=== PATIENT | male | born 1965 | race Caucasian/White ===

== ENCOUNTER → 2016-07-21 | Outpatient (CLI) | payer OTHER, MEDICARE ==
[~2016-07-21] VITALS: Ht 170.2 cm; Wt 71.2 kg
[~2016-07-21] MED LIST: ALBU8.5H2 IH; AMLO10TA PO; Acetaminophen PO; Amlodipine Besylate PO; CALC667C10 PO; CATHETER FLUSH 10 ML SYR IV PRN; CLIN300C11 PO; CODE-54 PO; CPR500T PO; DOXA2TAB2 PO; DOXA4TAB2 PO; DXZS2T PO; HYDR-3729 PO; HYDR-3816 PO; IBUP200T48 PO; LORA-405 PO; METO-272 PO; METO50TA2 PO; Metoprolol Succinate PO; REGADENOSON 0.4 MG/5 ML SYR (LEXISCAN) IV ONE; TIOT18CA2 IH; ZOLP5TAB PO
[2016-07-21 08:57] VITALS: BP 178/98
--- NOTE | 2016-07-22 06:53 | STRESS TEST ---
DATE OF SERVICE: 07/21/2016 RESTING AND POST REGADENOSON TECHNETIUM 99M TETROFOSMIN SPECT CT IMAGING PRIMARY PHYSICIAN: Dr. Salgado. CLINICAL DIAGNOSIS: Chest discomfort, syncope, shortness of breath. Baseline images were carried out after injection of 10.62 mCi of technetium-99m tetrofosmin. This was followed by 0.4 mg regadenoson and 30.7 mCi of technetium-99m tetrofosmin for stress imaging. The electrocardiogram showed sinus rhythm at baseline and it did not change significantly with the regadenoson infusion. Review of images at rest and following stress does not indicate any significant perfusion defects consistent with significant myocardial ischemia or infarction. Gated images show normal global left ventricular systolic function with normal regional wall motion. Left ventricular ejection fraction is calculated to be 54%. Left ventricular end-diastolic volume is 119 mL. TID is absent (0.98). CONCLUSIONS: 1. No evidence of any significant myocardial ischemia or infarction on this study. 2. Normal regional wall motion. 3. Normal global left ventricular systolic function with a calculated ejection fraction of 54%. Job ID: [id number] DocumentID: [id number] Dictated Date: 07/21/2016 11:37:04 Recreational Vehicle Repairer Date: 07/21/2016 19:06:08 Dictated By: DONNA DOS SANTOS MD, MA, FACP, FACC,
== END ==
LOC: CARD 07-19 12:11
PROVIDERS: ATTEND Internal Medicine Cardiovascular Disease
DX: I10 Essential (primary) hypertension (principal); J43.8 Other emphysema; I73.9 Peripheral vascular disease, unspecified; R55 Syncope and collapse; R07.89 Other chest pain; R06.02 Shortness of breath; Z87.891 Personal history of nicotine dependence
CPT/HCPCS: 78452; 93017

== ENCOUNTER 2016-12-11 11:11 | Emergency (ER) | payer OTHER, MEDICARE ==
[~2016-12-11] VITALS: Ht 175.3 cm; Wt 63.5 kg
[~2016-12-11 11:11] MED LIST changes: -CATHETER FLUSH 10 ML SYR IV PRN; -REGADENOSON 0.4 MG/5 ML SYR (LEXISCAN) IV ONE
--- OUTSIDE RECORDS SUMMARY | 2016-12-11 11:17 | XMS REPORT ---
Author Author KARLA GUEVARA [facility] eClinicalWorks Address Unknown Phone Unavailable Care Team Providers Care Manager Pharmacy Name Role Phone KARLA GUEVARA CP Unavailable Allergies, Adverse Reactions, Alerts Substance Reaction Event Type N.K.D.A. Info Not Available Non Drug Allergy Problems Problem Type Condition Code Onset Dates Condition Status Assessment Lumbago with sciatica, unspecified side M54.40 Active Problem Other and unspecified alcohol dependence, unspecified drunkenness 303.90 Active Assessment Hypertension, benign I10 Active Assessment Anxiety disorder, unspecified F41.9 Active Assessment Other chronic pain G89.29 Active Problem Anxiety disorder, unspecified F41.9 Active Problem Chronic kidney disease N18.9 Active Problem Lumbago with sciatica, unspecified side M54.40 Active Problem Personal history of tobacco use, presenting hazards to health V15.82 Active Problem Anxiety state, unspecified 300.00 Active Problem Hypertension, benign I10 Active Problem Unspecified anemia 285.9 Active Medications Medication Code System Code Instructions Start Date End Date Status Dosage Hydrocodone-Acetaminophen [facility] [address]-02 5-325 MG Orally every 4 hrs 1 tablet as needed Spiriva HandiHaler [facility] [address]-00 18 MCG Inhalation Once a day August 25, [address] [facility] 0 50 MG Orally Once a day Apr 16, 2014 take 1 tablet (50 mg) by oral route once daily Lorazepam [facility] [address]-99 1 MG Orally, each fill must last 30 days 3 times a day, prn anxiety [address] [facility] [address]-47 90 mcg/actuation June 04, 2014 2 puffs by Inhalation route 4 times per day Procedures Procedure Coding System Code Date Office Visit, Est Pt., Level 3 CPT-4 78005 September 25, 2015 FORMERLY [facility], [facility] VISIT ESTABLISHED PATIENT CPT-4 G0467 September 25, 2015 Vital Signs Date/Time: September 25, 2015 Cardiac Monitoring Heart Rate 90 bpm Weight 164 lbs Height 69 in Blood Pressure Diastolic 80 mmHg Blood Pressure Systolic 130 mmHg Results No Known Results Summary Purpose eClinicalWorks Submission
--- OUTSIDE RECORDS SUMMARY | 2016-12-11 11:17 | XMS REPORT ---
Author Author KARLA GUEVARA [facility] eClinicalWorks Address Unknown Phone Unavailable Care Team Providers Care Baking Factory Worker Name Role Phone KARLA GUEVARA CP Unavailable Allergies No Known Allergies Problems Problem Type Condition Code Onset Dates Condition Status Assessment Hypertension, benign I10 Active Assessment Proteinuria R80.9 Active Problem Hypertension, benign I10 Active Problem Unspecified anemia 285.9 Active Problem Chronic kidney disease N18.9 Active Problem Other and unspecified alcohol dependence, unspecified drunkenness 303.90 Active Assessment Chronic kidney disease N18.9 Active Problem Personal history of tobacco use, presenting hazards to health V15.82 Active Problem Anxiety state, unspecified 300.00 Active Medications No Known Medications Procedures Procedure Coding System Code Date RENAL FUNCTION PANEL CPT-4 81743 Mar 06, 2015 URINALYSIS, AUTO W/SCOPE CPT-4 60854 Mar 06, 2015 COMPLETE CBC W/AUTO DIFF WBC CPT-4 95982 Mar 06, 2015 VENIPUNCT, ROUTINE* CPT-4 67194 Mar 06, 2015 Results No Known Results Summary Purpose eClinicalWorks Submission
--- OUTSIDE RECORDS SUMMARY | 2016-12-11 11:17 | XMS REPORT ---
Author Author KARLA GUEVARA [facility] eClinicalWorks Address Unknown Phone Unavailable Care Team Providers Care Comfort Station Attendant Name Role Phone KARLA GUEVARA CP Unavailable Allergies No Known Allergies Problems Problem Type Condition Code Onset Dates Condition Status Problem Hypertension, benign I10 Active Problem Unspecified anemia 285.9 Active Problem Chronic kidney disease N18.9 Active Problem Other and unspecified alcohol dependence, unspecified drunkenness 303.90 Active Problem Personal history of tobacco use, presenting hazards to health V15.82 Active Problem Anxiety state, unspecified 300.00 Active Medications No Known Medications Results No Known Results Summary Purpose eClinicalWorks Submission
--- OUTSIDE RECORDS SUMMARY | 2016-12-11 11:17 | XMS REPORT ---
Author LINH Livingston [facility] eClinicalWorks Address Unknown Phone Unavailable Care Team Providers Care Edger Automatic Name Role Phone LINH YORK CP Unavailable Allergies, Adverse Reactions, Alerts Substance Reaction Event Type N.K.D.A. Info Not Available Non Drug Allergy Problems Problem Type Condition Code Onset Dates Condition Status Problem Nausea with vomiting 787.01 Active Problem Hematuria, unspecified 599.70 Active Problem Personal history of tobacco use, presenting hazards to health V15.82 Active Problem Benign essential hypertension 401.1 Active Problem Unspecified disorder of kidney and ureter 593.9 Active Problem Hypertension, benign I10 Active Problem Loss of weight 783.21 Active Problem Unspecified anemia 285.9 Active Problem Other malaise and fatigue 780.79 Active Problem Shortness of breath 786.05 Active Problem Unspecified infective otitis externa 380.10 Active Problem Chest pain, unspecified 786.50 Active Problem Other and unspecified alcohol dependence, unspecified drunkenness 303.90 Active Assessment Hypertension, benign I10 Active Problem Anxiety state, unspecified 300.00 Active Medications Medication Code System Code Instructions Start Date End Date Status Dosage Viagra [facility] [address]-65 50 MG Orally Once a day August 25, 2014 Dec 23, 2014 1 tablet as needed Spiriva HandiHaler [facility] [address]-44 18 MCG Inhalation Once a day August 25, 2014 1 capsule Doxazosin Mesylate [facility] [address]-82 4 MG Orally 2 times a day Nov 07, 2014 1 tablet Amlodipine Besylate [facility] [address]-89 10 MG Orally Once a day 1 tablet Lorazepam [facility] [address]-66 1 MG 3 times a day 1 tablet ProAir HFA [facility] [address]-77 90 mcg/actuation June 04, 2014 2 puffs by Inhalation route 4 times per day Metoprolol Succinate [facility] 0 50 MG Orally Once a day Apr 16, 2014 take 1 tablet (50 mg) by oral route once daily Procedures Procedure Coding System Code Date Office Visit, Est Pt., Level 3 CPT-4 46895 Dec 19, 2014 Vital Signs Date/Time: Dec 19, 2014 Temperature 98.3 F Weight 153.8 lbs Height 69 in BMI 22.71 Index Blood Pressure Diastolic 92 mmHg Blood Pressure Systolic 154 mmHg Cardiac Monitoring Heart Rate 72 bpm Results No Known Results Summary Purpose eClinicalWorks Submission
--- OUTSIDE RECORDS SUMMARY | 2016-12-11 11:17 | XMS REPORT ---
Author Author KARLA GUEVARA [facility] eClinicalWorks Address Unknown Phone Unavailable Care Team Providers Care Patient Registration Specialist Name Role Phone KARLA GUEVARA CP Unavailable Allergies No Known Allergies Problems Problem Type Condition Code Onset Dates Condition Status Problem Chronic kidney disease N18.9 Active Problem Hypertension, benign I10 Active Problem Anxiety disorder, unspecified F41.9 Active Problem Anxiety state, unspecified 300.00 Active Problem Other and unspecified alcohol dependence, unspecified drunkenness 303.90 Active Problem Unspecified anemia 285.9 Active Problem Personal history of tobacco use, presenting hazards to health V15.82 Active Medications No Known Medications Results No Known Results Summary Purpose eClinicalWorks Submission
--- OUTSIDE RECORDS SUMMARY | 2016-12-11 11:17 | XMS REPORT ---
Author Author KARLA GUEVARA Organization eClinicalWorks Address Unknown Phone Unavailable Care Team Providers Care Coal Inspector Name Role Phone KARLA GUEVARA CP Unavailable Allergies No Known Allergies Problems Problem Type Condition Code Onset Dates Condition Status Problem Other and unspecified alcohol dependence, unspecified drunkenness 303.90 Active Problem Anxiety disorder, unspecified F41.9 Active Problem Chronic kidney disease N18.9 Active Problem Lumbago with sciatica, unspecified side M54.40 Active Problem Personal history of tobacco use, presenting hazards to health V15.82 Active Problem Anxiety state, unspecified 300.00 Active Problem Hypertension, benign I10 Active Problem Unspecified anemia 285.9 Active Medications No Known Medications Results No Known Results Summary Purpose eClinicalWorks Submission
--- OUTSIDE RECORDS SUMMARY | 2016-12-11 11:17 | XMS REPORT ---
Author Author LINH YORK Organization eClinicalWorks Address Unknown Phone Unavailable Care Team Providers Care Passenger Flagman Name Role Phone LINH YORK CP Unavailable Allergies No Known Allergies Problems [...] Medications Procedures Procedure Coding System Code Date LIPID PANEL CPT-4 90013 Dec 31, 2014 COMPREHEN METABOLIC PANEL CPT-4 41482 Dec 31, 2014 COMPLETE CBC W/AUTO DIFF WBC CPT-4 48129 Dec 31, 2014 VENIPUNCT, ROUTINE* CPT-4 37447 Dec 31, 2014 Results Name Result Date Reference Range Unit Abnormality Flag ROUTINE VENIPUNCTURE Summary Purpose eClinicalWorks Submission
--- OUTSIDE RECORDS SUMMARY | 2016-12-11 11:18 | XMS REPORT ---
Author Author KARLA GUEVARA [facility] eClinicalWorks Address Unknown Phone Unavailable Care Team Providers Care Intelligence Senior Sergeant Name Role Phone KARLA GUEVARA CP Unavailable Allergies No Known Allergies Problems Problem Type Condition Code Onset Dates Condition Status Assessment Proteinuria R80.9 Active Assessment Essential hypertension I10 Active Assessment Cellulitis of leg L03.119 Active Problem Hypertension, benign I10 Active Problem Unspecified anemia 285.9 Active Problem Chronic kidney disease N18.9 Active Problem Other and unspecified alcohol dependence, unspecified drunkenness 303.90 Active Assessment Chronic kidney disease, stage IV (severe) N18.4 Active Problem Personal history of tobacco use, presenting hazards to health V15.82 Active Problem Anxiety state, unspecified 300.00 Active Medications No Known Medications Procedures Procedure Coding System Code Date ASSAY OF PSA, TOTAL CPT-4 62226 Feb 04, 2015 ASSAY OF PARATHORMONE CPT-4 88141 Feb 04, 2015 ACUTE HEPATITIS PANEL CPT-4 30618 Feb 04, 2015 ASSAY OF VITAMIN D CPT-4 91977 Feb 04, 2015 IRON BINDING TEST CPT-4 76949 Feb 04, 2015 ASSAY OF BLOOD/URIC ACID CPT-4 82950 Feb 04, 2015 ASSAY OF CALCIUM CPT-4 90658 Feb 04, 2015 PROTHROMBIN TIME CPT-4 93532 Feb 04, 2015 THROMBOPLASTIN TIME, PARTIAL CPT-4 04282 Feb 04, 2015 FLUORESCENT ANTIBODY, TITER CPT-4 31114 Feb 04, 2015 COMPLETE CBC W/AUTO DIFF WBC CPT-4 95740 Feb 04, 2015 COMPLEMENT, ANTIGEN CPT-4 40196 Feb 04, 2015 ANTINUCLEAR ANTIBODIES CPT-4 14523 Feb 04, 2015 ASSAY OF FERRITIN CPT-4 51179 Feb 04, 2015 ASSAY OF URINE CREATININE CPT-4 39025 Feb 04, 2015 ASSAY, NEPHELOMETRY NOT SPEC CPT-4 61355 Feb 04, 2015 ASSAY OF PROTEIN CPT-4 04131 Feb 04, 2015 RENAL FUNCTION PANEL CPT-4 57014 Feb 04, 2015 ASSAY OF SERUM PROTEINS CPT-4 33357 Feb 04, 2015 VENIPUNCT, ROUTINE* CPT-4 36021 Feb 04, 2015 ASSAY OF PROTEIN, URINE CPT-4 00079 Feb 04, 2015 PROTEIN E-PHORESIS/URINE/CSF CPT-4 32194 Feb 04, 2015 Results No Known Results Summary Purpose eClinicalWorks Submission
--- OUTSIDE RECORDS SUMMARY | 2016-12-11 11:18 | XMS REPORT ---
Author Author KARLA GUEVARA [facility] Address [address] [place] [address] Care Team Providers Care Medical Administrator Name Role Phone KARLA GUEVARA Unavailable PROBLEMS Type Condition ICD9-CM Code DHM38-PC Code Onset Dates Condition Status SNOMED Code Problem Anxiety disorder, unspecified F41.9 Active 712941786 Problem Cigarette nicotine dependence without complication F17.210 Active 82107190 Problem Chronic kidney disease N18.9 Active 702263041 Problem Hypertension, benign I10 Active 90423026 Problem Insomnia, unspecified type G47.00 Active 763846769 Problem Lumbago with sciatica, unspecified side M54.40 Active 775087261 ALLERGIES Unknown Allergies SOCIAL HISTORY No smoking Hx information available PLAN OF CARE VITAL SIGNS MEDICATIONS Unknown Medications RESULTS No Results PROCEDURES No Known procedures IMMUNIZATIONS No Known Immunizations
--- OUTSIDE RECORDS SUMMARY | 2016-12-11 11:18 | XMS REPORT ---
Author Author KARLA GUEVARA [facility] eClinicalWorks Address Unknown Phone Unavailable Care Team Providers Care Sport Shoe Spike Assembler Name Role Phone KARLA GUEVARA CP Unavailable Allergies No Known Allergies Problems Problem Type Condition ICD-9 Code Onset Dates Condition Status Problem Anxiety state, unspecified 300.00 Active Problem Personal history of tobacco use, presenting hazards to health V15.82 Active Problem Nausea with vomiting 787.01 Active Problem Unspecified disorder of kidney and ureter 593.9 Active Problem Other malaise and fatigue 780.79 Active Problem Benign essential hypertension 401.1 Active Problem Unspecified anemia 285.9 Active Problem Hematuria, unspecified 599.70 Active Problem Shortness of breath 786.05 Active Problem Loss of weight 783.21 Active Problem Unspecified infective otitis externa 380.10 Active Problem Chest pain, unspecified 786.50 Active Problem Other and unspecified alcohol dependence, unspecified drunkenness 303.90 Active Medications Medication Code System Code Instructions Start Date End Date Status Dosage Doxazosin Mesylate [facility] [address]-51 4 MG Orally 2 times a day Nov 07, 2014 1 tablet Results No Known Results Summary Purpose eClinicalWorks Submission
--- OUTSIDE RECORDS SUMMARY | 2016-12-11 11:18 | XMS REPORT ---
Author Author KARLA GUEVARA [facility] eClinicalWorks Address Unknown Phone Unavailable Care Team Providers Care Wire Chief Name Role Phone KARLA GUEVARA CP Unavailable [...] Medications Procedures Procedure Coding System Code Date COMPLETE CBC W/AUTO DIFF WBC CPT-4 66371 Jan 29, 2015 URINALYSIS, AUTO W/SCOPE CPT-4 85957 Jan 29, 2015 RENAL FUNCTION PANEL CPT-4 82737 Jan 29, 2015 ASSAY OF URINE CREATININE CPT-4 67531 Jan 29, 2015 ASSAY OF PROTEIN, URINE CPT-4 96273 Jan 29, 2015 VENIPUNCT, ROUTINE* CPT-4 03235 Jan 29, 2015 Results Name Result Date Reference Range Unit Abnormality Flag ROUTINE VENIPUNCTURE Summary Purpose eClinicalWorks Submission
--- OUTSIDE RECORDS SUMMARY | 2016-12-11 11:18 | XMS REPORT ---
Author Author KARLA GUEVARA [facility] eClinicalWorks Address Unknown Phone Unavailable Care Team Providers Care Vp Celebrity Services Name Role Phone KARLA GUEVRAA CP Unavailable Allergies No Known Allergies Problems [...]
--- OUTSIDE RECORDS SUMMARY | 2016-12-11 11:18 | XMS REPORT ---
Author Author KARLA GUEVARA [facility] eClinicalWorks Address Unknown Phone Unavailable Care Team Providers Care Surveyor'S Assistant Name Role Phone KARLA GUEVARA CP Unavailable Allergies, Adverse Reactions, Alerts Substance Reaction Event Type N.K.D.A. Info Not Available Non Drug Allergy Problems Problem Type Condition Code Onset Dates Condition Status Problem Hypertension, benign I10 Active Problem Unspecified anemia 285.9 Active Problem Chronic kidney disease N18.9 Active Problem Other and unspecified alcohol dependence, unspecified drunkenness 303.90 Active Assessment Hypertension, benign I10 Active Problem Personal history of tobacco use, presenting hazards to health V15.82 Active Problem Anxiety state, unspecified 300.00 Active Medications Medication Code System Code Instructions Start Date End Date Status Dosage ProAir HFA [facility] [address]-78 90 mcg/actuation June 04, 2014 2 puffs by Inhalation route 4 times per day Lasix [facility] [address]-48 40 MG Orally Once a day Jan 09, 2015 1 tablet Lorazepam [facility] [address]-09 1 MG 3 times a day 1 tablet Doxazosin Mesylate [facility] [address]-90 4 MG Orally 2 times a day Nov 07, 2014 1 tablet Spiriva HandiHaler [facility] [address]-18 18 MCG Inhalation Once a day August 25, 2014 1 capsule Metoprolol Succinate [facility] 0 50 MG Orally Once a day Apr 16, 2014 take 1 tablet (50 mg) by oral route once daily Amlodipine Besylate [facility] [address]-92 10 MG Orally Once a day 1 tablet Procedures Procedure Coding System Code Date Office Visit, Est Pt., Level 2 CPT-4 16501 Feb 05, 2015 Vital Signs Date/Time: Feb 05, 2015 Temperature 98.0 F Weight 146 lbs Height 69 in BMI 21.56 Index Blood Pressure Diastolic 92 mmHg Blood Pressure Systolic 170 mmHg Cardiac Monitoring Heart Rate 78 bpm Results No Known Results Summary Purpose eClinicalWorks Submission
--- OUTSIDE RECORDS SUMMARY | 2016-12-11 11:18 | XMS REPORT ---
Author Author LINH YORK Organization eClinicalWorks Address Unknown Phone Unavailable Care Team Providers Care Mincemeat Maker Name Role Phone LINH YORK CP Unavailable [...] dependence, unspecified drunkenness 303.90 Active Problem Anxiety state, unspecified 300.00 Active Medications No Known Medications Results No Known Results Summary Purpose eClinicalWorks Submission
--- OUTSIDE RECORDS SUMMARY | 2016-12-11 11:18 | XMS REPORT ---
Author Author KARLA GUEVARA [facility] eClinicalWorks Address Unknown Phone Unavailable Care Team Providers Care Macerator Operator Name Role Phone KARLA GUEVARA CP Unavailable [...]
--- OUTSIDE RECORDS SUMMARY | 2016-12-11 11:18 | XMS REPORT ---
Author Author LINH YORK Organization eClinicalWorks Address Unknown Phone Unavailable Care Team Providers Care Inserting Machine Operator Name Role Phone LINH YORK CP Unavailable [...] Instructions Start Date End Date Status Dosage Metoprolol Succinate [facility] 0 50 MG Orally Once a day Apr 16, 2014 take 1 tablet (50 mg) by oral route once daily Doxazosin Mesylate [facility] [address]-87 4 MG Orally 2 times a day Nov 07, 2014 1 tablet Amlodipine Besylate [facility] [address]-47 10 MG Orally Once a day 1 tablet Results No Known Results Summary Purpose eClinicalWorks Submission
--- OUTSIDE RECORDS SUMMARY | 2016-12-11 11:18 | XMS REPORT ---
Author Author KARLA GUEVARA [facility] eClinicalWorks Address Unknown Phone Unavailable Care Team Providers Care Counter Tacker Name Role Phone KARLA GUEVARA CP Unavailable Allergies No Known Allergies Problems Problem Type Condition Code Onset Dates Condition Status Problem Anxiety disorder, unspecified F41.9 Active Problem Chronic kidney disease N18.9 Active Problem Lumbago with sciatica, unspecified side M54.40 Active Problem Hypertension, benign I10 Active Medications No Known Medications Results No Known Results Summary Purpose eClinicalWorks Submission
--- OUTSIDE RECORDS SUMMARY | 2016-12-11 11:18 | XMS REPORT ---
Author Author LINH YORK [facility] eClinicalWorks Address Unknown Phone Unavailable Care Team Providers Care Supervisor Scouring Pads Name Role Phone LINH YORK CP Unavailable [...] Medications Procedures Procedure Coding System Code Date COMPREHEN METABOLIC PANEL CPT-4 06659 Jan 23, 2015 VENIPUNCT, ROUTINE* CPT-4 08679 Jan 23, 2015 COMPLETE CBC W/AUTO DIFF WBC CPT-4 17553 Jan 23, 2015 Results Name Result Date Reference Range Unit Abnormality Flag ROUTINE VENIPUNCTURE Summary Purpose eClinicalWorks Submission
--- OUTSIDE RECORDS SUMMARY | 2016-12-11 11:19 | XMS REPORT ---
Author Author KARLA GUEVARA [facility] eClinicalWorks Address Unknown Phone Unavailable Care Team Providers Care Aircraft Instrument Tester Name Role Phone KARLA GUEVARA CP Unavailable [...]
--- OUTSIDE RECORDS SUMMARY | 2016-12-11 11:19 | XMS REPORT ---
Author Author KARLA GUEVARA [facility] eClinicalWorks Address Unknown Phone Unavailable Care Team Providers Care Board Certified Family Physician Name Role Phone KARLA GUEVARA CP Unavailable [...]
--- OUTSIDE RECORDS SUMMARY | 2016-12-11 11:19 | XMS REPORT ---
Author Author KARLA GUEVARA [facility] eClinicalWorks Address Unknown Phone Unavailable Care Team Providers Care Drop Wirer Name Role Phone KARLA GUEVARA CP Unavailable Allergies, Adverse Reactions, Alerts Substance Reaction Event Type N.K.D.A. Info Not Available Non Drug Allergy Problems Problem Type Condition Code Onset Dates Condition Status Problem Anxiety disorder, unspecified F41.9 Active Problem Chronic kidney disease N18.9 Active Problem Lumbago with sciatica, unspecified side M54.40 Active Assessment Anxiety disorder, unspecified F41.9 Active Problem Hypertension, benign I10 Active Assessment Lumbago with sciatica, unspecified side M54.40 Active Medications Medication Code System Code Instructions Start Date End Date Status Dosage Hydrocodone-Acetaminophen [facility] [address]-70 7.5-325 MG Orally hs Jan 08, 2016 1 tablet as needed Lorazepam [facility] [address]-87 1 MG Orally, each fill must last 30 days 3 times a day, prn anxiety 1 tablet Ambien [facility] [address]-55 5 mg Orally Once a day Jan 08, 2016 1 tablet at bedtime Procedures Procedure Coding System Code Date Office Visit, Est Pt., Level 2 CPT-4 08515 Jan 08, 2016 Vital Signs Date/Time: Jan 08, 2016 Cardiac Monitoring Heart Rate 92 bpm Weight 162.3 lbs Height 69 in BMI 23.96 Index Blood Pressure Diastolic 100 mmHg Blood Pressure Systolic 151 mmHg Results No Known Results Summary Purpose eClinicalWorks Submission
--- OUTSIDE RECORDS SUMMARY | 2016-12-11 11:19 | XMS REPORT ---
Author Author LINH YORK Organization eClinicalWorks Address Unknown Phone Unavailable Care Team Providers Care Finance Professor Name Role Phone LINH YORK CP Unavailable [...]
--- OUTSIDE RECORDS SUMMARY | 2016-12-11 11:19 | XMS REPORT ---
Author Author NAEL MAYORGA [facility] eClinicalWorks Address Unknown Phone Unavailable Care Team Providers Care Textbook Associate Name Role Phone NAEL MAYORGA CP Unavailable Allergies No Known Allergies Problems [...]
--- OUTSIDE RECORDS SUMMARY | 2016-12-11 11:19 | XMS REPORT ---
Author Author KARLA GUEVARA [facility] Address [address] [place] [address] Care Team Providers Care Chemical Tank Worker Name Role Phone KARLA GUEVARA Unavailable PROBLEMS Type Condition ICD9-CM Code [id number] Code Onset Dates Condition Status SNOMED Code Problem Lumbago with sciatica, unspecified side M54.40 Active 732621008 Problem Anxiety disorder, unspecified F41.9 Active 323264917 Assessment Second degree burn of back of hand, right, initial encounter T23.261A Nov, Active 88587038 Problem Chronic kidney disease N18.9 Active 855763935 Problem Hypertension, benign I10 Active 26496429 ALLERGIES Substance Reaction Event Type Date Status N.K.D.A. Unknown Non Drug Allergy Nov, Unknown SOCIAL HISTORY No smoking Hx information available PLAN OF CARE VITAL SIGNS Height 69 in 2015-11-26 Weight 163 lbs 2015-11-26 Heart Rate 88 bpm 2015-11-26 Respiratory Rate 16 2015-11-26 BMI 24.07 kg/m2 2015-11-26 Blood pressure systolic 110 mmHg 2015-11-26 Blood pressure diastolic 72 mmHg 2015-11-26 MEDICATIONS Medication Instructions Dosage Frequency Start Date End Date Duration Status ProAir HFA 90 mcg/actuation 2 puffs by Inhalation route 4 times per day May, Active Spiriva HandiHaler 18 MCG Inhalation Once a day 1 capsule 24h Aug, Active Silvadene 1 % Externally Once a day 1 application to affected area 24h Active Hydrocodone-Acetaminophen 5-325 MG Orally every 4 hrs 1 tablet as needed 4h Active Metoprolol Succinate 50 MG Orally Once a day take 1 tablet (50 mg) by oral route once daily 24h Mar, Active Lorazepam 1 MG Orally, each fill must last 30 days 3 times a day, prn anxiety 1 tablet Active Hydrocodone-Acetaminophen 7.5-325 MG Orally every 6 hrs 1 tablet as needed 6h Nov, Active RESULTS No Results PROCEDURES Procedure Date Ordered Related Diagnosis Body Site Office Visit, Est Pt., Level 3 Nov 26, 2015 IMMUNIZATIONS No Known Immunizations
--- OUTSIDE RECORDS SUMMARY | 2016-12-11 11:19 | XMS REPORT ---
Author Author KARLA GUEVARA [facility] eClinicalWorks Address Unknown Phone Unavailable Care Team Providers Care Diesel Dinkey Engineer Name Role Phone KARLA GUEVARA CP Unavailable [...] Medications Procedures Procedure Coding System Code Date VENIPUNCT, ROUTINE* CPT-4 39082 Mar 23, 2015 RENAL FUNCTION PANEL CPT-4 40731 Mar 23, 2015 Results No Known Results Summary Purpose eClinicalWorks Submission
--- OUTSIDE RECORDS SUMMARY | 2016-12-11 11:19 | XMS REPORT ---
Author Author KARLA GUEVARA [facility] Address [address] [place] [address] Care Team Providers Care Meat Stock Clerk Name Role Phone KARLA GUEVARA Unavailable PROBLEMS Type Condition ICD9-CM Code [id number] Code Onset Dates Condition Status SNOMED Code Problem Anxiety disorder, unspecified F41.9 Active 336794051 Problem Cigarette nicotine dependence without complication F17.210 Active 34767610 Problem Chronic kidney disease N18.9 Active 832577595 Problem Hypertension, benign I10 Active 48999893 Problem Insomnia, unspecified type G47.00 Active 107624492 Problem Lumbago with sciatica, unspecified side M54.40 Active 797611345 ALLERGIES Unknown Allergies SOCIAL HISTORY No smoking Hx information available PLAN OF CARE VITAL SIGNS MEDICATIONS Medication Instructions Dosage Frequency Start Date End Date Duration Status Lorazepam 1 MG Orally, each fill must last 30 days 3 times a day, prn anxiety 1 tablet Active RESULTS No Results PROCEDURES No Known procedures IMMUNIZATIONS No Known Immunizations
--- OUTSIDE RECORDS SUMMARY | 2016-12-11 11:19 | XMS REPORT ---
Author Author KARLA GUEVARA [facility] eClinicalWorks Address Unknown Phone Unavailable Care Team Providers Care Chip Bin Operator Name Role Phone KARLA GUEVARA CP [...] Active Problem Chest pain, unspecified 786.50 Active Assessment Edema R60.9 Active Problem Other and unspecified alcohol dependence, unspecified drunkenness 303.90 Active Assessment Chronic kidney disease N18.9 Active Problem Anxiety state, unspecified 300.00 Active Medications Medication Code System Code Instructions Start Date End Date Status Dosage Lorazepam [facility] [address]-61 1 MG 3 times a day 1 tablet Clindamycin HCl [facility] [address]-51 300 MG Orally every 8 hrs 1 capsule Spiriva HandiHaler [facility] [address]-40 18 MCG Inhalation Once a day August 25, 2014 1 capsule Doxazosin Mesylate [facility] [address]-72 4 MG Orally 2 times a day Nov 07, 2014 1 tablet Amlodipine Besylate [facility] [address]-86 10 MG Orally Once a day 1 tablet Hydrocodone-Acetaminophen [facility] [address]-49 5-325 MG Orally every 6 hrs 1 tablet as needed ProAir HFA [facility] [address]-06 90 mcg/actuation June 04, 2014 2 puffs by Inhalation route 4 times per day Lasix [facility] [address]-52 40 MG Orally Once a day Jan 09, 2015 1 tablet Metoprolol Succinate NDC 0 50 MG Orally Once a day Apr 16, 2014 take 1 tablet (50 mg) by oral route once daily Procedures Procedure Coding System Code Date Office Visit, Est Pt., Level 4 CPT-4 97297 Jan 09, 2015 Vital Signs Date/Time: Jan 09, 2015 Temperature 98.0 F Weight 151 lbs Height 69 in BMI 22.30 Index Blood Pressure Diastolic 78 mmHg Blood Pressure Systolic 132 mmHg Cardiac Monitoring Heart Rate 70 bpm Results No Known Results Summary Purpose eClinicalWorks Submission
--- OUTSIDE RECORDS SUMMARY | 2016-12-11 11:19 | XMS REPORT ---
Author Author KARLA GUEVARA [facility] eClinicalWorks Address Unknown Phone Unavailable Care Team Providers Care Stna Name Role Phone KARLA GUEVARA CP Unavailable Allergies, Adverse Reactions, Alerts Substance Reaction Event Type N.K.D.A. Info Not Available Non Drug Allergy Problems Problem Type Condition Code Onset Dates Condition Status Assessment Chronic kidney disease N18.9 Active Problem Hypertension, [...] Instructions Start Date End Date Status Dosage Lasix [facility] [address]-60 40 MG Orally Once a day Jan 09, 2015 1 tablet ProAir HFA [facility] [address]-32 90 mcg/actuation June 04, 2014 2 puffs by Inhalation route 4 times per day Doxazosin Mesylate [facility] [address]-18 4 MG Orally 2 times a day Nov 07, 2014 1 tablet Amlodipine Besylate [facility] [address]-73 10 MG Orally Once a day 1 tablet Lorazepam [facility] [address]-98 1 MG 3 times a day 1 tablet Hydrocodone-Acetaminophen [facility] [address]-33 5-325 MG Orally every 6 hrs 1 tablet as needed Spiriva HandiHaler [facility] [address]-78 18 MCG Inhalation Once a day August 25, 2014 1 capsule Metoprolol Succinate [facility] 0 50 MG Orally Once a day Apr 16, 2014 take 1 tablet (50 mg) by oral route once daily Procedures Procedure Coding System Code Date Office Visit, Est Pt., Level 2 CPT-4 77296 Jan 20, 2015 Vital Signs Date/Time: Jan 20, 2015 Temperature 98.0 F Weight 150 lbs Height 69 in BMI 22.15 Index Blood Pressure Diastolic 74 mmHg Blood Pressure Systolic 130 mmHg Cardiac Monitoring Heart Rate 76 bpm Results No Known Results Summary Purpose eClinicalWorks Submission
--- OUTSIDE RECORDS SUMMARY | 2016-12-11 11:19 | XMS REPORT ---
Author Author LINH YORK Organization eClinicalWorks Address Unknown Phone Unavailable Care Team Providers Care Biomedical Technician Name Role Phone LINH YORK CP Unavailable [...]
--- OUTSIDE RECORDS SUMMARY | 2016-12-11 11:19 | XMS REPORT ---
Author Author LINH YORK Organization eClinicalWorks Address Unknown Phone Unavailable Care Team Providers Care Circular Ripsaw Operator Name Role Phone LINH YORK CP [...] Start Date End Date Status Dosage Lorazepam [facility] [address]-05 1 MG 3 times a day 1 tablet Results No Known Results Summary Purpose eClinicalWorks Submission
--- OUTSIDE RECORDS SUMMARY | 2016-12-11 11:20 | XMS REPORT ---
Author Author KARLA GUEVARA [facility] eClinicalWorks Address Unknown Phone Unavailable Care Team Providers Care Brass Molder Helper Name Role Phone KARLA GUEVARA CP Unavailable [...] Medications Procedures Procedure Coding System Code Date IMMUNOFIXATION (21717 X 3) CPT-4 49009 Feb 17, 2015 ASSAY OF GAMMAGLOBULIN IGE CPT-4 76828 Feb 17, 2015 IMMUNOFIXATION PROCEDURE CPT-4 36620 Feb 17, 2015 VENIPUNCT, ROUTINE* CPT-4 58606 Feb 17, 2015 Results No Known Results Summary Purpose eClinicalWorks Submission
--- OUTSIDE RECORDS SUMMARY | 2016-12-11 11:20 | XMS REPORT ---
Author Author KARLA GUEVARA [facility] eClinicalWorks Address Unknown Phone Unavailable Care Team Providers Care Neuropathologist Name Role Phone KARLA GUEVARA CP Unavailable Allergies, Adverse Reactions, Alerts Substance Reaction Event Type N.K.D.A. Info Not Available Non Drug Allergy Problems Problem Type Condition Code Onset Dates Condition Status Assessment Hypertension, benign I10 Active Problem Chronic kidney disease N18.9 Active Problem Hypertension, benign I10 Active Problem Anxiety disorder, unspecified F41.9 Active Problem Anxiety state, unspecified 300.00 Active Problem Other and unspecified alcohol dependence, unspecified drunkenness 303.90 Active Problem Unspecified anemia 285.9 Active Problem Personal history of tobacco use, presenting hazards to health V15.82 Active Medications Medication Code System Code Instructions Start Date End Date Status Dosage Spiriva HandiHaler [facility] [address]-41 18 MCG Inhalation Once a day August 25, 2014 1 capsule Doxazosin Mesylate [facility] [address]-76 2 mg Orally 2 times a day Nov 07, 2014 1 tablet Amlodipine Besylate [facility] [address]-77 10 MG Orally Once a day 1 tablet Metoprolol Succinate [facility] 0 50 MG Orally Once a day Apr 16, 2014 take 1 tablet (50 mg) by oral route once daily Lorazepam [facility] [address]-64 1 MG Orally, each fill must last 30 days 3 times a day 1 tablet ProAir HFA [facility] [address]-50 90 mcg/actuation June 04, 2014 2 puffs by Inhalation route 4 times per day Procedures Procedure Coding System Code Date Office Visit, Est Pt., Level 3 CPT-4 98648 June 25, 2015 Vital Signs Date/Time: June 25, 2015 Temperature 97.2 F Weight 151 lbs Height 69 in BMI 22.30 Index Blood Pressure Diastolic 64 mmHg Blood Pressure Systolic 98 mmHg Cardiac Monitoring Heart Rate 68 bpm Results No Known Results Summary Purpose eClinicalWorks Submission
--- OUTSIDE RECORDS SUMMARY | 2016-12-11 11:20 | XMS REPORT ---
Author Author KARLA GUEVARA [facility] eClinicalWorks Address Unknown Phone Unavailable Care Team Providers Care Soaking Pit Operator Name Role Phone KARLA GUEVARA CP [...]
--- OUTSIDE RECORDS SUMMARY | 2016-12-11 11:20 | XMS REPORT ---
Author Author KARLA GUEVARA [facility] Address [address] [place] [address] Care Team Providers Care Cyber Software Engineer Name Role Phone KARLA GUEVARA Unavailable PROBLEMS Type Condition ICD9-CM Code [id number] Code Onset Dates Condition Status SNOMED Code Problem Anxiety disorder, unspecified F41.9 Active 350312947 Problem Cigarette nicotine dependence without complication F17.210 Active 87492403 Problem Chronic kidney disease N18.9 Active 083551598 Problem Hypertension, benign I10 Active 23966776 Problem Insomnia, unspecified type G47.00 Active 425420505 Problem Lumbago with sciatica, unspecified side M54.40 Active 606444255 ALLERGIES No Information SOCIAL HISTORY Never Assessed PLAN OF CARE VITAL SIGNS MEDICATIONS Medication Instructions Dosage Frequency Start Date End Date Duration Status Lorazepam 1 MG Orally, 3 times a day, prn anxiety 1 tablet Active Ambien 5 mg Orally Once a day 1 tablet at bedtime 24h Dec, Active RESULTS No Results PROCEDURES No Known procedures IMMUNIZATIONS No Known Immunizations MEDICAL (GENERAL) HISTORY Type Description Date Medical History hypertention Medical History kidney problems Medical History COPD Medical History recurrent boil to lt elbow Surgical History hernia repair Surgical History loop monitor 04/2014 Surgical History portacath placement Hospitalization History hernia repair Hospitalization History loop monitor 04/2014
--- OUTSIDE RECORDS SUMMARY | 2016-12-11 11:20 | XMS REPORT ---
Author Author KARLA GUEVARA [facility] Address [address] [place] [address] Care Team Providers Care Equipment Engineer Name Role Phone KARLA GUEVARA Unavailable PROBLEMS Type Condition ICD9-CM Code [id number] Code Onset Dates Condition Status SNOMED Code Problem Anxiety disorder, unspecified F41.9 Active 316026227 Problem Cigarette nicotine dependence without complication F17.210 Active 75923354 Problem Chronic kidney disease N18.9 Active 447617451 Problem Hypertension, benign I10 Active 23402922 Problem Insomnia, unspecified type G47.00 Active 186405248 Problem Lumbago with sciatica, unspecified side M54.40 Active 647112918 ALLERGIES No Known Allergies SOCIAL HISTORY Never Assessed PLAN OF CARE Activity Details Follow Up 3 Months Reason: VITAL SIGNS Height 69 in 2016-04-22 Weight 161.2 lbs 2016-04-22 Temperature 97.8 degrees Fahrenheit 2016-04-22 Heart Rate 70 bpm 2016-04-22 Respiratory Rate 20 2016-04-22 BMI 23.80 kg/m2 2016-04-22 Blood pressure systolic 166 mmHg 2016-04-22 Blood pressure diastolic 84 mmHg 2016-04-22 MEDICATIONS Medication Instructions Dosage Frequency Start Date End Date Duration Status Metoprolol Succinate 50 MG Orally Once a day take 1 tablet (50 mg) by oral route once daily 24h Mar, Active Ambien 5 mg Orally Once a day 1 tablet at bedtime 24h Dec, Active Lorazepam 1 MG Orally, each fill must last 30 days 3 times a day, prn anxiety 1 tablet Active Amlodipine Besylate 10 mg Orally Once a day 1 tablet 24h Active RESULTS No Results PROCEDURES No Known [...]
--- OUTSIDE RECORDS SUMMARY | 2016-12-11 11:20 | XMS REPORT ---
Author Author LINH YORK Organization eClinicalWorks Address Unknown Phone Unavailable Care Team Providers Care Senior Controls Analyst Name Role Phone LINH YORK CP Unavailable [...]
--- OUTSIDE RECORDS SUMMARY | 2016-12-11 11:20 | XMS REPORT ---
Author Author KARLA GUEVARA [facility] eClinicalWorks Address Unknown Phone Unavailable Care Team Providers Care Biomedical Technician Name Role Phone KARLA GUEVARA CP Unavailable [...]
--- OUTSIDE RECORDS SUMMARY | 2016-12-11 11:20 | XMS REPORT ---
Author Author KARLA GUEVARA [facility] eClinicalWorks Address Unknown Phone Unavailable Care Team Providers Care Domestic Travel Consultant Name Role Phone KARLA GUEVARA CP Unavailable [...]
--- OUTSIDE RECORDS SUMMARY | 2016-12-11 11:20 | XMS REPORT ---
Author Author KARLA GUEVARA [facility] Address [address] [place] [address] Care Team Providers Care Scheduling Administrator Name Role Phone KARLA GUEVARA Unavailable PROBLEMS Type Condition ICD9-CM Code [id number] Code Onset Dates Condition Status SNOMED Code Problem Anxiety disorder, unspecified F41.9 Active 728955041 Problem Cigarette nicotine dependence without complication F17.210 Active 26119715 Problem Chronic kidney disease N18.9 Active 287776039 Problem Hypertension, benign I10 Active 08930690 Problem Insomnia, unspecified type G47.00 Active 330345587 Problem Lumbago with sciatica, unspecified side M54.40 Active 661406783 ALLERGIES Unknown Allergies SOCIAL HISTORY No smoking Hx information available PLAN OF CARE VITAL SIGNS MEDICATIONS Medication Instructions Dosage Frequency Start Date End Date Duration Status Amlodipine Besylate 10 mg Orally Once a day 1 tablet 24h Active RESULTS No Results PROCEDURES No Known procedures IMMUNIZATIONS No Known Immunizations
--- OUTSIDE RECORDS SUMMARY | 2016-12-11 11:21 | XMS REPORT | Continuity of Care Document ---
Author Author [facility] Address Unknown Phone Unavailable Allergies Active Description Code Type Severity Reaction Onset Reported/Identified Relationship to Patient Clinical Status Yes No Known Drug Allergies [id number] Drug Allergy Unknown N/ A 09/30/2009 Medications Problems Date Dx Coded Attending Type Code Diagnosis Diagnosed By 09/01/2009 LINH YORK APRN 303.90 ALCOHOLISM UNSPECI 09/01/2009 LINH YORK APRN 305.1 TOBACCO ABUSE 09/01/2009 LINH YORK APRN 357.9 NEUROPATHY UNSP 09/01/2009 LINH YORK APRN 303.90 ALCOHOLISM UNSPECI 09/01/2009 LINH YORK APRN 305.1 TOBACCO ABUSE 09/01/2009 LINH YORK APRN 357.9 NEUROPATHY UNSP 09/01/2009 LINH YORK APRN 303.90 ALCOHOLISM UNSPECI 09/01/2009 LINH YORK APRN 305.1 TOBACCO ABUSE 09/01/2009 LINH YORK APRN 357.9 NEUROPATHY UNSP 09/01/2009 LINH YORK APRN 303.90 ALCOHOLISM UNSPECI 09/01/2009 LINH YORK APRN 305.1 TOBACCO ABUSE 09/01/2009 LINH YORK APRN 357.9 NEUROPATHY UNSP 09/01/2009 LINH YORK APRN 303.90 ALCOHOLISM UNSPECI 09/01/2009 LINH YORK APRN 305.1 TOBACCO ABUSE 09/01/2009 LINH YORK APRN 357.9 NEUROPATHY UNSP 09/01/2009 LINH YORK APRN 303.90 ALCOHOLISM UNSPECI 09/01/2009 LINH YORK APRN 305.1 TOBACCO ABUSE 09/01/2009 LINH YORK APRN 357.9 NEUROPATHY UNSP 09/01/2009 LINH YORK APRN 303.90 ALCOHOLISM UNSPECI 09/01/2009 LINH YORK APRN 305.1 TOBACCO ABUSE 09/01/2009 LINH YORK APRN 357.9 NEUROPATHY UNSP 09/01/2009 MAYORGA DO, NAEL K 303.90 ALCOHOLISM UNSPECI 09/01/2009 MAYORGA DO, NAEL K 305.1 TOBACCO ABUSE 09/01/2009 MAYORGA DO, NAEL K 357.9 NEUROPATHY UNSP 09/01/2009 LINH YORK APRN 303.90 ALCOHOLISM UNSPECI 09/01/2009 LINH YORK APRN T 305.1 TOBACCO ABUSE 09/01/2009 LINH YORK APRN T 357.9 NEUROPATHY UNSP 09/01/2009 LINH YORK APRN T 303.90 ALCOHOLISM UNSPECI 09/01/2009 LINH YORK APRN T 305.1 TOBACCO ABUSE 09/01/2009 LINH YORK APRN T 357.9 NEUROPATHY UNSP 09/11/2009 LINH YORK APRN T 458.0 ORTHOSTATIC HYPOTENSION 09/11/2009 LINH YORK APRN T 458.0 ORTHOSTATIC HYPOTENSION 09/11/2009 LINH YORK APRN T 458.0 ORTHOSTATIC HYPOTENSION 09/11/2009 LINH YORK APRN T 458.0 ORTHOSTATIC HYPOTENSION 09/11/2009 LINH YORK APRN T 458.0 ORTHOSTATIC HYPOTENSION 09/11/2009 LINH YORK APRN T 458.0 ORTHOSTATIC HYPOTENSION 09/11/2009 LINH YORK APRN T 458.0 ORTHOSTATIC HYPOTENSION 09/11/2009 TIERRA DO, NAEL K 458.0 ORTHOSTATIC HYPOTENSION 09/11/2009 LINH YORK APRN T 458.0 ORTHOSTATIC HYPOTENSION 09/11/2009 LINH YORK APRN T 458.0 ORTHOSTATIC HYPOTENSION 10/07/2009 LINH YORK APRN 780.52 INSOMNIA UNSPECIFIED 10/07/2009 LINH YORK APRN 780.52 INSOMNIA UNSPECIFIED 10/07/2009 LINH YORK APRN 780.52 INSOMNIA UNSPECIFIED 10/07/2009 LINH YORK APRN T 780.52 INSOMNIA UNSPECIFIED 10/07/2009 LINH YORK APRN 780.52 INSOMNIA UNSPECIFIED 10/07/2009 LINH YORK APRN 780.52 INSOMNIA UNSPECIFIED 10/07/2009 LINH YORK APRN 780.52 INSOMNIA UNSPECIFIED 10/07/2009 MAYORGA DO, NAEL K 780.52 INSOMNIA UNSPECIFIED 10/07/2009 LINH YORK APRN 780.52 INSOMNIA UNSPECIFIED 10/07/2009 LINH YORK APRN 780.52 INSOMNIA UNSPECIFIED 11/10/2009 LINH YORK APRN 296.90 MO MOOD DIS NOS 11/10/2009 LINH YORK APRN T 307.40 INSOMNIA 11/10/2009 JAYLEN SIMSN LINH T 296.90 MO MOOD DIS NOS 11/10/2009 LINH YORK APRN T 307.40 INSOMNIA 11/10/2009 JAYLEN SIMSNLINH T 296.90 MO MOOD DIS NOS 11/10/2009 LINH YORK APRN T 307.40 INSOMNIA 11/10/2009 LINH YORK APRN T 296.90 MO MOOD DIS NOS 11/10/2009 LINH YORK APRN T 307.40 INSOMNIA 11/10/2009 JAYLEN SIMSN LINH T 296.90 MO MOOD DIS NOS 11/10/2009 LINH YORK APRN T 307.40 INSOMNIA 11/10/2009 LINH YORK APRN T 296.90 MO MOOD DIS NOS 11/10/2009 LINH YORK APRN T 307.40 INSOMNIA 11/10/2009 JAYLEN KELLER LINH T 296.90 MO MOOD DIS NOS 11/10/2009 LINH YORK APRN T 307.40 INSOMNIA 11/10/2009 MAYORGA DO, NAEL K 296.90 MO MOOD DIS NOS 11/10/2009 MAYORGA DO, NAEL K 307.40 INSOMNIA 11/10/2009 LINH YORK APRN T 296.90 MO MOOD DIS NOS 11/10/2009 LINH YORK APRN T 307.40 INSOMNIA 11/10/2009 JAYLEN KELLER LINH T 296.90 MO MOOD DIS NOS 11/10/2009 LINH YORK APRN T 307.40 INSOMNIA 12/24/2012 DAVID DO, STEPHANE K Ot 599.72 12/24/2012 DAVID DO, STEPHANE K Ot 785.6 12/24/2012 DAVID DO, STEPHANE K Ot 789.04 12/24/2012 DAVID DO, STEPHANE K Ot 789.09 12/26/2012 LINH YORK APRN 599.70 HEMATURIA 12/26/2012 LINH YORK APRN T 599.70 HEMATURIA 12/26/2012 LINH YORK APRN T 599.70 HEMATURIA 12/26/2012 LINH YORK APRN T 599.70 HEMATURIA 12/26/2012 LINH YORK APRN 599.70 HEMATURIA 12/26/2012 LINH YORK APRN 599.70 HEMATURIA 12/26/2012 LINH YORK APRN T 599.70 HEMATURIA 12/26/2012 MAYORGA DO, NAEL K 599.70 HEMATURIA 12/26/2012 LINH YORK APRN T 599.70 HEMATURIA 12/26/2012 LINH YORK APRN T 599.70 HEMATURIA 04/12/2013 LINH YORK APRN T 300.00 ANXIETY UNSPEC 04/12/2013 JAYLEN KELLER, LINH T 300.00 ANXIETY UNSPEC 04/12/2013 JAYLEN KELLER, LINH T 300.00 ANXIETY UNSPEC 04/12/2013 JAYLEN KELLER, LINH T 300.00 ANXIETY UNSPEC 04/12/2013 NAEL MAYORGA DO K 300.00 ANXIETY UNSPEC 04/12/2013 JAYLEN KELLER, LINH T 300.00 ANXIETY UNSPEC 04/12/2013 LINH YORK APRN T 300.00 ANXIETY UNSPEC 04/09/2014 FARIDA CUTLER MD N Ot 276.1 04/09/2014 FARIDA CUTLER MD N Ot 303.01 04/09/2014 FARIDA CUTLER MD N Ot 305.1 04/09/2014 FARIDA CUTLER MD N Ot 397.0 04/09/2014 FARIDA CUTLER MD N Ot 401.9 04/09/2014 FARIDA CUTLER MD N Ot 424.1 04/09/2014 FARIDA CUTLER MD N Ot 496 04/09/2014 FARIDA CUTLER MD N Ot 584.9 04/09/2014 FARIDA CUTLER MD N Ot 784.0 04/09/2014 FARIDA CUTLER MD N Ot V15.81 04/09/2014 FARIDA CUTLER MD N Ot 276.1 04/09/2014 SHEEBA CUTLER MDY N Ot 303.01 04/09/2014 SHEEBA CUTLER MDY N Ot 305.01 04/09/2014 FARIDA CUTLER MD N Ot 305.1 04/09/2014 SHEEBA CUTLER MDY N Ot 397.0 04/09/2014 FARIDA CUTLER MD N Ot 401.9 04/09/2014 FARIDA CUTLER MD N Ot 424.1 04/09/2014 SHEEBA CUTLER MDY N Ot 496 04/09/2014 HE SWEENEY FARIDA N Ot 584.9 04/09/2014 HE SWEENEY FARIDA N Ot 784.0 04/09/2014 FARIDA CUTLER MD N Ot V15.81 04/16/2014 LINH YORK APRN 303.90 ALCOHOLISM 04/16/2014 LINH YORK APRN 303.90 ALCOHOLISM 05/15/2014 Ot 285.9 05/15/2014 Ot 305.1 05/15/2014 Ot 404.90 05/15/2014 Ot 496 05/15/2014 Ot 585.9 05/15/2014 Ot 593.9 05/15/2014 Ot 285.9 05/15/2014 Ot 305.1 05/15/2014 Ot 404.90 05/15/2014 Ot 496 05/15/2014 Ot 585.9 05/15/2014 Ot 593.9 05/15/2014 Ot 285.9 05/15/2014 Ot 305.1 05/15/2014 Ot 404.90 05/15/2014 Ot 496 05/15/2014 Ot 585.9 05/15/2014 Ot 593.9 05/23/2014 LINH YORK APRN 285.9 ANEMIA 05/23/2014 LINH YORK APRN 593.9 RENAL INSUFFICIENCY 05/23/2014 LINH YORK APRN 780.79 FATIGUE 05/23/2014 LINH YORK APRN 783.21 WEIGHT LOSS 05/23/2014 LINH YORK APRN 786.05 SHORTNESS OF BREATH 05/23/2014 LINH YORK APRN 285.9 ANEMIA 05/23/2014 LINH YORK APRN 593.9 RENAL INSUFFICIENCY 05/23/2014 LINH YORK APRN 780.79 FATIGUE 05/23/2014 LINH YORK APRN 783.21 WEIGHT LOSS 05/23/2014 LINH YORK APRN 786.05 SHORTNESS OF BREATH 05/30/2014 LINH YORK APRN V15.82 NICOTINE ABUSE 05/30/2014 LINH YORK APRN V15.82 NICOTINE ABUSE 06/02/2014 LINH YORK APRN 787.01 NAUSEA WITH VOMITING 06/02/2014 LINH YORK APRN 787.01 NAUSEA WITH VOMITING 06/16/2014 LINH YORK APRN 380.10 OTITIS EXTERNA BOTH 06/16/2014 LINH YORK APRN 786.50 CHEST PAIN 06/16/2014 LINH YORK APRN 380.10 OTITIS EXTERNA BOTH 06/16/2014 LINH YORK APRN 786.50 CHEST PAIN 06/27/2014 LEVON SWEENEY FACC, ALI FACP CCDS Ot 305.01 06/27/2014 LEVON SWEENEY FACC, ALI FACP CCDS Ot 305.1 06/27/2014 LEVON SWEENEY FACC, ALI FACP CCDS Ot 397.0 06/27/2014 LEVON SWEENEY FACC, ALI FACP CCDS Ot 401.9 06/27/2014 LEVON SWEENEY FACC, ALI FACP CCDS Ot 424.0 06/27/2014 LEVON SWEENEY FACC, ALI FACP CCDS Ot 496 06/27/2014 LEVON SWEENEY FACC, ALI FACP CCDS Ot 780.2 06/27/2014 LEVON SWEENEY FAC, ALI FACP CCDS Ot 785.1 06/27/[address] [facility], ALI FACP CCDS Ot 786.59 06/30/2014 LINH YORK APRN T 578.1 HEMATOCHEZIA 06/30/2014 LINH YORK APRN T 792.1 BLOOD IN STOOL OCCULT 07/04/2014 TJ MCDUFFIE TIRE INSTALLER Ot 305.00 07/04/2014 TJ MCDUFFIE L TIRE INSTALLER Ot 305.1 07/04/2014 FROY TJ L TIRE INSTALLER Ot 403.90 07/04/2014 FROY TJ L TIRE INSTALLER Ot 585.9 07/04/2014 FROY TJ L TIRE INSTALLER Ot 780.2 07/04/2014 FROY TJ L TIRE INSTALLER Ot 786.50 07/18/2014 PAOLA SWEENEY, KARLA F Ot 305.1 07/18/2014 PAOLA SWEENEY, KARLA F Ot 403.90 07/18/2014 PAOLA SWEENEY, KARLA F Ot 433.10 07/18/2014 PAOLA SWEENEY, KARLA F Ot 433.30 07/18/2014 PAOLA SWEENEY, KARLA F Ot 496 07/18/2014 PAOLA SWEENEY, KARLA F Ot 585.3 07/18/2014 PAOLA SWEENEY, KARLA F Ot 794.09 07/18/2014 PAOLA SWEENEY, KARLA F Ot V11.3 07/18/2014 PAOLA SWEENEY, KARLA F Ot V15.81 08/08/[address] [facility], ALI FACP CCDS Ot 305.1 08/08/2014 LEVON SWEENEY FACC, ALI FACP CCDS Ot 780.2 08/08/2014 LEVON SWEENEY FACC, ALI FACP CCDS Ot 785.6 08/08/2014 LEVON SWEENEY FACC, ALI FACP CCDS Ot 786.09 09/01/2014 BAIMA, TJ L TIRE INSTALLER Ot 305.00 09/01/2014 BAIMA, TJ L TIRE INSTALLER Ot 305.1 09/01/2014 BAIMA, TJ L TIRE INSTALLER Ot 403.90 09/01/2014 BAIMA, TJ L TIRE INSTALLER Ot 585.9 09/01/2014 BAIMA, TJ L TIRE INSTALLER Ot 780.2 09/01/2014 BAIMA, TJ L TIRE INSTALLER Ot 786.50 09/05/2014 LEVON SWEENEY FACC, ALI FACP CCDS Ot 305.01 09/05/2014 LEVON SWEENEY FACC, ALI FACP CCDS Ot 305.1 09/05/2014 LEVON SWEENEY FACC, ALI FACP CCDS Ot 397.0 09/05/2014 LEVON SWEENEY FACC, ALI FACP CCDS Ot 401.9 09/05/2014 LEVON SWEENEY FACC, ALI FACP CCDS Ot 424.0 09/05/2014 LEVON SWEENEY FACC, ALI FACP CCDS Ot 496 09/05/2014 LEVON SWEENEY FACC, ALI FACP CCDS Ot 780.2 09/05/2014 LEVON SWEENEY FACC, ALI FACP CCDS Ot 785.1 09/05/2014 LEVON SWEENEY FACC, ALI FACP CCDS Ot 786.59 01/05/2015 Ot 285.9 01/05/2015 LEVON SWEENEY FACC, ALI FACP CCDS Ot 305.01 01/05/2015 LEVON SWEENEY FACC, ALI FACP CCDS Ot 305.1 01/05/2015 LEVON SWEENEY FACC, ALI FACP CCDS Ot 397.0 01/05/2015 LEVON SWEENEY FACC, ALI FACP CCDS Ot 401.9 01/05/2015 LEVON SWEENEY FACC, ALI FACP CCDS Ot 424.0 01/05/2015 LEVON SWEENEY FACC, ALI FACP CCDS Ot 496 01/05/2015 LEVON SWEENEY FACC, ALI FACP CCDS Ot 780.2 01/05/2015 LEVON MD FACC, ALI FACP CCDS Ot 785.1 01/05/2015 LEVON SWEENEY FACC, ALI FACP CCDS Ot 786.59 01/05/2015 LEVON SWEENEY FACC, ALI FACP CCDS Ot 305.1 01/05/2015 LEVON SWEENEY FACC, ALI FACP CCDS Ot 780.2 01/05/2015 LEVON SWEENEY FACC, ALI FACP CCDS Ot 785.6 01/05/2015 LEVON SWEENEY FACC, ALI FACP CCDS Ot 786.09 01/05/2015 BAIMA, TJ L TIRE INSTALLER Ot 305.00 01/05/2015 BAIMA, TJ L TIRE INSTALLER Ot 305.1 01/05/2015 BAIMA, TJ L TIRE INSTALLER Ot 403.90 01/05/2015 BAIMA, TJ L TIRE INSTALLER Ot 585.9 01/05/2015 BAIMA, TJ L TIRE INSTALLER Ot 780.2 01/05/2015 BAIMA, TJ L TIRE INSTALLER Ot 786.50 01/05/2015 Ot 285.9 01/05/2015 LEVON SWEENEY FACC, ALI FACP CCDS Ot 305.01 01/05/2015 LEVON SWEENEY FACC, ALI FACP CCDS Ot 305.1 01/05/2015 LEVON SWEENEY FACC, ALI FACP CCDS Ot 397.0 01/05/2015 LEVON SWEENEY FACC, ALI FACP CCDS Ot 401.9 01/05/2015 LEVON SWEENEY FACC, ALI FACP CCDS Ot 424.0 01/05/2015 LEVON SWEENEY FACC, ALI FACP CCDS Ot 496 01/05/2015 LEVON SWEENEY FACC, ALI FACP CCDS Ot 780.2 01/05/2015 LEVON SWEENEY FACC, ALI FACP CCDS Ot 785.1 01/05/2015 LEVON SWEENEY FACC, ALI FACP CCDS Ot 786.59 01/05/2015 LEVON SWEENEY FACC, ALI FACP CCDS Ot 305.1 01/05/2015 LEVON SWEENEY FACC, ALI FACP CCDS Ot 780.2 01/05/2015 LEVON SWEENEY FACC, ALI FACP CCDS Ot 785.6 01/05/2015 LEVON SWEENEY FACC, ALI FACP CCDS Ot 786.09 01/05/2015 CHELSIEMA, TJ L TIRE INSTALLER Ot 305.00 01/05/2015 TJ MCDUFFIE TIRE INSTALLER Ot 305.1 01/05/2015 TJ MCDUFFIE TIRE INSTALLER Ot 403.90 01/05/2015 TJ MCDUFFIE TIRE INSTALLER Ot 585.9 01/05/2015 TJ MCDUFFIE TIRE INSTALLER Ot 780.2 01/05/2015 TJ MCDUFFIE TIRE INSTALLER Ot 786.50 01/06/2015 NAEL MAYORGA DO Ot F10.99 ALCOHOL USE, UNSP WITH UNSPECIFIED ALCOH 01/06/2015 NAEL MAYORGA DO Ot F17.210 NICOTINE DEPENDENCE, CIGARETTES, UNCOMPL 01/06/2015 NAEL MAYORGA DO Ot 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, W S 01/06/2015 NAEL MAYORGA DO Ot L03.116 CELLULITIS OF LEFT LOWER LIMB 01/06/2015 NAEL MAYORGA DO Ot N18.4 CHRONIC KIDNEY DISEASE, STAGE 4 (SEVERE) 01/06/2015 NAEL MAYOGRA DO Ot Y90.9 PRESENCE OF ALCOHOL IN BLOOD, LEVEL NOT 04/28/2015 Ot F17.210 NICOTINE DEPENDENCE, CIGARETTES, UNCOMPL 04/28/2015 Ot G89.18 OTHER ACUTE POSTPROCEDURAL PAIN 04/28/2015 Ot R06.00 DYSPNEA, UNSPECIFIED 04/28/2015 Ot R60.0 LOCALIZED EDEMA 04/29/2015 SHEEBA SWEENEY, AGUS Ot D63.1 04/29/2015 SHEEBA SWEENEY, AGUS Ot N18.4 06/07/2015 SHEEBA SWEENEY, AGUS Ot D63.1 ANEMIA IN CHRONIC KIDNEY DISEASE 06/07/2015 SHEEBA SWEENEY, AGUS Ot N18.4 CHRONIC KIDNEY DISEASE, STAGE 4 (SEVERE ) 11/23/2015 SPENCER SHEEHAN MD Ot F17.210 NICOTINE DEPENDENCE, CIGARETTES, UNCOMPL 11/23/2015 SPENCER SHEEHAN MD Ot I12.0 HYP CHR KIDNEY DISEASE W STAGE 5 CHR KID 11/23/2015 SPENCER SHEEHAN MD Ot N18.6 END STAGE RENAL DISEASE 11/23/2015 SPENCER SHEEHAN MD Ot T22.111A BURN OF FIRST DEGREE OF RIGHT FOREARM, I 11/23/2015 SPENCER SHEEHAN MD Ot T23.091A BURN OF UNSP DEG MULT SITES OF RIGHT WRI 11/23/2015 SPENCER SHEEHAN MD Ot T23.291A BURN OF 2ND DEG MUL SITES OF RIGHT WRIST 11/23/2015 SPENCER SHEEHAN MD Ot X04.XXXA EXPOSURE TO IGNITION OF HIGHLY FLAMMABLE 11/23/2015 SPENCER SHEEHAN MD Ot Y93.H9 ACTVTY,OTH W EXTER PROPERTY LAND MAINT 11/23/2015 SPENCER SHEEHAN MD Ot Y99.8 OTHER EXTERNAL CAUSE STATUS 11/23/2015 SPENCER SHEEHAN MD Ot Z79.899 OTHER JAIL (CURRENT) DRUG THERAPY 11/23/2015 SPENCER SHEEHAN MD Ot Z99.2 DEPENDENCE ON RENAL DIALYSIS 11/26/2015 SPENCER SHEEHAN MD Ot F17.210 NICOTINE DEPENDENCE, CIGARETTES, UNCOMPL 11/26/2015 SPENCER SHEEHAN MD Ot I12.0 HYP CHR KIDNEY DISEASE W STAGE 5 CHR KID 11/26/2015 SPENCER SHEEHAN MD Ot N18.6 END STAGE RENAL DISEASE 11/26/2015 SPENCER SHEEHAN MD Ot T22.111A BURN OF FIRST DEGREE OF RIGHT FOREARM, I 11/26/2015 SPENCER SHEEHAN MD Ot T23.091A BURN OF UNSP DEG MULT SITES OF RIGHT WRI 11/26/2015 SPENCER SHEEHAN MD Ot T23.291A BURN OF 2ND DEG MUL SITES OF RIGHT WRIST 11/26/2015 SPENCER SHEEHAN MD Ot X04.XXXA EXPOSURE TO IGNITION OF HIGHLY FLAMMABLE 11/26/2015 SPENCER SHEEHAN MD Ot Y93.H9 ACTVTY,OTH W EXTER PROPERTY LAND MAINT 11/26/2015 SPENCER SHEEHAN MD Ot Y99.8 OTHER EXTERNAL CAUSE STATUS 11/26/2015 SPENCER SHEEHAN MD Ot Z79.899 OTHER JAIL (CURRENT) DRUG THERAPY 11/26/2015 SPENCER SHEEHAN MD Ot Z99.2 DEPENDENCE ON RENAL DIALYSIS 07/14/2016 AGUS ALY MD Ot I12.9 HYPERTENSIVE CHRONIC KIDNEY DISEASE W ST 07/14/2016 AGUS ALY MD Ot L03.119 CELLULITIS OF UNSPECIFIED PART OF LIMB 07/14/2016 AGUS ALY MD Ot N18.4 CHRONIC KIDNEY DISEASE, STAGE 4 (SEVERE ) 07/14/2016 SHEEBA SWEENEY AGUS Ot R60.0 LOCALIZED EDEMA 07/14/2016 NEMO ALY MDINE Ot R80.9 PROTEINURIA, UNSPECIFIED 07/14/2016 SHEEBA SWEENEY AGUS Ot D63.1 ANEMIA IN CHRONIC KIDNEY DISEASE 07/14/2016 AGUS ALY MD Ot N18.4 CHRONIC KIDNEY DISEASE, STAGE 4 (SEVERE ) 07/21/2016 NEMO ALY MDINE Ot I12.9 HYPERTENSIVE CHRONIC KIDNEY DISEASE W ST 07/21/2016 SHEEBA SWEENEY AGUS Ot L03.119 CELLULITIS OF UNSPECIFIED PART OF LIMB 07/21/2016 AGUS ALY MD Ot N18.4 CHRONIC KIDNEY DISEASE, STAGE 4 (SEVERE ) 07/21/2016 AGUS ALY MD Ot R60.0 LOCALIZED EDEMA 07/21/2016 AGUS ALY MD Ot R80.9 PROTEINURIA, UNSPECIFIED 07/21/2016 NEMO ALY MDINE Ot D63.1 ANEMIA IN CHRONIC KIDNEY DISEASE 07/21/2016 NEMO ALY MDINE Ot N18.4 CHRONIC KIDNEY DISEASE, STAGE 4 (SEVERE ) 07/22/2016 LEVON SWEENEY FACC, DONNA FACP CCDS Ot I10 ESSENTIAL (PRIMARY) HYPERTENSION 07/22/2016 LEVON SWEENEY FACC, ALI FACP CCDS Ot I73.9 PERIPHERAL VASCULAR DISEASE, UNSPECIFIED 07/22/2016 LEVON SWEENEY FACC, DONNA FACP CCDS Ot J43.8 OTHER EMPHYSEMA 07/22/2016 LEVON SWEENEY FACC, ALI FACP CCDS Ot R06.02 SHORTNESS OF BREATH 07/22/2016 LEVON SWEENEY FACC, DONNA FACP CCDS Ot R07.89 OTHER CHEST PAIN 07/22/2016 LEVON SWEENEY FACC, ALI FACP CCDS Ot R55 SYNCOPE AND COLLAPSE 07/22/2016 LEVON SWEENEY FACC, DONNA FACP CCDS Ot Z87.891 PERSONAL HISTORY OF NICOTINE DEPENDENCE 08/18/2016 LEVON SWEENEY FACC, DONNA FACP CCDS Ot I10 ESSENTIAL (PRIMARY) HYPERTENSION 08/18/2016 LEVON SWEENEY FACC, ALI FACP CCDS Ot I73.9 PERIPHERAL VASCULAR DISEASE, UNSPECIFIED 08/18/2016 LEVON SWEENEY FACC, ALI FACP CCDS Ot J43.8 OTHER EMPHYSEMA 08/18/2016 LEVON SWEENEY FACC, ALI FACP CCDS Ot R06.02 SHORTNESS OF BREATH 08/18/2016 LEVON SWEENEY FACC, ALI FACP CCDS Ot R07.89 OTHER CHEST PAIN 08/18/2016 LEVON SWEENEY FACC, ALI FACP CCDS Ot R55 SYNCOPE AND COLLAPSE 08/18/2016 LEVON SWEENEY FACC, ALI FACP CCDS Ot Z87.891 PERSONAL HISTORY OF NICOTINE DEPENDENCE Procedures Code [place] [address] UA LONG DIP 12/26 29401 UA LONG DIP 01/11 45027 UA LONG DIP 01/25 18260 UA LONG DIP 04/12 51218 TSH 04/19/2013 73275 ROUTINE VENIPUNCTURE 04/19/2013 61515 LIPID PANEL 04/19 64595 CBC 04/19/2013 4352019 GFR CALC (RESULT ONLY) 04/19/2013 92843 CMP 04/19/2013 2000F BLOOD PRESSURE CHECK 02/05/2014 55745 ROUTINE VENIPUNCTURE 06/30/2014 16659 H PYLORI (IN-HOUSE) 06/30/2014 GENERAL S DOE BLAIR 06/30/2014 19186 CMP 06/30/2014 [id number] GFR CALC (RESULT ONLY) 06/30/2014 21766 CBC 06/30/2014 Results Encounters ACCT No. Visit Date/Time Discharge Status Pt. Type Provider Facility Loc./Unit Complaint [id number] 06/30/2014 09:33:00 06/30/2014 23: 59:59 CLS Outpatient LINH YORK APRN [id number] 06/16/2014 10:27:00 06/16/2014 23: 59:59 CLS Outpatient LINH YORK APRN [id number] 02/05/2014 08:54:00 02/05/2014 23: 59:59 CLS Outpatient NAEL MAYORGA DO [id number] 10/09/2013 17:41:00 10/09/2013 23: 59:59 CLS Outpatient LINH YORK APRN [id number] 05/17/2013 10:56:00 05/17/2013 23: 59:59 CLS Outpatient LINH YORK APRN [id number] 04/19/2013 09:58:00 04/19/2013 23: 59:59 CLS Outpatient LINH YORK APRN [id number] 04/12/2013 14:26:00 04/12/2013 23: 59:59 CLS Outpatient LINH YORK APRN [id number] 01/25/2013 15:53:00 01/25/2013 23: 59:59 CLS Outpatient LINH YORK APRN [id number] 01/11/2013 15:53:00 01/11/2013 23: 59:59 CLS Outpatient LINH YORK APRN [id number] 12/26/2012 14:56:00 12/26/2012 23: 59:59 CLS Outpatient LINH YORK APRN [id number] 07/28/2016 13:00:00 2016 23:59:59 CLS Preadmit LEVON SWEENEY FACC, ALI FACP CCDS [facility] CARD R55,R06.02 [id number] 07/21/2016 07:31:00 2016 23:59:59 CLS Outpatient LEVON SWEENEY FACRj, ALI FACP CCDS [facility] CARD R55,R07.89,R06.02 [id number] 07/19/2016 13:00:00 2016 23:59:59 CLS Preadmit LEVON SWEENEY FACRj, ALI FACP CCDS [facility] RAD I73.9 [id number] 11/23/2015 19:13:00 2015 20:54:00 DIS Emergency SPENCER SHEEHAN MD [facility] ER R ARM BURN [id number] 06/08/2015 00:07:00 2015 23:59:59 CLS Preadmit AGUS ALY MD [facility] CKD,ANEMIA [id number] 03/09/2015 08:45:00 2015 00:01:00 DIS Outpatient AGUS ALY MD [facility] CKD,ANEMIA [id number] 02/17/2015 06:45:00 2014 23:59:59 CLS Outpatient SHEEBA SWEENEY, AGUS [facility] RAD CHRONIC KIDNEY DISEASE STAGE 3,HTN,PROTEINURIA [id number] 01/05/2015 21:11:00 2014 13:32:00 DIS Inpatient NAEL MAYORAG DO [address] ACUTE ON CHRONIC KIDNEY DISEASE, CELLULITIS [id number] 09/02/2014 08:15:00 2014 23:59:59 CLS Preadmit TJ MCDUFFIE TIRE INSTALLER [facility] CARD [id number] 06/03/2014 08:03:00 2014 00:01:00 DIS Outpatient TJ MCDUFFIE [facility] CARD [id number] 07/17/2014 05:42:00 2014 13:00:00 DIS Inpatient KARLA GUEVARA MD [facility] ICU [id number] 07/01/2014 11:14:00 2014 23:59:59 CLS Outpatient LEVON SWEENEY FACC, ALI FACP CCDS [facility] CARD [id number] 06/17/2014 11:52:00 2014 23:59:59 CLS Outpatient LEVON SWEENEY FACC, ALI FACP CCDS [facility] [id number] 04/07/2014 11:33:00 2014 11:56:00 DIS Inpatient FARIDA CUTLER MD [facility] 4TH [id number] 12/24/2012 19:15:00 2012 23:24:00 DIS Emergency DAVID STEPHANE PANCHAL [facility] ER [id number] 04/28/2015 15:23:00 Document Registration [id number] 05/19/2014 08:24:00 Document Registration [id number] 05/14/2014 14:01:00 Document Registration
[2016-12-11] MEDS ORDERED: RT-ALBUTEROL/IPRATROPIUM 3 ML (DUONEB) VIAL INH ONE ×3 (11:30→12:15)
[2016-12-11] MEDS ORDERED: ASPIRIN 81 MG CHEW (CHILDREN'S ASA) PO ONE (11:30)
[2016-12-11] MEDS: RX-NITROGLYCERIN 0.4 MG TAB BTL 25'S SL PRN ×2 (11:38→11:46)
[2016-12-11 11:43] LABS: BASOPHILS % (AUTO) 1 % (0-10); EOSINOPHILS # (AUTO) 0.1 10^3/uL (0.0-0.3); EOSINOPHILS % (AUTO) 2 % (0-10); LYMPHOCYTES # (AUTO) 2.4 X 10^3 (1.0-4.0); LYMPHOCYTES % (AUTO) 33 % (12-44); MEAN CORPUSCULAR HEMOGLOBIN 33 PG (25-34); MEAN CORPUSCULAR HGB CONC 36 G/DL (32-36); MEAN CORPUSCULAR VOLUME 93 FL (80-99); MEAN PLATELET VOLUME 9.8 FL (7.4-10.4); MONOCYTES # (AUTO) 0.5 X 10^3 (0.0-1.0); MONOCYTES % (AUTO) 7 % (0-12); NEUTROPHILS # (AUTO) 4.2 X 10^3 (1.8-7.8); NEUTROPHILS % (AUTO) 58 % (42-75); PLATELET COUNT 160 10^3/uL (130-400); RED CELL DISTRIBUTION WIDTH 13.7 % (10.0-14.5); WHITE BLOOD COUNT 7.3 10^3/uL (4.3-11.0)
[2016-12-11 12:01] LABS: INR 0.9 (0.8-1.4); PROTHROMBIN TIME PATIENT 12.7 SEC (12.2-14.7)
--- NOTE | 2016-12-11 12:03 | Diagnostic Imaging Report ---
INDICATION: Chest pain starting last night. Shortness of breath. Hypertension. TECHNIQUE: Single view chest 11:39 AM. CORRELATION STUDY: 04/28/2015 FINDINGS: The previously noted right IJ catheter has been removed. Heart size and vasculature have increased compatible with fluid overload or failure. Interstitial edema is also noted with Shaunna B lines. No focal infiltrate. Electronic device over the left brock remains in place. IMPRESSION: 1. Development of pulmonary vascular congestion and/or fluid overload along with interstitial edema. Dictated by: Dictated on workstation # [id number]
[2016-12-11 12:05] LABS: ALANINE AMINOTRANSFERASE 11 U/L (0-55); ALBUMIN 3.8 GM/DL (3.2-4.5); ANION GAP 16 MMOL/L (5-14); ASPARTATE AMINO TRANSFERASE 13 U/L (5-34); BILIRUBIN,TOTAL 1.4 MG/DL (0.1-1.0); BLOOD UREA NITROGEN 35 MG/DL (7-18); BUN/CREATININE RATIO 5; CARBON DIOXIDE 25 MMOL/L (21-32); CHLORIDE 91 MMOL/L (98-107); CREATINE KINASE 52 U/L (30-200); GFR ESTIMATED 9; GLUCOSE 85 MG/DL (70-105); LIPASE 29 U/L (8-78); MAGNESIUM 2.3 MG/DL (1.8-2.4); POTASSIUM 4.4 MMOL/L (3.6-5.0); SODIUM 132 MMOL/L (135-145); TOTAL PROTEIN 7.7 GM/DL (6.4-8.2)
--- NOTE | 2016-12-11 12:05 | ED Chest Pain ---
General Chief Complaint: Chest Pain Stated Complaint: SOB, CP, HIGH BP Nursing Triage Note: patient reports SOA starting last night with chest pain, patient reports his legs are more swollen than normal. patient states he gets dialysis on / and has not missed any appointments Nursing Sepsis Screen: No Definite Risk Source: patient, spouse Exam Limitations: no limitations History of Present Illness Time seen by provider: 11:18 Initial Comments 51-year-old male patient presents to the emergency department complains of shortness of air beginning last night with central chest pressure. Patient also complains of his legs being more swollen than usual. Patient takes dialysis on Monday/Monday/Monday and denies missing any appointments. Also states he's been taking his blood pressure medication as prescribed. Denies missing any medication doses. Patient does have a history of COPD and continues to smoke 1 pack per day. States he is supposed to be using an albuterol inhaler, but states he has been out of this for "a really long time." Patient sees Dr. Newell. Cardiac stress test done on 07/21/[address] Newell with an ejection fraction of 54 percent and no evidence of significant myocardial ischemia or infarction. Cardiac tilt test performed on 06/21/14 which was negative. On 05/14/[address] Newell showed no evidence of significant coronary artery disease. Timing/Duration: getting worse, other (onset last night) Severity/Quality: pressure Location: central Radiation: no radiation Activities at Onset: none Prior CP/Workup: cardiac cath (05/14/14), stress test (07/21/16) Allergies and Home Medications Allergies Coded Allergies: No Known Drug Allergies (Unverified , 09/30/09) Home Medications Amlodipine Besylate 10 Mg Tablet, 10 MG PO HS, (Reported) LAST FILLED #30 15 Hydrocodone/Acetaminophen 1 Each Tablet, 1 EACH PO Q6H, #14 Prescribed by: SPENCER SHEEHAN on 11/23/152038 Lorazepam 1 Mg Tablet, 1 MG PO TID PRN for ANXIETY, (Reported) LAST FILLED 08-22-14 #90 Metoprolol Tartrate 50 Mg Tablet, 50 MG PO BID, #60 Ref 4 This medication should be taken twice daily.It only lasts 12 hours. Prescribed by: SUSY FLEMING on 01/06/15 1200 Zolpidem Tartrate 5 Mg Tablet, 1 TAB PO HS, #30 (Reported) Review of Systems Constitutional: No chills, No diaphoresis, No fever, No malaise EENTM: No Symptoms Reported Respiratory: See HPI, Cough, Denies Orthopnea, Shortness of Air, SOA With Exertion, SOA at Rest, Wheezing Cardiovascular: See HPI, Chest Pain, Edema, Denies Irregular Heart Rate, Denies Palpitations, Denies Syncope Gastrointestinal: Denies Abdomen Distended, Denies Abdominal Pain, Denies Blood Streaked Stools, Denies Constipated, Denies Diarrhea, Nausea (occasional nausea), Denies Rectal Bleeding, Denies Vomiting Genitourinary: No Symptoms Reported Musculoskeletal: no symptoms reported Skin: no symptoms reported Psychiatric/Neurological: No Symptoms Reported All Other Systems Reviewed Negative Unless Noted: Yes (Negative excepted noted.) Past Tlvsyrr-Xpqorn-Qxxctn Hx Patient Social History Alcohol Use: Occasionally Uses Alcohol Beverage of Choice: Beer Recreational Drug Use: No Smoking Status: Current Everyday Smoker Type Used: Cigarettes Recent Foreign Travel: No Contact w/Someone Who Travel: No Recent Infectious Disease Expo: No Recent Hopitalizations: No Immunizations Up To Date Tetanus Booster (TDap): Less than 5yrs PED Vaccines UTD: No Date of Influenza Vaccine: Dec 29, 2014 Seasonal Allergies Seasonal Allergies: No Surgeries History of Surgeries: Yes (hernia repair, L ARM FISTULA) Respiratory History of Respiratory Disorde: Yes (COPD) Respiratory Disorders: COPD, Emphysema Currently Using CPAP: No Currently Using BIPAP: No Cardiovascular History of Cardiac Disorders: No Cardiac Disorders: Hypertension Neurological History of Neurological Disord: No Reproductive System Hx Reproductive Disorders: No Genitourinary Genitourinary Disorders: Kidney Stones, Renal Failure Gastrointestinal History of Gastrointestinal Di: No Musculoskeletal History of Musculoskeletal Dis: No Endocrine History of Endocrine Disorders: No HEENT Hearing Impairment: Hard of Hearing Cancer History of Cancer: No Psychosocial History of Psychiatric Problem: No Integumentary History of Skin or Integumenta: No Blood Transfusions History of Blood Disorders: No Adverse Reaction to a Blood Tr: No Reviewed Nursing Assessment Reviewed/Agree w Nursing PMH: Yes Family Medical History Significant Family History: No Pertinent Family Hx Family Medial History: FH: COPD (chronic obstructive pulmonary disease) 19 FATHER FH: emphysema 19 FATHER FH: heart attack 19 FATHER FH: scoliosis G8 BROTHER, FH: stroke G8 SISTER FHx: heart disease G8 SISTER Thyroid disease 19 MOTHER Physical Exam Vital Signs Vital Sign - Last 12Hours 12/11/16 11:16 Temp 96.7 Pulse 61 Resp 20 B/P (MAP) 209/122 Pulse Ox 97 O2 Delivery Room Air Capillary Refill : Less Than 3 Seconds General Appearance: WD/WN, Mild Distress HEENT: PERRL/EOMI, Pharynx Normal Neck: Normal Inspection, Supple Respiratory: Decreased Breath Sounds, Respiratory Distress (mild respiratory distress with intercostal retractions noted. ), Rhonci, Wheezing Cardiovascular: Regular Rate, Rhythm, No Murmur, Normal Peripheral Pulses Gastrointestinal: Normal Bowel Sounds, Non Tender, Soft, No Distended, Other ( abdominal breathing noted) Extremity: Normal Capillary Refill, No Calf Tenderness, Pedal Edema (1+ pedal edema bilaterally), Other (large fistual noted in the left upper arm without bleeding or swelling noted. ) Neurologic/Psychiatric: Alert, Oriented x3, Normal Mood/Affect Skin: Normal Color, Warm/Dry Progress/Results/Core Measures Results/Orders Lab Results Laboratory Tests Test 12/11/16 11:20 Range/Units White Blood Count 7.3 4.3-11.0 10^3/uL Red Blood Count 3.40 L 4.35-5.85 10^6/uL Hemoglobin 11.3 L 13.3-17.7 G/DL Hematocrit 32 L 40-54 % Mean Corpuscular Volume 93 80-99 FL Mean Corpuscular Hemoglobin 33 25-34 PG Mean Corpuscular Hemoglobin Concent 36 32-36 G/DL Red Cell Distribution Width 13.7 10.0-14.5 % Platelet Count 160 130-400 10^3/uL Mean Platelet Volume 9.8 7.4-10.4 FL Neutrophils (%) (Auto) 58 42-75 % Lymphocytes (%) (Auto) 33 12-44 % Monocytes (%) (Auto) 7 0-12 % Eosinophils (%) (Auto) 2 0-10 % Basophils (%) (Auto) 1 0-10 % Neutrophils # (Auto) 4.2 1.8-7.8 X 10^3 Lymphocytes # (Auto) 2.4 1.0-4.0 X 10^3 Monocytes # (Auto) 0.5 0.0-1.0 X 10^3 Eosinophils # (Auto) 0.1 0.0-0.3 10^3/uL Basophils # (Auto) 0.0 0.0-0.1 10^3/uL Prothrombin Time 12.7 12.2-14.7 SEC INR Comment 0.9 0.8-1.4 Activated Partial Thromboplast Time 22 L 24-35 SEC D-Dimer 1.03 H 0.00-0.49 UG/ML Sodium Level 132 L 135-145 MMOL/L Potassium Level 4.4 3.6-5.0 MMOL/L Chloride Level 91 L 98-107 MMOL/L Carbon Dioxide Level 25 21-32 MMOL/L Anion Gap 16 H 5-14 MMOL/L Blood Urea Nitrogen 35 H 7-18 MG/DL Creatinine 6.43 H 0.60-1.30 MG/DL Estimat Glomerular Filtration Rate 9 BUN/Creatinine Ratio 5 Glucose Level 85 70-105 MG/DL Calcium Level 9.0 8.5-10.1 MG/DL Magnesium Level 2.3 1.8-2.4 MG/DL Total Bilirubin 1.4 H 0.1-1.0 MG/DL Aspartate Amino Transf (AST/SGOT) 13 5-34 U/L Alanine Aminotransferase (ALT/SGPT) 11 0-55 U/L Alkaline Phosphatase 86 40-136 U/L Total Creatine Kinase 52 30-200 U/L Creatine Kinase MB 0.8 <6.6 NG/ML Myoglobin 245.6 H 10.0-92.0 NG/ML Troponin I < 0.30 <0.30 NG/ML B-Type Natriuretic Peptide 7680.4 H <100.0 PG/ML Total Protein 7.7 6.4-8.2 GM/DL Albumin 3.8 3.2-4.5 GM/DL Lipase 29 8-78 U/L My Orders Orders - DON GERARDO PA Albuterol/Ipra Inhalation Soln (Duoneb I (12/11/16 11:30) Cbc With Automated Diff (12/11/16 11:27) Magnesium (12/11/16 11:27) Chest 1 View, Ap/Pa Only (12/11/16 11:27) Ekg Tracing (12/11/16 11:27) Cardiac Profile 1 (12/11/16 11:27) Comprehensive Metabolic Panel (12/11/16 11:27) Myoglobin Serum (12/11/16 11:27) Protime With Inr (12/11/16 11:27) Partial Thromboplastin Time (12/11/16 11:27) O2 (12/11/16 11:27) Monitor-Rhythm Ecg Trace Only (12/11/16 11:27) Aspirin Chewable Tablet (Baby Aspirin Ch (12/11/16 11:30) Rx-Nitroglycerin Sl Tabs (Rx-Nitrostat S (12/11/16 11:30) Saline Lock/Iv-Start (12/11/16 11:27) Creatine Kinase (12/11/16 11:27) Creatine Kinase Mb (12/11/16 11:27) Lipase (12/11/16 11:27) BNP (12/11/16 11:27) Fibrin Degradation Products (12/11/16 11:27) Svn Sm Volume Nebulizer Rt-Rfs (12/11/16 11:27) Albuterol/Ipra Inhalation Soln (Duoneb I (12/11/16 12:00) Svn Sm Volume Nebulizer Rt-Rfs (12/11/16 11:53) Albuterol/Ipra Inhalation Soln (Duoneb I (12/11/16 12:15) Svn Sm Volume Nebulizer Rt-Rfs (12/11/16 12:05) Acetaminophen Tablet (Tylenol Tablet) (12/11/16 12:11) Morphine Injection (Morphine Injection (12/11/16 12:11) Furosemide Injection (Lasix Injection) (12/11/16 12:15) Hydralazine Injection (Apresoline Inject (12/11/16 13:45) Morphine Injection (Morphine Injection (12/11/16 13:41) Nicotine Patch (Nicoderm Patch) (12/11/16 14:00) Medications Given in ED Vital Signs/I&O Vital Sign - Last 12Hours 12/11/16 12/11/16 12/11/16 12/11/16 11:16 11:16 11:47 11:55 Temp 96.7 Pulse 61 Resp 20 B/P (MAP) 209/122 Pulse Ox 97 94 96 O2 Delivery Room Air Room Air Room Air 12/11/16 12/11/16 12:10 15:37 Pulse 64 Resp 18 Pulse Ox 96 97 O2 Delivery Room Air Blood Pressure Mean: 151 ECG Initial ECG Impression Date: Dec 11, 2016 Initial ECG Impression Time: 11:16 Initial ECG Rate: 61 Initial ECG Rhythm: Normal Sinus Initial ECG Comparisson: Unchanged Comment SR with LVH. No STEMI or arrhythmia noted. ECG reviewed and discussed with Dr. Burr. Diagnostic Imaging Diagonstic Imaging: Xray Plain Films/CT/US/NM/MRI: chest Comments FINDINGS: The previously noted right IJ catheter has been removed. Heart size and vasculature have increased compatible with fluid overload or failure. Interstitial edema is also noted with Shaunna B lines. No focal infiltrate. Electronic device over the left brock remains in place. IMPRESSION: 1. Development of pulmonary vascular congestion and/or fluid overload along with interstitial edema. Dictated on workstation # [id number] Reviewed: Reviewed by Me (radiology report reviewed by me) Departure Communication (Admissions) Progress Notes 1316 Patient case discussed with Dr. Chavira with recommendations for transfer to [facility] for emergent dialysis and further management. All laboratory findings and diagnostic study findings discussed with the patient. Have discussed recommendations by Dr. Tessie Chavira with the patient and family. All voiced understanding and wish to proceed with transfer. Patient case and plan for transfer discussed with Dr. Burr, he agrees with the plan of care. Impression Impression: Primary Impression: Acute on chronic kidney failure Qualified Codes: N17.9 - Acute kidney failure, unspecified; N18.9 - Chronic kidney disease, unspecified; Z99.2 - Dependence on renal dialysis Additional Impressions: Congestive heart failure (CHF) Qualified Codes: I50.9 - Heart failure, unspecified COPD with exacerbation Hypertension Qualified Codes: I10 - Essential (primary) hypertension Disposition: 02 XFER SHT-TRM HOSP Condition: Stable Transfer Time Spoke to Accepting Phy: 13:35 Transfer Progress Notes Susy Fleming APRN accepts patient to her medical service for dialysis and further management. Transfer Time: 14:20 Transfer Facility: [facility] Method of Transfer: EMS Departure-Patient Inst. Referrals: KARLA GUEVARA MD (PCP/Family) Primary Care Physician DON GERARDO Dec 11, 2016 12:05
[2016-12-11 12:09] LABS: CREATININE SERUM 6.43 MG/DL (0.60-1.30)
[2016-12-11] MEDS ORDERED: morphine INJ 10 MG/ML 1ML (SYR OR VIAL) IVP STA ×2 (12:11→13:41)
[2016-12-11] MEDS ORDERED: ACETAMINOPHEN 500 MG TAB (TYLENOL) PO STA (12:11)
[2016-12-11 12:14] LABS: MYOGLOBIN SERUM 245.6 NG/ML (10.0-92.0)
[2016-12-11] MEDS ORDERED: FUROSEMIDE 40 MG/4 ML INJ (LASIX) IVP ONE (12:15)
[2016-12-11] MEDS ORDERED: hydrALAZINE (APESOLINE) 20 MG/ML VIAL IV ONE (13:45)
[2016-12-11] MEDS ORDERED: NICOTINE 21 MG (NICODERM) PATCH TD ONE (14:00)
[2016-12-11 15:37] VITALS: BP 195/106
== END 2016-12-11 15:37 | disposition short-term general hospital (02) ==
LOC: EDUNIT# 11:11 → ER 11:13
DX: N17.9 Acute kidney failure, unspecified (principal); I13.2 Hypertensive heart and chronic kidney disease with heart failure and with stage 5 chronic kidney disease, or end stage renal disease; N18.6 End stage renal disease; I50.9 Heart failure, unspecified; J44.1 Chronic obstructive pulmonary disease with (acute) exacerbation; F17.210 Nicotine dependence, cigarettes, uncomplicated; Z91.14 Patient's other noncompliance with medication regimen; Z87.442 Personal history of urinary calculi; Z82.49 Family history of ischemic heart disease and other diseases of the circulatory system
CPT/HCPCS: 36415; 71010; 80053; 82550; 82553; 83690; 83735; 83874; 83880; 84484; 85025; 85379; 85610; 85730; 93005; 93041; 94640; 96374; 96375; 96376

== ENCOUNTER 2017-02-12 21:06 | Emergency (ER) | payer OTHER, MEDICARE ==
[~2017-02-12] VITALS: Ht 175.3 cm; Wt 63.5 kg
[2017-02-12] MEDS ORDERED: GABA-488 (21:11)
--- OUTSIDE RECORDS SUMMARY | 2017-02-12 21:15 | XMS REPORT ---
Author Author KARLA GUEVARA [facility] Address [address] [place] [address] Care Team Providers Care Conservation Engineer Name Role Phone KARLA GUEVARA Unavailable PROBLEMS Type Condition ICD9-CM Code [id number] Code Onset Dates Condition Status SNOMED Code Problem Hypertension, benign I10 Active 40993766 Problem Neuropathy G62.9 Active 914426643 Problem Anxiety disorder, unspecified F41.9 Active 594118437 Problem Lumbago with sciatica, unspecified side M54.40 Active 670352377 Problem Chronic kidney disease N18.9 Active 434152458 Problem Cigarette nicotine dependence without complication F17.210 Active 45162120 Problem Insomnia, unspecified type G47.00 Active 312053319 ALLERGIES No Information SOCIAL HISTORY Never Assessed PLAN OF CARE VITAL SIGNS MEDICATIONS Medication Instructions Dosage Frequency Start Date End Date Duration Status Lorazepam 1 MG Orally 3 times a day 1 tablet 8h 30 days Active RESULTS No Results PROCEDURES No Known [...]
--- OUTSIDE RECORDS SUMMARY | 2017-02-12 21:15 | XMS REPORT ---
Author Author KARLA GUEVARA [facility] Address [address] [place] [address] Care Team Providers Care Utilities And Maintenance Supervisor Name Role Phone KARLA GUEVARA Unavailable PROBLEMS Type Condition ICD9-CM Code [id number] Code Onset Dates Condition Status SNOMED Code Problem Anxiety disorder, unspecified F41.9 Active 074027388 Problem Cigarette nicotine dependence without complication F17.210 Active 82827509 Problem Chronic kidney disease N18.9 Active 619182677 Problem Hypertension, benign I10 Active 74802882 Problem Insomnia, unspecified type G47.00 Active 795955533 Problem Lumbago with sciatica, unspecified side M54.40 Active 133195423 ALLERGIES No Information SOCIAL HISTORY Never Assessed [...]
[2017-02-12 21:23] LABS: BASOPHILS % (AUTO) 0 % (0-10); EOSINOPHILS # (AUTO) 0.2 10^3/uL (0.0-0.3); EOSINOPHILS % (AUTO) 2 % (0-10); LYMPHOCYTES # (AUTO) 2.7 X 10^3 (1.0-4.0); LYMPHOCYTES % (AUTO) 26 % (12-44); MEAN CORPUSCULAR HEMOGLOBIN 34 PG (25-34); MEAN CORPUSCULAR HGB CONC 36 G/DL (32-36); MEAN CORPUSCULAR VOLUME 94 FL (80-99); MEAN PLATELET VOLUME 9.4 FL (7.4-10.4); MONOCYTES # (AUTO) 1.1 X 10^3 (0.0-1.0); MONOCYTES % (AUTO) 11 % (0-12); NEUTROPHILS # (AUTO) 6.2 X 10^3 (1.8-7.8); NEUTROPHILS % (AUTO) 61 % (42-75); PLATELET COUNT 160 10^3/uL (130-400); RED BLOOD COUNT 3.34 10^6/uL (4.35-5.85); RED CELL DISTRIBUTION WIDTH 13.9 % (10.0-14.5); WHITE BLOOD COUNT 10.2 10^3/uL (4.3-11.0)
--- NOTE | 2017-02-12 21:24 | ED Respiratory ---
General Chief Complaint: Respiratory Problems Stated Complaint: WEAKNESS SOA Nursing Triage Note: soa, weakness, fall Source: patient, EMS Exam Limitations: no limitations History of Present Illness Time seen by provider: 21:07 Initial Comments Here with increasing shortness of breath over the last 2 days. Has had weakness in 2 or 3 falls in the last 2 days. Denies hitting his head on any of these events but did hit his right rib cage at least once on the washer. The other fall he became weak and fell forward and caught himself with his arms. Denies other injuries from the nose. Patient is on dialysis and receives dialysis on Monday, Monday and Monday. Has not missed. Denies nausea or vomiting but does report fever without chills. States he's been somewhat constipated recently. reports that he's been confused since Monday after dialysis and this is persisted until now. This is worsened today. Timing/Duration: getting worse, other Severity: moderate Prior Episodes/Possible Cause: occasional episodes Modifying Factors: Improves With Albuterol Nebulizer Associated Symptoms: chest pain/soreness, No cough, fever/chills, muscle aches , No nasal congestion, No nasal drainage, shortness of breath, wheezing Allergies and Home Medications Allergies Coded Allergies: No Known Drug Allergies (Unverified , 09/30/09) Home Medications Amlodipine Besylate 10 Mg Tablet, 10 MG PO HS, (Reported) LAST FILLED #30 12-01-14 Gabapentin 300 Mg Capsule, (Reported) Lorazepam 1 Mg Tablet, 1 MG PO TID PRN for ANXIETY, (Reported) LAST FILLED 08-22-14 #90 Metoprolol Tartrate 50 Mg Tablet, 50 MG PO BID, #60 Ref 4 This medication should be taken twice daily.It only lasts 12 hours. Prescribed by: SUSY FLEMING on 01/06/15 1200 Zolpidem Tartrate 5 Mg Tablet, 1 TAB PO HS, #30 (Reported) Constitutional: see HPI, No chills, fever, malaise, weakness EENTM: no symptoms reported Respiratory: see HPI, dyspnea on exertion, short of breath, wheezing Cardiovascular: chest pain, No edema, No palpitations Gastrointestinal: abdominal pain, constipation, No diarrhea, No nausea, No vomiting Genitourinary: no symptoms reported Musculoskeletal: see HPI, joint pain, muscle pain Skin: see HPI, change in color (bruising to the right ribs laterally) Psychiatric/Neurological: No Symptoms Reported Hematologic/Lymphatic: No Symptoms Reported All Other Systems Reviewed Negative Unless Noted: Yes Past Hybleuf-Opxazl-Gaqiml Hx Patient Social History Alcohol Use: Occasionally Uses Number of Drinks Today: AA Alcohol Beverage of Choice: Beer Recreational Drug Use: No Smoking Status: Current Everyday Smoker Type Used: Cigarettes 2nd Hand Smoke Exposure: Yes Recent Foreign Travel: No Contact w/Someone Who Travel: No Recent Infectious Disease Expo: No Recent Hopitalizations: No Immunizations Up To Date Tetanus Booster (TDap): Less than 5yrs PED Vaccines UTD: No Date of Influenza Vaccine: Dec 29, 2014 Seasonal Allergies Seasonal Allergies: No Surgeries History of Surgeries: Yes (hernia repair, L ARM FISTULA) Respiratory History of Respiratory Disorde: Yes (COPD) Respiratory Disorders: COPD, Emphysema Currently Using CPAP: No Currently Using BIPAP: No Cardiovascular History of Cardiac Disorders: No Cardiac Disorders: Hypertension Neurological History of Neurological Disord: No Reproductive System Hx Reproductive Disorders: No Genitourinary History of Genitourinary Disor: Yes (hd mwf) Genitourinary Disorders: Kidney Stones, Renal Failure Gastrointestinal History of Gastrointestinal Di: No Musculoskeletal History of Musculoskeletal Dis: No Endocrine History of Endocrine Disorders: No HEENT History of HEENT Disorders: No Hearing Impairment: Hard of Hearing Cancer History of Cancer: No Psychosocial History of Psychiatric Problem: Yes Behavioral Health Disorders: Anxiety Integumentary History of Skin or Integumenta: No Blood Transfusions History of Blood Disorders: No Adverse Reaction to a Blood Tr: No Reviewed Nursing Assessment Reviewed/Agree w Nursing PMH: Yes Family Medical History Significant Family History: No Pertinent Family Hx Family Medial History: FH: COPD (chronic obstructive pulmonary disease) 19 FATHER FH: emphysema 19 FATHER FH: heart attack 19 FATHER FH: scoliosis G8 BROTHER, FH: stroke G8 SISTER FHx: heart disease G8 SISTER Thyroid disease 19 MOTHER Physical Exam Vital Signs Vital Sign - Last 12Hours 02/12/17 02/12/17 21:06 21:11 Temp 97.7 Pulse 93 Resp 22 B/P (MAP) 183/108 Pulse Ox 100 O2 Delivery OxyMask O2 Flow Rate 6.00 Capillary Refill : Less Than 3 Seconds General Appearance: WD/WN, no apparent distress HEENT: PERRL/EOMI, pharynx normal Neck: full range of motion, supple Respiratory: no accessory muscle use, decreased breath sounds, crackles, expiration, inspiration Cardiovascular: regular rate, rhythm, no murmur Gastrointestinal: non tender, soft Extremities: non-tender, normal inspection, no pedal edema Neurologic/Psychiatric: alert, oriented x 3 Skin: warm/dry, ecchymosis (right ribs laterally small amount of ecchymosis.), other (redness noted along the lateral aspect of the middle right chest near bruising of the right ribs) Focused Exam Evaluation Lactate Level Laboratory Tests 02/12/17 21:40: Lactic Acid Level 1.71 Lactic Acid Level Laboratory Tests Test 02/12/17 21:40 Lactic Acid Level 1.71 MMOL/L (0.50-2.00) Progress/Results/Core Measures Suspected Sepsis Recent Fever Within 48 Hours: No Infection Criteria Present: None New/Unexplained Altered Menta: No Sepsis Screen: No Definite Risk Sepsis Diagnosis: SIRS Temperature:97.7 Pulse: 93 Respiratory Rate: 22 Laboratory Tests 02/12/17 21:08: White Blood Count 10.2 Blood Pressure 183 /108 Mean: 133 Laboratory Tests 02/12/17 21:40: Lactic Acid Level 1.71 Laboratory Tests 02/12/17 21:08: Creatinine 10.05H, Platelet Count 160, Total Bilirubin 0.5 Results/Orders Lab Results Laboratory Tests Test 02/12/17 21:08 02/12/17 21:40 02/12/17 22:15 Range/Units White Blood Count 10.2 4.3-11.0 10^3/uL Red Blood Count 3.34 L 4.35-5.85 10^6/uL Hemoglobin 11.3 L 13.3-17.7 G/DL Hematocrit 31 L 40-54 % Mean Corpuscular Volume 94 80-99 FL Mean Corpuscular Hemoglobin 34 25-34 PG Mean Corpuscular Hemoglobin Concent 36 32-36 G/DL Red Cell Distribution Width 13.9 10.0-14.5 % Platelet Count 160 130-400 10^3/uL Mean Platelet Volume 9.4 7.4-10.4 FL Neutrophils (%) (Auto) 61 42-75 % Lymphocytes (%) (Auto) 26 12-44 % Monocytes (%) (Auto) 11 0-12 % Eosinophils (%) (Auto) 2 0-10 % Basophils (%) (Auto) 0 0-10 % Neutrophils # (Auto) 6.2 1.8-7.8 X 10^3 Lymphocytes # (Auto) 2.7 1.0-4.0 X 10^3 Monocytes # (Auto) 1.1 H 0.0-1.0 X 10^3 Eosinophils # (Auto) 0.2 0.0-0.3 10^3/uL Basophils # (Auto) 0.0 0.0-0.1 10^3/uL Sodium Level 133 L 135-145 MMOL/L Potassium Level 5.2 H 3.6-5.0 MMOL/L Chloride Level 89 L 98-107 MMOL/L Carbon Dioxide Level 28 21-32 MMOL/L Anion Gap 16 H 5-14 MMOL/L Blood Urea Nitrogen 36 H 7-18 MG/DL Creatinine 10.05 H 0.60-1.30 MG/DL Estimat Glomerular Filtration Rate 6 BUN/Creatinine Ratio 4 Glucose Level 107 H 70-105 MG/DL Calcium Level 8.7 8.5-10.1 MG/DL Total Bilirubin 0.5 0.1-1.0 MG/DL Aspartate Amino Transf (AST/SGOT) 9 5-34 U/L Alanine Aminotransferase (ALT/SGPT) 6 0-55 U/L Alkaline Phosphatase 70 40-136 U/L Troponin I < 0.30 <0.30 NG/ML B-Type Natriuretic Peptide 1865.1 H <100.0 PG/ML Total Protein 7.7 6.4-8.2 GM/DL Albumin 3.8 3.2-4.5 GM/DL Lactic Acid Level 1.71 0.50-2.00 MMOL/L Urine Color YELLOW Urine Clarity CLEAR Urine pH 8 5-9 Urine Specific [place] 1.010 L 1.016-1.022 Urine Protein 3+ H NEGATIVE Urine Glucose (UA) 1+ H NEGATIVE Urine Ketones NEGATIVE NEGATIVE Urine Nitrite NEGATIVE NEGATIVE Urine Bilirubin NEGATIVE NEGATIVE Urine Urobilinogen NORMAL NORMAL MG/DL Urine Leukocyte Esterase NEGATIVE NEGATIVE Urine RBC (Auto) 2+ H NEGATIVE Urine RBC 2-5 H /HPF Urine WBC NONE /HPF Urine Squamous Epithelial Cells RARE /HPF Urine Crystals NONE /LPF Urine Bacteria NONE /HPF Urine Casts NONE /LPF Urine Mucus NEGATIVE /LPF Urine Culture Indicated NO My Orders Orders - SPENCER SHEEHAN MD BNP (02/12/17 21:14) Cbc With Automated Diff (02/12/17 21:14) Comprehensive Metabolic Panel (02/12/17 21:14) Troponin I (02/12/17 21:14) Chest 1 View, Ap/Pa Only (02/12/17 21:14) Ct Chest/Abdomen/Pelvis Wo (02/12/17 21:14) Ekg Tracing (02/12/17 21:15) O2 (02/12/17 21:15) Monitor-Rhythm Ecg Trace Only (02/12/17 21:15) Ct Head Wo (02/12/17 21:24) Lactic Acid Analyzer (02/12/17 21:29) Blood Culture (02/12/17 21:29) Ua Culture If Indicated (02/12/17 21:30) Albuterol Pre-Mix Nebs (Rt) (Proventil (02/12/17 22:22) Svn Sm Volume Nebulizer Rt-Rfs (02/12/17 22:22) Piperacillin Sodium/Tazobactam (Zosyn Vi (02/12/17 22:45) Vital Signs/I&O Vital Sign - Last 12Hours 02/12/17 02/12/17 02/12/17 02/12/17 21:06 21:11 21:19 22:31 Temp 97.7 Pulse 93 Resp 22 B/P (MAP) 183/108 Pulse Ox 100 100 100 1 O2 Delivery OxyMask OxyMask Nasal Cannula Nasal Cannula O2 Flow Rate 6.00 6.00 2.00 2.00 Capillary Refill : Less Than 3 Seconds Blood Pressure Mean: 133 Progress Note : Progress Note Seen and evaluated. IV established by EMS. Labs, chest x-ray and EKG ordered. Patient has tenderness along the chest and abdomen. He has had falls. He is on dialysis contrast is not appropriate. We will get noncontrast CT scan of the chest, abdomen and pelvis. Due to confusion and falls we will also get CT of his head. Patient is much better after breathing treatment given by EMS. He is requesting oxygen which was given for shortness of air although O2 saturations 100 percent. Temperature noted to be 99.6. Blood cultures and lactic acid ordered as well as UA. 2230: Albuterol neb ordered. Patient states he is feeling better actually. Still has some confusion though. 2240: CT of the chest shows bibasilar pneumonia. Due to his need for dialysis and the complications of end-stage renal disease, patient will require admission. I did discuss the case with the ER doctor at [facility] in [place], [place] , Dr. Gaffney. She accepts patient for transfer ER to ER due to history of recent fall. Zosyn 2.25 g IV initiated for pneumonia hemodialysis dosing. All of this is discussed with patient and family who agree with plan. Patient will go by EMS due to oxygen requirement and IV antibiotics initiated. ECG Initial ECG Impression Date: Feb 12, 2017 Initial ECG Impression Time: 21:21 Initial ECG Rate: 85 Initial ECG Rhythm: Normal Sinus Comment Sinus rhythm with left ventricular hypertrophy and normal axis. No evidence of ST elevation AL. Similar to previous of 12/11/16. Interpreted by me. Diagnostic Imaging Diagonstic Imaging: Xray Plain Films/CT/US/NM/MRI: chest Comments [facility] [place], [place] NAME: ANGELINAFANY BAUNAT REC#: [id number] PT STATUS: REG ER : 1965 PHYSICIAN: SPENCER SHEEHAN MD ADMIT DATE: 02/12/17/ER Draft Date of Exam:02/12/17 CHEST 1 VIEW, AP/PA ONLY INDICATION: Weakness. Shortness of air. Recent falls. COMPARISON: 12/11/2016 FINDINGS: Single frontal view of the chest demonstrates normal heart size and pulmonary vascularity. The lungs are well aerated and clear. No large pleural effusion or pneumothorax is seen. The visualized osseous structures show no acute abnormalities. IMPRESSION: 1. No acute cardiopulmonary process. Dictated on workstation # [id number] Dict: 02/12/172154 Trans: 02/12/172155 [id number] Interpreted by: MOON ART MD Electronically signed by: Reviewed: Reviewed by Me Diagonstic Imaging: CT Plain Films/CT/US/NM/MRI: head Comments [facility]. [place] [place] NAME: ANGELINAFANY R MED REC#: [id number] PT STATUS: REG ER : 1965 PHYSICIAN: SPENCER SHEEHAN MD ADMIT DATE: 02/12/17/ER Draft Date of Exam:02/12/17 CT HEAD WO INDICATION: Weakness. Shortness of air. Recent falls. TECHNIQUE: Routine non contrast-enhanced axial images were obtained from the skull base to the vertex. COMPARISON: 07/17/2014 FINDINGS: The ventricles and cortical sulci are age-appropriate. There are confluent areas of abnormal, low attenuation in the periventricular white matter. This is consistent with chronic small vessel ischemic changes. There is no midline shift or mass-effect. No acute intra-axial hemorrhage is seen. There are no abnormal areas of increased or decreased density to suggest acute hemorrhage or edema. No extra-axial masses or collections are present. The bony calvarium is intact. The visualized paranasal sinuses are unremarkable. The mastoid air cells are opacified bilaterally, right greater than left. IMPRESSION: 1. No acute intracranial abnormality. No CT evidence of mass, acute infarct or intracranial hemorrhage. 2. Chronic small vessel ischemic changes in deep white matter. 3. Opacification of bilateral mastoid air cells. In the correct clinical setting, this can be seen as a sequela of mastoiditis. Clinical correlation recommended. Dictated on workstation # [id number] Dict: 02/12/172156 Trans: 02/12/172202 [id number] Interpreted by: MOON ART MD Electronically signed by: Reviewed: Reviewed by Me Diagonstic Imaging: CT Plain Films/CT/US/NM/MRI: chest, abdomen, pelvis Comments NAME: [facility]NEY[facility]aushik Neumann [facility] REC#: [id number] PT STATUS: REG ER : 1965 PHYSICIAN: SPENCER SHEEHAN MD ADMIT DATE: 02/12/17/ER Draft Date of Exam:02/12/17 CT CHEST/ABDOMEN/PELVIS WO PROCEDURE: CT chest, abdomen and pelvis without contrast. TECHNIQUE: Multiple contiguous axial images were obtained through the chest, abdomen, and pelvis without the use of intravenous contrast. INDICATION: Weakness. Shortness of air. Recent falls. COMPARISON: 06/03/2014 and 12/24/2012. FINDINGS: CT CHEST: Cardiomediastinal structures show normal heart size. There is no large pericardial effusion. There is a single prominent mediastinal lymph node along the left lateral margins of the trachea that measures 1.2 x 2.5 cm just superior to the haley (image 28, series 2). Previously, this measured approximately 1.1 x 2.1 cm on exam dated 06/03/2014. No other significant abnormal mediastinal, hilar or axillary adenopathy is seen on this noncontrast exam. There is mild calcified coronary atherosclerosis. Main pulmonary arterial trunk is prominent, measuring 3.5 cm in diameter. Evaluation with lung windows demonstrates minimal ill-defined nodular and groundglass densities within the bilateral lower lobes. These are new compared to prior exam. There is no large effusion or pneumothorax. Reference area on the right measures approximately 9 mm in diameter (image 37, series 2). Bony structures show no acute abnormalities. No lytic or blastic bony lesions are seen. CT ABDOMEN: Small bowel loops are nondistended. There is moderate air and stool scattered throughout the colon. Normal appendix is identified. The kidneys, spleen, liver, adrenal glands and pancreas have an unremarkable noncontrast CT appearance. There is no loculated fluid collection, free fluid or free air within the abdomen. No abnormal mesenteric or retroperitoneal adenopathy is seen. Bony structures show no acute abnormality. There is mild to moderate calcified aortic arterial atherosclerosis. CT PELVIS: Metallic densities are noted within the region of the right inguinal canal consistent with probable previous surgery. Urinary bladder is unopacified. No calculi are seen within the urinary bladder. There is no loculated fluid collection, free fluid or free air within the pelvis. No abnormal lymph nodes are seen. Bony structures show no acute abnormality. IMPRESSION: 1. Scattered nodular and groundglass densities predominantly within the bilateral lower lobes. Findings are nonspecific, but are suspicious for infiltrate. Followup CT chest after appropriate course of antibiotic therapy is recommended to ensure appropriate interval resolution. 2. Single prominent mediastinal lymph node, as described above. Clinical significance is indeterminate based on this exam, but stability could be assessed with followup for previously described pulmonary densities. 3. Prominent main pulmonary arterial trunk. This can be seen with underlying pulmonary arterial hypertension. 4. Calcified aortic, arterial and coronary atherosclerosis. Correlation for risk factors is recommended. 5. Moderate colonic air and stool. Please correlate for underlying constipation. Dictated on workstation # [id number] Dict: 02/12/172207 Trans: 02/12/174 [facility] [id number] Interpreted by: MOON ART MD Electronically signed by: Reviewed: Reviewed by Me Departure Impression Impression: Primary Impression: Pneumonia of both lower lobes Qualified Codes: J18.9 - Pneumonia, unspecified organism Additional Impressions: End stage renal disease on dialysis Confusion Disposition: 02 XFER SHT-TRM HOSP Condition: Stable Transfer Time Spoke to Accepting Phy: 22:40 Transfer Time: 22:40 Transfer Facility: [place], [place], Dr. Gaffney accepting Method of Transfer: EMS Departure-Patient Inst. Referrals: KARLA GUEVARA MD (PCP/Family) Primary Care Physician SPENCER SHEEHAN MD Feb 12, 2017 21:24
[2017-02-12 21:37] LABS: ALANINE AMINOTRANSFERASE 6 U/L (0-55); ALBUMIN 3.8 GM/DL (3.2-4.5); ANION GAP 16 MMOL/L (5-14); ASPARTATE AMINO TRANSFERASE 9 U/L (5-34); BILIRUBIN,TOTAL 0.5 MG/DL (0.1-1.0); BLOOD UREA NITROGEN 36 MG/DL (7-18); BUN/CREATININE RATIO 4; CALCIUM 8.7 MG/DL (8.5-10.1); CARBON DIOXIDE 28 MMOL/L (21-32); CHLORIDE 89 MMOL/L (98-107); CREATININE SERUM 10.05 MG/DL (0.60-1.30); GFR ESTIMATED 6; GLUCOSE 107 MG/DL (70-105); POTASSIUM 5.2 MMOL/L (3.6-5.0); SODIUM 133 MMOL/L (135-145); TOTAL PROTEIN 7.7 GM/DL (6.4-8.2)
[2017-02-12 21:43] LABS: TROPONIN I < 0.30 NG/ML (<0.30)
--- NOTE | 2017-02-12 21:56 | Diagnostic Imaging Report ---
INDICATION: Weakness. Shortness of air. Recent falls. COMPARISON: 12/11/2016 FINDINGS: Single frontal view of the chest demonstrates normal heart size and pulmonary vascularity. The lungs are well aerated and clear. No large pleural effusion or pneumothorax is seen. The visualized osseous structures show no acute abnormalities. IMPRESSION: 1. No acute cardiopulmonary process. Dictated by: Dictated on workstation # [id number]
--- NOTE | 2017-02-12 22:04 | Diagnostic Imaging Report ---
INDICATION: Weakness. Shortness of air. Recent falls. TECHNIQUE: Routine non contrast-enhanced axial images were obtained from the skull base to the vertex. COMPARISON: 07/17/2014 FINDINGS: The ventricles and cortical sulci are age-appropriate. There are confluent areas of abnormal, low attenuation in the periventricular white matter. This is consistent with chronic small vessel ischemic changes. There is no midline shift or mass-effect. No acute intra-axial hemorrhage is seen. There are no abnormal areas of increased or decreased density to suggest acute hemorrhage or edema. No extra-axial masses or collections are present. The bony calvarium is intact. The visualized paranasal sinuses are unremarkable. The mastoid air cells are opacified bilaterally, right greater than left. IMPRESSION: 1. No acute intracranial abnormality. No CT evidence of mass, acute infarct or intracranial hemorrhage. 2. Chronic small vessel ischemic changes in deep white matter. 3. Opacification of bilateral mastoid air cells. In the correct clinical setting, this can be seen as a sequela of mastoiditis. Clinical correlation recommended. Dictated by: Dictated on workstation # [id number]
[2017-02-12] MEDS ORDERED: RT-ALBUTEROL SULF 2.5 MG/3 ML PRE-MIX VIAL INH STA (22:22)
[2017-02-12 22:23] LABS: BILIRUBIN,URINE NEGATIVE (NEGATIVE); KETONES,URINE NEGATIVE (NEGATIVE); LEUKOCYTE ESTERASE ,URINE NEGATIVE (NEGATIVE); NITRITE,URINE NEGATIVE (NEGATIVE); PH,URINE 8 (5-9); PROTEIN,URINE 3+ (NEGATIVE); UROBILINOGEN,URINE NORMAL (NORMAL)
--- NOTE | 2017-02-12 22:25 | Diagnostic Imaging Report ---
PROCEDURE: CT chest, abdomen and pelvis without contrast. TECHNIQUE: Multiple contiguous axial images were obtained through the chest, abdomen, and pelvis without the use of intravenous contrast. INDICATION: Weakness. Shortness of air. Recent falls. COMPARISON: 06/03/2014 and 12/24/2012. FINDINGS: CT CHEST: Cardiomediastinal structures show normal heart size. There is no large pericardial effusion. There is a single prominent mediastinal lymph node along the left lateral margins of the trachea that measures 1.2 x 2.5 cm just superior to the haley (image 28, series 2). Previously, this measured approximately 1.1 x 2.1 cm on exam dated 06/03/2014. No other significant abnormal mediastinal, hilar or axillary adenopathy is seen on this noncontrast exam. There is mild calcified coronary atherosclerosis. Main pulmonary arterial trunk is prominent, measuring 3.5 cm in diameter. Evaluation with lung windows demonstrates minimal ill-defined nodular and groundglass densities within the bilateral lower lobes. These are new compared to prior exam. There is no large effusion or pneumothorax. Reference area on the right measures approximately 9 mm in diameter (image 37, series 2). Bony structures show no acute abnormalities. No lytic or blastic bony lesions are seen. CT ABDOMEN: Small bowel loops are nondistended. There is moderate air and stool scattered throughout the colon. Normal appendix is identified. The kidneys, spleen, liver, adrenal glands and pancreas have an unremarkable noncontrast CT appearance. There is no loculated fluid collection, free fluid or free air within the abdomen. No abnormal mesenteric or retroperitoneal adenopathy is seen. Bony structures show no acute abnormality. There is mild to moderate calcified aortic arterial atherosclerosis. CT PELVIS: Metallic densities are noted within the region of the right inguinal canal consistent with probable previous surgery. Urinary bladder is unopacified. No calculi are seen within the urinary bladder. There is no loculated fluid collection, free fluid or free air within the pelvis. No abnormal lymph nodes are seen. Bony structures show no acute abnormality. IMPRESSION: 1. Scattered nodular and groundglass densities predominantly within the bilateral lower lobes. Findings are nonspecific, but are suspicious for infiltrate. Followup CT chest after appropriate course of antibiotic therapy is recommended to ensure appropriate interval resolution. 2. Single prominent mediastinal lymph node, as described above. Clinical significance is indeterminate based on this exam, but stability could be assessed with followup for previously described pulmonary densities. 3. Prominent main pulmonary arterial trunk. This can be seen with underlying pulmonary arterial hypertension. 4. Calcified aortic, arterial and coronary atherosclerosis. Correlation for risk factors is recommended. 5. Moderate colonic air and stool. Please correlate for underlying constipation. Dictated by: Dictated on workstation # [id number]
[2017-02-12 22:28] LABS: SQUAMOUS EPITHELIAL CELL,UR RARE /HPF
[2017-02-12] MEDS ORDERED: PIPERACILLIN SODIUM/TAZOBACTAM 2.25 GM in NS (IVPB) 100 ML IV ONE (22:45)
[2017-02-12 23:03] VITALS: BP 175/96
== END 2017-02-12 23:05 | disposition short-term general hospital (02) ==
LOC: EDUNIT# 21:06 → ER 21:08
DX: J18.1 Lobar pneumonia, unspecified organism (principal); J43.9 Emphysema, unspecified; I12.0 Hypertensive chronic kidney disease with stage 5 chronic kidney disease or end stage renal disease; N18.6 End stage renal disease; R41.0 Disorientation, unspecified; F41.9 Anxiety disorder, unspecified; F17.210 Nicotine dependence, cigarettes, uncomplicated; Z87.442 Personal history of urinary calculi; Z99.2 Dependence on renal dialysis
CPT/HCPCS: 36415; 70450; 71010; 71250; 74176; 80053; 81000; 83605; 83880; 84484; 85025; 87040; 93005; 93041; 94640

== ENCOUNTER 2018-01-08 18:38 | Emergency (ER) | payer OTHER, MEDICARE ==
[~2018-01-08] VITALS: Ht 175.3 cm; Wt 68.0 kg
[~2018-01-08 18:38] MED LIST changes: +GABA-488; +HYDR-34 PO; -HYDR-3816 PO; +METO50TA15 PO; -METO50TA2 PO
[2018-01-08] MEDS ORDERED: HYDR-3816 (18:55)
[2018-01-08 19:13] LABS: BASOPHILS % (AUTO) 1 % (0-10); EOSINOPHILS # (AUTO) 0.2 10^3/uL (0.0-0.3); EOSINOPHILS % (AUTO) 4 % (0-10); HEMATOCRIT 31 % (40-54); LYMPHOCYTES # (AUTO) 1.9 X 10^3 (1.0-4.0); LYMPHOCYTES % (AUTO) 31 % (12-44); MEAN CORPUSCULAR HEMOGLOBIN 34 PG (25-34); MEAN CORPUSCULAR HGB CONC 36 G/DL (32-36); MEAN CORPUSCULAR VOLUME 96 FL (80-99); MEAN PLATELET VOLUME 9.2 FL (7.4-10.4); MONOCYTES # (AUTO) 0.7 X 10^3 (0.0-1.0); MONOCYTES % (AUTO) 12 % (0-12); NEUTROPHILS # (AUTO) 3.3 X 10^3 (1.8-7.8); NEUTROPHILS % (AUTO) 53 % (42-75); PLATELET COUNT 178 10^3/uL (130-400); RED CELL DISTRIBUTION WIDTH 13.6 % (10.0-14.5); WHITE BLOOD COUNT 6.3 10^3/uL (4.3-11.0)
--- NOTE | 2018-01-08 19:19 | Diagnostic Imaging Report ---
INDICATION: Hypertension. EXAMINATION: Portable chest at 7:11 p.m. FINDINGS: There is a loop recorder projecting over the left chest. Heart size and pulmonary vascularity are normal. Lungs are clear. There are no effusions or pneumothoraces. IMPRESSION: No acute abnormalities in the chest. Dictated by: Dictated on workstation # [id number]
[2018-01-08 19:23] LABS: PROTHROMBIN TIME PATIENT 13.6 SEC (12.2-14.7)
--- NOTE | 2018-01-08 19:23 | ED Chest Pain ---
General Chief Complaint: Cardiac/General Problems Stated Complaint: ELEV BP 220/98,VOMITING Nursing Triage Note: high blood pressure, right flank pain vomitting after meals. Nursing Sepsis Screen: No Definite Risk Source: patient Exam Limitations: no limitations History of Present Illness Date Seen by Provider: Jan 08, 2018 Time Seen by Provider: 18:58 Initial Comments This 52-year-old gentleman presents to the emergency room with complaints of headache, nausea and vomiting for about 3 days. He is also had pain across his lower back. He also notes significant hypertension at home. His blood pressure reportedly was 217/98. He has not been able to keep his medications down which may have impacted his blood pressure. He is a dialysis patient was dialyzed Monday, Monday and Monday. He was dialyzed this morning. He denies any constipation or diarrhea. He complains of slight chest tightness 2 days which she rates as 4/10. He reports no history of cardiac disease. Review of his chart notes a negative coronary angiography in April 2014 and a negative stress test in July 2016. Patient does have a loop recorder implanted and he sees Dr. Newell. Allergies and Home Medications Allergies Coded Allergies: No Known Drug Allergies (Unverified , 09/30/09) Home Medications Amlodipine Besylate 10 Mg Tablet, 10 MG PO HS, (Reported) LAST FILLED #30 12-01-15 Lorazepam 1 Mg Tablet, 1 MG PO TID PRN for ANXIETY, (Reported) LAST FILLED 6-15 #90 Metoprolol Tartrate 50 Mg Tablet, 50 MG PO BID This medication should be taken twice daily.It only lasts 12 hours. Prescribed by: SUSY FLEMING on 01/06/15 1200 Zolpidem Tartrate 5 Mg Tablet, 1 TAB PO HS, (Reported) Patient Home Medication List Home Medication List Reviewed: Yes Review of Systems Review of Systems Constitutional: no symptoms reported EENTM: No Symptoms Reported Respiratory: No Symptoms Reported Cardiovascular: See HPI Gastrointestinal: See HPI Genitourinary: See HPI Musculoskeletal: no symptoms reported Skin: no symptoms reported Psychiatric/Neurological: No Symptoms Reported Endocrine: No Symptoms Reported Hematologic/Lymphatic: No Symptoms Reported Past Gelvluy-Urirce-Bblelr Hx Past Med/Social Hx: Reviewed and Corrections made Patient Social History Alcohol Use: Denies Use Number of Drinks Today: AA Alcohol Beverage of Choice: Beer Recreational Drug Use: No Smoking Status: Current Everyday Smoker Type Used: Cigarettes 2nd Hand Smoke Exposure: Yes Recent Foreign Travel: No Contact w/Someone Who Travel: No Recent Infectious Disease Expo: No Recent Hopitalizations: No Immunizations Up To Date Tetanus Booster (TDap): Less than 5yrs PED Vaccines UTD: No Date of Influenza Vaccine: Dec 29, 2014 Seasonal Allergies Seasonal Allergies: No Past Medical History Surgeries: Yes (hernia repair, L ARM FISTULA) Cardiac (cardiac angiography 2014 with no significant coronary artery disease) Respiratory: Yes (COPD) COPD, Emphysema Currently Using CPAP: No Currently Using BIPAP: No Cardiac: Yes Hypertension Neurological: No Reproductive Disorders: No Genitourinary: Yes (hd mwf) Kidney Stones, Renal Failure, Dialysis Gastrointestinal: No Musculoskeletal: No Endocrine: No HEENT: No Hearing Impairment: Hard of Hearing Cancer: No Psychosocial: Yes Anxiety Integumentary: No Blood Disorders: No Adverse Reaction/Blood Tranf: No Family Medical History Reviewed Nursing Family Hx FH: COPD (chronic obstructive pulmonary disease) 19 FATHER FH: emphysema 19 FATHER FH: heart attack 19 FATHER FH: scoliosis G8 BROTHER, FH: stroke G8 SISTER FHx: heart disease G8 SISTER Thyroid disease 19 MOTHER No Pertinent Family Hx Physical Exam Vital Signs Vital Signs - First Documented 01/08/18 18:45 Temp 97.8 Pulse 66 Resp 18 B/P (MAP) 170/95 (120) Pulse Ox 99 O2 Delivery Room Air Capillary Refill : Less Than 3 Seconds Height, Weight, BMI Height: 5'9.00" Weight: 150lbs. 0oz. 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 Norm as Tested Skin: Normal Color, Warm/Dry Progress/Results/Core Measures Results/Orders Lab Results Laboratory Tests Test 01/08/18 19:00 10/22/18 19:55 Range/Units White Blood Count 6.3 4.3-11.0 10^3/uL Red Blood Count 3.20 L 4.35-5.85 10^6/uL Hemoglobin 11.0 L 13.3-17.7 G/DL Hematocrit 31 L 40-54 % Mean Corpuscular Volume 96 80-99 FL Mean Corpuscular Hemoglobin 34 25-34 PG Mean Corpuscular Hemoglobin Concent 36 32-36 G/DL Red Cell Distribution Width 13.6 10.0-14.5 % Platelet Count 178 130-400 10^3/uL Mean Platelet Volume 9.2 7.4-10.4 FL Neutrophils (%) (Auto) 53 42-75 % Lymphocytes (%) (Auto) 31 12-44 % Monocytes (%) (Auto) 12 0-12 % Eosinophils (%) (Auto) 4 0-10 % Basophils (%) (Auto) 1 0-10 % Neutrophils # (Auto) 3.3 1.8-7.8 X 10^3 Lymphocytes # (Auto) 1.9 1.0-4.0 X 10^3 Monocytes # (Auto) 0.7 0.0-1.0 X 10^3 Eosinophils # (Auto) 0.2 0.0-0.3 10^3/uL Basophils # (Auto) 0.0 0.0-0.1 10^3/uL Prothrombin Time 13.6 12.2-14.7 SEC INR Comment 1.0 0.8-1.4 Activated Partial Thromboplast Time 34 24-35 SEC Sodium Level 137 135-145 MMOL/L Potassium Level 4.0 3.6-5.0 MMOL/L Chloride Level 87 L 98-107 MMOL/L Carbon Dioxide Level 34 H 21-32 MMOL/L Anion Gap 16 H 5-14 MMOL/L Blood Urea Nitrogen 17 7-18 MG/DL Creatinine 5.30 H 0.60-1.30 MG/DL Estimat Glomerular Filtration Rate 11 BUN/Creatinine Ratio 3 Glucose Level 91 70-105 MG/DL Calcium Level 9.9 8.5-10.1 MG/DL Corrected Calcium 9.8 8.5-10.1 MG/DL Magnesium Level 2.3 1.8-2.4 MG/DL Total Bilirubin 0.5 0.1-1.0 MG/DL Aspartate Amino Transf (AST/SGOT) 10 5-34 U/L Alanine Aminotransferase (ALT/SGPT) 7 0-55 U/L Alkaline Phosphatase 57 40-136 U/L Myoglobin 525.0 H 10.0-92.0 NG/ML Troponin I < 0.30 <0.30 NG/ML Total Protein 7.7 6.4-8.2 GM/DL Albumin 4.1 3.2-4.5 GM/DL Urine Color YELLOW Urine Clarity CLEAR Urine pH 9 5-9 Urine Specific [place] 1.015 L 1.016-1.022 Urine Protein 3+ H NEGATIVE Urine Glucose (UA) 1+ H NEGATIVE Urine Ketones NEGATIVE NEGATIVE Urine Nitrite NEGATIVE NEGATIVE Urine Bilirubin NEGATIVE NEGATIVE Urine Urobilinogen NORMAL NORMAL MG/DL Urine Leukocyte Esterase 1+ H NEGATIVE Urine RBC (Auto) 2+ H NEGATIVE Urine RBC 5-10 H /HPF Urine WBC 2-5 /HPF Urine Squamous Epithelial Cells 2-5 /HPF Urine Crystals NONE /LPF Urine Bacteria FEW H /HPF Urine Casts NONE /LPF Urine Mucus NEGATIVE /LPF Urine Culture Indicated YES My Orders Orders - MATHEW HASKINS MD Cbc With Automated Diff (01/08/18 18:58) Magnesium (01/08/18 18:58) Chest 1 View, Ap/Pa Only (01/08/18 18:58) Ekg Tracing (01/08/18 18:58) Cardiac Profile 1 (01/08/18 18:58) Comprehensive Metabolic Panel (01/08/18 18:58) Myoglobin Serum (01/08/18 18:58) Protime With Inr (01/08/18 18:58) Partial Thromboplastin Time (01/08/18 18:58) O2 (01/08/18 18:58) Monitor-Rhythm Ecg Trace Only (01/08/18 18:58) Lipid Panel (01/09/18 06:00) Saline Lock/Iv-Start (01/08/18 18:58) Aspirin Chewable Tablet (Baby Aspirin Ch (01/08/18 19:30) Nitroglycerin 0.4 Mg Btl 25's (Nitrostat (01/08/18 19:30) Ua Culture If Indicated (01/08/18 19:37) Ekg Tracing (01/08/18 19:48) Ekg Tracing (01/08/18 19:48) Ondansetron Injection (Zofran Injectio (01/08/18 20:00) Urine Culture (01/08/18 19:55) Metoprolol Tartrate Injection (Lopressor (01/08/18 20:15) Heparin Drip 88143 Unit/500ml (Heparin (01/08/18 20:08) Heparin (Bolus Per Protocol) (Heparin (B (01/08/18 20:15) Fentanyl Injection (Sublimaze Injection (01/08/18 20:15) Fentanyl Injection (Sublimaze Injection (01/08/18 21:30) Medications Given in ED Current Medications Medications Dose Ordered Sig/Tj Route Start Time Stop Time Status Last Admin Dose Admin Aspirin 324 mg ONCE ONCE PO 01/08/18 19:30 01/08/18 19:31 DC 01/08/18 19:24 324 MG Fentanyl Citrate 50 mcg ONCE ONCE IVP 01/08/18 20:15 01/08/18 20:16 DC 01/08/18 20:21 50 MCG Fentanyl Citrate 75 mcg ONCE ONCE IVP 01/08/18 21:30 01/08/18 21:31 DC 01/08/18 21:23 75 MCG Heparin Sodium (Porcine) HEPARIN FULL PROTOC... ONCE ONCE IV 01/08/18 20:15 01/08/18 20:16 DC 01/08/18 20:22 5,000 UNIT Heparin Sodium/ Dextrose 500 ml @ 0 mls/hr Q0M ONCE IV 01/08/18 20:08 01/08/18 20:10 DC 01/08/18 20:23 24.5 MLS/HR Metoprolol Tartrate 5 mg ONCE ONCE IV 01/08/18 20:15 01/08/18 20:16 DC 01/08/18 20:22 5 MG Nitroglycerin 0.4 mg UD PRN SL 01/08/18 19:30 01/08/18 19:24 0.4 MG Ondansetron HCl 4 mg ONCE ONCE IVP 01/08/18 20:00 01/08/18 20:01 DC 01/08/18 20:00 4 MG Vital Signs/I&O 01/08/18 01/08/18 01/08/18 01/08/18 18:45 19:05 20:00 21:25 Temp 97.8 98.8 Pulse 66 58 59 Resp 18 12 12 B/P (MAP) 170/95 (120) 192/94 (126) 178/86 (116) Pulse Ox 99 100 100 97 O2 Delivery Room Air Room Air Room Air Room Air Blood Pressure Mean: 120 Progress Progress Note #1: Time: 20:15 Progress Note Patient initially did not divulge that he has been having chest pressure when he was triaged by nursing staff. However, on my assessment he did admit to having some chest pressure. He is significantly hypertensive and has not been able to keep his blood pressure medications down over the past couple of days. Chest pain orders are being executed and labs are pending. EKG demonstrated some ST changes that are new from his prior EKG about one year ago. There are ST changes in leads V3 through V5. The have a morphology of repolarization, and this is felt more likely than true ischemia. Patient was given aspirin 325 mg to chew. Patient was given nitroglycerin which completely alleviated his 4/ 10 chest tightness. However, it worsened his headache and he still has lower back pain. Patient is receiving Zofran for nausea and fentanyl for his remaining pain. Case was reviewed with Dr. Melvin who also reviewed the EKGs. He is concerned that this patient is possibly having unstable angina. He recommends starting heparin and transferring the patient to [facility] where he can receive both dialysis and further cardiac evaluation. He recommended Lopressor 5 mg IV for further management of his blood pressure since the nitroglycerin severely exacerbated his headache. Troponin is negative, but myoglobin is elevated. I have contacted the [facility] transfer center who is paging the hospitalist. I did update the patient who is agreeable for transfer and remains chest pain-free at this time. Progress Note #2: Time: 20:39 Progress Note Case was reviewed with Dr. Gabriel, hospitalist at [facility]. He consulted and Dr. Haro who joined the conversation. Dr. Haro is agreeable to transfer. He will review EKG while they are finding a room for the patient. Progress Note #3: Time: 21:23 Progress Note Patient's blood pressure has been escalating again. He still complains of significant headache and some lower back pain. An additional fentanyl 75 g is being given by IV route. EMS is here to transfer the patient. If blood pressure remains significantly elevated even after treatment with fentanyl, EMS may administer an additional dose of Lopressor 5 mg and an addition dose of Fentanyl 50 mcg. Patient states he gets headaches when his blood pressure is elevated. He stated his blood headache did improve some after he received the first dose of Lopressor. Progress Note #4: Time: 21:37 Progress Note Patient has departed [address] in route to [facility]. Dr. Haro was contacted with an update. I additionally informed him of the persistent headache and suggested perhaps a scan of the head would be appropriate if headache persists after arrival. EKG #1: EKG Time: 18:50 Rate: 62 Rhythm: Normal Sinus Intervals: Normal Comment Normal sinus rhythm. Probable LVH. No ST elevation noted in V3 through V5 with a repolarization pattern. EKG #2: EKG Time: 18:58 Rate: 62 Rhythm: Normal Sinus Intervals: Normal Comment Normal sinus rhythm. Probable LVH. No ST elevation noted in V3 through V5 with a repolarization pattern. EKG #3: EKG Time: 19:58 Rate: 58 Rhythm: Normal Sinus Intervals: Normal Comment This EKG was performed after resolution of chest pain after administration of nitroglycerin times one. Normal sinus rhythm. Probable LVH. No ST elevation noted in V3 through V5 with a repolarization pattern. Diagnostic Imaging Diagonstic Imaging: Xray Plain Films/CT/US/NM/MRI: chest Comments Chest x-ray viewed by me and report reviewed. See report below: NAME: FANY ALFARO [facility] REC#: [id number] PT STATUS: REG ER : 1965 PHYSICIAN: MATHEW HASKINS MD ADMIT DATE: 01/08/18/ER Draft Date of Exam:01/08/18 CHEST 1 VIEW, AP/PA ONLY INDICATION: Hypertension. EXAMINATION: Portable chest at 7:11 p.m. FINDINGS: There is a loop recorder projecting over the left chest. Heart size and pulmonary vascularity are normal. Lungs are clear. There are no effusions or pneumothoraces. IMPRESSION: No acute abnormalities in the chest. Dictated on workstation # [id number] Dict: 01/08/181914 Trans: 01/08/181918 [id number] Interpreted by: SPENCER MA MD Departure Impression Primary Impression: Chest pain Qualified Codes: R07.9 - Chest pain, unspecified Additional Impressions: ST segment changes on electrocardiogram Nausea and vomiting Qualified Codes: R11.2 - Nausea with vomiting, unspecified Acute headache Qualified Codes: R51 - Headache End stage renal failure on dialysis Disposition: 02 XFER SHT-TRM HOSP Condition: Improved Transfer Time Spoke to Accepting Phy: 20:[address] Haro (restorative aide) accepting. Transfer Time: 21:32 Transfer Facility: [facility] Method of Transfer: EMS Departure-Patient Inst. Referrals: KARLA GUEVARA MD (PCP/Family) Primary Care Physician Copy Copies To 1: DONNA NEWELL MD FACP [facility] MATHEW HASKINS MD Jan 08, 2018 19:23
[2018-01-08] MEDS ORDERED: ASPIRIN 81 MG CHEW (CHILDREN'S ASA) PO ONE (19:30)
[2018-01-08] MEDS ORDERED: NITROGLYCERIN 0.4 MG SL TABS BTL 25'S SL PRN (19:30)
[2018-01-08 19:43] LABS: ALANINE AMINOTRANSFERASE 7 U/L (0-55); ALBUMIN 4.1 GM/DL (3.2-4.5); ALKALINE PHOSPHATASE 57 U/L (40-136); BILIRUBIN,TOTAL 0.5 MG/DL (0.1-1.0); BUN/CREATININE RATIO 3; CALCIUM 9.9 MG/DL (8.5-10.1); CARBON DIOXIDE 34 MMOL/L (21-32); CHLORIDE 87 MMOL/L (98-107); GFR ESTIMATED 11; GLUCOSE 91 MG/DL (70-105); MAGNESIUM 2.3 MG/DL (1.8-2.4); SODIUM 137 MMOL/L (135-145); TOTAL PROTEIN 7.7 GM/DL (6.4-8.2)
[2018-01-08 20:00] VITALS: BP 192/94
[2018-01-08 20:00] LABS: BILIRUBIN,URINE NEGATIVE (NEGATIVE); CLARITY,URINE CLEAR; COLOR,URINE YELLOW; GLUCOSE, URINE (UA) 1+ (NEGATIVE); KETONES,URINE NEGATIVE (NEGATIVE); LEUKOCYTE ESTERASE ,URINE 1+ (NEGATIVE); NITRITE,URINE NEGATIVE (NEGATIVE); PH,URINE 9 (5-9); PROTEIN,URINE 3+ (NEGATIVE); UROBILINOGEN,URINE NORMAL (NORMAL)
[2018-01-08] MEDS ORDERED: ONDANSETRON 4 MG/2 ML (SDV) Z0FRAN IVP ONE (20:00)
[2018-01-08 20:06] LABS: BACTERIA,URINE FEW /HPF
[2018-01-08] MEDS ORDERED: HEParin DRIP 25000 UNIT/500ML 500 ML IV ONE (20:08)
[2018-01-08] MEDS ORDERED: meTOprolol 5 MG/5 ML (LOPRESSOR) VIAL IV ONE (20:15)
[2018-01-08] MEDS ORDERED: HEParin 1000 UNIT/ML (10ML VIAL) FOR BOLUS IV ONE (20:15)
[2018-01-08] MEDS ORDERED: fentaNYL INJECTION 100 MCG/2 ML AMP IVP ONE ×2 (20:15→21:30)
[2018-01-08 21:25] VITALS: BP 178/86
== END 2018-01-08 21:25 | disposition short-term general hospital (02) ==
LOC: EDUNIT# 18:38 → ER 18:39
DX: R07.9 Chest pain, unspecified (principal); R11.2 Nausea with vomiting, unspecified; R51 Headache; I12.0 Hypertensive chronic kidney disease with stage 5 chronic kidney disease or end stage renal disease; N18.6 End stage renal disease; R94.31 Abnormal electrocardiogram [ECG] [EKG]; J43.9 Emphysema, unspecified; F41.9 Anxiety disorder, unspecified; F17.210 Nicotine dependence, cigarettes, uncomplicated; Z99.2 Dependence on renal dialysis; Z82.49 Family history of ischemic heart disease and other diseases of the circulatory system
CPT/HCPCS: 36415; 71045; 80053; 81000; 83735; 83874; 84484; 85025; 85610; 85730; 87088; 93005; 93041

== ENCOUNTER 2018-06-03 17:08 | Emergency (ER) | payer MEDICARE, OTHER ==
[~2018-06-03] VITALS: Ht 170.2 cm; Wt 68.0 kg
[~2018-06-03 17:08] MED LIST changes: +HYDR-3816
--- NOTE | 2018-06-03 17:20 | NUR ---
PT NOW VERBALIZING THAT HE WANTS HIS SISTER. PT ALSO STATING THAT HE IS GOING TO . PT TALKED TO SISTER ON PHONE. TOLD HER HE WANTS HER TO COME. PT IS CONTINUING TO VERBALIZE HE WANTS HIS SISTER.
[2018-06-03 17:40] LABS: BASOPHILS % (AUTO) 0 % (0-10); EOSINOPHILS # (AUTO) 0.4 10^3/uL (0.0-0.3); EOSINOPHILS % (AUTO) 4 % (0-10); HEMATOCRIT 38 % (40-54); HEMOGLOBIN 13.8 G/DL (13.3-17.7); LYMPHOCYTES # (AUTO) 3.3 X 10^3 (1.0-4.0); LYMPHOCYTES % (AUTO) 32 % (12-44); MEAN CORPUSCULAR HEMOGLOBIN 33 PG (25-34); MEAN CORPUSCULAR HGB CONC 37 G/DL (32-36); MEAN CORPUSCULAR VOLUME 89 FL (80-99); MEAN PLATELET VOLUME 10.2 FL (7.4-10.4); MONOCYTES % (AUTO) 10 % (0-12); NEUTROPHILS # (AUTO) 5.7 X 10^3 (1.8-7.8); NEUTROPHILS % (AUTO) 55 % (42-75); PLATELET COUNT 227 10^3/uL (130-400); RED CELL DISTRIBUTION WIDTH 15.1 % (10.0-14.5); WHITE BLOOD COUNT 10.4 10^3/uL (4.3-11.0)
[2018-06-03 17:48] LABS: FIBRIN DEGRADATION PRODUCTS 0.71 UG/ML (0.00-0.49); PROTHROMBIN TIME PATIENT 13.2 SEC (12.2-14.7)
[2018-06-03 17:51] LABS: ALANINE AMINOTRANSFERASE 11 U/L (0-55); ALBUMIN 4.3 GM/DL (3.2-4.5); ALKALINE PHOSPHATASE 70 U/L (40-136); AMMONIA 22 UMOL/L (11-32); BILIRUBIN,TOTAL 0.4 MG/DL (0.1-1.0); BUN/CREATININE RATIO 3; CALCIUM 9.6 MG/DL (8.5-10.1); CARBON DIOXIDE 25 MMOL/L (21-32); CHLORIDE 92 MMOL/L (98-107); CREATININE SERUM 9.02 MG/DL (0.60-1.30); GFR ESTIMATED 6; GLUCOSE 91 MG/DL (70-105); POTASSIUM 3.4 MMOL/L (3.6-5.0); SODIUM 137 MMOL/L (135-145); TOTAL PROTEIN 7.7 GM/DL (6.4-8.2)
--- NOTE | 2018-06-03 17:54 | Diagnostic Imaging Report ---
INDICATION: Confusion and somnolence. COMPARISON: Comparison made with prior examination from 01/08/2018. FINDINGS: There is cardiomegaly. Mediastinum is unremarkable. Lungs are clear. There is no pleural effusion, pneumothorax, or pneumonia. IMPRESSION: 1. No acute cardiopulmonary abnormality. 2. Cardiomegaly. Dictated by: Dictated on workstation # [id number]
--- NOTE | 2018-06-03 17:57 | Diagnostic Imaging Report ---
PROCEDURE: CT head wo, r/o stroke. TECHNIQUE: Multiple contiguous axial images were obtained through the brain without the use of intravenous contrast. INDICATION: Confusion and hypersomnolence. COMPARISON: Comparison made with prior examination from 02/12/2017. FINDINGS: The ventricles and sulci are within normal limits. There is no hydrocephalus. There is no midline shift. There is no intracranial mass, hemorrhage, or extra-axial fluid collection. The calvarium is intact. Sinuses and mastoid air cells are clear. There is some sclerosis of the mastoid air cells. IMPRESSION: 1. No acute intracranial abnormality. 2. Sclerosis of the mastoid air cells bilaterally. Dictated by: Dictated on workstation # [id number]
--- NOTE | 2018-06-03 19:13 | ED Neurological Problem ---
General Chief Complaint: Altered Mental Status Stated Complaint: [facility] Nursing Triage Note: PT BROUGHT IN BY EMS WITH COMPLAINT OF ALTERED MENTAL STATUS. PTS CALLED EMS BECAUSE SHE WAS UNABLE TO WAKE HIM UP AT HOME. STATES PT WAS ASLEEP WHEN SHE WENT TO WORK, STATES AT 3PM PT WAS STILL SLEEPING. STATES GOT HIM TO GO TO BED. WAS UNABLE TO WAKE PT UP AT 1630. CALLED EMS. PT WOULD NOT WAKE UP FOR EMS UNTIL HE WAS MOVED TO CART. PT IS ALERT AND LOOKING AROUND ON ARRIVAL TO HOSPITAL. PT IS ASKING "WHERE IS MY ". PT WILL RESPOND TO NAME, BUT IS UNABLE TO REPEAT HIS NAME, WHERE HE IS, OR THE DAY. PT DENIES PAIN. PT IS VERBALIZING THAT "HE WANTS HIS SISTER". Nursing Sepsis Screen: No Definite Risk Source: patient Exam Limitations: no limitations History of Present Illness Date Seen by Provider: Jun 03, 2018 Time Seen by Provider: 17:25 Initial Comments 52-year-old male who was brought into the emergency room by [facility] for altered mental status. His is present on arrival to the emergency room and she reports that she called EMS because she was unable to wake the patient up at home. She reports that he often sleeps on the couch and was asleep on the couch when she went to work this morning at 6:30 and when she got off work at 1500 he was still asleep on the couch. She did wake him up and he ambulated to the bedroom and went to bed but when she checked on him at 1630 he was difficult to arouse and this is when she called EMS. EMS reports that he was awake but disoriented in route to the hospital. On arrival he was just asking for his and sister. He is alert to person. states that he has pain medicines at home that he takes but has not taken any to her knowledge. He moves all extremities on arrival to the emergency room, his speech is clear. Associated Symptoms: confusion, sleepy Allergies and Home Medications Allergies Coded Allergies: No Known Drug Allergies (Unverified , 09/30/09) Home Medications Amlodipine Besylate 10 Mg Tablet, 10 MG PO HS, (Reported) LAST FILLED #30 12-01-14 Lorazepam 1 Mg Tablet, 1 MG PO TID PRN for ANXIETY, (Reported) LAST FILLED 08-22-14 #90 Metoprolol Tartrate 50 Mg Tablet, 50 MG PO BID This medication should be taken twice daily.It only lasts 12 hours. Prescribed by: SUSY FLEMING on 01/06/15 1200 Zolpidem Tartrate 5 Mg Tablet, 1 TAB PO HS, (Reported) Patient Home Medication List Home Medication List Reviewed: Yes Review of Systems Review of Systems Constitutional: see HPI; No chills, No fever Psychiatric/Neurological: See HPI, Other (sleepy, difficult to arouse, confusion) All Other Systems Reviewed Negative Unless Noted: Yes Past Qwzwkpt-Samndy-Sgxqrq Hx Past Med/Social Hx: Reviewed Nursing Past Med/Soc Hx Patient Social History Alcohol Use: Past History Number of Drinks Today: AA Alcohol Beverage of Choice: Beer Recreational Drug Use: Yes (ALCOHOL) Smoking Status: Current Everyday Smoker Type Used: Cigarettes 2nd Hand Smoke Exposure: Yes Recent Foreign Travel: No Contact w/Someone Who Travel: No Recent Infectious Disease Expo: No Recent Hopitalizations: No Immunizations Up To Date Tetanus Booster (TDap): Less than 5yrs PED Vaccines UTD: No Date of Influenza Vaccine: Dec 29, 2014 Seasonal Allergies Seasonal Allergies: No Past Medical History Surgeries: Yes (hernia repair, L ARM FISTULA) Cardiac Respiratory: Yes (COPD) COPD, Emphysema Currently Using CPAP: No Currently Using BIPAP: No Cardiac: Yes Hypertension Neurological: No Reproductive Disorders: No Genitourinary: Yes (hd mwf) Kidney Stones, Renal Failure, Dialysis Gastrointestinal: No Musculoskeletal: No Endocrine: No HEENT: No Hearing Impairment: Hard of Hearing Cancer: No Psychosocial: Yes Anxiety Integumentary: No Blood Disorders: No Adverse Reaction/Blood Tranf: No Family Medical History Reviewed Nursing Family Hx FH: COPD (chronic obstructive pulmonary disease) 19 FATHER FH: emphysema 19 FATHER FH: heart attack 19 FATHER FH: scoliosis G8 BROTHER, FH: stroke G8 SISTER FHx: heart disease G8 SISTER Thyroid disease 19 MOTHER No Pertinent Family Hx Physical Exam Vital Signs Vital Signs - First Documented 06/03/18 17:11 Temp 97.1 Pulse 78 Resp 20 B/P (MAP) 124/97 (106) Pulse Ox 94 O2 Delivery Room Air Capillary Refill : Less Than 3 Seconds Height, Weight, BMI Height: 5'7.00" Weight: 150lbs. 0oz. 68.934186yn; 24.6 BMI Method:Stated General Appearance: WD/WN, no apparent distress HEENT: PERRL/EOMI, normal ENT inspection, TMs normal, pharynx normal, other ( dry mucous membranes) Respiratory: chest non-tender, lungs clear, normal breath sounds, no respiratory distress, no accessory muscle use, respiratory distress Gastrointestinal: normal bowel sounds, non tender, soft, no organomegaly, no pulsatile mass Extremities: normal range of motion, normal capillary refill, pedal edema ( mild edema to the lower extremities bilaterally.) Neurologic/Psychiatric: other (alert to person, very somnolent, arouses to painful stimuli. ) Crainal Nerves: normal hearing, normal speech, PERRL Skin: normal color, warm/dry Focused Exam Lactate Level 06/03/18 17:13: Lactic Acid Level 1.48 Lactic Acid Level Laboratory Tests Test 06/03/18 17:13 Lactic Acid Level 1.48 MMOL/L (0.50-2.00) Progress/Results/Core Measures Results/Orders Lab Results Laboratory Tests Test 06/03/18 17:13 06/03/18 17:15 06/03/18 19:10 Range/Units White Blood Count 10.4 4.3-11.0 10^3/uL Red Blood Count 4.23 L 4.35-5.85 10^6/uL Hemoglobin 13.8 13.3-17.7 G/DL Hematocrit 38 L 40-54 % Mean Corpuscular Volume 89 80-99 FL Mean Corpuscular Hemoglobin 33 25-34 PG Mean Corpuscular Hemoglobin Concent 37 H 32-36 G/DL Red Cell Distribution Width 15.1 H 10.0-14.5 % Platelet Count 227 130-400 10^3/uL Mean Platelet Volume 10.2 7.4-10.4 FL Neutrophils (%) (Auto) 55 42-75 % Lymphocytes (%) (Auto) 32 12-44 % Monocytes (%) (Auto) 10 0-12 % Eosinophils (%) (Auto) 4 0-10 % Basophils (%) (Auto) 0 0-10 % Neutrophils # (Auto) 5.7 1.8-7.8 X 10^3 Lymphocytes # (Auto) 3.3 1.0-4.0 X 10^3 Monocytes # (Auto) 1.0 0.0-1.0 X 10^3 Eosinophils # (Auto) 0.4 H 0.0-0.3 10^3/uL Basophils # (Auto) 0.0 0.0-0.1 10^3/uL Prothrombin Time 13.2 12.2-14.7 SEC INR Comment 1.0 0.8-1.4 Activated Partial Thromboplast Time 31 24-35 SEC D-Dimer 0.71 H 0.00-0.49 UG/ML Sodium Level 137 135-145 MMOL/L Potassium Level 3.4 L 3.6-5.0 MMOL/L Chloride Level 92 L 98-107 MMOL/L Carbon Dioxide Level 25 21-32 MMOL/L Anion Gap 20 H 5-14 MMOL/L Blood Urea Nitrogen 26 H 7-18 MG/DL Creatinine 9.02 H 0.60-1.30 MG/DL Estimat Glomerular Filtration Rate 6 BUN/Creatinine Ratio 3 Glucose Level 91 70-105 MG/DL Lactic Acid Level 1.48 0.50-2.00 MMOL/L Calcium Level 9.6 8.5-10.1 MG/DL Corrected Calcium 9.4 8.5-10.1 MG/DL Total Bilirubin 0.4 0.1-1.0 MG/DL Aspartate Amino Transf (AST/SGOT) 12 5-34 U/L Alanine Aminotransferase (ALT/SGPT) 11 0-55 U/L Alkaline Phosphatase 70 40-136 U/L Ammonia 22 11-32 UMOL/L Troponin I < 0.028 <0.028 NG/ML B-Type Natriuretic Peptide 282.8 H <100.0 PG/ML Total Protein 7.7 6.4-8.2 GM/DL Albumin 4.3 3.2-4.5 GM/DL Serum Alcohol < 10 <10 MG/DL Glucometer 90 70-110 MG/DL Blood Gas Puncture Site RIGHT RADIAL Blood Gas Patient Temperature 97.1 Arterial Blood pH 7.47 H 7.37-7.43 Arterial Blood Partial Pressure CO2 39 35-45 MMHG Arterial Blood Partial Pressure O2 63 L 79-93 MMHG Arterial Blood HCO3 29 H 23-27 MMOL/L Arterial Blood Total CO2 29.9 21.0-31.0 MMOL/L Arterial Blood Oxygen Saturation 95 94-100 % Arterial Blood Base Excess 4.9 H -2.5-2.5 MMOL/L Davon Test POSITIVE Blood Gas Ventilator Setting NO Blood Gas Inspired Oxygen NO Micro Results Microbiology 3/17/19 Influenza Types A,B Antigen (MADELIN) - Final, Complete My Orders Orders - CARINA CRUZ Cbc With Automated Diff (06/03/18:) Protime With Inr (06/03/18:) Partial Thromboplastin Time (06/03/18:19) Comprehensive Metabolic Panel (06/03/18:) Fibrin Degradation Products (06/03/18:) Troponin I (06/03/18:) Chest 1 View, Ap/Pa Only (06/03/18:) Ekg Tracing (06/03/18:) Accucheck Stat ONCE (06/03/18:) Saline Lock/Iv-Start (06/03/18:) Saline Lock/Iv-Start (06/03/18:) Vital Signs Stroke Patient Q15M (06/03/18:) Ct Head Wo-R/O Stroke (06/03/18:) O2 (06/03/18:) Intake & Output 06,14,22 (06/03/18:) Monitor-Rhythm Ecg Trace Only (06/03/18:19) Dysphagia Screening Tool (06/03/18:) Post Thrombolytic Adminstratio (06/03/18:) Ammonia (06/03/18:) Influenza A And B Antigens (06/03/18:19) Blood Culture (06/03/18:19) Lactic Acid Analyzer (06/03/18:) Alcohol (06/03/18 17:35) BNP (06/03/18 18:56) Ns Iv 1000 Ml (Sodium Chloride 0.9%) (06/03/18 19:30) Arterial Blood Gas (06/03/18 19:35) Arterial Blood Draw (06/03/18 19:30) Vital Signs/I&O 06/03/18 06/03/18 17:11 20:55 Temp 97.1 Pulse 78 86 Resp 20 14 B/P (MAP) 124/97 (106) 176/109 (131) Pulse Ox 94 98 O2 Delivery Room Air Room Air Blood Pressure Mean: 106 FSBG Bedside Testing Finger Stick Blood Glucose: 90 Progress Progress Note : Time: 19:00 Progress Note I have seen and evaluated the patient. On arrival to the emergency room the nurses did attempt to obtain a urine sample with an in and out catheter and were unable to obtain urine. His reports that she is unsure that he has voided for the last 2 days. Given his history of dialysis and history of confusion when in the need of dialysis I have contacted [facility] at this time. I have discussed the case with Dr. Nery Chavez hospitalist. He requested ABGs and accept the patient to a telemetry floor.1946: I have called and discussed the ABG results with the transfer nurse and she provided me with a room number and report number. The patient will be transferred by [facility] to [facility]. I have informed the patient's of plan of care and she is in agreement. Initial ECG Impression Date: Jun 03, 2018 Initial ECG Impression Time: 18:36 Initial ECG Rate: 64 Initial ECG Rhythm: Normal Sinus Initial ECG Intervals: Normal Initial ECG Impression: Normal Initial ECG Comparisson: Unchanged Diagnostic Imaging Diagonstic Imaging: Xray, CT Plain Films/CT/US/NM/MRI: chest, head Comments NAME: FANY ALFARO [facility] REC#: [id number] PHYSICIAN: CARINA CRUZ CC: ILDEFONSO CRUZ LARRY C MD Page 1 of 1 RADIOLOGY REPORT [facility]. [place], [place] CC: ILDEFONSO CRUZ LARRY C MD Page 1 of 1 RADIOLOGY REPORT NAME: FANY ALFARO [facility] REC#: [id number] PT STATUS: REG ER : 1965 PHYSICIAN: CARINA CRUZ ADMIT DATE: 06/03/18/ER Signed Date of Exam: 06/03/18 CHEST 1 VIEW, AP/PA ONLY INDICATION: Confusion and somnolence. COMPARISON: Comparison made with prior examination from 01/08/2018. FINDINGS: There is cardiomegaly. Mediastinum is unremarkable. Lungs are clear. There is no pleural effusion, pneumothorax, or pneumonia. IMPRESSION: 1. No acute cardiopulmonary abnormality. 2. Cardiomegaly. Dictated by: Dictated on workstation # [id number] Dict: 06/03/18 174 Trans: 06/03/181841 Interpreted by: SELENA NEWMAN MD Electronically signed by: SELENA NEWMAN MD 06/03/181841 NAME: FANY ALFARO [facility] REC#: [id number] PHYSICIAN: CARINA CRUZ CC: CARINA CRUZ; SELENA NEWMAN MD Page 1 of 1 RADIOLOGY REPORT [facility] [place] CC: CARINA CRUZ; SELENA NEWMAN MD Page 1 of 1 RADIOLOGY REPORT NAME: FANY ALFARO [facility] REC#: [id number] PT STATUS: REG ER : 1965 PHYSICIAN: CARINA CRUZ ADMIT DATE: 06/03/18/ER Signed Date of Exam: 06/03/18 CT HEAD WO-R/O STROKE PROCEDURE: CT head wo, r/o stroke. TECHNIQUE: Multiple contiguous axial images were obtained through the brain without the use of intravenous contrast. INDICATION: Confusion and hypersomnolence. COMPARISON: Comparison made with prior examination from 02/12/2017. FINDINGS: The ventricles and sulci are within normal limits. There is no hydrocephalus. There is no midline shift. There is no intracranial mass, hemorrhage, or extra-axial fluid collection. The calvarium is intact. Sinuses and mastoid air cells are clear. There is some sclerosis of the mastoid air cells. IMPRESSION: 1. No acute intracranial abnormality. 2. Sclerosis of the mastoid air cells bilaterally. Dictated by: Dictated on workstation # [id number] Dict: 06/03/181750 Trans: 06/03/181841 Interpreted by: SELENA NEWMAN MD Electronically signed by: SELENA NEWMAN MD 06/03/181841 Reviewed: Reviewed by Me Departure Impression Primary Impression: Acute on chronic renal insufficiency Additional Impressions: Altered mental status End stage renal failure on dialysis Disposition: 01 HOME, SELF-CARE Condition: Stable/Unchanged Transfer Time Spoke to Accepting Phy: 19:[address] Penix has agreed to accept the patient at this time. Transfer Time: 20:00 Transfer Facility: [facility] Method of Transfer: EMS ([place]) Departure-Patient Inst. Referrals: KARLA GUEVARA MD (PCP/Family) Primary Care Physician CARINA CRUZ Jun 03, 2018 19:13
[2018-06-03] MEDS ORDERED: NS IV 1000 ML 1,000 ML IV SCH (19:30)
[2018-06-03 19:38] LABS: ABG BASE EXCESS 4.9 MMOL/L (-2.5-2.5); ABG OXYGEN SATURATION 95 % (94-100); ABG PCO2 39 MMHG (35-45); ABG PH 7.47 (7.37-7.43); ABG PO2 63 MMHG (79-93); ABG TCO2 29.9 MMOL/L (21.0-31.0); ALLENS TEST POSITIVE; INSPIRED O2 NO; PATIENT TEMP 97.1; VENTILATOR NO
--- NOTE | 2018-06-03 20:50 | NUR ---
report given to [facility] for patient transport.
[2018-06-03 20:55] VITALS: BP 176/109
--- NOTE | 2018-06-03 21:03 | NUR ---
Attempt to call report to [facility]
== END 2018-06-03 21:04 | disposition short-term general hospital (02) ==
LOC: EDUNIT# 17:08 → ER 17:09
DX: R41.82 Altered mental status, unspecified (principal); N28.9 Disorder of kidney and ureter, unspecified; I12.0 Hypertensive chronic kidney disease with stage 5 chronic kidney disease or end stage renal disease; N18.6 End stage renal disease; J43.9 Emphysema, unspecified; F41.9 Anxiety disorder, unspecified; F17.210 Nicotine dependence, cigarettes, uncomplicated; Z99.2 Dependence on renal dialysis; Z87.442 Personal history of urinary calculi
CPT/HCPCS: 36415; 36600; 70450; 71045; 80053; 80320; 82140; 82805; 82962; 83605; 83880; 84484; 85025; 85379; 85610; 85730; 87040; 87804; 93005; 93041

== ENCOUNTER 2018-10-01 09:52 | Emergency (ER) | payer MEDICARE ==
[~2018-10-01] VITALS: Ht 175.3 cm; Wt 68.0 kg
--- NOTE | 2018-10-01 10:31 | ED General ---
General Chief Complaint: General Problems/Pain Stated Complaint: CONFUSION;LEG PAIN Nursing Triage Note: Pt ambulates to Rm 5 with present who expresses concerns about his mental state with epsiodes of hallucinations. Pt's states that he has been confused the past couple of days and has been worse this morning. Nursing Sepsis Screen: No Definite Risk Source of Information: Patient, Family History of Present Illness Date Seen by Provider: Oct 01, 2018 Time Seen by Provider: 10:27 Initial Comments This 52-year-old male presents with his with a history of hallucinations for 3 days. There has been no history of fever, chill, headache, photophobia, stiff neck, or lateralizing or localizing neurologic complaints. Patient had dialysis this morning and his post dialysis laboratory evaluation was essentially unremarkable. Patient has noted some shortness of breath. Allergies and Home Medications Allergies Coded Allergies: No Known Drug Allergies (Unverified , 09/30/09) Home Medications Amlodipine Besylate 10 Mg Tablet, 10 MG PO HS, (Reported) LAST FILLED #30 15 Lorazepam 1 Mg Tablet, 1 MG PO TID PRN for ANXIETY, (Reported) LAST FILLED 08-22-14 #90 Metoprolol Tartrate 50 Mg Tablet, 50 MG PO BID This medication should be taken twice daily.It only lasts 12 hours. Prescribed by: SUSY FLEMING on 01/06/15 1200 Zolpidem Tartrate 5 Mg Tablet, 1 TAB PO HS, (Reported) Patient Home Medication List Home Medication List Reviewed: Yes Review of Systems Review of Systems Constitutional: No chills, No fever EENTM: No hearing loss, No blurred vision Respiratory: No cough; short of breath Cardiovascular: No chest pain, No palpitations Gastrointestinal: No abdominal pain, No diarrhea, No nausea, No vomiting Genitourinary: No dysuria, No frequency Musculoskeletal: No back pain Skin: No change in color, No rash Psychiatric/Neurological: No Symptoms Reported Hematologic/Lymphatic: No Symptoms Reported Immunological/Allergic: no symptoms reported Past Zrunbmn-Vpeohm-Encfpk Hx Past Med/Social Hx: Reviewed Nursing Past Med/Soc Hx Patient Social History Alcohol Use: Denies Use Alcohol Beverage of Choice: Beer Recreational Drug Use: No Smoking Status: Current Everyday Smoker Type Used: Cigarettes 2nd Hand Smoke Exposure: No Recent Foreign Travel: No Contact w/Someone Who Travel: No Recent Infectious Disease Expo: No Recent Hopitalizations: No Immunizations Up To Date Tetanus Booster (TDap): Less than 5yrs PED Vaccines UTD: No Date of Influenza Vaccine: Dec 29, 2014 Seasonal Allergies Seasonal Allergies: No Past Medical History Surgeries: Yes (hernia repair, L ARM FISTULA) Cardiac Respiratory: Yes (COPD) COPD, Emphysema Currently Using CPAP: No Currently Using BIPAP: No Cardiac: Yes Hypertension Neurological: No Reproductive Disorders: No Genitourinary: Yes (hd mwf) Kidney Stones, Renal Failure, Dialysis Gastrointestinal: No Musculoskeletal: No Endocrine: No HEENT: No Hearing Impairment: Hard of Hearing Cancer: No Psychosocial: Yes Anxiety Integumentary: No Blood Disorders: No Adverse Reaction/Blood Tranf: No Family Medical History FH: COPD (chronic obstructive pulmonary disease) 19 FATHER FH: emphysema 19 FATHER FH: heart attack 19 FATHER FH: scoliosis G8 BROTHER, FH: stroke G8 SISTER FHx: heart disease G8 SISTER Thyroid disease 19 MOTHER No Pertinent Family Hx Physical Exam Vital Signs Vital Signs - First Documented 10/01/18 10:00 Temp 96.9 Pulse 74 Resp 18 B/P (MAP) 160/88 (112) Pulse Ox 93 O2 Delivery Room Air Capillary Refill : Less Than 3 Seconds Height, Weight, BMI Height: 5'9.00" Weight: 150lbs. 0oz. 68.249526lf; 24.6 BMI Method:Stated General Appearance: No Apparent Distress, Cachetic Eyes: Bilateral Eye Normal Inspection HEENT: Normal ENT Inspection Neck: Full Range of Motion, Normal Inspection, Non Tender, Supple Respiratory: Chest Non Tender, Lungs Clear, Normal Breath Sounds Cardiovascular: Regular Rate, Rhythm, No Murmur Gastrointestinal: Normal Bowel Sounds, Non Tender, Soft Back: Normal Inspection Extremity: Normal Capillary Refill, Normal Inspection, Normal Range of Motion Neurologic/Psychiatric: Alert, No Motor/Sensory Deficits Skin: Normal Color, Warm/Dry Focused Exam Lactate Level 10/01/18 10:00: Lactic Acid Level 0.97 Lactic Acid Level Laboratory Tests Test 10/01/18 10:00 Lactic Acid Level 0.97 MMOL/L (0.50-2.00) Progress/Results/Core Measures Suspected Sepsis Recent Fever Within 48 Hours: No Infection Criteria Present: None New/Unexplained Altered Menta: No Sepsis Screen: No Definite Risk SIRS Temperature:96.9 Pulse: 74 Respiratory Rate: 18 Laboratory Tests 10/01/18 10:06: White Blood Count 6.2 Blood Pressure 160 /88 Mean: 112 10/01/18 10:00: Lactic Acid Level 0.97 Laboratory Tests 10/01/18 10:06: Creatinine 3.51H, Platelet Count 173, Total Bilirubin 0.8 Results/Orders Lab Results Laboratory Tests Test 10/01/18 10:00 10/01/18 10:06 10/01/18 10:08 10/01/18 11:45 Range/Units Lactic Acid Level 0.97 0.50-2.00 MMOL/L White Blood Count 6.2 4.3-11.0 10^3/uL Red Blood Count 3.11 L 4.35-5.85 10^6/uL Hemoglobin 9.7 L 13.3-17.7 G/DL Hematocrit 28 L 40-54 % Mean Corpuscular Volume 88 80-99 FL Mean Corpuscular Hemoglobin 31 25-34 PG Mean Corpuscular Hemoglobin Concent 35 32-36 G/DL Red Cell Distribution Width 15.5 H 10.0-14.5 % Platelet Count 173 130-400 10^3/uL Mean Platelet Volume 10.0 7.4-10.4 FL Neutrophils (%) (Auto) 54 42-75 % Lymphocytes (%) (Auto) 31 12-44 % Monocytes (%) (Auto) 9 0-12 % Eosinophils (%) (Auto) 5 0-10 % Basophils (%) (Auto) 1 0-10 % Neutrophils # (Auto) 3.4 1.8-7.8 X 10^3 Lymphocytes # (Auto) 1.9 1.0-4.0 X 10^3 Monocytes # (Auto) 0.6 0.0-1.0 X 10^3 Eosinophils # (Auto) 0.3 0.0-0.3 10^3/uL Basophils # (Auto) 0.0 0.0-0.1 10^3/uL Sodium Level 140 135-145 MMOL/L Potassium Level 3.1 L 3.6-5.0 MMOL/L Chloride Level 89 L 98-107 MMOL/L Carbon Dioxide Level 34 H 21-32 MMOL/L Anion Gap 17 H 5-14 MMOL/L Blood Urea Nitrogen 11 7-18 MG/DL Creatinine 3.51 H 0.60-1.30 MG/DL Estimat Glomerular Filtration Rate 18 BUN/Creatinine Ratio 3 Glucose Level 77 70-105 MG/DL Calcium Level 9.5 8.5-10.1 MG/DL Corrected Calcium 9.2 8.5-10.1 MG/DL Total Bilirubin 0.8 0.1-1.0 MG/DL Aspartate Amino Transf (AST/SGOT) 11 5-34 U/L Alanine Aminotransferase (ALT/SGPT) 6 0-55 U/L Alkaline Phosphatase 78 40-136 U/L Total Protein 7.9 6.4-8.2 GM/DL Albumin 4.4 3.2-4.5 GM/DL Glucometer 81 70-110 MG/DL Urine Color YELLOW Urine Clarity CLEAR Urine pH 8 5-9 Urine Specific [place] 1.010 L 1.016-1.022 Urine Protein 3+ H NEGATIVE Urine Glucose (UA) 1+ H NEGATIVE Urine Ketones NEGATIVE NEGATIVE Urine Nitrite NEGATIVE NEGATIVE Urine Bilirubin NEGATIVE NEGATIVE Urine Urobilinogen NORMAL NORMAL MG/DL Urine Leukocyte Esterase NEGATIVE NEGATIVE Urine RBC (Auto) NEGATIVE NEGATIVE Urine RBC NONE /HPF Urine WBC NONE /HPF Urine Squamous Epithelial Cells NONE /HPF Urine Crystals NONE /LPF Urine Bacteria NEGATIVE /HPF Urine Casts NONE /LPF Urine Mucus NEGATIVE /LPF Urine Culture Indicated NO Urine Opiates Screen POSITIVE H NEGATIVE Urine Oxycodone Screen NEGATIVE NEGATIVE Urine Methadone Screen NEGATIVE NEGATIVE Urine Propoxyphene Screen NEGATIVE NEGATIVE Urine Barbiturates Screen NEGATIVE NEGATIVE Ur Tricyclic Antidepressants Screen NEGATIVE NEGATIVE Urine Phencyclidine Screen NEGATIVE NEGATIVE Urine Amphetamines Screen NEGATIVE NEGATIVE Urine Methamphetamines Screen NEGATIVE NEGATIVE Urine Benzodiazepines Screen POSITIVE H NEGATIVE Urine Cocaine Screen NEGATIVE NEGATIVE Urine Cannabinoids Screen NEGATIVE NEGATIVE My Orders Orders - HAYLIE ALVAREZ MD Cbc With Automated Diff (10/01/18 10:22) Comprehensive Metabolic Panel (10/01/18 10:22) Ua Culture If Indicated (10/01/18 10:22) Blood Culture (10/01/18 10:22) Ct Head Wo (10/01/18 10:22) Lactic Acid Analyzer (10/01/18 10:22) Drug Screen Stat (Urine) (10/01/18 10:35) Ed Iv/Invasive Line Start (10/01/18 10:47) Vital Signs/I&O 10/01/18 10/01/18 10:00 10:39 Temp 96.9 96.9 Pulse 74 74 Resp 18 18 B/P (MAP) 160/88 (112) 160/88 Pulse Ox 93 93 O2 Delivery Room Air Room Air Capillary Refill : Less Than 3 Seconds Blood Pressure Mean: 112 Progress Note : Time: 11:32 Progress Note The patient's CT of the head and laboratory evaluation was essentially unremarkable. We had called the dialysis center and confirm the patient's hallucinations. There are no beds available in [place]. is requesting [facility]. After consultation with Dr. Grzegorz Weston was kind enough to accept the patient in transfer. Departure Impression Primary Impression: Hallucinations Disposition: 02 XFER SHT-TRM HOSP Condition: Unchanged Transfer Time Spoke to Accepting Phy: 13:53 Transfer Progress Notes Patient was transferred to to Dr. Grzegorz Weston. Transfer Time: 13:53 Transfer Facility: Method of Transfer: EMS Departure-Patient Inst. Referrals: KARLA GUEVARA MD (PCP/Family) Primary Care Physician HAYLIE ALVAREZ MD Oct 01, 2018 10:31
[2018-10-01 10:33] LABS: BASOPHILS % (AUTO) 1 % (0-10); EOSINOPHILS # (AUTO) 0.3 10^3/uL (0.0-0.3); EOSINOPHILS % (AUTO) 5 % (0-10); HEMATOCRIT 28 % (40-54); HEMOGLOBIN 9.7 G/DL (13.3-17.7); LYMPHOCYTES # (AUTO) 1.9 X 10^3 (1.0-4.0); LYMPHOCYTES % (AUTO) 31 % (12-44); MEAN CORPUSCULAR HEMOGLOBIN 31 PG (25-34); MEAN CORPUSCULAR HGB CONC 35 G/DL (32-36); MEAN CORPUSCULAR VOLUME 88 FL (80-99); MONOCYTES # (AUTO) 0.6 X 10^3 (0.0-1.0); MONOCYTES % (AUTO) 9 % (0-12); NEUTROPHILS # (AUTO) 3.4 X 10^3 (1.8-7.8); NEUTROPHILS % (AUTO) 54 % (42-75); PLATELET COUNT 173 10^3/uL (130-400); RED CELL DISTRIBUTION WIDTH 15.5 % (10.0-14.5); WHITE BLOOD COUNT 6.2 10^3/uL (4.3-11.0)
[2018-10-01 10:51] LABS: ALBUMIN 4.4 GM/DL (3.2-4.5); BILIRUBIN,TOTAL 0.8 MG/DL (0.1-1.0); CALCIUM 9.5 MG/DL (8.5-10.1); CREATININE SERUM 3.51 MG/DL (0.60-1.30); POTASSIUM 3.1 MMOL/L (3.6-5.0); TOTAL PROTEIN 7.9 GM/DL (6.4-8.2)
--- NOTE | 2018-10-01 11:27 | Diagnostic Imaging Report ---
PROCEDURE: CT head without contrast. TECHNIQUE: Multiple contiguous axial images were obtained through the brain without the use of intravenous contrast. Auto Exposure Controls were utilized during the CT exam to meet ALARA standards for radiation dose reduction. INDICATION: Confusion. Comparison is made with prior head CT from 06/03/2018. FINDINGS: Ventricles and sulci are within normal limits. No sulcal effacement is seen. There is no midline shift. No acute intra-axial or extra-axial hemorrhage is seen. Cisterns are patent. Visualized paranasal sinuses are clear. IMPRESSION: No acute intracranial process is detected. Dictated by: Dictated on workstation # [id number]
--- NOTE | 2018-10-01 11:50 | NUR ---
Called [facility] [place] at this time relating to pt presentation and symtoms while recieving dialysis on 09/30/18. Staff reports that pt was making non sensable statements and having hallucinations.
[2018-10-01 11:55] LABS: BILIRUBIN,URINE NEGATIVE (NEGATIVE); CLARITY,URINE CLEAR; COLOR,URINE YELLOW; GLUCOSE, URINE (UA) 1+ (NEGATIVE); KETONES,URINE NEGATIVE (NEGATIVE); LEUKOCYTE ESTERASE ,URINE NEGATIVE (NEGATIVE); NITRITE,URINE NEGATIVE (NEGATIVE); PH,URINE 8 (5-9); PROTEIN,URINE 3+ (NEGATIVE); UROBILINOGEN,URINE NORMAL (NORMAL)
[2018-10-01 12:04] LABS: BACTERIA,URINE NEGATIVE /HPF
[2018-10-01 12:10] LABS: AMPHETAMINE SCREEN, URINE NEGATIVE (NEGATIVE); BARBITURATE SCREEN URINE NEGATIVE (NEGATIVE); BENZODIAZEPINES SCREEN URINE POSITIVE (NEGATIVE); CANNABINOID SCREEN, URINE NEGATIVE (NEGATIVE); COCAINE SCREEN URINE NEGATIVE (NEGATIVE); METHADONE STAT NEGATIVE (NEGATIVE); METHAMPHETAMINE SCREEN URINE S NEGATIVE (NEGATIVE); OPIATE SCREEN URINE POSITIVE (NEGATIVE); OXYCODONE STAT NEGATIVE (NEGATIVE); PROPOXYPHENE STAT NEGATIVE (NEGATIVE); TRICYCLIC ANTIDEPRESSANTS SCRE NEGATIVE (NEGATIVE)
--- NOTE | 2018-10-01 14:50 | NUR ---
[facility] incident response engineer number contacted at this time regarding bed assignment. reports no bed placement yet and will call when they have one.
--- NOTE | 2018-10-01 15:00 | NUR ---
[facility] contacted at this time regarding bed status, possible transfer. reports they do not have any beds at this time, but may be able to do an ER to ER transfer. Dr. Burr informed.
--- NOTE | 2018-10-01 16:10 | NUR ---
Bed number recieved from at this time.
[2018-10-01 17:14] VITALS: BP 160/88
== END 2018-10-01 17:14 | disposition short-term general hospital (02) ==
LOC: EDUNIT# 09:52 → ER 09:53
DX: R44.3 Hallucinations, unspecified (principal); J43.9 Emphysema, unspecified; I10 Essential (primary) hypertension; F41.9 Anxiety disorder, unspecified; F17.210 Nicotine dependence, cigarettes, uncomplicated; Z87.442 Personal history of urinary calculi; Z99.2 Dependence on renal dialysis; Z98.890 Other specified postprocedural states; Z82.49 Family history of ischemic heart disease and other diseases of the circulatory system
CPT/HCPCS: 36415; 70450; 80053; 80306; 81000; 82962; 83605; 85025; 87040

== ENCOUNTER 2019-01-07 12:02 | Emergency (ER) | payer MEDICARE ==
[~2019-01-07] VITALS: Ht 175 cm; Wt 66.0 kg
--- NOTE | 2019-01-07 12:29 | ED Cardiac General ---
History of Present Illness General Chief Complaint: Chest Pain Stated Complaint: BLOOD PRESSURE ISSUES;CHEST PAIN Source: patient, family Exam Limitations: no limitations History of Present Illness Date Seen by Provider: Jan 07, 2019 Time Seen by Provider: 12:26 Initial Comments This 51-year-old white male presents with a complaint of chest pain has been present for 2 days. Patient states that the chest pain as pressure type in nature and over the anterior chest. The patient denies similar episode in past. The patient has taken no medication for the chest pain this point. Significant past medical history includes dialysis on Monday and Monday. The patient receive dialysis this morning and that was their feeling in dialysis that the patient should be evaluated in the emergency Department first chest pain. The patient is a smoker. He denies significant alcohol or recreational drugs. Allergies and Home Medications Allergies Coded Allergies: No Known Drug Allergies (Unverified , 09/30/09) Home Medications Amlodipine Besylate 10 Mg Tablet, 10 MG PO HS, (Reported) LAST FILLED #30 12-01-15 Lorazepam 1 Mg Tablet, 1 MG PO TID PRN for ANXIETY, (Reported) LAST FILLED 08-22-15 #90 Metoprolol Tartrate 50 Mg Tablet, 50 MG PO BID This medication should be taken twice daily.It only lasts 12 hours. Prescribed by: SUSY FLEMING on 01/06/15 1200 Zolpidem Tartrate 5 Mg Tablet, 1 TAB PO HS, (Reported) Patient Home Medication List Home Medication List Reviewed: Yes Review of Systems Review of Systems Constitutional: No chills, No fever; malaise Respiratory: Denies Cough, Denies Shortness of Air Cardiovascular: See HPI, Chest Pain; Denies Palpitations Gastrointestinal: Denies Abdominal Pain, Denies Nausea, Denies Vomiting Genitourinary: Denies Burning, Denies Frequency Musculoskeletal: no symptoms reported Skin: no symptoms reported Psychiatric/Neurological: No Symptoms Reported Endocrine: No Symptoms Reported Hematologic/Lymphatic: No Symptoms Reported Past Ezwvuat-Zifozb-Eeelou Hx Past Med/Social Hx: Reviewed Nursing Past Med/Soc Hx Patient Social History Alcohol Beverage of Choice: Beer Type Used: Cigarettes 2nd Hand Smoke Exposure: No Recent Hopitalizations: No Immunizations Up To Date Tetanus Booster (TDap): Less than 5yrs PED Vaccines UTD: No Date of Influenza Vaccine: Dec 29, 2014 Seasonal Allergies Seasonal Allergies: No Past Medical History Surgeries: Yes (hernia repair, L ARM FISTULA) Cardiac Respiratory: Yes (COPD) COPD, Emphysema Currently Using CPAP: No Currently Using BIPAP: No Cardiac: Yes Hypertension Neurological: No Reproductive Disorders: No Genitourinary: Yes (hd mwf) Kidney Stones, Renal Failure, Dialysis Gastrointestinal: No Musculoskeletal: No Endocrine: No HEENT: No Hearing Impairment: Hard of Hearing Cancer: No Psychosocial: Yes Anxiety Integumentary: No Blood Disorders: No Adverse Reaction/Blood Tranf: No Family Medical History FH: COPD (chronic obstructive pulmonary disease) 19 FATHER FH: emphysema 19 FATHER FH: heart attack 19 FATHER FH: scoliosis G8 BROTHER, FH: stroke G8 SISTER FHx: heart disease G8 SISTER Thyroid disease 19 MOTHER No Pertinent Family Hx Physical Exam Vital Signs Vital Signs - First Documented 01/07/19 12:04 Temp 37.1 Pulse 64 Resp 20 B/P (MAP) 179/96 (123) Pulse Ox 94 O2 Delivery Room Air Capillary Refill : Height, Weight, BMI Height: 5'9.00" Weight: 150lbs. 0oz. 68.695431mv; 24.6 BMI Method:Stated General Appearance: No Apparent Distress, WD/WN HEENT: Normal ENT Inspection Neck: Normal Inspection Respiratory: Decreased Breath Sounds, Wheezing Cardiovascular: Regular Rate, Rhythm, No Murmur Gastrointestinal: Normal Bowel Sounds, Non Tender Extremity: Normal Inspection Neurologic/Psychiatric: Alert, Oriented x3, No Motor/Sensory Deficits, Normal Mood/Affect Skin: Normal Color, Warm/Dry Progress/Results/Core Measures Results/Orders Lab Results Laboratory Tests Test 01/07/19 12:13 Range/Units White Blood Count 9.0 4.3-11.0 10^3/uL Red Blood Count 3.59 L 4.35-5.85 10^6/uL Hemoglobin 11.1 L 13.3-17.7 G/DL Hematocrit 32 L 40-54 % Mean Corpuscular Volume 88 80-99 FL Mean Corpuscular Hemoglobin 31 25-34 PG Mean Corpuscular Hemoglobin Concent 35 32-36 G/DL Red Cell Distribution Width 17.1 H 10.0-14.5 % Platelet Count 166 130-400 10^3/uL Mean Platelet Volume 9.5 7.4-10.4 FL Neutrophils (%) (Auto) 62 42-75 % Lymphocytes (%) (Auto) 26 12-44 % Monocytes (%) (Auto) 11 0-12 % Eosinophils (%) (Auto) 1 0-10 % Basophils (%) (Auto) 0 0-10 % Neutrophils # (Auto) 5.6 1.8-7.8 X 10^3 Lymphocytes # (Auto) 2.4 1.0-4.0 X 10^3 Monocytes # (Auto) 1.0 0.0-1.0 X 10^3 Eosinophils # (Auto) 0.1 0.0-0.3 10^3/uL Basophils # (Auto) 0.0 0.0-0.1 10^3/uL Prothrombin Time 14.2 12.2-14.7 SEC INR Comment 1.1 0.8-1.4 Activated Partial Thromboplast Time 33 24-35 SEC Sodium Level 138 135-145 MMOL/L Potassium Level 3.6 3.6-5.0 MMOL/L Chloride Level 91 L 98-107 MMOL/L Carbon Dioxide Level 36 H 21-32 MMOL/L Anion Gap 11 5-14 MMOL/L Blood Urea Nitrogen 15 7-18 MG/DL Creatinine 4.68 H 0.60-1.30 MG/DL Estimat Glomerular Filtration Rate 13 BUN/Creatinine Ratio 3 Glucose Level 101 70-105 MG/DL Calcium Level 8.4 L 8.5-10.1 MG/DL Corrected Calcium 8.3 L 8.5-10.1 MG/DL Magnesium Level 1.9 1.6-2.4 MG/DL Total Bilirubin 0.5 0.1-1.0 MG/DL Aspartate Amino Transf (AST/SGOT) 10 5-34 U/L Alanine Aminotransferase (ALT/SGPT) 8 0-55 U/L Alkaline Phosphatase 98 40-136 U/L Myoglobin 654.9 H 10.0-92.0 NG/ML Troponin I < 0.028 <0.028 NG/ML Total Protein 7.0 6.4-8.2 GM/DL Albumin 4.1 3.2-4.5 GM/DL My Orders Orders - HAYLIE ALVAREZ MD Cbc With Automated Diff (01/07/19 12:24) Magnesium (01/07/19 12:24) Chest 1 View, Ap/Pa Only (01/07/19 12:24) Ekg Tracing (01/07/19 12:24) Cardiac Profile 1 (01/07/19 12:24) Comprehensive Metabolic Panel (01/07/19 12:24) Myoglobin Serum (01/07/19 12:24) Protime With Inr (01/07/19 12:24) Partial Thromboplastin Time (01/07/19 12:24) O2 (01/07/19 12:24) Monitor-Rhythm Ecg Trace Only (01/07/19 12:24) Lipid Panel (01/08/19 06:00) Ed Iv/Invasive Line Start (01/07/19 12:24) Nitroglycerin 0.4 Mg Btl 25's (Nitrostat (01/07/19 12:30) Aspirin Chewable Tablet (Baby Aspirin Ch (01/07/19 12:30) Fentanyl Injection (Sublimaze Injection (01/07/19 13:30) Heparin Injection (Heparin Injection) (01/07/19 14:45) Heparin Drip 52600 Unit/500ml (Heparin (01/07/19 14:31) Hydromorphone Injection (Dilaudid Inject (01/07/19 14:45) Medications Given in ED Current Medications Medications Dose Ordered Sig/Tj Route Start Time Stop Time Status Last Admin Dose Admin Aspirin 324 mg ONCE ONCE PO 01/07/19 12:30 01/07/19 12:31 DC 01/07/19 12:42 324 MG Fentanyl Citrate 50 mcg ONCE ONCE IVP 01/07/19 13:30 01/07/19 13:31 DC 01/07/19 13:47 50 MCG Nitroglycerin 0.4 mg UD PRN SL 01/07/19 12:30 01/07/19 12:50 0.4 MG Vital Signs/I&O 01/07/19 01/07/19 12:04 12:04 Temp 37.1 Pulse 64 Resp 20 B/P (MAP) 179/96 (123) Pulse Ox 94 O2 Delivery Room Air Progress Progress Note : Time: 14:53 Progress Note Patient's workup and evaluation the emergency department demonstrated a sinus rhythm on the patient's EKG. Patient's first troponin was normal. The patient's chest x-ray however was consistent with an acute congestive heart failure. Patient was given aspirin. He received nitroglycerin without improvement in his chest pain. Patient was given 50 g of fentanyl without improvement in his chest pain. Patient received final IV narcotic treatment with Dilaudid 0.5 mg IV. The patient's has chest pain that is difficult to explain. Given his severe renal failure is not possible to look for a PE at this point. After discussion with the patient's family as well as cardiology here at [facility] was felt patient would be best treated at [facility] where he has been for. Dr. Cordero accepted in transfer. Departure Impression Primary Impression: Chest pain Qualified Codes: R07.9 - Chest pain, unspecified Additional Impression: Renal insufficiency Disposition: XFER SHT-TRM HOSP Condition: Improved Transfer Transfer Reason: Exceeds level of care Time Spoke to Accepting Phy: 14:58 Transfer Progress Notes at [facility] accepted the patient in transfer. Transfer Time: 15:00 Transfer Facility: [facility] Method of Transfer: EMS Departure-Patient Inst. Referrals: KARLA GUEVARA MD (PCP/Family) Primary Care Physician HAYLIE ALVAREZ MD Jan 07, 2019 12:29
[2019-01-07 12:30] LABS: BASOPHILS % (AUTO) 0 % (0-10); EOSINOPHILS # (AUTO) 0.1 10^3/uL (0.0-0.3); EOSINOPHILS % (AUTO) 1 % (0-10); HEMATOCRIT 32 % (40-54); HEMOGLOBIN 11.1 G/DL (13.3-17.7); LYMPHOCYTES # (AUTO) 2.4 X 10^3 (1.0-4.0); LYMPHOCYTES % (AUTO) 26 % (12-44); MEAN CORPUSCULAR HEMOGLOBIN 31 PG (25-34); MEAN CORPUSCULAR HGB CONC 35 G/DL (32-36); MEAN CORPUSCULAR VOLUME 88 FL (80-99); MEAN PLATELET VOLUME 9.5 FL (7.4-10.4); MONOCYTES % (AUTO) 11 % (0-12); NEUTROPHILS # (AUTO) 5.6 X 10^3 (1.8-7.8); NEUTROPHILS % (AUTO) 62 % (42-75); PLATELET COUNT 166 10^3/uL (130-400); RED CELL DISTRIBUTION WIDTH 17.1 % (10.0-14.5)
[2019-01-07] MEDS ORDERED: ASPIRIN 81 MG CHEW (CHILDREN'S ASA) PO ONE (12:30)
[2019-01-07 12:38] LABS: INR 1.1 (0.8-1.4); PROTHROMBIN TIME PATIENT 14.2 SEC (12.2-14.7)
[2019-01-07 12:42] LABS: ALANINE AMINOTRANSFERASE 8 U/L (0-55); ALBUMIN 4.1 GM/DL (3.2-4.5); ALKALINE PHOSPHATASE 98 U/L (40-136); BILIRUBIN,TOTAL 0.5 MG/DL (0.1-1.0); BUN/CREATININE RATIO 3; CALCIUM 8.4 MG/DL (8.5-10.1); CARBON DIOXIDE 36 MMOL/L (21-32); CHLORIDE 91 MMOL/L (98-107); CREATININE SERUM 4.68 MG/DL (0.60-1.30); GFR ESTIMATED 13; GLUCOSE 101 MG/DL (70-105); MAGNESIUM 1.9 MG/DL (1.6-2.4); POTASSIUM 3.6 MMOL/L (3.6-5.0); SODIUM 138 MMOL/L (135-145)
[2019-01-07] MEDS: NITROGLYCERIN 0.4 MG SL TABS BTL 25'S SL PRN ×2 (12:42→12:50)
--- NOTE | 2019-01-07 13:23 | Diagnostic Imaging Report ---
INDICATION: Chest pain. COMPARISON: Comparison is made to study of 06/03/2018. FINDINGS: There is mild cardiomegaly. There has been development of pulmonary venous congestion and central pulmonary edema. No pneumothorax identified. There is no significant pleural fluid. IMPRESSION: Developing pulmonary venous congestion and central pulmonary edema compatible with congestive heart failure or acute cardiac decompensation. Dictated by: Dictated on workstation # [id number]
[2019-01-07] MEDS ORDERED: fentaNYL INJECTION 100 MCG/2 ML AMP IVP ONE (13:30)
[2019-01-07] MEDS ORDERED: HEParin DRIP 25000 UNIT/500ML 500 ML IV ONE (14:31)
[2019-01-07] MEDS ORDERED: HYDROmorphone 2 MG/ML VIAL (DILAUDID) IV ONE (14:45)
[2019-01-07] MEDS ORDERED: HEParin 1000 UNIT/ML (10ML VIAL) FOR BOLUS ONE (15:08)
[2019-01-07 15:43] VITALS: BP 122/95
== END 2019-01-07 15:43 | disposition short-term general hospital (02) ==
LOC: EDUNIT# 12:02 → ER 12:03
DX: R07.9 Chest pain, unspecified (principal); N28.9 Disorder of kidney and ureter, unspecified; I10 Essential (primary) hypertension; J43.9 Emphysema, unspecified; F41.9 Anxiety disorder, unspecified; Z99.2 Dependence on renal dialysis; Z87.442 Personal history of urinary calculi; Z82.49 Family history of ischemic heart disease and other diseases of the circulatory system
CPT/HCPCS: 36415; 71045; 80053; 83735; 83874; 84484; 85025; 85610; 85730; 93005; 93041

== ENCOUNTER 2019-02-20 17:03 | Emergency (ER) | payer MEDICARE ==
[~2019-02-20] VITALS: Ht 175.2 cm; Wt 68.0 kg
[2019-02-20 17:23] LABS: BASOPHILS % (AUTO) 0 % (0-10); EOSINOPHILS # (AUTO) 0.2 10^3/uL (0.0-0.3); EOSINOPHILS % (AUTO) 5 % (0-10); HEMATOCRIT 36 % (40-54); HEMOGLOBIN 12.8 G/DL (13.3-17.7); LYMPHOCYTES # (AUTO) 1.4 X 10^3 (1.0-4.0); LYMPHOCYTES % (AUTO) 29 % (12-44); MEAN CORPUSCULAR HEMOGLOBIN 32 PG (25-34); MEAN CORPUSCULAR HGB CONC 35 G/DL (32-36); MEAN CORPUSCULAR VOLUME 90 FL (80-99); MEAN PLATELET VOLUME 9.4 FL (7.4-10.4); MONOCYTES # (AUTO) 0.4 X 10^3 (0.0-1.0); MONOCYTES % (AUTO) 9 % (0-12); NEUTROPHILS # (AUTO) 2.7 X 10^3 (1.8-7.8); NEUTROPHILS % (AUTO) 57 % (42-75); PLATELET COUNT 161 10^3/uL (130-400); RED CELL DISTRIBUTION WIDTH 16.8 % (10.0-14.5); WHITE BLOOD COUNT 4.7 10^3/uL (4.3-11.0)
[2019-02-20] MEDS ORDERED: hydrALAZINE (APESOLINE) 20 MG/ML VIAL IV ONE (17:30)
[2019-02-20 17:39] LABS: ALBUMIN 4.2 GM/DL (3.2-4.5); BILIRUBIN,TOTAL 0.9 MG/DL (0.1-1.0); CALCIUM 8.1 MG/DL (8.5-10.1); CREATININE SERUM 5.01 MG/DL (0.60-1.30); POTASSIUM 3.8 MMOL/L (3.6-5.0); TOTAL PROTEIN 7.4 GM/DL (6.4-8.2)
[2019-02-20] MEDS ORDERED: HYDROcodone/APAP 10 MG/325 MG (LORTAB) TAB PO ONE (17:45)
--- NOTE | 2019-02-20 17:59 | Diagnostic Imaging Report ---
INDICATION: Hypertension. EXAMINATION: PA and lateral chest. FINDINGS: There is a loop recorder projected over the left side of the chest. Heart size and pulmonary vascularity are normal. Lungs are clear. There are no effusions or pneumothoraces. IMPRESSION: No acute abnormality in the chest. Dictated by: Dictated on workstation # [id number]
[2019-02-20 18:04] VITALS: BP 154/82
[2019-02-20] MEDS ORDERED: RT-ALBUINH IH (18:08)
[2019-02-20] MEDS ORDERED: PRD20T PO ×2 (18:08→18:37)
[2019-02-20] MEDS ORDERED: CEFU250T80 PO ×2 (18:08→18:37)
--- NOTE | 2019-02-20 18:08 | ED General ---
General Chief Complaint: General Problems/Pain Stated Complaint: SOA,HIGH BP Nursing Triage Note: AMB TO ROOM REPORTS THAT FOR LAST 3 DAYS HIS SYSTOLIC B/P HAS BEEN IN THE 190 DOES TAKE B/P MEDS. HAS BEEN FEELING SOA IS A DIALYSIS PATIENT DID TAKE DIALYSIS TODAY. Nursing Sepsis Screen: No Definite Risk Source of Information: Patient Exam Limitations: No Limitations History of Present Illness Date Seen by Provider: Feb 20, 2019 Time Seen by Provider: 18:03 Initial Comments To ER with reports of shortness of breath and high blood pressure. High blood pressure is been an issue for several months, he is on 3 antihypertensives. He is also a end-stage renal disease on hemodialysis patient, he has not missed any hemodialysis treatments, a full course for him as 2 hours and 45 minutes and he received that just today. His cough is unchanged in nature chronically slightly productive no fever no chills. Timing/Duration: 1-2 Days Severity: Moderate Associated Systoms: Cough Allergies and Home Medications Allergies Coded Allergies: No Known Drug Allergies (Unverified , 09/30/09) Home Medications Albuterol Sulfate 1 Puff Puff, 2 PUFF IH Q4H PRN for SHORTNESS OF BREATH 1 PUFF = 90 MCG Prescribed by: FRANCIS MURRAY on 02/20/191807 Amlodipine Besylate 10 Mg Tablet, 10 MG PO HS, (Reported) LAST FILLED #30 12-01-14 Cefuroxime Axetil 250 Mg Tablet, 250 MG PO DAILY Prescribed by: FRANCIS MURRAY on 02/20/191807 Lorazepam 1 Mg Tablet, 1 MG PO TID PRN for ANXIETY, (Reported) LAST FILLED 08-22-14 #90 Metoprolol Tartrate 50 Mg Tablet, 50 MG PO BID This medication should be taken twice daily.It only lasts 12 hours. Prescribed by: SUSY FLEMING on 01/06/15 1200 Prednisone 20 Mg Tab, 40 MG PO DAILY Prescribed by: FRANCIS MURRAY on 02/20/191807 Zolpidem Tartrate 5 Mg Tablet, 1 TAB PO HS, (Reported) Patient Home Medication List Home Medication List Reviewed: Yes Review of Systems Review of Systems Constitutional: see HPI EENTM: see HPI Respiratory: see HPI, cough, dyspnea on exertion Cardiovascular: no symptoms reported Genitourinary: no symptoms reported Musculoskeletal: no symptoms reported Skin: no symptoms reported Psychiatric/Neurological: No Symptoms Reported Hematologic/Lymphatic: No Symptoms Reported Immunological/Allergic: no symptoms reported Past Fesddal-Lumwtx-Qwjzkg Hx Patient Social History Alcohol Use: Denies Use Number of Drinks Today: AA Alcohol Beverage of Choice: Beer Recreational Drug Use: Yes (ALCOHOL) Smoking Status: Current Everyday Smoker Type Used: Cigarettes 2nd Hand Smoke Exposure: No Recent Foreign Travel: No Contact w/Someone Who Travel: No Recent Infectious Disease Expo: No Recent Hopitalizations: No Immunizations Up To Date Tetanus Booster (TDap): Less than 5yrs PED Vaccines UTD: No Date of Influenza Vaccine: Dec 29, 2014 Seasonal Allergies Seasonal Allergies: No Past Medical History Surgeries: Yes (hernia repair, L ARM FISTULA) Cardiac Respiratory: Yes (COPD) COPD, Emphysema Currently Using CPAP: No Currently Using BIPAP: No Cardiac: Yes Hypertension Neurological: No Reproductive Disorders: No Genitourinary: Yes (hd mwf) Kidney Stones, Renal Failure, Dialysis Gastrointestinal: No Musculoskeletal: No Endocrine: No HEENT: No Hearing Impairment: Hard of Hearing Cancer: No Psychosocial: Yes Anxiety Integumentary: No Blood Disorders: No Adverse Reaction/Blood Tranf: No Family Medical History FH: COPD (chronic obstructive pulmonary disease) 19 FATHER FH: emphysema 19 FATHER FH: heart attack 19 FATHER FH: scoliosis G8 BROTHER, FH: stroke G8 SISTER FHx: heart disease G8 SISTER Thyroid disease 19 MOTHER No Pertinent Family Hx Physical Exam Vital Signs Vital Signs - First Documented 02/20/19 17:07 Temp 36.5 Pulse 54 B/P (MAP) 194/94 (127) Pulse Ox 99 O2 Delivery Room Air Capillary Refill : Less Than 3 Seconds Height, Weight, BMI Height: 5'9.00" Weight: 150lbs. 0oz. 68.524290uq; 22.00 BMI Method:Stated General Appearance: No Apparent Distress, WD/WN Eyes: Bilateral Eye Normal Inspection, Bilateral Eye PERRL, Bilateral Eye EOMI HEENT: PERRL/EOMI, TMs Normal Neck: Full Range of Motion, Normal Inspection Respiratory: No Accessory Muscle Use, No Respiratory Distress Cardiovascular: Regular Rate, Rhythm, Normal Peripheral Pulses Gastrointestinal: Normal Bowel Sounds, Non Tender, Soft Extremity: Normal Capillary Refill, Normal Inspection Neurologic/Psychiatric: Alert, Oriented x3 Skin: Normal Color, Warm/Dry Progress/Results/Core Measures Suspected Sepsis Recent Fever Within 48 Hours: No Infection Criteria Present: None New/Unexplained Altered Menta: No Sepsis Screen: No Definite Risk SIRS Temperature: Pulse: 54 Respiratory Rate: Laboratory Tests 02/20/19 17:12: White Blood Count 4.7 Blood Pressure 194 /94 Mean: 127 Laboratory Tests 02/20/19 17:12: Creatinine 5.01H, Platelet Count 161, Total Bilirubin 0.9 Results/Orders Lab Results Laboratory Tests Test 02/20/19 17:12 Range/Units White Blood Count 4.7 4.3-11.0 10^3/uL Red Blood Count 4.04 L 4.35-5.85 10^6/uL Hemoglobin 12.8 L 13.3-17.7 G/DL Hematocrit 36 L 40-54 % Mean Corpuscular Volume 90 80-99 FL Mean Corpuscular Hemoglobin 32 25-34 PG Mean Corpuscular Hemoglobin Concent 35 32-36 G/DL Red Cell Distribution Width 16.8 H 10.0-14.5 % Platelet Count 161 130-400 10^3/uL Mean Platelet Volume 9.4 7.4-10.4 FL Neutrophils (%) (Auto) 57 42-75 % Lymphocytes (%) (Auto) 29 12-44 % Monocytes (%) (Auto) 9 0-12 % Eosinophils (%) (Auto) 5 0-10 % Basophils (%) (Auto) 0 0-10 % Neutrophils # (Auto) 2.7 1.8-7.8 X 10^3 Lymphocytes # (Auto) 1.4 1.0-4.0 X 10^3 Monocytes # (Auto) 0.4 0.0-1.0 X 10^3 Eosinophils # (Auto) 0.2 0.0-0.3 10^3/uL Basophils # (Auto) 0.0 0.0-0.1 10^3/uL Sodium Level 139 135-145 MMOL/L Potassium Level 3.8 3.6-5.0 MMOL/L Chloride Level 92 L 98-107 MMOL/L Carbon Dioxide Level 34 H 21-32 MMOL/L Anion Gap 13 5-14 MMOL/L Blood Urea Nitrogen 11 7-18 MG/DL Creatinine 5.01 H 0.60-1.30 MG/DL Estimat Glomerular Filtration Rate 12 BUN/Creatinine Ratio 2 Glucose Level 103 70-105 MG/DL Calcium Level 8.1 L 8.5-10.1 MG/DL Corrected Calcium 7.9 L 8.5-10.1 MG/DL Total Bilirubin 0.9 0.1-1.0 MG/DL Aspartate Amino Transf (AST/SGOT) 16 5-34 U/L Alanine Aminotransferase (ALT/SGPT) 7 0-55 U/L Alkaline Phosphatase 124 40-136 U/L Total Protein 7.4 6.4-8.2 GM/DL Albumin 4.2 3.2-4.5 GM/DL My Orders Orders - FRANCIS MURRAY RESIDENTIAL TECH Cbc With Automated Diff (02/20/19 17:16) Comprehensive Metabolic Panel (02/20/19 17:16) Chest Pa/Lat (2 View) (02/20/19 17:16) Ed Iv/Invasive Line Start (02/20/19 17:16) Ekg Tracing (02/20/19 17:16) Hydralazine Injection (Apresoline Inject (02/20/19 17:30) Hydrocodone/Apap 10/325 Tablet (Lortab 1 (02/20/19 17:45) Albuterol/Ipra Inhalation Soln (Duoneb I (02/20/19 18:15) Prednisone Tablet (Deltasone Tablet) (02/20/19 18:15) Svn Small Volume Nebulizer (02/20/19 18:09) Hydralazine Tablet (Apresoline Tablet) (02/20/19 18:45) Medications Given in ED Current Medications Medications Dose Ordered Sig/Tj Route Start Time Stop Time Status Last Admin Dose Admin Acetaminophen/ Hydrocodone Bitart 1 ea ONCE ONCE PO 02/20/19 17:45 02/20/19 17:46 DC 02/20/19 18:00 1 EA Hydralazine HCl 10 mg ONCE ONCE IV 02/20/19 17:30 02/20/19 17:31 DC 02/20/19 17:28 10 MG Vital Signs/I&O 02/20/19 02/20/19 17:07 18:04 Temp 36.5 Pulse 54 B/P (MAP) 194/94 (127) 154/82 (106) Pulse Ox 99 O2 Delivery Room Air Capillary Refill : Less Than 3 Seconds Blood Pressure Mean: 127 POS Departure Impression Primary Impression: COPD with exacerbation Additional Impression: Hypertension Qualified Codes: I10 - Essential (primary) hypertension Disposition: HOME, SELF-CARE Condition: Stable Departure-Patient Inst. Decision time for Depature: 18:05 Referrals: KARLA GUEVARA MD (PCP/Family) Primary Care Physician Patient Instructions: Exacerbation of COPD (DC) Add. Discharge Instructions: 1. Steroids and antibiotics as directed 2. Inhaler as needed 3. Follow-up with your doctor next week. Return to ER for any worsening. And/or family. Voiced understanding. Scripts Cefuroxime Axetil (Cefuroxime) 250 Mg Tablet 250 MG PO DAILY, #10 TAB . Prov: FRANCIS MURRAY APRN 02/20/19 Prednisone (Prednisone) 20 Mg Tab 40 MG PO DAILY, #6 TAB 0 Refills . Prov: FRANCIS MURRAY APRN 02/20/19 Hydralazine HCl (Hydralazine HCl) 10 Mg Tablet 10 MG PO Q6H, #10 TAB Prov: FRANCIS MURRAY APRN 02/20/19 Albuterol Sulfate (PROAIR HFA) 1 Puff Puff 2 PUFF IH Q4H PRN for SHORTNESS OF BREATH, #1 PUFF 1 PUFF = 90 MCG Prov: FRANCIS MURRAY APRN 02/20/19 FRANCIS MURRAY APRN Feb 20, 2019 18:08 POS
[2019-02-20] MEDS ORDERED: predniSONE 20 MG TAB PO ONE (18:15)
[2019-02-20] MEDS ORDERED: RT-ALBUTEROL/IPRATROPIUM 3 ML (DUONEB) VIAL INH ONE (18:15)
[2019-02-20] MEDS ORDERED: HYDR-3922 PO (18:36)
[2019-02-20 18:59] VITALS: BP 143/89
== END 2019-02-20 18:59 | disposition home or self-care (01) ==
LOC: EDUNIT# 17:03 → ER 17:04
DX: J44.1 Chronic obstructive pulmonary disease with (acute) exacerbation (principal); I10 Essential (primary) hypertension; J43.9 Emphysema, unspecified; F41.9 Anxiety disorder, unspecified; F17.210 Nicotine dependence, cigarettes, uncomplicated; Z87.442 Personal history of urinary calculi; Z99.2 Dependence on renal dialysis
CPT/HCPCS: 36415; 71046; 80053; 85025; 93005; 94640; 96374

== ENCOUNTER 2019-03-14 14:32 | Emergency (ER) | payer MEDICARE ==
[~2019-03-14] VITALS: Ht 175.3 cm; Wt 70.0 kg
[~2019-03-14 14:32] MED LIST changes: +CEFU250T80 PO; +HYDR-3922 PO; +PRD20T PO; +RT-ALBUINH IH
[2019-03-14] MEDS ORDERED: ASPIRIN 81 MG CHEW (CHILDREN'S ASA) PO ONE (14:45)
--- NOTE | 2019-03-14 14:56 | ED Chest Pain ---
General Stated Complaint: CHEST PAIN Source: patient Exam Limitations: no limitations (RACHEL MARIN,MED STUDENT) History of Present Illness Date Seen by Provider: Mar 14, 2019 Time Seen by Provider: 14:44 Initial Comments Pt presents to ED via EMS with CC of chest pain. Describes pain as 8/10 pressure, central and substernal, right above xiphoid. States he has never had this pain before and denies any history of interventions. EMS provided 4L O2, 325mg of aspirin and nitroglycerin with mild reduction in pain. Endorses history of high blood pressure and past medical history is notable for chronic kidney disease managed by dialysis. Also complains of LLQ abdominal pain he describes as crampy and associates it with two weeks of diarrhea, which is ongoing. 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 Prescribed by: FRANCIS MURRAY on 02/20/19 183 Hydralazine HCl 10 Mg Tablet, 10 MG PO Q6H Prescribed by: FRANCIS MURRAY on 02/20/19 183 Lorazepam 1 Mg Tablet, 1 MG PO TID PRN for ANXIETY, (Reported) LAST FILLED 08-22-14 #90 Metoprolol Tartrate 50 Mg Tablet, 50 MG PO BID This medication should be taken twice daily.It only lasts 12 hours. Prescribed by: SUSY FLEMING on 01/06/15 1200 Prednisone 20 Mg Tab, 40 MG PO DAILY . Prescribed by: FRANCIS MURRAY on 02/20/191836 Zolpidem Tartrate 5 Mg Tablet, 1 TAB PO HS, (Reported) Patient Home Medication List Home Medication List Reviewed: Yes (RACHEL MARIN MED STUDENT) Home Medication List Reviewed: Yes (SPENCER SHEEHAN MD) Review of Systems Review of Systems Constitutional: No chills, No fever, No malaise; weakness EENTM: No Eye Pain, No Ear Pain, No Mouth Pain, No Nose Pain, No Throat Pain Respiratory: Cough, Shortness of Air Cardiovascular: See HPI, Chest Pain, Lightheadedness, Palpitations Gastrointestinal: Abdominal Pain (LLQ ); Denies Blood Streaked Stools; Diarrhea (2 weeks ); Denies Nausea; Poor Appetite; Denies Vomiting Genitourinary: Denies Incontinence, Denies Pain Musculoskeletal: No back pain, No joint pain Skin: No lesions, No lumps, No rash Psychiatric/Neurological: Denies Anxiety, Denies Depressed (RACHEL MARIN MED STUDENT) All Other Systems Reviewed Negative Unless Noted: Yes (SPENCER SHEEHAN MD) Past Zxhfkba-Klndvk-Rcsfwd Hx Past Med/Social Hx: Reviewed Nursing Past Med/Soc Hx (SPENCER SHEEHAN MD) Patient Social History Alcohol Beverage of Choice: Beer Type Used: Cigarettes 2nd Hand Smoke Exposure: No Recent Hopitalizations: No (RACHEL MARIN MED STUDENT) Immunizations Up To Date Tetanus Booster (TDap): Less than 5yrs PED Vaccines UTD: No Date of Influenza Vaccine: Dec 29, 2014 (RACHEL MARIN MED STUDENT) Seasonal Allergies Seasonal Allergies: No (RACHEL MARIN MED STUDENT) Past Medical History Surgeries: Yes (hernia repair, L ARM FISTULA) Cardiac Respiratory: Yes (COPD) COPD, Emphysema Currently Using CPAP: No Currently Using BIPAP: No Cardiac: Yes Hypertension Neurological: No Reproductive Disorders: No Genitourinary: Yes (hd mwf) Kidney Stones, Renal Failure, Dialysis Gastrointestinal: No Musculoskeletal: No Endocrine: No HEENT: No Hearing Impairment: Hard of Hearing Cancer: No Psychosocial: Yes Anxiety Integumentary: No Blood Disorders: No Adverse Reaction/Blood Tranf: No (RACHEL MARIN MED STUDENT) Family Medical History Reviewed Nursing Family Hx (SPENCER SHEEHAN MD) FH: COPD (chronic obstructive pulmonary disease) 19 FATHER FH: emphysema 19 FATHER FH: heart attack 19 FATHER FH: scoliosis G8 BROTHER, FH: stroke G8 SISTER FHx: heart disease G8 SISTER Thyroid disease 19 MOTHER No Pertinent Family Hx (RACHEL MARIN,MED STUDENT) Physical Exam Vital Signs Vital Signs - First Documented 03/14/19 14:32 Temp 36.4 Pulse 56 Resp 18 B/P (MAP) 165/93 (117) Pulse Ox 97 O2 Delivery Room Air (SPENCER SHEEHAN MD) Vital Signs Capillary Refill : (RACHEL MARIN,MED STUDENT) Height, Weight, BMI Height: 5'9.00" Weight: 150lbs. 0oz. 68.711060rs; 22.00 BMI Method:Stated General Appearance: WD/WN, Mild Distress, Thin HEENT: PERRL/EOMI, TMs Normal, Normal ENT Inspection, Pharynx Normal Neck: Non Tender, Supple Respiratory: Chest Non Tender, Normal Breath Sounds, No Accessory Muscle Use, No Respiratory Distress, Crackles Cardiovascular: No Gallop, No Murmur, Normal Peripheral Pulses, Bradycardia (56) Gastrointestinal: Soft; No Distended; Guarding (voluntary); No Mass, No Rebound; Tenderness (LLQ) Extremity: No Calf Tenderness, No Pedal Edema Neurologic/Psychiatric: Alert, Oriented x3 Skin: Normal Color, Warm/Dry Lymphatic: No Adenopathy (anterior/posterior cervical, supra/infraclavicular) (RACHEL MARIN,MED STUDENT) General Appearance: WD/WN, Mild Distress Respiratory: No Accessory Muscle Use, No Respiratory Distress, Crackles (few bibasilar crackles) Cardiovascular: No Murmur, Bradycardia (56) Gastrointestinal: Soft; No Guarding; Tenderness (mild left lower quadrant tenderness and mild epigastric tenderness) Neurologic/Psychiatric: Alert, Oriented x3 (SPENCER SHEEHAN MD) Progress/Results/Core Measures Results/Orders Lab Results Laboratory Tests Test 03/14/19 14:47 Range/Units White Blood Count 5.0 4.3-11.0 10^3/uL Red Blood Count 3.05 L 4.35-5.85 10^6/uL Hemoglobin 9.7 L 13.3-17.7 G/DL Hematocrit 28 L 40-54 % Mean Corpuscular Volume 91 80-99 FL Mean Corpuscular Hemoglobin 32 25-34 PG Mean Corpuscular Hemoglobin Concent 35 32-36 G/DL Red Cell Distribution Width 15.4 H 10.0-14.5 % Platelet Count 154 130-400 10^3/uL Mean Platelet Volume 8.7 7.4-10.4 FL Neutrophils (%) (Auto) 48 42-75 % Lymphocytes (%) (Auto) 34 12-44 % Monocytes (%) (Auto) 9 0-12 % Eosinophils (%) (Auto) 9 0-10 % Basophils (%) (Auto) 1 0-10 % Neutrophils # (Auto) 2.4 1.8-7.8 X 10^3 Lymphocytes # (Auto) 1.7 1.0-4.0 X 10^3 Monocytes # (Auto) 0.4 0.0-1.0 X 10^3 Eosinophils # (Auto) 0.4 H 0.0-0.3 10^3/uL Basophils # (Auto) 0.0 0.0-0.1 10^3/uL Prothrombin Time 14.6 12.2-14.7 SEC INR Comment 1.1 0.8-1.4 Activated Partial Thromboplast Time 32 24-35 SEC Sodium Level 131 L 135-145 MMOL/L Potassium Level 5.0 3.6-5.0 MMOL/L Chloride Level 90 L 98-107 MMOL/L Carbon Dioxide Level 29 21-32 MMOL/L Anion Gap 12 5-14 MMOL/L Blood Urea Nitrogen 24 H 7-18 MG/DL Creatinine 6.83 H 0.60-1.30 MG/DL Estimat Glomerular Filtration Rate 9 BUN/Creatinine Ratio 4 Glucose Level 95 70-105 MG/DL Calcium Level 8.7 8.5-10.1 MG/DL Corrected Calcium 8.9 8.5-10.1 MG/DL Magnesium Level 1.9 1.6-2.4 MG/DL Total Bilirubin 0.6 0.1-1.0 MG/DL Aspartate Amino Transf (AST/SGOT) 10 5-34 U/L Alanine Aminotransferase (ALT/SGPT) 7 0-55 U/L Alkaline Phosphatase 99 40-136 U/L Myoglobin 338.8 H 10.0-92.0 NG/ML Troponin I < 0.028 <0.028 NG/ML B-Type Natriuretic Peptide 2800.8 H <100.0 PG/ML Total Protein 6.5 6.4-8.2 GM/DL Albumin 3.7 3.2-4.5 GM/DL Lipase 14 8-78 U/L (SPENCER SHEEHAN MD) My Orders Orders - SPENCER SHEEHAN MD Fentanyl Injection (Sublimaze Injection (03/14/19 15:15) Ct Abdomen/Pelvis Wo (03/14/19 15:23) Hydromorphone Injection (Dilaudid Inject (03/14/19 17:30) Hyoscyamine Sl Tablet (Levsin Sl Tablet) (03/14/19 17:45) (SPENCER SHEEHAN MD) Medications Given in ED Current Medications Medications Dose Ordered Sig/Tj Route Start Time Stop Time Status Last Admin Dose Admin Hydromorphone HCl 0.5 mg ONCE ONCE IV 03/14/19 17:30 03/14/19 17:31 DC 03/14/19 17:34 0.5 MG Hyoscyamine Sulfate 0.125 mg ONCE ONCE SL 03/14/19 17:45 03/14/19 17:46 DC 03/14/19 17:52 0.125 MG (SPENCER SHEEHAN MD) Vital Signs/I&O 03/14/19 03/14/19 14:32 14:32 Temp 36.4 Pulse 56 Resp 18 B/P (MAP) 165/93 (117) Pulse Ox 97 O2 Delivery Room Air Room Air (SPENCER SHEEHAN MD) Progress Progress Note : Time: 14:58 Progress Note Seen and evaluated. Ordered EKG, CXR CBC, CMP, troponin, BNP, lipase, Mg, PT/INR and myoglobin. Will continue to monitor. (RACHEL MARIN,MED STUDENT) Progress Note : Progress Note I have seen and evaluated the patient and agree with above except as indicated. I have directed the plan of care. Patient is here with epigastric pain and left lower quadrant abdominal pain. Does have history of end-stage renal disease and is on dialysis. He is off schedule due to the holiday and is due to get dialysis tomorrow. Reports that he's had some nausea as well as a few episodes of diarrhea today. Nonbloody stool. Physical exam as above. Plan as above. Monitor patient. CT abdomen pelvis ordered for the left lower quadrant abdominal pain. 1814: Patient did receive Dilaudid 0.5 mg IV after fentanyl 50 g IV earlier. Blood cells and 0.125 mg by mouth given. Overall is feeling much better and feels like he can go home. He promises to do dialysis as scheduled time at 6 AM in the morning. Discharged home with return precautions. Patient verbalize understanding instructions and agreement with plan. (SPENCER SHEEHAN MD) Diagnostic Imaging Diagonstic Imaging: CT Plain Films/CT/US/NM/MRI: abdomen, pelvis Comments [facility] [place], [place] NAME: FANY ALFARO [facility] REC#: [id number] PT STATUS: REG ER : 1965 PHYSICIAN: SPENCER SHEEHAN MD ADMIT DATE: 03/14/19/ER Draft Date of Exam:03/14/19 CT ABDOMEN/PELVIS WO EXAMINATION: CT Abdomen Pelvis without contrast. TECHNIQUE: Multiple contiguous axial images were obtained through the abdomen and pelvis without the use of intravenous contrast. All CT scans use one or more of the following dose optimizing techniques: automated exposure control, MA and/or KvP adjustment based on a patient size and exam type, or iterative reconstruction. HISTORY: Abdominal pain. COMPARISON: 02/12/2017. FINDINGS: Limited views of the lower thorax show differential attenuation of the myocardium and blood pool suggestive of anemia. Liver is normal. No focal liver lesions are seen. Gallbladder is normal. No biliary ductal dilation. Pancreas, spleen and adrenal glands are normal. Kidney is atrophic. No hydronephrosis or suspicious renal lesions are seen. Urinary bladder is normal. There is liquid stool throughout the colon suggestive of a diarrheal illness. No dilated loops of bowel are seen. No bowel wall thickening. Some mildly enlarged retroperitoneal lymph nodes may be reactive. Abdominal aorta is normal in caliber. Surgical clips are seen in the region of the right inguinal canal suggestive of prior hernia repair. There are no suspicious osseous lesions. IMPRESSION: 1. Colon contains liquid stool suggestive of a diarrheal illness. No bowel wall thickening, free fluid or air is seen. Dictated on workstation # [id number] Dict: 03/14/19 1654 Trans: 03/14/19 1658 [facility] [id number] Interpreted by: SPIKE SERRANO MD Electronically signed by: Harjit Imaging: Xray Plain Films/CT/US/NM/MRI: chest Comments [facility] [place] [place] NAME: FANY ALFARO [facility] REC#: [id number] PT STATUS: REG ER : 1965 PHYSICIAN: FRANCIS MURRAY SUPERVISOR [employer] ADMIT DATE: 03/14/19/ER Signed Date of Exam:03/14/19 CHEST 1 VIEW, AP/PA ONLY EXAMINATION: Chest 1 view HISTORY: Chest pain. COMPARISON: Chest radiograph on 02/20/2019. CT chest on 02/12/2017. FINDINGS: Interval increase in interstitial and alveolar opacities in the bilateral perihilar regions. No large pleural effusion or pneumothorax. Stable small nodular opacity in the right lung base. The cardiac silhouette is prominent. No acute osseous abnormalities. IMPRESSION: 1. Cardiomegaly with interval increase in central pulmonary vascular congestion and interstitial edema. A component of infection may also be present. 2. Stable nodular focus in the right lung base representing known granuloma. Dictated by: Dictated on workstation # [id number] Dict: 03/14/19 1512 Trans: 03/14/19 1527 [facility] [id number] Interpreted by: JESSICA SCHUMACHER DO Electronically signed by: JESSICA SCHUMACHER DO 03/14/19 1527 (SPENCER SHEEHAN MD) Departure Impression Primary Impression: Abdominal pain, left lower quadrant Additional Impressions: End stage renal disease on dialysis Volume overload Qualified Codes: E87.70 - Fluid overload, unspecified Disposition: 01 HOME, SELF-CARE Condition: Stable Departure-Patient Inst. Decision time for Depature: 18:38 (SPENCER SHEEHAN MD) Referrals: KARLA GUEVARA MD (PCP/Family) Primary Care Physician Patient Instructions: Acute Abdomen (Belly Pain), Adult (DC), Chest Pain (DC), End Stage Kidney Disease (DC) Add. Discharge Instructions: Continue home medications as previously prescribed. Follow-up with dialysis in the morning as scheduled. Keep appointments with your doctor. Return for worse pain, fever, vomiting, weakness, breathing problems or other concerns as needed. RACHEL MARIN,MED STUDENT Mar 14, 2019 14:56 SPENCER SHEEHAN MD Mar 14, 2019 17:35
[2019-03-14 15:01] LABS: BASOPHILS % (AUTO) 1 % (0-10); EOSINOPHILS # (AUTO) 0.4 10^3/uL (0.0-0.3); EOSINOPHILS % (AUTO) 9 % (0-10); HEMATOCRIT 28 % (40-54); HEMOGLOBIN 9.7 G/DL (13.3-17.7); LYMPHOCYTES # (AUTO) 1.7 X 10^3 (1.0-4.0); LYMPHOCYTES % (AUTO) 34 % (12-44); MEAN CORPUSCULAR HEMOGLOBIN 32 PG (25-34); MEAN CORPUSCULAR HGB CONC 35 G/DL (32-36); MEAN CORPUSCULAR VOLUME 91 FL (80-99); MEAN PLATELET VOLUME 8.7 FL (7.4-10.4); MONOCYTES # (AUTO) 0.4 X 10^3 (0.0-1.0); MONOCYTES % (AUTO) 9 % (0-12); NEUTROPHILS # (AUTO) 2.4 X 10^3 (1.8-7.8); NEUTROPHILS % (AUTO) 48 % (42-75); PLATELET COUNT 154 10^3/uL (130-400); RED CELL DISTRIBUTION WIDTH 15.4 % (10.0-14.5)
[2019-03-14 15:09] LABS: INR 1.1 (0.8-1.4); PROTHROMBIN TIME PATIENT 14.6 SEC (12.2-14.7)
[2019-03-14] MEDS ORDERED: fentaNYL INJECTION 100 MCG/2 ML AMP IVP STA (15:15)
[2019-03-14 15:17] LABS: ALBUMIN 3.7 GM/DL (3.2-4.5); BILIRUBIN,TOTAL 0.6 MG/DL (0.1-1.0); CALCIUM 8.7 MG/DL (8.5-10.1); CREATININE SERUM 6.83 MG/DL (0.60-1.30); MAGNESIUM 1.9 MG/DL (1.6-2.4); TOTAL PROTEIN 6.5 GM/DL (6.4-8.2)
--- NOTE | 2019-03-14 15:17 | Diagnostic Imaging Report ---
EXAMINATION: Chest 1 view HISTORY: Chest pain. COMPARISON: Chest radiograph on 02/20/2019. CT chest on 02/12/2017. FINDINGS: Interval increase in interstitial and alveolar opacities in the bilateral perihilar regions. No large pleural effusion or pneumothorax. Stable small nodular opacity in the right lung base. The cardiac silhouette is prominent. No acute osseous abnormalities. IMPRESSION: 1. Cardiomegaly with interval increase in central pulmonary vascular congestion and interstitial edema. A component of infection may also be present. 2. Stable nodular focus in the right lung base representing known granuloma. Dictated by: Dictated on workstation # [id number]
--- NOTE | 2019-03-14 16:59 | Diagnostic Imaging Report ---
EXAMINATION: CT Abdomen Pelvis without contrast. TECHNIQUE: Multiple contiguous axial images were obtained through the abdomen and pelvis without the use of intravenous contrast. All CT scans use one or more of the following dose optimizing techniques: automated exposure control, MA and/or KvP adjustment based on a patient size and exam type, or iterative reconstruction. HISTORY: Abdominal pain. COMPARISON: 02/12/2017. FINDINGS: Limited views of the lower thorax show differential attenuation of the myocardium and blood pool suggestive of anemia. Liver is normal. No focal liver lesions are seen. Gallbladder is normal. No biliary ductal dilation. Pancreas, spleen and adrenal glands are normal. Kidney is atrophic. No hydronephrosis or suspicious renal lesions are seen. Urinary bladder is normal. There is liquid stool throughout the colon suggestive of a diarrheal illness. No dilated loops of bowel are seen. No bowel wall thickening. Some mildly enlarged retroperitoneal lymph nodes may be reactive. Abdominal aorta is normal in caliber. Surgical clips are seen in the region of the right inguinal canal suggestive of prior hernia repair. There are no suspicious osseous lesions. IMPRESSION: 1. Colon contains liquid stool suggestive of a diarrheal illness. No bowel wall thickening, free fluid or air is seen. Dictated by: Dictated on workstation # [id number]
[2019-03-14] MEDS ORDERED: HYDROmorphone 2 MG/ML VIAL (DILAUDID) IV ONE (17:30)
[2019-03-14] MEDS ORDERED: HYOSCYAMINE 0.125 MG (LEVSIN) TAB SL ONE (17:45)
[2019-03-14 18:48] VITALS: BP 161/92
== END 2019-03-14 18:48 | disposition home or self-care (01) ==
LOC: EDUNIT# 14:32 → ER 14:33
DX: I12.0 Hypertensive chronic kidney disease with stage 5 chronic kidney disease or end stage renal disease (principal); N18.6 End stage renal disease; R10.32 Left lower quadrant pain; J43.9 Emphysema, unspecified; F41.9 Anxiety disorder, unspecified; Z87.442 Personal history of urinary calculi; Z99.2 Dependence on renal dialysis; Z79.52 Long term (current) use of systemic steroids; Z82.49 Family history of ischemic heart disease and other diseases of the circulatory system
CPT/HCPCS: 36415; 71045; 74176; 80053; 83690; 83735; 83874; 83880; 84484; 85025; 85610; 85730; 93005; 93041; 96374; 96375

== ENCOUNTER 2019-04-05 09:54 | Emergency (ER) | payer MEDICARE ==
[~2019-04-05] VITALS: Ht 175.2 cm; Wt 72.7 kg
--- NOTE | 2019-04-05 10:00 | ED Cough/URI ---
General Stated Complaint: HIGH BP,FEVER Source: patient, EMS History of Present Illness Date Seen by Provider: Apr 05, 2019 Time Seen by Provider: 10:00 Initial Comments 53-year-old male brought in by EMS. Patient was at dialysis when he developed shortness of breath. Patient was discharged from [facility] 8 days ago due to bilateral pneumonia. He was discharged home on Levaquin and on home oxygen. At dialysis he was found to have a fever of 103, dialysis is also concerned because his blood pressure was high with a systolic in the 180s. Patient has some generalized malaise, cough. Patient was mildly hypoxic when EMS arrived and was given breathing treatment. Upon arrival to the ER patient is 94% on room air. Allergies and Home Medications Allergies Coded Allergies: No Known Drug Allergies (Unverified , 09/30/09) Home Medications Albuterol Sulfate 1 Puff Puff, 2 PUFF IH Q4H PRN for SHORTNESS OF BREATH 1 PUFF = 90 MCG Prescribed by: FRANCIS MURRAY on 02/20/191807 Amlodipine Besylate 10 Mg Tablet, 10 MG PO HS, (Reported) LAST FILLED #30 12-01-14 Cefuroxime Axetil 250 Mg Tablet, 250 MG PO DAILY . Prescribed by: FRANCIS MURRAY on 02/20/191836 Hydralazine HCl 10 Mg Tablet, 10 MG PO Q6H Prescribed by: FRANCIS MURRAY on 02/20/191835 Lorazepam 1 Mg Tablet, 1 MG PO TID PRN for ANXIETY, (Reported) LAST FILLED 08-22-14 #90 Metoprolol Tartrate 50 Mg Tablet, 50 MG PO BID This medication should be taken twice daily.It only lasts 12 hours. Prescribed by: SUSY FLEMING on 01/06/15 1200 Prednisone 20 Mg Tab, 40 MG PO DAILY . Prescribed by: FRANCIS MURRAY on 02/20/191836 Zolpidem Tartrate 5 Mg Tablet, 1 TAB PO HS, (Reported) Patient Home Medication List Home Medication List Reviewed: Yes Review of Systems Review of Systems Constitutional: chills, fever EENTM: no symptoms reported Respiratory: cough, short of breath, wheezing Cardiovascular: No chest pain Gastrointestinal: No diarrhea, No nausea, No vomiting Musculoskeletal: no symptoms reported Skin: no symptoms reported Psychiatric/Neurological: No Symptoms Reported Past Mhucysi-Lzbhhk-Mabqzt Hx Past Med/Social Hx: Reviewed Nursing Past Med/Soc Hx Patient Social History Alcohol Beverage of Choice: Beer Type Used: Cigarettes Former Smoker, Quit: Mar 11, 2019 2nd Hand Smoke Exposure: No Recent Foreign Travel: No Contact w/Someone Who Travel: No Recent Hopitalizations: No Immunizations Up To Date Tetanus Booster (TDap): Less than 5yrs PED Vaccines UTD: No Date of Influenza Vaccine: Dec 29, 2014 Seasonal Allergies Seasonal Allergies: No Past Medical History Surgeries: Yes (hernia repair, L ARM FISTULA) Cardiac Respiratory: Yes (COPD) COPD, Emphysema Currently Using CPAP: No Currently Using BIPAP: No Cardiac: Yes Hypertension Neurological: No Reproductive Disorders: No Genitourinary: Yes (hd mwf) Kidney Stones, Renal Failure, Dialysis Gastrointestinal: No Musculoskeletal: No Endocrine: No HEENT: No Hearing Impairment: Hard of Hearing Cancer: No Psychosocial: Yes Anxiety Integumentary: No Blood Disorders: No Adverse Reaction/Blood Tranf: No Family Medical History FH: COPD (chronic obstructive pulmonary disease) 19 FATHER FH: emphysema 19 FATHER FH: heart attack 19 FATHER FH: scoliosis G8 BROTHER, FH: stroke G8 SISTER FHx: heart disease G8 SISTER Thyroid disease 19 MOTHER No Pertinent Family Hx Physical Exam Vital Signs - First Documented 04/05/19 09:57 Temp 39.9 B/P (MAP) 141/79 (99) Pulse Ox 98 O2 Delivery Nasal Cannula O2 Flow Rate 4.00 Capillary Refill : Height: 5'9.00" Weight: 150lbs. 0oz. 68.206606od; 22.00 BMI Method:Stated General Appearance: no apparent distress, other (febrile) HEENT: PERRL/EOMI Respiratory: decreased breath sounds (mild bibasilar) Cardiovascular: normal peripheral pulses, regular rate, rhythm Gastrointestinal: non tender, soft Neurologic/Psychiatric: no motor/sensory deficits, alert, oriented x 3 Skin: normal color, warm/dry Focused Exam Lactate Level 04/05/19 10:04: Lactic Acid Level 1.96 Lactic Acid Level Laboratory Tests Test 04/05/19 10:04 Lactic Acid Level 1.96 MMOL/L (0.50-2.00) Progress/Results/Core Measures Suspected Sepsis SIRS Temperature: Pulse: Respiratory Rate: Laboratory Tests 04/05/19 10:04: White Blood Count 11.7H Blood Pressure / Mean: 04/05/19 10:04: Lactic Acid Level 1.96 Laboratory Tests 04/05/19 10:04: Creatinine 2.68H, Platelet Count 289, Total Bilirubin 0.5 Results/Orders Lab Results Laboratory Tests Test 04/05/19 10:04 Range/Units White Blood Count 11.7 H 4.3-11.0 10^3/uL Red Blood Count 3.10 L 4.35-5.85 10^6/uL Hemoglobin 9.7 L 13.3-17.7 G/DL Hematocrit 28 L 40-54 % Mean Corpuscular Volume 90 80-99 FL Mean Corpuscular Hemoglobin 31 25-34 PG Mean Corpuscular Hemoglobin Concent 35 32-36 G/DL Red Cell Distribution Width 14.5 10.0-14.5 % Platelet Count 289 130-400 10^3/uL Mean Platelet Volume 8.7 7.4-10.4 FL Neutrophils (%) (Auto) 79 H 42-75 % Lymphocytes (%) (Auto) 13 12-44 % Monocytes (%) (Auto) 6 0-12 % Eosinophils (%) (Auto) 1 0-10 % Basophils (%) (Auto) 0 0-10 % Neutrophils # (Auto) 9.2 H 1.8-7.8 X 10^3 Lymphocytes # (Auto) 1.5 1.0-4.0 X 10^3 Monocytes # (Auto) 0.8 0.0-1.0 X 10^3 Eosinophils # (Auto) 0.2 0.0-0.3 10^3/uL Basophils # (Auto) 0.0 0.0-0.1 10^3/uL Sodium Level 137 135-145 MMOL/L Potassium Level 3.7 3.6-5.0 MMOL/L Chloride Level 88 L 98-107 MMOL/L Carbon Dioxide Level 34 H 21-32 MMOL/L Anion Gap 15 H 5-14 MMOL/L Blood Urea Nitrogen 8 7-18 MG/DL Creatinine 2.68 H 0.60-1.30 MG/DL Estimat Glomerular Filtration Rate 25 BUN/Creatinine Ratio 3 Glucose Level 95 70-105 MG/DL Lactic Acid Level 1.96 0.50-2.00 MMOL/L Calcium Level 8.6 8.5-10.1 MG/DL Corrected Calcium 8.4 L 8.5-10.1 MG/DL Magnesium Level 1.7 1.6-2.4 MG/DL Total Bilirubin 0.5 0.1-1.0 MG/DL Aspartate Amino Transf (AST/SGOT) 11 5-34 U/L Alanine Aminotransferase (ALT/SGPT) 6 0-55 U/L Alkaline Phosphatase 123 40-136 U/L B-Type Natriuretic Peptide 1910.7 H <100.0 PG/ML Total Protein 8.1 6.4-8.2 GM/DL Albumin 4.2 3.2-4.5 GM/DL Micro Results Microbiology 04/05/19 Influenza Types A,B Antigen (MADELIN) - Final, Complete My Orders Orders - DENNEYDELFINAR L DO BNP (04/05/19 10:04) Cbc With Automated Diff (04/05/19 10:04) Comprehensive Metabolic Panel (04/05/19 10:04) Lactic Acid Analyzer (04/05/19 10:04) Magnesium (04/05/19 10:04) Influenza A And B Antigens (04/05/19 10:04) Chest Pa/Lat (2 View) (04/05/19 10:04) Acetaminophen Tablet (Tylenol Tablet) (04/05/19 10:07) Cefepime Injection (Maxipime Injection) (04/05/19 11:00) Medications Given in ED Current Medications Medications Dose Ordered Sig/Tj Route Start Time Stop Time Status Last Admin Dose Admin Cefepime HCl 2000 mg/Sterile Water 20 ml @ 240 mls/hr ONCE ONCE IV 04/05/19 11:00 04/05/19 11:04 DC 04/05/19 11:19 240 MLS/HR Vital Signs/I&O 04/05/19 04/05/19 09:57 10:41 Temp 39.9 39.4 B/P (MAP) 141/79 (99) Pulse Ox 98 O2 Delivery Nasal Cannula O2 Flow Rate 4.00 Capillary Refill : Departure Impression Primary Impression: Pneumonia Qualified Codes: J18.9 - Pneumonia, unspecified organism Additional Impressions: Confusion Dependence on renal dialysis Disposition: 02 XFER SHT-TRM HOSP Condition: Stable Transfer Transfer Reason: Exceeds level of care Time Spoke to Accepting Phy: 11:15 Transfer Progress Notes Patient dialysis dependent with hypoxic knee, confusion and fever. Patient was given cefepime empirically and will be transferred to [facility] by EMS. Discussed case with who accepted patient Transfer Facility: [facility] [place] Method of Transfer: EMS Departure-Patient Inst. Referrals: KARLA GUEVARA MD (PCP/Family) Primary Care Physician EVARISTO DENNEY DO Apr 05, 2019 10:00
[2019-04-05] MEDS ORDERED: ACETAMINOPHEN 500 MG TAB (TYLENOL) PO STA (10:07)
[2019-04-05 10:16] LABS: BASOPHILS % (AUTO) 0 % (0-10); EOSINOPHILS # (AUTO) 0.2 10^3/uL (0.0-0.3); EOSINOPHILS % (AUTO) 1 % (0-10); HEMATOCRIT 28 % (40-54); HEMOGLOBIN 9.7 G/DL (13.3-17.7); LYMPHOCYTES # (AUTO) 1.5 X 10^3 (1.0-4.0); LYMPHOCYTES % (AUTO) 13 % (12-44); MEAN CORPUSCULAR HEMOGLOBIN 31 PG (25-34); MEAN CORPUSCULAR HGB CONC 35 G/DL (32-36); MEAN CORPUSCULAR VOLUME 90 FL (80-99); MEAN PLATELET VOLUME 8.7 FL (7.4-10.4); MONOCYTES # (AUTO) 0.8 X 10^3 (0.0-1.0); MONOCYTES % (AUTO) 6 % (0-12); NEUTROPHILS # (AUTO) 9.2 X 10^3 (1.8-7.8); NEUTROPHILS % (AUTO) 79 % (42-75); PLATELET COUNT 289 10^3/uL (130-400); RED CELL DISTRIBUTION WIDTH 14.5 % (10.0-14.5); WHITE BLOOD COUNT 11.7 10^3/uL (4.3-11.0)
--- NOTE | 2019-04-05 10:39 | Diagnostic Imaging Report ---
INDICATION: Hypertension PA and lateral chest There is a loop recorder projecting over the left lower chest. There is minimal infiltrate in the medial lung bases bilaterally. There are no effusions or pneumothoraces. IMPRESSION: Minimal bilateral medial basilar infiltrate. Dictated by: Dictated on workstation # [id number]
[2019-04-05 10:40] LABS: ALBUMIN 4.2 GM/DL (3.2-4.5); BILIRUBIN,TOTAL 0.5 MG/DL (0.1-1.0); CALCIUM 8.6 MG/DL (8.5-10.1); CREATININE SERUM 2.68 MG/DL (0.60-1.30); MAGNESIUM 1.7 MG/DL (1.6-2.4); POTASSIUM 3.7 MMOL/L (3.6-5.0); TOTAL PROTEIN 8.1 GM/DL (6.4-8.2)
[2019-04-05] MEDS ORDERED: CEFEPIME INJECTION 2,000 MG in WATER (STERILE) FOR INJECTION 20 ML IV ONE (11:00)
[2019-04-05 12:30] VITALS: BP 146/86
== END 2019-04-05 12:30 | disposition short-term general hospital (02) ==
LOC: EDUNIT# 09:54 → ER 09:55
DX: J18.9 Pneumonia, unspecified organism (principal); R41.0 Disorientation, unspecified; J43.9 Emphysema, unspecified; I10 Essential (primary) hypertension; F41.9 Anxiety disorder, unspecified; Z87.442 Personal history of urinary calculi; Z99.2 Dependence on renal dialysis; Z79.52 Long term (current) use of systemic steroids; Z87.891 Personal history of nicotine dependence; Z82.49 Family history of ischemic heart disease and other diseases of the circulatory system
CPT/HCPCS: 36415; 71046; 80053; 83605; 83735; 83880; 85025; 87804; 96374

== ENCOUNTER 2019-05-12 21:27 | Emergency (ER) | payer MEDICARE ==
[~2019-05-12] VITALS: Ht 175 cm; Wt 72.7 kg
[2019-05-12] MEDS ORDERED: RT-ALBUTEROL/IPRATROPIUM 3 ML (DUONEB) VIAL INH ONE (22:15)
--- NOTE | 2019-05-12 22:20 | ED General ---
General Stated Complaint: SOB,CANT STAY AWAKE Source of Information: Patient Exam Limitations: No Limitations (SPNECER SHEEHAN MD) History of Present Illness Date Seen by Provider: May 12, 2019 Time Seen by Provider: 22:04 Initial Comments Here with report of altered mental status by the family. They reported that he was short of breath but actually they are stating that he is incredibly drowsy. He does take both pain medicines and benzodiazepines but he has just restarted his benzodiazepines yesterday and he was sick for 3 days prior to that. They state that he gets sleepy to the point that he is not arousable. Patient denies complaints. He admits to dialysis. Family states that he appears short of breath or having breathing problems occasionally. He does smoke. Last dialysis was on Monday. Timing/Duration: 4-5 Days, Getting Worse Severity: Moderate, Severe Associated Systoms: No Chest Pain; Cough; No Fever/Chills, No Nausea/Vomiting; Shortness of Air, Weakness (SPENCER SHEEHAN MD) Allergies and Home Medications Allergies Coded Allergies: No Known Drug Allergies (Unverified , 09/30/09) Home Medications Albuterol Sulfate 1 Puff Puff, 2 PUFF IH Q4H PRN for SHORTNESS OF BREATH 1 PUFF = 90 MCG Prescribed by: FRANCIS MURRAY on 02/20/191807 Amlodipine Besylate 10 Mg Tablet, 10 MG PO HS, (Reported) LAST FILLED #30 12-01-14 Cefuroxime Axetil 250 Mg Tablet, 250 MG PO DAILY . Prescribed by: FRANCIS MURRAY on 02/20/191836 Hydralazine HCl 10 Mg Tablet, 10 MG PO Q6H Prescribed by: FRANCIS MURRAY on 02/20/191835 Lorazepam 1 Mg Tablet, 1 MG PO TID PRN for ANXIETY, (Reported) LAST FILLED 08-22-14 #90 Metoprolol Tartrate 50 Mg Tablet, 50 MG PO BID This medication should be taken twice daily.It only lasts 12 hours. Prescribed by: SUSY FLEMING on 01/06/15 1200 Prednisone 20 Mg Tab, 40 MG PO DAILY . Prescribed by: FRANCIS MURRAY on 02/20/191836 Zolpidem Tartrate 5 Mg Tablet, 1 TAB PO HS, (Reported) Patient Home Medication List Home Medication List Reviewed: Yes (SPENCER SHEEHAN MD) Review of Systems Review of Systems Constitutional: see HPI; No fever; malaise, weakness EENTM: no symptoms reported Respiratory: cough, short of breath Cardiovascular: no symptoms reported Gastrointestinal: no symptoms reported Genitourinary: no symptoms reported Musculoskeletal: no symptoms reported Psychiatric/Neurological: Denies Headache; Weakness Patient essentially denies all complaints but he is quite drowsy and does appear to be somewhat confused. (SPENCER SHEEHAN MD) All Other Systems Reviewed Negative Unless Noted: Yes (SPENCER SHEEHAN MD) Past Nwrxzkd-Yahpnb-Ucrtht Hx Past Med/Social Hx: Reviewed Nursing Past Med/Soc Hx (SPENCER SHEEHAN MD) Patient Social History Alcohol Use: Occasionally Uses Alcohol Beverage of Choice: Beer Recreational Drug Use: No Smoking Status: Current Everyday Smoker Type Used: Cigarettes Former Smoker, Quit: Mar 11, 2019 2nd Hand Smoke Exposure: No Recent Foreign Travel: No Contact w/Someone Who Travel: No Recent Hopitalizations: No (SPENCER SHEEHAN MD) Immunizations Up To Date Tetanus Booster (TDap): Less than 5yrs PED Vaccines UTD: No Date of Influenza Vaccine: Dec 29, 2014 (SPENCER SHEEHAN MD) Seasonal Allergies Seasonal Allergies: No (SPENCER SHEEHAN MD) Past Medical History Surgeries: Yes (hernia repair, L ARM FISTULA) Cardiac Respiratory: Yes (COPD) COPD, Emphysema Currently Using CPAP: No Currently Using BIPAP: No Cardiac: Yes Hypertension Neurological: No Reproductive Disorders: No Genitourinary: Yes (hd mwf) Kidney Stones, Renal Failure, Dialysis Gastrointestinal: No Musculoskeletal: No Endocrine: No HEENT: No Hearing Impairment: Hard of Hearing Cancer: No Psychosocial: Yes Anxiety Integumentary: No Blood Disorders: No Adverse Reaction/Blood Tranf: No (SPENCER SHEEHAN MD) Family Medical History Reviewed Nursing Family Hx (SPENCER SHEEHAN MD) FH: COPD (chronic obstructive pulmonary disease) 19 FATHER FH: emphysema 19 FATHER FH: heart attack 19 FATHER FH: scoliosis G8 BROTHER, FH: stroke G8 SISTER FHx: heart disease G8 SISTER Thyroid disease 19 MOTHER Physical Exam Vital Signs Vital Signs - First Documented 05/12/19 22:31 Pulse Ox 96 O2 Delivery Nasal Cannula O2 Flow Rate 2.00 (XAVI BUSBY) Vital Signs Capillary Refill : (SPENCER SHEEHAN MD) Height, Weight, BMI Height: 5'9.00" Weight: 150lbs. 0oz. [id number]; 22.00 BMI Method:Stated General Appearance: No Apparent Distress, WD/WN HEENT: PERRL/EOMI, Pharynx Normal Neck: Non Tender, Supple Respiratory: Crackles (bilateral bases right greater than left), Decreased Breath Sounds Cardiovascular: Regular Rate, Rhythm, No Murmur Gastrointestinal: Non Tender, Soft Back: Normal Inspection, No CVA Tenderness, No Vertebral Tenderness Extremity: Normal Inspection, Normal Range of Motion, Non Tender, Other (shunt to left arm) Neurologic/Psychiatric: Alert, Oriented x3 Skin: Normal Color, Warm/Dry (SPENCER SHEEHAN MD) Focused Exam Lactate Level 05/12/19 22:19: Lactic Acid Level 0.97 (XAVI BUSBY) Lactic Acid Level Laboratory Tests Test 05/12/19 22:19 Lactic Acid Level 0.97 MMOL/L (0.50-2.00) (XAVI BUSBY) Progress/Results/Core Measures Suspected Sepsis SIRS Temperature: Pulse: Respiratory Rate: Blood Pressure / Mean: (SPENCER SHEEHAN MD) Results/Orders Lab Results Laboratory Tests Test 05/12/19 22:00 05/12/19 22:19 05/12/19 22:21 05/12/19 23:33 Range/Units White Blood Count 7.6 4.3-11.0 10^3/uL Red Blood Count 3.14 L 4.35-5.85 10^6/uL Hemoglobin 9.8 L 13.3-17.7 G/DL Hematocrit 29 L 40-54 % Mean Corpuscular Volume 91 80-99 FL Mean Corpuscular Hemoglobin 31 25-34 PG Mean Corpuscular Hemoglobin Concent 34 32-36 G/DL Red Cell Distribution Width 14.7 H 10.0-14.5 % Platelet Count 178 130-400 10^3/uL Mean Platelet Volume 9.0 7.4-10.4 FL Neutrophils (%) (Auto) 55 42-75 % Lymphocytes (%) (Auto) 29 12-44 % Monocytes (%) (Auto) 13 H 0-12 % Eosinophils (%) (Auto) 3 0-10 % Basophils (%) (Auto) 0 0-10 % Neutrophils # (Auto) 4.2 1.8-7.8 X 10^3 Lymphocytes # (Auto) 2.2 1.0-4.0 X 10^3 Monocytes # (Auto) 1.0 0.0-1.0 X 10^3 Eosinophils # (Auto) 0.3 0.0-0.3 10^3/uL Basophils # (Auto) 0.0 0.0-0.1 10^3/uL Prothrombin Time 14.4 12.2-14.7 SEC INR Comment 1.1 0.8-1.4 Activated Partial Thromboplast Time 37 H 24-35 SEC B-Type Natriuretic Peptide 2033.4 H <100.0 PG/ML Sodium Level 132 L 135-145 MMOL/L Potassium Level 6.0 H 3.6-5.0 MMOL/L Chloride Level 91 L 98-107 MMOL/L Carbon Dioxide Level 25 21-32 MMOL/L Anion Gap 16 H 5-14 MMOL/L Blood Urea Nitrogen 29 H 7-18 MG/DL Creatinine 8.03 H 0.60-1.30 MG/DL Estimat Glomerular Filtration Rate 7 BUN/Creatinine Ratio 4 Glucose Level 104 70-105 MG/DL Lactic Acid Level 0.97 0.50-2.00 MMOL/L Calcium Level 8.9 8.5-10.1 MG/DL Corrected Calcium 9.1 8.5-10.1 MG/DL Magnesium Level 2.1 1.6-2.4 MG/DL Total Bilirubin 0.4 0.1-1.0 MG/DL Aspartate Amino Transf (AST/SGOT) 10 5-34 U/L Alanine Aminotransferase (ALT/SGPT) < 6 0-55 U/L Alkaline Phosphatase 119 40-136 U/L Ammonia 31 11-32 UMOL/L Total Protein 6.9 6.4-8.2 GM/DL Albumin 3.8 3.2-4.5 GM/DL Salicylates Level < 5.0 L 5.0-20.0 MG/DL Acetaminophen Level < 10 L 10-30 UG/ML Serum Alcohol < 10 <10 MG/DL Blood Gas Puncture Site RIGHT RADIAL Blood Gas Patient Temperature 36.6 Arterial Blood pH 7.48 H 7.37-7.43 Arterial Blood Partial Pressure CO2 39 35-45 MMHG Arterial Blood Partial Pressure O2 70 L 79-93 MMHG Arterial Blood HCO3 28 H 23-27 MMOL/L Arterial Blood Total CO2 29.6 21.0-31.0 MMOL/L Arterial Blood Oxygen Saturation 97 94-100 % Arterial Blood Base Excess 4.7 H -2.5-2.5 MMOL/L Davon Test YES-POS Blood Gas Ventilator Setting NO Blood Gas Inspired Oxygen 2L Urine Color YELLOW Urine Clarity CLEAR Urine pH 8.5 5-9 Urine Specific [place] 1.010 L 1.016-1.022 Urine Protein 1+ H NEGATIVE Urine Glucose (UA) NEGATIVE NEGATIVE Urine Ketones NEGATIVE NEGATIVE Urine Nitrite NEGATIVE NEGATIVE Urine Bilirubin NEGATIVE NEGATIVE Urine Urobilinogen 0.2 < = 1.0 MG/DL Urine Leukocyte Esterase NEGATIVE NEGATIVE Urine RBC (Auto) NEGATIVE NEGATIVE Urine RBC NONE /HPF Urine WBC NONE /HPF Urine Squamous Epithelial Cells 2-5 /HPF Urine Crystals NONE /LPF Urine Bacteria NEGATIVE /HPF Urine Casts NONE /LPF Urine Mucus SMALL H /LPF Urine Culture Indicated CULTURE PENDING Urine Opiates Screen POSITIVE H NEGATIVE Urine Oxycodone Screen NEGATIVE NEGATIVE Urine Methadone Screen NEGATIVE NEGATIVE Urine Propoxyphene Screen NEGATIVE NEGATIVE Urine Barbiturates Screen NEGATIVE NEGATIVE Ur Tricyclic Antidepressants Screen NEGATIVE NEGATIVE Urine Phencyclidine Screen NEGATIVE NEGATIVE Urine Amphetamines Screen NEGATIVE NEGATIVE Urine Methamphetamines Screen NEGATIVE NEGATIVE Urine Benzodiazepines Screen POSITIVE H NEGATIVE Urine Cocaine Screen NEGATIVE NEGATIVE Urine Cannabinoids Screen NEGATIVE NEGATIVE (XAVI BUSBY) Micro Results Microbiology 05/12/19 Influenza Types A,B Antigen (MADELIN) - Final, Complete (XAVI BUSBY) My Orders Orders - XAVI BUSBY Calcium Gluconate 10% Inj (Calcium Glu (05/13/19 00:00) Albuterol Pre-Mix Nebs (Rt) (Proventil (05/12/19 23:58) Albuterol/Ipra Inhalation Soln (Duoneb I (05/13/19 00:00) Svn Small Volume Nebulizer (05/12/19 23:58) (XAVI BUSBY) Medications Given in ED Current Medications Medications Dose Ordered Sig/Tj Route Start Time Stop Time Status Last Admin Dose Admin Albuterol/ Ipratropium 3 ml ONCE ONCE INH 05/12/19 22:15 05/12/19 22:16 DC 05/12/19 22:31 3 ML Calcium Gluconate 4.65 meq/Sodium Chloride 60 ml @ 120 mls/hr ONCE ONCE IV 05/13/19 00:00 05/13/19 00:29 05/13/19 00:06 120 MLS/HR (XAVI BUSBY) Vital Signs/I&O 05/12/19 22:31 Pulse Ox 96 O2 Delivery Nasal Cannula O2 Flow Rate 2.00 (AXVI BUSBY) Vital Signs/I&O Capillary Refill : (SPENCER SHEEHAN MD) Progress Note : Progress Note Seen and evaluated. IV, labs, UA, chest x-ray, blood cultures, lactic acid, ammo tarik level and drug screens ordered. Patient is quite drowsy so we will check ABG for hypercarbia. Patient is a dialysis patient and we will hold fluids right now as his blood pressure is okay so was not overload at this point but consider if needed in the future. Monitor patient. (SPENCER SHEEHAN MD) Progress Note : Time: 00:03 Progress Note Discussed the case with patient and family and he does not have nebulized albuterol, oxygen at home. We also explained to him the benefit of having telemetry and try to control his hyperkalemia tonight. He is agreed to transport to [facility] for dialysis in the morning. He is oxygen-dependent 3 L to stay around 96-98%. He has a history of COPD. We'll give him an hour-long breathing treatment helped with his COPD as well as help push his potassium. 1 g of IV calcium gluconate. Mildly tented T waves on the EKG. (XAVI BUSBY) ECG Initial ECG Impression Date: May 12, 2019 Initial ECG Impression Time: 22:29 Initial ECG Rate: 56 Initial ECG Rhythm: Normal Sinus Initial ECG Intervals: Normal Initial ECG Impression: Normal, Nonspecific Changes Initial ECG Comparisson: No Previous ECG Available (XAVI BUSBY) Diagnostic Imaging Diagonstic Imaging: Xray Plain Films/CT/US/NM/MRI: chest Comments Question right basal or pneumonia. Reviewed: Reviewed by Me (SPENCER SHEEHAN MD) Departure Impression Primary Impression: Hyperkalemia Additional Impressions: Fluid overload Qualified Codes: E87.70 - Fluid overload, unspecified Hypoxia Disposition: SHT-TRM HOSP Condition: Stable Transfer Transfer Reason: Exceeds level of care (HD) Time Spoke to Accepting Phy: 12:15 Transfer Progress Notes 0005: Danna Clemente, IM: Agrees to take patient but wants Nephrology to weigh in whether HD is needed tonight and to send to TCU. Dr Chaudhari, Nephrology: Send to step down. Transfer Facility: [facility] [place] Method of Transfer: EMS (XAVI BUSBY) Departure-Patient Inst. Referrals: KARLA GUEVARA MD (PCP/Family) Primary Care Physician SPENCER SHEEHAN MD May 12, 2019 22:20 XAVI BUSBY May 13, 2019 00:10
[2019-05-12 22:27] LABS: BASOPHILS % (AUTO) 0 % (0-10); EOSINOPHILS # (AUTO) 0.3 10^3/uL (0.0-0.3); EOSINOPHILS % (AUTO) 3 % (0-10); HEMATOCRIT 29 % (40-54); HEMOGLOBIN 9.8 G/DL (13.3-17.7); LYMPHOCYTES # (AUTO) 2.2 X 10^3 (1.0-4.0); LYMPHOCYTES % (AUTO) 29 % (12-44); MEAN CORPUSCULAR HEMOGLOBIN 31 PG (25-34); MEAN CORPUSCULAR HGB CONC 34 G/DL (32-36); MEAN CORPUSCULAR VOLUME 91 FL (80-99); MONOCYTES % (AUTO) 13 % (0-12); NEUTROPHILS # (AUTO) 4.2 X 10^3 (1.8-7.8); NEUTROPHILS % (AUTO) 55 % (42-75); PLATELET COUNT 178 10^3/uL (130-400); RED CELL DISTRIBUTION WIDTH 14.7 % (10.0-14.5); WHITE BLOOD COUNT 7.6 10^3/uL (4.3-11.0)
[2019-05-12 22:32] LABS: INR 1.1 (0.8-1.4); PROTHROMBIN TIME PATIENT 14.4 SEC (12.2-14.7)
[2019-05-12 22:32] LABS: ABG BASE EXCESS 4.7 MMOL/L (-2.5-2.5); ABG OXYGEN SATURATION 97 % (94-100); ABG PCO2 39 MMHG (35-45); ABG PH 7.48 (7.37-7.43); ABG PO2 70 MMHG (79-93); ABG TCO2 29.6 MMOL/L (21.0-31.0)
[2019-05-12 22:33] LABS: ALLENS TEST YES-POS; INSPIRED O2 2L; PATIENT TEMP 36.6; VENTILATOR NO
[2019-05-12 22:50] LABS: ALANINE AMINOTRANSFERASE < 6 U/L (0-55); ALBUMIN 3.8 GM/DL (3.2-4.5); ALKALINE PHOSPHATASE 119 U/L (40-136); AMMONIA 31 UMOL/L (11-32); BILIRUBIN,TOTAL 0.4 MG/DL (0.1-1.0); BUN/CREATININE RATIO 4; CALCIUM 8.9 MG/DL (8.5-10.1); CARBON DIOXIDE 25 MMOL/L (21-32); CHLORIDE 91 MMOL/L (98-107); CREATININE SERUM 8.03 MG/DL (0.60-1.30); GFR ESTIMATED 7; GLUCOSE 104 MG/DL (70-105); MAGNESIUM 2.1 MG/DL (1.6-2.4); SALICYLATE < 5.0 MG/DL (5.0-20.0); SODIUM 132 MMOL/L (135-145); TOTAL PROTEIN 6.9 GM/DL (6.4-8.2)
[2019-05-12 22:52] LABS: ACETAMINOPHEN < 10 UG/ML (10-30)
[2019-05-12] MEDS ORDERED: RT-ALBUTEROL SULF 2.5 MG/3 ML PRE-MIX VIAL ONE (23:11)
[2019-05-12 23:40] LABS: BILIRUBIN,URINE NEGATIVE (NEGATIVE); CLARITY,URINE CLEAR; COLOR,URINE YELLOW; GLUCOSE, URINE (UA) NEGATIVE (NEGATIVE); KETONES,URINE NEGATIVE (NEGATIVE); LEUKOCYTE ESTERASE ,URINE NEGATIVE (NEGATIVE); NITRITE,URINE NEGATIVE (NEGATIVE); PH,URINE 8.5 (5-9); PROTEIN,URINE 1+ (NEGATIVE)
[2019-05-12 23:47] LABS: BACTERIA,URINE NEGATIVE /HPF
[2019-05-12 23:52] LABS: AMPHETAMINE SCREEN, URINE NEGATIVE (NEGATIVE); BARBITURATE SCREEN URINE NEGATIVE (NEGATIVE); BENZODIAZEPINES SCREEN URINE POSITIVE (NEGATIVE); CANNABINOID SCREEN, URINE NEGATIVE (NEGATIVE); COCAINE SCREEN URINE NEGATIVE (NEGATIVE); METHADONE STAT NEGATIVE (NEGATIVE); METHAMPHETAMINE SCREEN URINE S NEGATIVE (NEGATIVE); OPIATE SCREEN URINE POSITIVE (NEGATIVE); OXYCODONE STAT NEGATIVE (NEGATIVE); PROPOXYPHENE STAT NEGATIVE (NEGATIVE); TRICYCLIC ANTIDEPRESSANTS SCRE NEGATIVE (NEGATIVE)
[2019-05-12] MEDS ORDERED: RT-ALBUTEROL SULF 2.5 MG/3 ML PRE-MIX VIAL INH STA (23:58)
[2019-05-13] MEDS ORDERED: CALCIUM GLUCONATE 10% INJ 4.65 MEQ in NS (IVPB) 50 ML IV ONE ×2
[2019-05-13] MEDS ORDERED: RT-ALBUTEROL/IPRATROPIUM 3 ML (DUONEB) VIAL INH ONE
[2019-05-13] MEDS ORDERED: NICOTINE 21 MG (NICODERM) PATCH TD ONE (00:45)
[2019-05-13 01:43] VITALS: BP 134/72
--- NOTE | 2019-05-13 05:33 | Diagnostic Imaging Report ---
INDICATION: Shortness of air COMPARISON: 04/05/2019 FINDINGS: Single frontal view of the chest demonstrates mild cardiomegaly and mild pulmonary vascular congestion. The lungs are well aerated and clear. No large pleural effusion or pneumothorax is seen. The visualized osseous structures show no acute abnormalities. IMPRESSION: 1. Mild cardiomegaly and mild pulmonary vascular congestion. Dictated by: Dictated on workstation # [id number]
== END 2019-05-13 01:43 | disposition short-term general hospital (02) ==
LOC: EDUNIT# 21:27 → ER 21:29
DX: E87.5 Hyperkalemia (principal); E87.70 Fluid overload, unspecified; R09.02 Hypoxemia; J43.9 Emphysema, unspecified; I10 Essential (primary) hypertension; F41.9 Anxiety disorder, unspecified; F17.210 Nicotine dependence, cigarettes, uncomplicated; Z99.2 Dependence on renal dialysis; Z82.49 Family history of ischemic heart disease and other diseases of the circulatory system
CPT/HCPCS: 36415; 71045; 80053; 80306; 80320; 80329; 81000; 82140; 82805; 83605; 83735; 83880; 85025; 85610; 85730; 87040; 87088; 87804; 93005; 94640; 96365

== ENCOUNTER 2020-05-15 21:42 | Emergency (ER) | payer MEDICARE ==
[~2020-05-15 21:42] MED LIST changes: -CLIN300C11 PO; +CLIN300C12 PO; +HYDR-34; -HYDR-3816
[2020-05-15] MEDS ORDERED: NITROGLYCERIN 2% OINT 1 GM UNIT DOSE PACKET TOP STA (21:47)
[2020-05-15 21:58] LABS: BASOPHILS # (AUTO) 0.1 10^3/uL (0.0-0.1); BASOPHILS % (AUTO) 1 % (0-10); EOSINOPHILS # (AUTO) 0.2 10^3/uL (0.0-0.3); EOSINOPHILS % (AUTO) 3 % (0-10); HEMATOCRIT 29 % (40-54); HEMOGLOBIN 10.1 g/dL (13.3-17.7); LYMPHOCYTES # (AUTO) 1.7 10^3/uL (1.0-4.0); LYMPHOCYTES % (AUTO) 31 % (12-44); MEAN CORPUSCULAR HEMOGLOBIN 32 pg (25-34); MEAN CORPUSCULAR HGB CONC 35 g/dL (32-36); MEAN CORPUSCULAR VOLUME 89 fL (80-99); MEAN PLATELET VOLUME 9.5 fL (9.0-12.2); MONOCYTES # (AUTO) 0.6 10^3/uL (0.0-1.0); MONOCYTES % (AUTO) 12 % (0-12); NEUTROPHILS # (AUTO) 2.9 10^3/uL (1.8-7.8); NEUTROPHILS % (AUTO) 53 % (42-75); PLATELET COUNT 131 10^3/uL (130-400); WHITE BLOOD COUNT 5.5 10^3/uL (4.3-11.0)
[2020-05-15 22:13] LABS: ALBUMIN 3.2 GM/DL (3.2-4.5); CHLORIDE 89 MMOL/L (98-107); SODIUM 134 MMOL/L (135-145)
[2020-05-15 22:14] LABS: INR 1.2 (0.8-1.4); PROTHROMBIN TIME PATIENT 15.3 SEC (12.2-14.7)
[2020-05-15 22:16] LABS: GLUCOSE 100 MG/DL (70-105); TOTAL PROTEIN 6.7 GM/DL (6.4-8.2)
[2020-05-15 22:17] LABS: CARBON DIOXIDE 34 MMOL/L (21-32)
[2020-05-15 22:18] LABS: BILIRUBIN,TOTAL 0.6 MG/DL (0.1-1.0)
[2020-05-15 22:19] LABS: ALKALINE PHOSPHATASE 67 U/L (40-136)
[2020-05-15 22:20] LABS: CREATININE SERUM 3.29 MG/DL (0.60-1.30); GFR ESTIMATED 20
[2020-05-15 22:21] LABS: BUN/CREATININE RATIO 3
[2020-05-15 22:23] LABS: ALANINE AMINOTRANSFERASE 7 U/L (0-55); MAGNESIUM 1.7 MG/DL (1.6-2.4)
[2020-05-15] MEDS ORDERED: hydrALAZINE (APESOLINE) 20 MG/ML VIAL IV ONE (22:45)
[2020-05-15] MEDS ORDERED: NITROGLYCERIN 2% OINT 1 GM UNIT DOSE PACKET TOP ONE (23:30)
[2020-05-15] MEDS ORDERED: NS (IVPB) 250 ML ONE (23:44)
[2020-05-15] MEDS ORDERED: niCARdipine IV FOR DRIP 50 MG KIT ONE (23:45)
[2020-05-15] MEDS ORDERED: niCARdipine IV 50 MG in NS (IVPB) 230 ML IV SCH (23:45)
[2020-05-16 01:29] VITALS: BP 150/87
--- NOTE | 2020-05-16 01:29 | ED Cardiac General ---
History of Present Illness General Chief Complaint: Chest Pain Stated Complaint: CP Nursing Triage Note: TO ED [facility]IA [facility] FROM HOME WITH C/O HIGH BP, CP. Source: patient History of Present Illness Date Seen by Provider: May 15, 2020 Time Seen by Provider: 21:42 Initial Comments PT ARRIVES VIA EMS FROM HOME C/O CHEST PAIN ALL DAY FOR THE LAST FEW DAYS. RATES PAIN 10 C/O ELEVATED BLOOD PRESSURE--250 SYSTOLIC ALL DAY TODAY EMS GAVE ASPIRIN 324 MG PRIOR TO ARRIVAL PT IS DIALYSIS PATIENT AND HAS DIALYSIS [id number]. 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 DOS SANTOS Allergies and Home Medications Allergies Coded Allergies: No Known Drug Allergies (Unverified , 09/30/09) Home Medications Albuterol Sulfate 1 Puff Puff, 2 PUFF IH Q4H PRN for SHORTNESS OF BREATH 1 PUFF = 90 MCG Prescribed by: FRANCIS MURRAY on 02/20/191807 Amlodipine Besylate 10 Mg Tablet, 10 MG PO HS, (Reported) LAST FILLED #30 15 Cefuroxime Axetil 250 Mg Tablet, 250 MG PO DAILY . Prescribed by: FRANCIS MURRAY on 02/20/191836 Hydralazine HCl 10 Mg Tablet, 10 MG PO Q6H Prescribed by: FRANCIS MURRAY on 02/20/191835 Lorazepam 1 Mg Tablet, 1 MG PO TID PRN for ANXIETY, (Reported) LAST FILLED 08-22- #90 Metoprolol Tartrate 50 Mg Tablet, 50 MG PO BID This medication should be taken twice daily.It only lasts 12 hours. Prescribed by: SUSY FLEMING on 01/06/15 1200 Prednisone 20 Mg Tab, 40 MG PO DAILY . Prescribed by: FRANCIS MURRAY on 02/20/191836 Zolpidem Tartrate 5 Mg Tablet, 1 TAB PO HS, (Reported) Patient Home Medication List Home Medication List Reviewed: Yes Review of Systems Review of Systems Constitutional: no symptoms reported; No dizziness, No fever Respiratory: No Symptoms Reported; Denies Shortness of Air Cardiovascular: See HPI, Chest Pain, Edema; Denies Lightheadedness Gastrointestinal: No Symptoms Reported; Denies Abdominal Pain, Denies Nausea, Denies Vomiting Musculoskeletal: see HPI Psychiatric/Neurological: No Symptoms Reported Past Jkagzrm-Rhacbp-Ztxilu Hx Past Med/Social Hx: Reviewed and Corrections made Patient Social History Alcohol Use: Past History Number of Drinks Today: AA Alcohol Beverage of Choice: Beer Smoking Status: Current Everyday Smoker Type Used: Cigarettes Former Smoker, Quit: Mar 11, 2019 2nd Hand Smoke Exposure: No Recent Infectious Disease Expo: No Recent Hopitalizations: No Immunizations Up To Date Tetanus Booster (TDap): Less than 5yrs PED Vaccines UTD: No Date of Influenza Vaccine: Dec 29, 2014 Seasonal Allergies Seasonal Allergies: No Past Medical History Surgeries: Yes (UMBILICAL HERNIA REPAIR 1994; L ARM FISTULA;LOOP RECORDER) Abdominal, Arteriovenous Shunt, Cardiac, Dialysis, Vascular Surgery Respiratory: Yes (CHRONIC O2 AT 3L-CONTINUES TO SMOKE 3 PPD) COPD, Emphysema Currently Using CPAP: No Currently Using BIPAP: No Cardiac: Yes Hypertension Neurological: No Reproductive Disorders: No Genitourinary: Yes (DIALYSIS --) Kidney Stones, Renal Failure, Dialysis Gastrointestinal: Yes (UMBILICAL HERNIA REPAIR 1994) Abdominal Hernia Musculoskeletal: No Endocrine: No HEENT: No Hearing Impairment: Hard of Hearing Cancer: No Psychosocial: Yes Anxiety Integumentary: No Blood Disorders: No Adverse Reaction/Blood Tranf: No Family Medical History FH: COPD (chronic obstructive pulmonary disease) 19 FATHER FH: emphysema 19 FATHER FH: heart attack 19 FATHER FH: scoliosis G8 BROTHER, FH: stroke G8 SISTER FHx: heart disease G8 SISTER Thyroid disease 19 MOTHER SOCIAL HISTORY: -ETOH--HX OF ABUSE-19 BEERS / DAY -DRUGS--DENIES USE -SMOKES 3 PPD Physical Exam Vital Signs Vital Signs - First Documented Capillary Refill : Less Than 3 Seconds Height, Weight, BMI Height: 5'9.00" Weight: 150lbs. 0oz. 68.604951xv; 23.00 BMI Method:Stated General Appearance: No Apparent Distress, WD/WN, Other (UNKEMPT, REEKS OF CIGARETTES DESPITE MY WEARING N95 MASK + SURGICAL MASK. DOES NOT APPEAR TO BE IN ANY DISCOMFORT OR DISTRESS) HEENT: Other (POOR DENTITION) Respiratory: Normal Breath Sounds, Decreased Breath Sounds (IN BASES) Cardiovascular: Regular Rate, Rhythm Gastrointestinal: Non Tender, Soft Extremity: Pedal Edema (TRACE TO 1+ EDEMA ) Neurologic/Psychiatric: Alert, Oriented x3 Skin: Normal Color, Warm/Dry Progress/Results/Core Measures Results/Orders Lab Results Laboratory Tests Test 05/15/20 21:47 Range/Units White Blood Count 5.5 4.3-11.0 10^3/uL Red Blood Count 3.21 L 4.30-5.52 10^6/uL Hemoglobin 10.1 L 13.3-17.7 g/dL Hematocrit 29 L 40-54 % Mean Corpuscular Volume 89 80-99 fL Mean Corpuscular Hemoglobin 32 25-34 pg Mean Corpuscular Hemoglobin Concent 35 32-36 g/dL Red Cell Distribution Width 18.0 H 10.0-14.5 % Platelet Count 131 130-400 10^3/uL Mean Platelet Volume 9.5 9.0-12.2 fL Immature Granulocyte % (Auto) 0 % Neutrophils (%) (Auto) 53 42-75 % Lymphocytes (%) (Auto) 31 12-44 % Monocytes (%) (Auto) 12 0-12 % Eosinophils (%) (Auto) 3 0-10 % Basophils (%) (Auto) 1 0-10 % Neutrophils # (Auto) 2.9 1.8-7.8 10^3/uL Lymphocytes # (Auto) 1.7 1.0-4.0 10^3/uL Monocytes # (Auto) 0.6 0.0-1.0 10^3/uL Eosinophils # (Auto) 0.2 0.0-0.3 10^3/uL Basophils # (Auto) 0.1 0.0-0.1 10^3/uL Immature Granulocyte # (Auto) 0.0 0.0-0.1 10^3/uL Prothrombin Time 15.3 H 12.2-14.7 SEC INR Comment 1.2 0.8-1.4 Activated Partial Thromboplast Time 31 24-35 SEC Sodium Level 134 L 135-145 MMOL/L Potassium Level 3.0 L 3.6-5.0 MMOL/L Chloride Level 89 L 98-107 MMOL/L Carbon Dioxide Level 34 H 21-32 MMOL/L Anion Gap 11 5-14 MMOL/L Blood Urea Nitrogen 11 7-18 MG/DL Creatinine 3.29 H 0.60-1.30 MG/DL Estimat Glomerular Filtration Rate 20 BUN/Creatinine Ratio 3 Glucose Level 100 70-105 MG/DL Calcium Level 8.0 L 8.5-10.1 MG/DL Corrected Calcium 8.6 8.5-10.1 MG/DL Magnesium Level 1.7 1.6-2.4 MG/DL Total Bilirubin 0.6 0.1-1.0 MG/DL Aspartate Amino Transf (AST/SGOT) 13 5-34 U/L Alanine Aminotransferase (ALT/SGPT) 7 0-55 U/L Alkaline Phosphatase 67 40-136 U/L Troponin I < 0.028 <0.028 NG/ML Total Protein 6.7 6.4-8.2 GM/DL Albumin 3.2 3.2-4.5 GM/DL Serum Alcohol < 10 <10 MG/DL My Orders Orders - STEPHANE HERNANDEZ DO Ed Iv/Invasive Line Start (05/15/20 21:47) Ekg Tracing (05/15/20 21:47) O2 (05/15/20 21:47) Monitor-Rhythm Ecg Trace Only (05/15/20 21:47) Cbc With Automated Diff (05/15/20 21:47) Comprehensive Metabolic Panel (05/15/20 21:47) Magnesium (05/15/20 21:47) Protime With Inr (05/15/20 21:47) Partial Thromboplastin Time (05/15/20 21:47) Troponin I (05/15/20 21:47) Chest 1 View, Ap/Pa Only (05/15/20 21:47) Nitroglycerin Ointment (Nitrobid Ointme (05/15/20 21:47) Alcohol (05/15/20 21:53) Hydralazine Injection (Apresoline Inject (05/15/20 22:45) Nitroglycerin Ointment (Nitrobid Ointme (05/15/20 23:30) Ns (Ivpb) (Sodium C... W/Nicardipine Iv (05/15/20 23:45) Ns (Ivpb) (Sodium Chloride 0.9%) (05/15/20 23:44) Nicardipine Iv For Drip (Cardene I.V. (O (05/15/20 23:45) Medications Given in ED Vital Signs/I&O 05/15/20 05/15/20 05/15/20 05/16/20 21:42 21:42 21:42 01:29 Temp 36.7 36.7 Pulse 59 58 Resp 20 20 B/P (MAP) 217/103 (141) 150/87 (141) Pulse Ox 100 98 O2 Delivery Nasal Cannula Nasal Cannula Nasal Cannula Nasal Cannula O2 Flow Rate 2.00 2.00 2.0 2.00 Blood Pressure Mean: 141 Progress Progress Note : Progress Note GIVEN NITROPASTE 2", HYDRALAZINE 20 MG --WITHOUT IMPROVEMENT IN BLOOD PRESSURE STARTED ON CARDENE DRIP--BLOOD PRESSURE DOWN TO 155/86, HR 59 AT TIME OF TRANSFER PT HAD NO COMPLAINTS OF CHEST PAIN FOR ENTIRE ER STAY. SLEPT FOR REMAINDER OF ER STAY Initial ECG Impression Date: May 15, 2020 Initial ECG Impression Time: 21:47 Initial ECG Rate: 59 Initial ECG Rhythm: Normal Sinus Diagnostic Imaging Comments CXR--CARDIOMEGALY, CHF--PENDING RADIOLOGIST REVIEW Reviewed: Reviewed by Mi Departure Communication (Admissions) [id number]--CALLED [facility], PT PREFERENCE [phone]--SPOKE WITH DR. TROTTER, ACCEPTS PT FOR ADMIT/TRANSFER Impression Primary Impression: Hypertensive emergency Additional Impressions: Chest pain ESRD (end stage renal disease) on dialysis Disposition: XF SHT-TRM HOSP Condition: Stable (ERASED) Transfer Transfer Reason: Exceeds level of care Transfer Facility: [facility] Method of Transfer: EMS Departure-Patient Inst. Referrals: LINH YORK (PCP/Family) Primary Care Physician STEPHANE HERNANDEZ DO May 16, 2020 01:29
--- NOTE | 2020-05-16 08:03 | Diagnostic Imaging Report ---
Indication: Chest pain. Comparison: 05/12/2019. Discussion: Single portable upright view of the chest was obtained. Small right pleural effusion is new. Mild cardiomegaly is stable. Worsening infiltrates, edema versus pneumonia. Viral pneumonia is not excluded. No pneumothorax or osseous abnormality. Impression: 1. Cardiomegaly with worsening pulmonary infiltrates and new small right pleural effusion. Dictated by: Dictated on workstation # [id number]
== END 2020-05-16 01:30 | disposition short-term general hospital (02) ==
LOC: EDUNIT# 21:45 → ER 21:47
DX: I12.0 Hypertensive chronic kidney disease with stage 5 chronic kidney disease or end stage renal disease (principal); N18.6 End stage renal disease; R07.9 Chest pain, unspecified; J44.9 Chronic obstructive pulmonary disease, unspecified; F41.9 Anxiety disorder, unspecified; F17.210 Nicotine dependence, cigarettes, uncomplicated; Z82.49 Family history of ischemic heart disease and other diseases of the circulatory system; Z79.52 Long term (current) use of systemic steroids
CPT/HCPCS: 71045; 80053; 83735; 84484; 85025; 85610; 85730; 93005; 93041; 99285; G0480; 36415; 80320

== ENCOUNTER 2020-05-25 21:17 | Emergency (ER) | payer MEDICARE ==
[~2020-05-25] VITALS: Ht 175.2 cm; Wt 65.3 kg
[2020-05-25 21:57] LABS: BASOPHILS % (AUTO) 1 % (0-10); EOSINOPHILS # (AUTO) 0.2 10^3/uL (0.0-0.3); EOSINOPHILS % (AUTO) 3 % (0-10); HEMATOCRIT 27 % (40-54); HEMOGLOBIN 9.2 g/dL (13.3-17.7); LYMPHOCYTES # (AUTO) 1.5 10^3/uL (1.0-4.0); LYMPHOCYTES % (AUTO) 34 % (12-44); MEAN CORPUSCULAR HEMOGLOBIN 31 pg (25-34); MEAN CORPUSCULAR HGB CONC 35 g/dL (32-36); MEAN CORPUSCULAR VOLUME 90 fL (80-99); MEAN PLATELET VOLUME 9.3 fL (9.0-12.2); MONOCYTES # (AUTO) 0.5 10^3/uL (0.0-1.0); MONOCYTES % (AUTO) 12 % (0-12); NEUTROPHILS # (AUTO) 2.2 10^3/uL (1.8-7.8); NEUTROPHILS % (AUTO) 49 % (42-75); PLATELET COUNT 139 10^3/uL (130-400); WHITE BLOOD COUNT 4.4 10^3/uL (4.3-11.0)
[2020-05-25] MEDS ORDERED: NITROGLYCERIN 2% OINT 1 GM UNIT DOSE PACKET TOP ONE (22:00)
[2020-05-25] MEDS ORDERED: cloNIDine 0.2 MG (CATAPRES) TAB PO ONE (22:00)
[2020-05-25 22:01] LABS: POTASSIUM 3.4 MMOL/L (3.6-5.0)
[2020-05-25 22:02] LABS: CALCIUM 7.9 MG/DL (8.5-10.1)
[2020-05-25 22:04] LABS: INR 1.2 (0.8-1.4); PROTHROMBIN TIME PATIENT 15.4 SEC (12.2-14.7)
[2020-05-25 22:06] LABS: CREATININE SERUM 4.19 MG/DL (0.60-1.30)
[2020-05-25 22:08] LABS: MAGNESIUM 1.9 MG/DL (1.6-2.4)
[2020-05-25] MEDS ORDERED: hydrALAZINE (APESOLINE) 20 MG/ML VIAL IV ONE ×2 (22:45→23:00)
[2020-05-25] MEDS ORDERED: HYDROcodone/APAP 5 MG/325 MG (LORTAB) TAB PO ONE (23:00)
[2020-05-25] MEDS ORDERED: niCARdipine IV 50 MG in NS (IVPB) 230 ML IV SCH (23:00)
[2020-05-25] MEDS ORDERED: NS (IVPB) 250 ML ONE (23:29)
[2020-05-25] MEDS ORDERED: niCARdipine IV FOR DRIP 50 MG KIT ONE (23:30)
[2020-05-26 02:15] VITALS: BP 116/65
--- NOTE | 2020-05-26 09:48 | ED General ---
General Chief Complaint: Cardiac/General Problems Stated Complaint: HIGH BP Nursing Triage Note: Pt to ED via EMS for high blood pressure and severe chronic leg and foot pain. Pt reports having dialysis today. Pt reports blood pressure was too high to read on home machine. EMS reports blood pressure of 218/96. Pt has fistula in L upper arm. Nursing Sepsis Screen: No Definite Risk Source of Information: Patient History of Present Illness Date Seen by Provider: May 25, 2020 Time Seen by Provider: 21:20 Initial Comments PT ARRIVES VIA EMS FROM HOME PT CALLED EMS BECAUSE OF ELEVATED BLOOD PRESSURE THIS IS A CHRONIC PROBLEM. STATSE BP HAS BEEN "TOO HIGH TO READ" ON HIS BLOOD PRESSURE MONITOR AT HOME, MULTIPLE TIMES. STATES IT DID READ 253 SYSTOLIC ONE TIME, OTHERWISE WAS TOO HIGH TO READ. PT HAS ESRD ON DIALYSIS. HAD DIALYSIS TODAY. STATES BP WAS 230 SYSTOLIC THERE, AND WAS GIVEN CLONIDINE DURING DIALYSIS. PT HAS BEEN GETTING AT LEAST ONE ADDITIONAL DIALYSIS SESSION A WEEK FOR THE LAST COUPLE OF WEEKS DUE TO ELEVATED BLOOD PRESSURE NORMALLY GETS DIALYSIS [id number], BUT HAS BEEN ADDITIONAL SESSIONS ON MONDAY. PT WAS SEEN HERE 05/15/20 FOR SAME, AND WAS TRANSFERRED TO [facility] DUE TO PERSISTENTLY ELEVATED BLOOD PRESSURE. NO MEDICATION CHANGES, PER PT PT DENIES ANY MISSED DOSES OF MEDICATIONS. STATES HE TOOK HIS "SUPPER" MEDICATIONS, BUT NOT HIS BED TIME MEDICATIONS. PT HAS BEEN PRESCRIBED: (THIS DIFFERS FROM HIS RECENT LIST ON 05/15/20) PT DOES NOT KNOW HIS MEDICATIONS/DOSES AND DOES NOT BRING A LIST WITH HIM. -LISINOPRIL 20 MG 1 TABLET DAILY -METOPROLOL 100 MG 1 TABLET BID -DOXAZOSIN 4 MG 1 AT BEDTIME -HYDRALAZINE 100 MG 2 TABLETS TID. -CLONIDINE 0.2 MG 1 TABLET TID -DILTIAZEM 120 MG 2 TABLETS BID NO CHEST PAIN NO SHORTNESS OF BREATH NO FEVER/SWEATS/CHILLS NO PALPATIONS NO SIGNIFICANT INCREASE IN SWELLING. PT COMPLETED FIXATED ON HIS CHRONIC FOOT AND LEG PAIN AND WANTING PAIN MEDICATION FOR THIS LITERALLY SOON HE ARRIVES, WHILE STILL ON EMS CART. STATES HE LAST TOOK HYDROCODONE AT [facility] TODAY. IS PRESCRIBED EVERY 4 HOURS. PT DOES NOT GIVE ANY EXPLANATION TO WHY HE HAS NOT TAKEN ANY OTHER DOSES TODAY. PT CONTINUES TO SMOKE 3 PPD PCP: [facility]: DR. DOS SANTOS Allergies and Home Medications Allergies Coded Allergies: No Known Drug Allergies (Unverified , 09/30/09) Home Medications Albuterol Sulfate 1 Puff Puff, 2 PUFF IH Q4H PRN for SHORTNESS OF BREATH 1 PUFF = 90 MCG Prescribed by: FRANCIS MURRAY on 02/20/191807 Amlodipine Besylate 10 Mg Tablet, 10 MG PO HS, (Reported) LAST FILLED #30 15 Cefuroxime Axetil 250 Mg Tablet, 250 MG PO DAILY . Prescribed by: FRANCIS MURRAY on 02/20/191836 Hydralazine HCl 10 Mg Tablet, 10 MG PO Q6H Prescribed by: FRANCIS MURRAY on 02/20/19 183 Lorazepam 1 Mg Tablet, 1 MG PO TID PRN for ANXIETY, (Reported) LAST FILLED 08-22-14 #90 Metoprolol Tartrate 50 Mg Tablet, 50 MG PO BID This medication should be taken twice daily.It only lasts 12 hours. Prescribed by: SUSY FLEMING on 01/06/15 1200 Prednisone 20 Mg Tab, 40 MG PO DAILY . Prescribed by: FRANCIS MURRAY on 02/20/191836 Zolpidem Tartrate 5 Mg Tablet, 1 TAB PO HS, (Reported) Patient Home Medication List Home Medication List Reviewed: Yes Review of Systems Review of Systems Constitutional: no symptoms reported; No chills, No diaphoresis, No dizziness, No fever Respiratory: no symptoms reported; No short of breath Cardiovascular: see HPI; No chest pain Gastrointestinal: no symptoms reported; No nausea, No vomiting Musculoskeletal: see HPI Skin: no symptoms reported Hematologic/Lymphatic: Anemia Past Sxcsjso-Wtljip-Fbwpmz Hx Past Med/Social Hx: Reviewed and Corrections made Patient Social History Alcohol Use: Denies Use Number of Drinks Today: AA Alcohol Beverage of Choice: Beer Smoking Status: Current Everyday Smoker Type Used: Cigarettes 2nd Hand Smoke Exposure: No Recent Infectious Disease Expo: No Recent Hopitalizations: No Immunizations Up To Date Tetanus Booster (TDap): Less than 5yrs PED Vaccines UTD: No Date of Influenza Vaccine: Dec 29, 2014 Seasonal Allergies Seasonal Allergies: No Past Medical History Surgeries: Yes (UMBILICAL HERNIA REPAIR 1994; L ARM FISTULA;LOOP RECORDER) Abdominal, Arteriovenous Shunt, Cardiac, Dialysis, Vascular Surgery Respiratory: Yes (CHRONIC O2 AT 3L-CONTINUES TO SMOKE 3 PPD) COPD, Emphysema Currently Using CPAP: No Currently Using BIPAP: No Cardiac: Yes Hypertension Neurological: No Reproductive Disorders: No Genitourinary: Yes (DIALYSIS --) Kidney Stones, Renal Failure, Dialysis Gastrointestinal: Yes (UMBILICAL HERNIA REPAIR 1994) Abdominal Hernia Musculoskeletal: No Endocrine: No HEENT: No Hearing Impairment: Hard of Hearing Cancer: No Psychosocial: Yes Anxiety Integumentary: No Blood Disorders: No Adverse Reaction/Blood Tranf: No Family Medical History FH: COPD (chronic obstructive pulmonary disease) 19 FATHER FH: emphysema 19 FATHER FH: heart attack 19 FATHER FH: scoliosis G8 BROTHER, FH: stroke G8 SISTER FHx: heart disease G8 SISTER Thyroid disease 19 MOTHER SOCIAL HISTORY: -ETOH--HX OF ABUSE-18 BEERS / DAY -DRUGS--DENIES USE -SMOKES 3 PPD Physical Exam Vital Signs Vital Signs - First Documented 05/25/20 21:20 Temp 36.1 Pulse 56 Resp 15 B/P (MAP) 218/102 (140) Pulse Ox 96 O2 Delivery Nasal Cannula O2 Flow Rate 2.00 Capillary Refill : Less Than 3 Seconds Height, Weight, BMI Height: 5'9.00" Weight: 150lbs. 0oz. [id number]; 21.00 BMI Method:Stated General Appearance: No Apparent Distress, WD/WN, Other (UNKEMPT, REEKS OF CIGARETTES, FINGERS HEAVILY TOBACCO STAINED. DOES NOT APPEAR TO BE IN ANY DISCOMFORT OR DISTRESS. ) Respiratory: Normal Breath Sounds, No Accessory Muscle Use, No Respiratory Distress Cardiovascular: Regular Rate, Rhythm, No JVD, No Murmur Gastrointestinal: Non Tender, Soft Extremity: Pedal Edema (TRACE TO 1+ BILATERALLY) Neurologic/Psychiatric: Alert, Oriented x3 Progress/Results/Core Measures Suspected Sepsis Recent Fever Within 48 Hours: No Infection Criteria Present: None New/Unexplained Altered Menta: No Sepsis Screen: No Definite Risk SIRS Temperature: Pulse: 53 Respiratory Rate: 16 Laboratory Tests 05/25/20 21:26: White Blood Count 4.4 Blood Pressure 116 /65 Mean: 140 Laboratory Tests 05/25/20 21:26: Creatinine 4.19H, INR Comment 1.2, Platelet Count 139 Results/Orders Lab Results Laboratory Tests Test 05/25/20 21:26 Range/Units White Blood Count 4.4 4.3-11.0 10^3/uL Red Blood Count 2.93 L 4.30-5.52 10^6/uL Hemoglobin 9.2 L 13.3-17.7 g/dL Hematocrit 27 L 40-54 % Mean Corpuscular Volume 90 80-99 fL Mean Corpuscular Hemoglobin 31 25-34 pg Mean Corpuscular Hemoglobin Concent 35 32-36 g/dL Red Cell Distribution Width 16.9 H 10.0-14.5 % Platelet Count 139 130-400 10^3/uL Mean Platelet Volume 9.3 9.0-12.2 fL Immature Granulocyte % (Auto) 0 % Neutrophils (%) (Auto) 49 42-75 % Lymphocytes (%) (Auto) 34 12-44 % Monocytes (%) (Auto) 12 0-12 % Eosinophils (%) (Auto) 3 0-10 % Basophils (%) (Auto) 1 0-10 % Neutrophils # (Auto) 2.2 1.8-7.8 10^3/uL Lymphocytes # (Auto) 1.5 1.0-4.0 10^3/uL Monocytes # (Auto) 0.5 0.0-1.0 10^3/uL Eosinophils # (Auto) 0.2 0.0-0.3 10^3/uL Basophils # (Auto) 0.0 0.0-0.1 10^3/uL Immature Granulocyte # (Auto) 0.0 0.0-0.1 10^3/uL Prothrombin Time 15.4 H 12.2-14.7 SEC INR Comment 1.2 0.8-1.4 Activated Partial Thromboplast Time 34 24-35 SEC Sodium Level 134 L 135-145 MMOL/L Potassium Level 3.4 L 3.6-5.0 MMOL/L Chloride Level 90 L 98-107 MMOL/L Carbon Dioxide Level 31 21-32 MMOL/L Anion Gap 13 5-14 MMOL/L Blood Urea Nitrogen 14 7-18 MG/DL Creatinine 4.19 H 0.60-1.30 MG/DL Estimat Glomerular Filtration Rate 15 BUN/Creatinine Ratio 3 Glucose Level 73 70-105 MG/DL Calcium Level 7.9 L 8.5-10.1 MG/DL Magnesium Level 1.9 1.6-2.4 MG/DL My Orders Orders - STEPHANE HERNANDEZ DO Ed Iv/Invasive Line Start (05/25/20 21:50) Ekg Tracing (05/25/20 21:50) Monitor-Rhythm Ecg Trace Only (05/25/20 21:50) Basic Metabolic Panel (05/25/20 21:50) Cbc With Automated Diff (05/25/20 21:50) Magnesium (05/25/20 21:50) Protime With Inr (05/25/20 21:50) Partial Thromboplastin Time (05/25/20 21:50) Nitroglycerin Ointment (Nitrobid Ointme (05/25/20 22:00) Clonidine Tablet (Catapres Tablet) (05/25/20 22:00) Hydralazine Injection (Apresoline Inject (05/25/20 22:45) Hydralazine Injection (Apresoline Inject (05/25/20 23:00) Hydrocodone/Apap 5/325 Tablet (Lortab 5 (05/25/20 23:00) Ns (Ivpb) (Sodium C... W/Nicardipine Iv (05/25/20 23:00) Ns (Ivpb) (Sodium Chloride 0.9%) (05/25/20 23:29) Nicardipine Iv For Drip (Cardene I.V. (O (05/25/20 23:30) Medications Given in ED Current Medications Medications Dose Ordered Sig/Tj Route Start Time Stop Time Status Last Admin Dose Admin Acetaminophen/ Hydrocodone Bitart 1 ea ONCE ONCE PO 05/25/20 23:00 05/25/20 23:01 DC 05/25/20 23:36 1 EA Clonidine HCl 0.2 mg ONCE ONCE PO 05/25/20 22:00 05/25/20 22:01 DC 05/25/20 22:09 0.2 MG Hydralazine HCl 20 mg ONCE ONCE IV 05/25/20 23:00 05/25/20 23:01 DC 05/25/20 23:37 20 MG Nitroglycerin 2 inch ONCE ONCE TOP 05/25/20 22:00 05/25/20 22:01 DC 05/25/20 22:10 2 INCH Vital Signs/I&O 05/25/20 3 21:20 02:15 Temp 36.1 36.1 Pulse 56 53 Resp 15 16 B/P (MAP) 218/102 (140) 116/65 (140) Pulse Ox 96 99 O2 Delivery Nasal Cannula Nasal Cannula O2 Flow Rate 2.00 3.00 Capillary Refill : Less Than 3 Seconds Blood Pressure Mean: 140 Progress Note : Progress Note GIVEN 2" NITROPASTE, CLONIDINE 0.2 MG, HYDRALAZINE 20 MG WITHOUT SIGNIFICANT REDUCTION IN BLOOD PRESSURE. STARTED ON CARDENE DRIP WITH SIGNIFICANT IMPROVEMENT IN BP GIVEN HYDROCODONE FOR CHRONIC FOOT/LEG PAIN COMPLAINTS BP DOWN TO 126/81 AT TIME OF TRANSFER HEART RATE REMAINS AT 50-51 DURING ENTIRE ER STAY. PT SLEPT FOR MOST OF ER STAY NO DETERIORATION IN PT'S CONDITION DURING ER STAY ECG Initial ECG Impression Date: May 25, 2020 Initial ECG Impression Time: 21:29 Initial ECG Rate: 57 Initial ECG Rhythm: Normal Sinus Initial ECG Impression: Nonspecific Changes Departure Communication (Admissions) 0001--[facility]--SPOKE WITH DR. CADET, ACCEPTS PT FOR ADMIT/TRANSFER. NO ADDITIONAL RECOMM ENDATIONS AT THIS TIME. Impression Primary Impression: Hypertensive emergency Additional Impression: ESRD (end stage renal disease) on dialysis Disposition: XFER SHT-TRM HOSP Condition: Improved Transfer Transfer Reason: Exceeds level of care Transfer Facility: [facility] Method of Transfer: EMS Departure-Patient Inst. Referrals: LINH YORK (PCP) Primary Care Physician STEPHANE HERNANDEZ DO May 26, 2020 09:48
== END 2020-05-26 02:22 | disposition short-term general hospital (02) ==
LOC: EDUNIT# 21:17 → ER 21:18
DX: I12.0 Hypertensive chronic kidney disease with stage 5 chronic kidney disease or end stage renal disease (principal); N18.6 End stage renal disease; R60.0 Localized edema; F41.9 Anxiety disorder, unspecified; J43.9 Emphysema, unspecified; F17.210 Nicotine dependence, cigarettes, uncomplicated; Z79.899 Other long term (current) drug therapy; Z79.52 Long term (current) use of systemic steroids; Z99.2 Dependence on renal dialysis
CPT/HCPCS: 36415; 80048; 83735; 85025; 85610; 85730; 93005; 93041; 96365; 96366; 96375

== ENCOUNTER 2020-07-25 22:20 | Emergency (ER) | payer MEDICARE ==
[~2020-07-25] VITALS: Ht 172.7 cm; Wt 65.7 kg
[2020-07-25 22:20] VITALS: BP 197/99
[2020-07-25] MEDS ORDERED: GABAPENTIN 100 MG (NEURONTIN) CAP PO ONE (22:45)
[2020-07-25] MEDS ORDERED: GABAPENTIN 600 MG (NEURONTIN) TAB PO ONE (22:45)
[2020-07-25 22:52] LABS: EOSINOPHILS # (AUTO) 0.1 10^3/uL (0.0-0.3); EOSINOPHILS % (AUTO) 1 % (0-10)
[2020-07-25 22:54] LABS: BASOPHILS % (AUTO) 1 % (0-10); HEMATOCRIT 32 % (40-54); HEMOGLOBIN 11.2 g/dL (13.3-17.7); LYMPHOCYTES # (AUTO) 1.5 10^3/uL (1.0-4.0); LYMPHOCYTES % (AUTO) 32 % (12-44); MEAN CORPUSCULAR HEMOGLOBIN 30 pg (25-34); MEAN CORPUSCULAR HGB CONC 36 g/dL (32-36); MEAN CORPUSCULAR VOLUME 84 fL (80-99); MEAN PLATELET VOLUME 9.8 fL (9.0-12.2); MONOCYTES # (AUTO) 0.6 10^3/uL (0.0-1.0); MONOCYTES % (AUTO) 12 % (0-12); NEUTROPHILS # (AUTO) 2.5 10^3/uL (1.8-7.8); NEUTROPHILS % (AUTO) 53 % (42-75); PLATELET COUNT 137 10^3/uL (130-400); WHITE BLOOD COUNT 4.7 10^3/uL (4.3-11.0)
--- NOTE | 2020-07-25 22:58 | ED General ---
General Chief Complaint: General Problems/Pain Stated Complaint: SOA/FEVER Source of Information: Patient Exam Limitations: No Limitations History of Present Illness Date Seen by Provider: July 25, 2020 Time Seen by Provider: 22:28 Initial Comments Patient to the ER by EMS from home with chief complaint of originally shortness of air however he says by the time EMS got there he took a breathing treatment half an hour ago and he says his breathing is better. He has a history of COPD dependent on oxygen supplementally. On his baseline of 2 L he is 100%. He says the real reason he came out was because his legs been hurting him. He took his last dose of gabapentin this morning. He follows with Jourdan Edmondson used to be with Wilmer Patterson at [facility]. He says he is out of his gabapentin and did not feel like it helped much anyways. Allergies and Home Medications Allergies Coded Allergies: No Known Drug Allergies (Unverified , 09/30/09) Home Medications Albuterol Sulfate 1 Puff Puff, 2 PUFF IH Q4H PRN for SHORTNESS OF BREATH 1 PUFF = 90 MCG Prescribed by: FRANCIS MURRAY on 02/20/191807 Amlodipine Besylate 10 Mg Tablet, 10 MG PO HS, (Reported) LAST FILLED #30 12-01-14 Cefuroxime Axetil 250 Mg Tablet, 250 MG PO DAILY . Prescribed by: FRANCIS MURRAY on 02/20/191836 Hydralazine HCl 10 Mg Tablet, 10 MG PO Q6H Prescribed by: FRANCIS MURRAY on 02/20/191835 Lorazepam 1 Mg Tablet, 1 MG PO TID PRN for ANXIETY, (Reported) LAST FILLED 08-22-14 #90 Metoprolol Tartrate 50 Mg Tablet, 50 MG PO BID This medication should be taken twice daily.It only lasts 12 hours. Prescribed by: SUSY FLEMING on 01/06/15 1200 Prednisone 20 Mg Tab, 40 MG PO DAILY . Prescribed by: FRANCIS MURRAY on 02/20/191836 Zolpidem Tartrate 5 Mg Tablet, 1 TAB PO HS, (Reported) Patient Home Medication List Home Medication List Reviewed: Yes Review of Systems Review of Systems Constitutional: No chills, No diaphoresis EENTM: No ear discharge, No ear pain Respiratory: No cough; short of breath Cardiovascular: No chest pain, No palpitations Gastrointestinal: No abdominal pain, No nausea, No vomiting Genitourinary: No discharge, No dysuria Musculoskeletal: No back pain, No joint pain Skin: No pruritus, No rash Psychiatric/Neurological: Denies Headache, Denies Numbness All Other Systems Reviewed Negative Unless Noted: Yes Past Jjvmbhg-Klsjiw-Kfkdky Hx Patient Social History Alcohol Use: Occasionally Uses Alcohol Beverage of Choice: Beer Smoking Status: Current Everyday Smoker Type Used: Cigarettes 2nd Hand Smoke Exposure: No Recent Hopitalizations: No Immunizations Up To Date Tetanus Booster (TDap): Less than 5yrs PED Vaccines UTD: No Date of Influenza Vaccine: Dec 29, 2014 Seasonal Allergies Seasonal Allergies: No Past Medical History Surgeries: Yes (UMBILICAL HERNIA REPAIR 1994; L ARM FISTULA;LOOP RECORDER) Abdominal, Arteriovenous Shunt, Cardiac, Dialysis, Vascular Surgery Respiratory: Yes (CHRONIC O2 AT 3L-CONTINUES TO SMOKE 3 PPD) COPD, Emphysema Currently Using CPAP: No Currently Using BIPAP: No Cardiac: Yes Hypertension Neurological: No Reproductive Disorders: No Genitourinary: Yes (DIALYSIS --) Kidney Stones, Renal Failure, Dialysis Gastrointestinal: Yes (UMBILICAL HERNIA REPAIR 1994) Abdominal Hernia Musculoskeletal: No Endocrine: No HEENT: No Hearing Impairment: Hard of Hearing Cancer: No Psychosocial: Yes Anxiety Integumentary: No Blood Disorders: No Adverse Reaction/Blood Tranf: No Family Medical History FH: COPD (chronic obstructive pulmonary disease) 19 FATHER FH: emphysema 19 FATHER FH: heart attack 19 FATHER FH: scoliosis G8 BROTHER, FH: stroke G8 SISTER FHx: heart disease G8 SISTER Thyroid disease 19 MOTHER SOCIAL HISTORY: -ETOH--HX OF ABUSE-19 BEERS / DAY -DRUGS--DENIES USE -SMOKES 3 PPD Physical Exam Vital Signs Capillary Refill : Height, Weight, BMI Height: 5'9.00" Weight: 150lbs. 0oz. 68.233720id; 21.00 BMI Method:Stated General Appearance: No Apparent Distress, Chronically ill Eyes: Bilateral Eye Normal Inspection, Bilateral Eye PERRL, Bilateral Eye EOMI HEENT: PERRL/EOMI, Pharynx Normal, Moist Mucous Membranes Neck: Full Range of Motion, Normal Inspection Respiratory: No Accessory Muscle Use, Respiratory Distress (Mild) Cardiovascular: Regular Rate, Rhythm, Normal Peripheral Pulses Gastrointestinal: Normal Bowel Sounds, Non Tender, Soft Extremity: Normal Capillary Refill, Normal Range of Motion, No Pedal Edema Neurologic/Psychiatric: Alert, Oriented x3 Skin: Normal Color, Warm/Dry Progress/Results/Core Measures Suspected Sepsis SIRS Temperature: Pulse: Respiratory Rate: Laboratory Tests 07/25/20 22:25: White Blood Count 4.7 Blood Pressure / Mean: Laboratory Tests 07/25/20 22:25: Creatinine 6.23H, Platelet Count 137, Total Bilirubin 1.0 Results/Orders Lab Results Laboratory Tests Test 07/25/20 21:18 07/25/20 22:25 Range/Units SARS-CoV-2 RNA (RT-PCR) Negative Not Detecte White Blood Count 4.7 4.3-11.0 10^3/uL Red Blood Count 3.76 L 4.30-5.52 10^6/uL Hemoglobin 11.2 L 13.3-17.7 g/dL Hematocrit 32 L 40-54 % Mean Corpuscular Volume 84 80-99 fL Mean Corpuscular Hemoglobin 30 25-34 pg Mean Corpuscular Hemoglobin Concent 36 32-36 g/dL Red Cell Distribution Width 14.8 H 10.0-14.5 % Platelet Count 137 130-400 10^3/uL Mean Platelet Volume 9.8 9.0-12.2 fL Immature Granulocyte % (Auto) 1 % Neutrophils (%) (Auto) 53 42-75 % Lymphocytes (%) (Auto) 32 12-44 % Monocytes (%) (Auto) 12 0-12 % Eosinophils (%) (Auto) 1 0-10 % Basophils (%) (Auto) 1 0-10 % Neutrophils # (Auto) 2.5 1.8-7.8 10^3/uL Lymphocytes # (Auto) 1.5 1.0-4.0 10^3/uL Monocytes # (Auto) 0.6 0.0-1.0 10^3/uL Eosinophils # (Auto) 0.1 0.0-0.3 10^3/uL Basophils # (Auto) 0.0 0.0-0.1 10^3/uL Immature Granulocyte # (Auto) 0.0 0.0-0.1 10^3/uL Sodium Level 137 135-145 MMOL/L Potassium Level 3.7 3.6-5.0 MMOL/L Chloride Level 92 L 98-107 MMOL/L Carbon Dioxide Level 28 21-32 MMOL/L Anion Gap 17 H 5-14 MMOL/L Blood Urea Nitrogen 19 H 7-18 MG/DL Creatinine 6.23 H 0.60-1.30 MG/DL Estimat Glomerular Filtration Rate 9 BUN/Creatinine Ratio 3 Glucose Level 72 70-105 MG/DL Calcium Level 8.7 8.5-10.1 MG/DL Corrected Calcium 9.0 8.5-10.1 MG/DL Total Bilirubin 1.0 0.1-1.0 MG/DL Aspartate Amino Transf (AST/SGOT) 14 5-34 U/L Alanine Aminotransferase (ALT/SGPT) 7 0-55 U/L Alkaline Phosphatase 76 40-136 U/L C-Reactive Protein High Sensitivity 1.85 H 0.00-0.50 MG/DL Total Protein 7.0 6.4-8.2 GM/DL Albumin 3.6 3.2-4.5 GM/DL Procalcitonin 0.27 H <0.10 NG/ML My Orders Orders - QI,XAVI J Chest 1 View, Ap/Pa Only (07/25/20 22:45) Cbc With Automated Diff (07/25/20 22:45) Comprehensive Metabolic Panel (07/25/20 22:45) Hs C Reactive Protein (07/25/20 22:45) Procalcitonin (Pct) (07/25/20 22:45) Covid 19 Inhouse Test (07/25/20 22:45) Gabapentin Capsule/Tablet (Neurontin Cap (07/25/20 22:45) Gabapentin Capsule/Tablet (Neurontin Cap (07/25/20 22:45) Dexamethasone Injection (Decadron Injec (07/25/20 22:45) Blood Culture (07/25/20 22:48) Hydrocodone/Apap 5/325 Tablet (Lortab 5 (07/26/20 00:15) Hydrocodone/Apap 5/325 Tablet (Lortab 5 (07/26/20 00:16) Medications Given in ED Current Medications Medications Dose Ordered Sig/Tj Route Start Time Stop Time Status Last Admin Dose Admin Acetaminophen/ Hydrocodone Bitart 1 ea ONCE ONCE PO 07/26/20 00:15 07/26/20 00:16 DC 07/26/20 00:28 1 EA Dexamethasone Sodium Phosphate 6 mg ONCE ONCE IV 07/25/20 22:45 07/25/20 22:49 DC 07/25/20 22:56 6 MG Gabapentin 200 mg ONCE ONCE PO 07/25/20 22:45 07/25/20 22:49 DC 07/25/20 23:00 200 MG Gabapentin 600 mg ONCE ONCE PO 07/25/20 22:45 07/25/20 22:49 DC 07/25/20 22:59 600 MG Vital Signs/I&O Capillary Refill : Progress Note #1: Time: 22:57 Progress Note 800 mg gabapentin, basic labs chest x-ray and a COVID-19 swab. We will give him some Decadron as well he states he is feeling better and is breathing nonlabored he still has significant wheezing after DuoNeb treatment from home. Progress Note #2: Time: 00:16 Progress Note Patient was asleep when I went back into check on him however he aroused easily. He states his pain is just as bad as before. Explained to him that we do not address chronic pain medications routinely from the ER and that he needs to follow-up with Jourdan Edmondson. Hydrocodone x1. Patient requested to be transferred to [facility]. When asked why he said because he wants to. We encouraged him to follow-up at [facility] if he wishes to. Explained to him that we do not have any criteria to transfer him for. Staff reports the patient was able to ambulate to the bathroom and back without issue however when we did our physical exam and lightly touch the patient just to check for dorsal pedal pulse the patient was howling in pain. His pain is out of proportion to the exam and appears to be related to his chronic neuropathy. For this reason we have explained to him that his chronic neuropathy needs to be managed through his primary care office. Diagnostic Imaging Diagonstic Imaging: Xray Plain Films/CT/US/NM/MRI: chest Comments No acute cardiopulmonary process on 1 view chest x-ray Reviewed: Reviewed by Me Departure Impression Primary Impression: COPD (chronic obstructive pulmonary disease) Qualified Codes: J44.9 - Chronic obstructive pulmonary disease, unspecified Additional Impression: Chronic peripheral neuropathic pain Disposition: 01 HOME, SELF-CARE Condition: Stable Departure-Patient Inst. Decision time for Depature: 00:17 Referrals: LINH PATTERSON (PCP/Family) Primary Care Physician Patient Instructions: COPD Diet, Chronic Pain (DC) Add. Discharge Instructions: Follow-up with your primary care provider to help manage your chronic pain syndrome. Return to the ER promptly if you are feeling worsening shortness of breath. All discharge instructions reviewed with patient and/or family. Voiced understanding. XAVI BUSBY July 25, 2020 22:58
[2020-07-25 23:04] LABS: ALBUMIN 3.6 GM/DL (3.2-4.5); POTASSIUM 3.7 MMOL/L (3.6-5.0)
[2020-07-25 23:05] LABS: CALCIUM 8.7 MG/DL (8.5-10.1)
[2020-07-25 23:10] LABS: CREATININE SERUM 6.23 MG/DL (0.60-1.30)
[2020-07-26] MEDS ORDERED: HYDROcodone/APAP 5 MG/325 MG (LORTAB) TAB PO ONE (00:15)
[2020-07-26] MEDS ORDERED: HYDROcodone/APAP 5 MG/325 MG (LORTAB) TAB ONE (00:16)
--- NOTE | 2020-07-26 08:13 | Diagnostic Imaging Report ---
Clinical indication: Patient with shortness of air. Exam: Portable chest x-ray upright view. Comparisons: Chest x-ray dated 05/15/2020. Findings: Stable cardiomegaly and mild pulmonary vascular congestion. There is stable increased lung markings throughout both lungs and mild patchy airspace opacities bilaterally. Suspected loop recorder again seen overlying the left midlung field. There is no pleural effusion or pneumothorax. Bones show no significant abnormality. IMPRESSION: 1.: Stable chest x-ray exam with cardiomegaly mild pulmonary vascular congestion which can be seen with congestive heart failure. 2: There is increased lung markings throughout both lungs and mild airspace opacities which may be related to mild pulmonary vascular congestion and pulmonary edema. Superimposed lung infectious process cannot be completely excluded. Dictated by: Dictated on workstation # [id number]
== END 2020-07-26 00:36 | disposition home or self-care (01) ==
LOC: EDUNIT# 22:20 → ER 22:24
DX: J44.9 Chronic obstructive pulmonary disease, unspecified (principal); G62.9 Polyneuropathy, unspecified; I10 Essential (primary) hypertension; F41.9 Anxiety disorder, unspecified; F17.210 Nicotine dependence, cigarettes, uncomplicated; Z20.822 Contact with and (suspected) exposure to COVID-19; Z79.52 Long term (current) use of systemic steroids; Z79.899 Other long term (current) drug therapy
CPT/HCPCS: 71045; 80053; 84145; 85025; 86141; 87040; 99284; U0002; 36415; 87635

== ENCOUNTER 2020-09-21 22:07 | Emergency (ER) | payer MEDICARE ==
[~2020-09-21] VITALS: Ht 175 cm; Wt 65.7 kg
[2020-09-21] MEDS ORDERED: fentaNYL INJ 100 MCG/2 ML AMP IVP ONE (22:30)
[2020-09-21 22:49] LABS: EOSINOPHILS % (AUTO) 0 % (0-10)
[2020-09-21 22:51] LABS: BASOPHILS % (AUTO) 0 % (0-10); HEMATOCRIT 32 % (40-54); HEMOGLOBIN 11.2 g/dL (13.3-17.7); LYMPHOCYTES # (AUTO) 1.4 10^3/uL (1.0-4.0); LYMPHOCYTES % (AUTO) 15 % (12-44); MEAN CORPUSCULAR HEMOGLOBIN 29 pg (25-34); MEAN CORPUSCULAR HGB CONC 35 g/dL (32-36); MEAN CORPUSCULAR VOLUME 85 fL (80-99); MEAN PLATELET VOLUME 9.8 fL (9.0-12.2); MONOCYTES # (AUTO) 1.1 10^3/uL (0.0-1.0); MONOCYTES % (AUTO) 12 % (0-12); NEUTROPHILS # (AUTO) 6.8 10^3/uL (1.8-7.8); NEUTROPHILS % (AUTO) 72 % (42-75); PLATELET COUNT 116 10^3/uL (130-400); WHITE BLOOD COUNT 9.4 10^3/uL (4.3-11.0)
[2020-09-21 22:53] LABS: ALBUMIN 3.3 GM/DL (3.2-4.5); POTASSIUM 3.7 MMOL/L (3.6-5.0)
[2020-09-21 22:54] LABS: CALCIUM 7.6 MG/DL (8.5-10.1)
[2020-09-21 22:56] LABS: TOTAL PROTEIN 6.5 GM/DL (6.4-8.2)
[2020-09-21 22:57] LABS: BILIRUBIN,TOTAL 1.1 MG/DL (0.1-1.0)
[2020-09-21 22:59] LABS: CREATININE SERUM 5.16 MG/DL (0.60-1.30)
[2020-09-21 23:02] LABS: MAGNESIUM 1.8 MG/DL (1.6-2.4)
--- NOTE | 2020-09-21 23:24 | ED Back Pain ---
General Chief Complaint: General Problems/Pain Stated Complaint: ABD PAIN Nursing Triage Note: PT PRESENTS VIA EMS TO ROOM 2 C/O L SIDED CHEST AND FLANK THAT PROGRESSIVELY WORSENED STARTING LAST NIGHT. PT REPORTS DIFFICULTY SLEEPING AND GENERALIZED WEAKNESS. STATES HE RECIEVED HIS SCHEDULED DIALYSIS TODAY WITHOUT COMPLICATION. AUDIBLY WET BREATH SOUNDS NOTED, PT STATES THIS IS NOT HIS NORMAL Source of Information: Patient Exam Limitations: No Limitations History of Present Illness Date Seen by Provider: Sep 21, 2020 Time Seen by Provider: 22:27 Initial Comments Patient presents ER by EMS from home with chief complaint of back pain. He associates this with recently being taken off of his pain medicines. He follows with pain management and has had injections in his back recently as of last week with steroids. He says the pain came on acutely today and was severe 9 out of 10. After some fentanyl he felt much better. He has bad back problems as well as is on dialysis. He has COPD and continues to smoke. He has a baseline oxygen requirement of 2 L by nasal cannula. He is having some cough and chills but no objective fever. No nausea vomiting or diarrhea. Has had some constipation but produced a stool earlier today. He does occasionally produce urine and endorses dysuria recently. Allergies and Home Medications Allergies Coded Allergies: No Known Drug Allergies (Unverified , 09/30/09) Home Medications Albuterol Sulfate 1 Puff Puff, 2 PUFF IH Q4H PRN for SHORTNESS OF BREATH 1 PUFF = 90 MCG Prescribed by: FRANCIS MURRAY on 02/20/191807 Amlodipine Besylate 10 Mg Tablet, 10 MG PO HS, (Reported) LAST FILLED #30 12-01-14 Cefuroxime Axetil 250 Mg Tablet, 250 MG PO DAILY . Prescribed by: FRANCIS MURRAY on 02/20/191836 Hydralazine HCl 10 Mg Tablet, 10 MG PO Q6H Prescribed by: FRANCIS MURRAY on 02/20/191835 Lorazepam 1 Mg Tablet, 1 MG PO TID PRN for ANXIETY, (Reported) LAST FILLED 08-22-14 #90 Metoprolol Tartrate 50 Mg Tablet, 50 MG PO BID This medication should be taken twice daily.It only lasts 12 hours. Prescribed by: SUSY FLEMING on 01/06/15 1200 Prednisone 20 Mg Tab, 40 MG PO DAILY . Prescribed by: FRANCIS MURRAY on 02/20/191836 Zolpidem Tartrate 5 Mg Tablet, 1 TAB PO HS, (Reported) Patient Home Medication List Home Medication List Reviewed: Yes Review of Systems Constitutional: No chills, No diaphoresis, No fever; malaise, weakness EENTM: No ear discharge, No ear pain Respiratory: cough, phlegm, short of breath Cardiovascular: No chest pain, No edema, No palpitations Gastrointestinal: see HPI, abdominal pain, constipation; No nausea Genitourinary: No discharge, No dysuria Musculoskeletal: No back pain, No joint pain All Other Systems Reviewed Negative Unless Noted: Yes Past Erdgnzh-Ckyayk-Xuzcao Hx Patient Social History Tobacco Use?: Yes Smoking Status: Current Everyday Smoker Substance use?: No Alcohol Use?: No Immunizations Up To Date Tetanus Booster (TDap): Less than 5yrs PED Vaccines UTD: No Seasonal Allergies Seasonal Allergies: No Past Medical History Surgeries: Yes (UMBILICAL HERNIA REPAIR 1994; L ARM FISTULA;LOOP RECORDER) Abdominal, Arteriovenous Shunt, Cardiac, Dialysis, Vascular Surgery Respiratory: Yes (CHRONIC O2 AT 3L-CONTINUES TO SMOKE 3 PPD) COPD, Emphysema Currently Using CPAP: No Currently Using BIPAP: No Cardiac: Yes Hypertension Neurological: No Reproductive Disorders: No Genitourinary: Yes (DIALYSIS --) Kidney Stones, Renal Failure, Dialysis Gastrointestinal: Yes (UMBILICAL HERNIA REPAIR 1994) Abdominal Hernia Musculoskeletal: No Endocrine: No HEENT: No Hearing Impairment: Hard of Hearing Cancer: No Psychosocial: Yes Anxiety Integumentary: No Blood Disorders: No Adverse Reaction/Blood Tranf: No Family Medical History FH: COPD (chronic obstructive pulmonary disease) 19 FATHER FH: emphysema 19 FATHER FH: heart attack 19 FATHER FH: scoliosis G8 BROTHER, FH: stroke G8 SISTER FHx: heart disease G8 SISTER Thyroid disease 19 MOTHER SOCIAL HISTORY: -ETOH--HX OF ABUSE-19 BEERS / DAY -DRUGS--DENIES USE -SMOKES 3 PPD Physical Exam Vital Signs Vital Signs - First Documented Capillary Refill : Less Than 3 Seconds Height, Weight, BMI Height: 5'9.00" Weight: 150lbs. 0oz. [id number]; 21.00 BMI Method:Stated General Appearance: No Apparent Distress, WD/WN HEENT: PERRL/EOMI, Pharynx Normal, Moist Mucous Membranes Neck: Full Range of Motion, Normal Inspection Cardiovascular: Regular Rate, Rhythm, No Edema, Normal Peripheral Pulses Respiratory: Lungs Clear, Normal Breath Sounds, No Accessory Muscle Use, No Respiratory Distress Gastrointestinal: Normal Bowel Sounds, Guarding, Tenderness (All 4 quadrants) Extremity: Normal Capillary Refill, Normal Inspection, Non Tender, No Pedal Edema Neurologic/Psychiatric: Alert, Oriented x3, Normal Mood/Affect Skin: Normal Color, Warm/Dry Progress/Results/Core Measures Results/Orders Lab Results Laboratory Tests Test 09/21/20 00:48 09/21/20 22:38 09/21/20 22:47 09/21/20 22:49 Range/Units Prothrombin Time 16.3 H 12.2-14.7 SEC INR Comment 1.3 0.8-1.4 Activated Partial Thromboplast Time 38 H 24-35 SEC White Blood Count 9.4 4.3-11.0 10^3/uL Red Blood Count 3.83 L 4.30-5.52 10^6/uL Hemoglobin 11.2 L 13.3-17.7 g/dL Hematocrit 32 L 40-54 % Mean Corpuscular Volume 85 80-99 fL Mean Corpuscular Hemoglobin 29 25-34 pg Mean Corpuscular Hemoglobin Concent 35 32-36 g/dL Red Cell Distribution Width 16.4 H 10.0-14.5 % Platelet Count 116 L 130-400 10^3/uL Mean Platelet Volume 9.8 9.0-12.2 fL Immature Granulocyte % (Auto) 1 % Neutrophils (%) (Auto) 72 42-75 % Lymphocytes (%) (Auto) 15 12-44 % Monocytes (%) (Auto) 12 0-12 % Eosinophils (%) (Auto) 0 0-10 % Basophils (%) (Auto) 0 0-10 % Neutrophils # (Auto) 6.8 1.8-7.8 10^3/uL Lymphocytes # (Auto) 1.4 1.0-4.0 10^3/uL Monocytes # (Auto) 1.1 H 0.0-1.0 10^3/uL Eosinophils # (Auto) 0.0 0.0-0.3 10^3/uL Basophils # (Auto) 0.0 0.0-0.1 10^3/uL Immature Granulocyte # (Auto) 0.1 0.0-0.1 10^3/uL Percent Immature Platelet Fraction 4.4 0.0-7.6 % Sodium Level 137 135-145 MMOL/L Potassium Level 3.7 3.6-5.0 MMOL/L Chloride Level 94 L 98-107 MMOL/L Carbon Dioxide Level 29 21-32 MMOL/L Anion Gap 14 5-14 MMOL/L Blood Urea Nitrogen 23 H 7-18 MG/DL Creatinine 5.16 H 0.60-1.30 MG/DL Estimat Glomerular Filtration Rate 12 BUN/Creatinine Ratio 4 Glucose Level 110 H 70-105 MG/DL Calcium Level 7.6 L 8.5-10.1 MG/DL Corrected Calcium 8.2 L 8.5-10.1 MG/DL Magnesium Level 1.8 1.6-2.4 MG/DL Total Bilirubin 1.1 H 0.1-1.0 MG/DL Aspartate Amino Transf (AST/SGOT) 11 5-34 U/L Alanine Aminotransferase (ALT/SGPT) 6 0-55 U/L Alkaline Phosphatase 68 40-136 U/L C-Reactive Protein High Sensitivity 15.79 H 0.00-0.50 MG/DL Total Protein 6.5 6.4-8.2 GM/DL Albumin 3.3 3.2-4.5 GM/DL Lactic Acid Level 0.95 0.50-2.00 MMOL/L Influenza Type A (RT-PCR) Not Detected Not Detecte Influenza Type B (RT-PCR) Not Detected Not Detecte SARS-CoV-2 RNA (RT-PCR) Not Detected Not Detecte Micro Results Microbiology 09/21/20 Blood Culture - Preliminary, Resulted No growth 09/21/20 Gram Stain - Final, Complete 09/21/20 Sputum Culture - Final, Complete Usual upper respiratory jericho 09/21/20 Blood Culture - Preliminary, Resulted No growth My Orders Orders - XAVI BUSBY Cbc With Automated Diff (09/21/20 22:26) Comprehensive Metabolic Panel (09/21/20 22:26) Hs C Reactive Protein (09/21/20 22:26) Magnesium (09/21/20 22:26) Fentanyl Inj (Sublimaze Injection) (09/21/20 22:30) Ed Iv/Invasive Line Start (09/21/20 22:26) Covid 19 Inhouse Test (09/21/20 22:36) Influenza A And B By Pcr (09/21/20 22:36) Chest 1 View, Ap/Pa Only (09/21/20 23:20) Blood Culture (09/21/20 23:25) Sputum Culture (09/21/20 23:25) Protime With Inr (09/21/20 23:25) Partial Thromboplastin Time (09/21/20 23:25) Ed Iv/Invasive Line Start (09/21/20 23:25) Ed Iv/Invasive Line Start (09/21/20 23:25) Vital Signs Adult Sepsis Patie Q15M (09/21/20 23:25) O2 (09/21/20 23:25) Remove Rings In Anticipation O (09/21/20 23:25) Lactic Acid Analyzer (09/21/20 23:25) Cefepime Injection (Maxipime Injection) (09/21/20 23:30) Vancomycin Injection (Vancomycin Injecti (09/21/20 23:30) Vancomycin Injection (Vancomycin Injecti (09/22/20 00:30) Ct Chest/Abdomen/Pelvis Wo (09/21/20 23:20) Hydrocodone/Apap 5/325 Tablet (Lortab 5 (09/22/20 00:45) Ed Iv/Invasive Line Start (09/22/20 00:37) Ns Iv 1000 Ml (Sodium Chloride 0.9%) (09/22/20 00:45) Hydrocodone/Apap 5/325 Tablet (Lortab 5 (09/22/20 05:30) Ekg Tracing (09/21/20 22:32) Medications Given in ED Vital Signs/I&O 09/21/20 09/21/20 09/22/20 09/22/20 22:07 22:07 07:21 08:30 Temp 37.5 Pulse 68 80 62 Resp 18 18 18 B/P (MAP) 150/82 (104) 160/92 (114) 158/87 Pulse Ox 96 96 92 97 O2 Delivery Nasal Cannula Nasal Cannula Nasal Cannula Room Air O2 Flow Rate 3.00 3.00 2.00 Blood Pressure Mean: 104 Progress Progress Note #1: Time: 23:23 Progress Note Because of his abdominal discomfort generally and back pain this may be more than just his chronic pain management. We will get a CT of his abdomen pelvis and some labs as well as were given 50 mcg of fentanyl IV. His coarse lung sounds are prompted a chest x-ray, Covid. We will get blood cultures. We will get a lactate although it is probably not very useful in a dialysis patient. He prefers [facility] if he needs to go inpatient. Progress Note #2: Time: 00:57 Progress Note Patient is resting comfortably although he says his pain is starting to come back after the fentanyl so we will give him another tablet of hydrocodone. We will also give him a liter of fluids which that combined with his fluids and antibiotic should be more than 20 mL/kg. We attempted to send him to [facility] at [place] or [place] however they are out of beds. [facility] is at capacity. We spoke to who has beds for inpatient dialysis and are waiting to hear back. Progress Note #3: Time: 05:50 Progress Note Patient has been sleeping, resting comfortably and his needs been met. He does not have any concerns at this time. He said no material deterioration during his ER stay. EMS updates us that they should have a transport available around 8 AM. Care of the patient was transferred to Dr. Schuler. Because he is on hemodialysis we do not anticipate him needing further doses of antibiotics until he arrives at the hospital. Initial ECG Impression Date: Sep 22, 2020 Initial ECG Impression Time: 22:32 Initial ECG Rate: 66 Initial ECG Rhythm: Normal Sinus Initial ECG Intervals: Normal Initial ECG Impression: Normal, Nonspecific Changes Comment Sinus rhythm without clinically relevant ST changes. Unchanged from previous EKGs. Left ventricular hypertrophy noted. Diagnostic Imaging Diagonstic Imaging: Xray Plain Films/CT/US/NM/MRI: chest Comments Bibasilar infiltrates [facility], [place] NAME: FANY ALFARO Thien [facility] REC#: [id number] PT STATUS: DEP ER : 1965 PHYSICIAN: XAVI BUSBY MD ADMIT DATE: 09/21/20/ER Signed Date of Exam:09/21/20 CHEST 1 VIEW, AP/PA ONLY EXAM: CHEST 1 VIEW, AP/PA ONLY INDICATION: Shortness fair. Cough. COMPARISON: Chest radiograph 07/25/2020. FINDINGS: Cardiomegaly with normal central pulmonary vascularity. Dense airspace opacities throughout the left lung. There are more subtle airspace opacities in the right lung base. Implanted loop recorder. No pleural effusion or pneumothorax. No acute osseous findings. IMPRESSION: 1. Dense airspace opacities throughout the left lung and small airspace opacity in the right lung base suspicious for infectious/inflammatory process. 2. Stable cardiomegaly. Dictated by: Dictated on workstation # [id number] Dict: 09/22/20 07 Trans: 09/22/[address] [facility] [id number] Interpreted by: JOBY GHOTRA MD Electronically signed by: JOBY GHOTRA MD 09/22/20 1204 Reviewed: Reviewed by Sc Diagonstic Imaging: CT Plain Films/CT/US/NM/MRI: chest, abdomen, pelvis Comments There is new asymmetric subsegmental opacities noted in the right lower lobe and to a lesser extent in the posterior aspect of the left upper lobe when compared to the previous examination. Primary consideration is subsegmental pneumonia. Suspected trace reactive effusion and reactive lymphadenopathy. Follow-up to resolution is recommended. The cardiac chambers are enlarged and increase in size in the previous examination. Trace pericardial effusion. Evaluation of bowel is limited with lack of contrast and respiratory effort. Scattered fluid-filled loops of small bowel in the mid to inferior abdomen and pelvis are nonspecific in appearance. No definite evidence for focal high-grade bowel obstruction. No pneumoperitoneum. Trace free fluid in the right posterior pelvis is new from the previous examination. However in the etiology of the fluid with not clearly identified and may be related to subtle bowel or inflammatory process. No loculation. Kidneys appear more atrophic when compared to previous examination. No hydronephrosis or nephrolithiasis. Correlate with lab [facility] [place] NAME: FANY ALFARO Thien [facility] REC#: [id number] PT STATUS: DEP ER : 1965 PHYSICIAN: XAVI BUSBY MD ADMIT DATE: 09/21/20/ER Signed Date of Exam:09/21/20 CT CHEST/ABDOMEN/PELVIS WO PROCEDURE: CT chest, abdomen, and pelvis without contrast. TECHNIQUE: Multiple contiguous axial images were obtained through the chest, abdomen, and pelvis without the use of intravenous contrast. Auto Exposure Controls were utilized during the CT exam to meet ALARA standards for radiation dose reduction. INDICATION: Left flank and back pain. Tenderness to palpation. COMPARISON: 02/12/2017 FINDINGS: CT chest: There is moderate amount of consolidative airspace disease within the left lower lobe. There is minimal patchy airspace infiltrate within the posterior margins of the left upper lobe as well. Small left effusion is also present. Note is also made of background emphysematous disease. Right lung clear. There is no large effusion on the right. No pneumothorax is seen on either side. Pulmonary nodule may be obscured. Cardiomediastinal structures show moderate cardiomegaly. There is no large pericardial effusion. Several prominent mediastinal lymph nodes are identified. Largest is paratracheal on the left and measures 2 x 2.5 cm. This is increased in size compared to 2.5 x 1.2 cm previously. Several borderline enlarged bilateral axillary lymph nodes are also noted. Additionally, there is moderate enlargement of the main pulmonary arterial trunk. It measures 4.3 cm in diameter. This is also increased in size compared to 3.5 cm on previous exam. Findings can be seen with underlying pulmonary arterial hypertension. Mild scattered calcified aortic and coronary atherosclerosis is also present. Osseous structures show age-related degenerative changes. No lytic or blastic osseous lesions are seen. CT ABDOMEN: Normal appendix cannot be adequately identified. There is no pericecal inflammation. Small bowel loops are nondistended. There is advanced bilateral renal atrophy. No focal renal masses are seen on this noncontrast study. The adrenal glands, spleen, pancreas, and liver have an unremarkable noncontrast CT appearance. There is no loculated fluid collection, free fluid or free air within the abdomen. Note is made of generalized anasarca. No suspicious mesenteric or retroperitoneal lymph nodes are identified. Osseous structures show no acute abnormalities. CT PELVIS: Urinary bladder is unopacified. No calculi are seen within the urinary bladder. There is no loculated fluid collection or free air. There does appear to be trace amount of ascites within the posterior lower pelvis. No abnormal lymph nodes are seen. Osseous structures show no acute abnormalities. IMPRESSION: 1. Moderate amount of infiltrate within the left upper and lower lobes with small ipsilateral effusion. Follow-up to resolution is recommended. 2. Interval development of moderate cardiomegaly. 3. Interval increase in abnormal dilatation of the main pulmonary arterial trunk. Again, findings can be seen with underlying pulmonary arterial hypertension. 4. Enlarged mediastinal lymph nodes; potentially reactive. Again, follow-up is advised. 5. Advanced bilateral renal atrophy. 6. Generalized anasarca with trace pelvic ascites. Dictated by: Dictated on workstation # [id number] Dict: 09/22/20813 Trans: 09/23/20906 [place] [id number] Interpreted by: MOON ART MD Electronically signed by: MOON ART MD 09/23/20906 Reviewed: Reviewed Night [facility] Study, Reviewed by Me Transfer of Care Time: 06:00 Care transferred to: Dr. Schuler Departure Impression Primary Impression: Pneumonia Qualified Codes: J18.9 - Pneumonia, unspecified organism Additional Impressions: Ileus Hemodialysis patient Disposition: XFER SHT-TRM HOSP Condition: Stable Transfer Transfer Reason: Exceeds level of care (Inpatient dialysis not available locally) Time Spoke to Accepting Phy: 01:00 Transfer Progress Notes 1245: Reached out to [facility] triage and they took the gentleman's information and will pass it onto their inpatient medicine team. They will call us back. Dr Nj accepts the pt. Will call back with room assignment. EMS advises there will be a bit of a delay in his transport this morning. Transfer Facility: [facility] Method of Transfer: EMS Departure-Patient Inst. Referrals: [facility] (PCP/Family) Primary Care Physician XAVI BUSBY Sep 21, 2020 23:24
[2020-09-21] MEDS ORDERED: VANCOMYCIN INJECTION 750 MG in NS (IVPB) 100 ML IV ONE (23:30)
[2020-09-21] MEDS ORDERED: CEFEPIME INJECTION 1,000 MG in WATER (STERILE) FOR INJECTION 10 ML IV ONE (23:30)
[2020-09-22] MEDS ORDERED: VANCOMYCIN INJECTION 500 MG in NS (IVPB) 100 ML IV ONE (00:30)
[2020-09-22] MEDS ORDERED: NS IV 1000 ML 1,000 ML IV SCH (00:45)
[2020-09-22] MEDS ORDERED: HYDROcodone/APAP 5 MG/325 MG (LORTAB) TAB PO ONE ×3 (00:45→08:30)
[2020-09-22 01:26] LABS: INR 1.3 (0.8-1.4); PROTHROMBIN TIME PATIENT 16.3 SEC (12.2-14.7)
--- NOTE | 2020-09-22 07:27 | Diagnostic Imaging Report ---
EXAM: CHEST 1 VIEW, AP/PA ONLY INDICATION: Shortness fair. Cough. COMPARISON: Chest radiograph 07/25/2020. FINDINGS: Cardiomegaly with normal central pulmonary vascularity. Dense airspace opacities throughout the left lung. There are more subtle airspace opacities in the right lung base. Implanted loop recorder. No pleural effusion or pneumothorax. No acute osseous findings. IMPRESSION: 1. Dense airspace opacities throughout the left lung and small airspace opacity in the right lung base suspicious for infectious/inflammatory process. 2. Stable cardiomegaly. Dictated by: Dictated on workstation # [id number]
[2020-09-22 08:30] VITALS: BP 158/87
--- NOTE | 2020-09-22 08:50 | Diagnostic Imaging Report ---
PROCEDURE: CT chest, abdomen, and pelvis without contrast. TECHNIQUE: Multiple contiguous axial images were obtained through the chest, abdomen, and pelvis without the use of intravenous contrast. Auto Exposure Controls were utilized during the CT exam to meet ALARA standards for radiation dose reduction. INDICATION: Left flank and back pain. Tenderness to palpation. COMPARISON: 02/12/2017 FINDINGS: CT chest: There is moderate amount of consolidative airspace disease within the left lower lobe. There is minimal patchy airspace infiltrate within the posterior margins of the left upper lobe as well. Small left effusion is also present. Note is also made of background emphysematous disease. Right lung clear. There is no large effusion on the right. No pneumothorax is seen on either side. Pulmonary nodule may be obscured. Cardiomediastinal structures show moderate cardiomegaly. There is no large pericardial effusion. Several prominent mediastinal lymph nodes are identified. Largest is paratracheal on the left and measures 2 x 2.5 cm. This is increased in size compared to 2.5 x 1.2 cm previously. Several borderline enlarged bilateral axillary lymph nodes are also noted. Additionally, there is moderate enlargement of the main pulmonary arterial trunk. It measures 4.3 cm in diameter. This is also increased in size compared to 3.5 cm on previous exam. Findings can be seen with underlying pulmonary arterial hypertension. Mild scattered calcified aortic and coronary atherosclerosis is also present. Osseous structures show age-related degenerative changes. No lytic or blastic osseous lesions are seen. CT ABDOMEN: Normal appendix cannot be adequately identified. There is no pericecal inflammation. Small bowel loops are nondistended. There is advanced bilateral renal atrophy. No focal renal masses are seen on this noncontrast study. The adrenal glands, spleen, pancreas, and liver have an unremarkable noncontrast CT appearance. There is no loculated fluid collection, free fluid or free air within the abdomen. Note is made of generalized anasarca. No suspicious mesenteric or retroperitoneal lymph nodes are identified. Osseous structures show no acute abnormalities. CT PELVIS: Urinary bladder is unopacified. No calculi are seen within the urinary bladder. There is no loculated fluid collection or free air. There does appear to be trace amount of ascites within the posterior lower pelvis. No abnormal lymph nodes are seen. Osseous structures show no acute abnormalities. IMPRESSION: 1. Moderate amount of infiltrate within the left upper and lower lobes with small ipsilateral effusion. Follow-up to resolution is recommended. 2. Interval development of moderate cardiomegaly. 3. Interval increase in abnormal dilatation of the main pulmonary arterial trunk. Again, findings can be seen with underlying pulmonary arterial hypertension. 4. Enlarged mediastinal lymph nodes; potentially reactive. Again, follow-up is advised. 5. Advanced bilateral renal atrophy. 6. Generalized anasarca with trace pelvic ascites. Dictated by: Dictated on workstation # [id number]
== END 2020-09-22 08:35 | disposition short-term general hospital (02) ==
LOC: EDUNIT# 22:07 → ER 22:07
DX: J18.9 Pneumonia, unspecified organism (principal); K56.7 Ileus, unspecified; J44.9 Chronic obstructive pulmonary disease, unspecified; F41.9 Anxiety disorder, unspecified; I10 Essential (primary) hypertension; F17.200 Nicotine dependence, unspecified, uncomplicated; Z99.2 Dependence on renal dialysis; Z20.822 Contact with and (suspected) exposure to COVID-19; Z79.52 Long term (current) use of systemic steroids
CPT/HCPCS: 36415; 71045; 71250; 74176; 80053; 83605; 83735; 85025; 85610; 85730; 86141; 87040; 87070; 87205; 87636; 93005

== ENCOUNTER → 2021-06-22 | Outpatient (CLI) | payer MEDICARE ==
[~2021-06-22] MED LIST changes: +CLIN-144 PO; -CLIN300C12 PO
--- NOTE | 2021-06-22 17:38 | Diagnostic Imaging Report ---
PROCEDURE: CT abdomen and pelvis without contrast. TECHNIQUE: Multiple contiguous axial images were obtained through the abdomen and pelvis without the use of intravenous contrast. Auto Exposure Controls were utilized during the CT exam to meet ALARA standards for radiation dose reduction. INDICATION: Left-sided abdominal pain. COMPARISON is made with prior CT from 09/21/2020. The lung bases are clear of acute infiltrates. There is some scarring or atelectasis in the left lower lobe. There also appears to be some pleural thickening in the left base. The liver is enlarged at approximately 20 cm. No discrete liver mass is detected. The gallbladder is unremarkable. There is no biliary ductal dilatation. Pancreas and spleen are unremarkable. No adrenal mass is detected. Both kidneys are atrophic. No calculi or hydronephrosis is seen. Aorta is calcified but nonaneurysmal. There is some generalized fluid-filled small and large bowel but no evidence of obstruction. No free fluid or fluid collection is seen. Bladder appears to be decompressed. No definite inflammatory changes are seen. IMPRESSION: 1. Left basilar pleural thickening and left lower lobe subsegmental atelectasis or scarring. 2. Hepatomegaly. 3. Bilateral renal atrophy. 4. No other significant abnormality in the abdomen or pelvis is identified. Dictated by: Dictated on workstation # [id number]
== END ==
LOC: RAD 14:45
PROVIDERS: ATTEND Internal Medicine Nephrology
DX: J92.9 Pleural plaque without asbestos (principal); N26.1 Atrophy of kidney (terminal); R16.0 Hepatomegaly, not elsewhere classified; R19.7 Diarrhea, unspecified
CPT/HCPCS: 74176

== ENCOUNTER 2021-08-14 16:41 | Emergency (ER) | payer MEDICARE ==
[~2021-08-14] VITALS: Ht 175 cm; Wt 63.5 kg
[2021-08-14 17:33] VITALS: BP 222/109
--- NOTE | 2021-08-14 17:35 | ED General ---
General Chief Complaint: Altered Mental Status Stated Complaint: CONFUSION Nursing Triage Note: pt to rm 5 by cr co ems with cc of confusion and altered mental status on the scene. pt does dialysis 3 times a week and knew that he went yesterday, knows his name and the correct year but was off on the day and month. dr. foley and myself tried to allow us to draw blood and do an assessment on him but the pt kept repeating "it ain't gonna happen." when explained that the current condition could lead to his the pt siad "let me ." asked again if the pt's heart stopped beating if he wanted us to do cpr and pt said "no just let me ." Source of Information: Patient, EMS Exam Limitations: No Limitations History of Present Illness Date Seen by Provider: August 14, 2021 Time Seen by Provider: 16:58 Initial Comments Patient is a 55-year-old male who presents to the emergency department today with a chief complaint of confusion, altered mental status and increasing combative and belligerent behavior at home. The reportedly called 911 because of all of the symptoms. When EMS reported to the house the patient was adamantly refusing transport. EMS called for medical control prior to transporting the patient they were concerned that he was not competent to make his own medical decisions. He was "talking out of his head" and continuing to refuse to even assessment of vital signs. Eventually the fire department, a second crew arrived and the patient became more compliant. He ambulated to the ambulance and refused to sit on the cot but sat on the bench next to it. He walked into the emergency department and sat in the chair next to the bed. I was able to convince him to get in the bed so that I can check his vital signs. He denied that he was having any headache, nausea or vomiting. No abdominal pa in. No recent fevers or upper respiratory tract symptoms. He was able to tell me that he completed 4 hours of dialysis yesterday. 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 He was able to tell me the year but not the day of the week or the month. He was adamantly refusing any blood work. "It aint gonna happen". I explained that he was at significant risk for stroke or heart attack or other significant endorgan damage that might leave him not only unable to care for himself, feed himself take care of his toileting needs but also he was at significant risk for . He verbalizes understanding of this and states that he would prefer to just . He is not suicidal he just does not want to undergo any medical evaluation or treatment. His blood pressure in the right upper extremity is 222/109. I attempted to explain to him that the safe thing to do was to check some labs and see if there was any chemical changes that we could address that might improve his confusion. I spent about 15 minutes talking to him and could not convince him. His nurse, Sae talked to him, recognized him from when they played baseball as youngsters. Still Joe would not consent to any further evaluation. Sae called the patient's and she is on her way out.. All other review of systems reviewed and negative except as stated. Timing/Duration: Other Severity: Moderate Associated Systoms: Denies Symptoms Allergies and Home Medications Allergies Coded Allergies: No Known Drug Allergies (Unverified , 09/30/09) Patient Home Medication List Home Medication List Reviewed: Yes Albuterol Sulfate (Proair Hfa) 1 Puff Puff, 2 PUFF IH Q4H PRN for SHORTNESS OF BREATH Prescribed by: FRANCIS MURRAY on 02/20/19 180 Amlodipine Besylate (Amlodipine Besylate) 10 Mg Tablet, 10 MG PO HS, (Reported) Entered as Reported by: MELVIN NAVA on 05/13/14 1419 Cefuroxime Axetil (Cefuroxime) 250 Mg Tablet, 250 MG PO DAILY Prescribed by: FRANCIS MURRAY on 02/20/19 183 Hydralazine HCl (Hydralazine HCl) 10 Mg Tablet, 10 MG PO Q6H Prescribed by: FRANCIS MURRAY on 02/20/19 183 Hydrocodone Bit/Acetaminophen (HYDROcodone/APAP 7.5/325 TAB) 1 Each Tablet, (Reported) Entered as Reported by: JADEN DAMICO on 01/08/18 185 Lorazepam (Ativan) 1 Mg Tablet, 1 MG PO TID PRN for ANXIETY, (Reported) Entered as Reported by: GISELL SWANSON on 01/05/15 192 Metoprolol Tartrate (Metoprolol Tartrate) 50 Mg Tablet, 50 MG PO BID Prescribed by: SUSY FLEMING on 01/06/15 1200 Prednisone (Prednisone) 20 Mg Tab, 40 MG PO DAILY Prescribed by: FRANCIS MURRAY on 02/20/19 1837 Zolpidem Tartrate (Ambien) 5 Mg Tablet, 1 TAB PO HS, (Reported) Entered as Reported by: JADEN DAMICO on 11/23/15 192 Review of Systems Review of Systems Constitutional: see HPI EENTM: no symptoms reported Respiratory: no symptoms reported Cardiovascular: no symptoms reported Gastrointestinal: no symptoms reported Genitourinary: no symptoms reported Musculoskeletal: no symptoms reported Skin: no symptoms reported Psychiatric/Neurological: No Symptoms Reported All Other Systems Reviewed Negative Unless Noted: Yes Past Skluvzx-Onbape-Edmhsd Hx Patient Social History Tobacco Use?: Yes Tobacco type used: Cigarettes Smoking Status: Current Everyday Smoker Substance use?: No Alcohol Use?: No Immunizations Up To Date Tetanus Booster (TDap): Less than 5yrs PED Vaccines UTD: No First/Initial COVID19 Vaccinat: HAS HAD BOTH SHOTS Second COVID19 Vaccination Tyler: HAS HAD BOTH SHOTS Third COVID19 Vaccination Date: HAS HAD BOTH SHOTS Seasonal Allergies Seasonal Allergies: No Past Medical History Surgery/Hospitalization HX: dialysis 3 times a week Surgeries: Yes (UMBILICAL HERNIA REPAIR 1994; L ARM FISTULA;LOOP RECORDER) Abdominal, Arteriovenous Shunt, Cardiac, Dialysis, Vascular Surgery Respiratory: Yes (CHRONIC O2 AT 3L-CONTINUES TO SMOKE 3 PPD) COPD, Emphysema Currently Using CPAP: No Currently Using BIPAP: No Cardiac: Yes Hypertension Neurological: No Reproductive Disorders: No Genitourinary: Yes (DIALYSIS -W-) Kidney Stones, Renal Failure, Dialysis Gastrointestinal: Yes (UMBILICAL HERNIA REPAIR 1994) Abdominal Hernia Musculoskeletal: No Endocrine: No HEENT: No Hearing Impairment: Hard of Hearing Cancer: No Psychosocial: Yes Anxiety Integumentary: No Blood Disorders: No Adverse Reaction/Blood Tranf: No Family Medical History FH: COPD (chronic obstructive pulmonary disease) 19 FATHER FH: emphysema 19 FATHER FH: heart attack 19 FATHER FH: scoliosis G8 BROTHER, FH: stroke G8 SISTER FHx: heart disease G8 SISTER Thyroid disease 19 MOTHER SOCIAL HISTORY: -ETOH--HX OF ABUSE-19 BEERS / DAY -DRUGS--DENIES USE -SMOKES 3 PPD Physical Exam Vital Signs Vital Signs - First Documented 08/14/21 16:53 Temp 37.0 Resp 18 B/P (MAP) 222/109 (146) Pulse Ox 100 O2 Delivery Room Air Capillary Refill : Less Than 3 Seconds Height, Weight, BMI Height: 5'9.00" Weight: 150lbs. 0oz. [id number]; 20.00 BMI Method:Stated General Appearance: No Apparent Distress, Thin Eyes: Bilateral Eye Normal Inspection, Bilateral Eye PERRL, Bilateral Eye EOMI Neck: Normal Inspection Respiratory: Lungs Clear, Normal Breath Sounds, No Accessory Muscle Use, No Respiratory Distress Cardiovascular: Regular Rate, Rhythm, Normal Peripheral Pulses, Other (AV fistula noted left upper extremity, positive thrill) Gastrointestinal: Normal Bowel Sounds, Non Tender, Soft Extremity: Normal Inspection, Normal Range of Motion, No Calf Tenderness, No Pedal Edema Neurologic/Psychiatric: Alert, No Motor/Sensory Deficits, Normal 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, 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 He is adamant in his refusal. He tells me that he understands the risks of refusing the treatment but he will not repeat these back to me. I do not believe that he is incompetent to make his decisions I do believe that he potentially has a medical issue that could be addressed and fix the above-stated complaints. His arrived and the patient promptly signed an AMA form. The was advised that if any degree of worsening occurred at home or if he became unresponsive that she should call 911 and have him brought back to the emergency department. I do believe that he was experiencing hypertensive emergency causing encephalopathy. However, again I do not believe that he is actually incompetent to make his own medical decisions regardless of the fact that they are unsafe decisions. At this point I did not think there was anything that I can do medical legally to force evaluation or treatment on Mr. Chawla. Departure Impression Primary Impression: Altered mental status Qualified Codes: R41.0 - Disorientation, unspecified Additional Impressions: Hypertensive emergency ESRD (end stage renal disease) on dialysis Disposition: AGAINST MEDICAL ADVICE Condition: Against Medical Advice Departure-Patient Inst. Referrals: [facility] (PCP/Family) Primary Care Physician Copy Copies To 1: NAEL MAYORGA KATHRYN M MD August 14, 2021 17:34
== END 2021-08-14 17:33 | disposition left against medical advice (07) ==
LOC: EDUNIT# 16:41 → ER 16:44
DX: R41.0 Disorientation, unspecified (principal); I16.1 Hypertensive emergency; I12.0 Hypertensive chronic kidney disease with stage 5 chronic kidney disease or end stage renal disease; N18.6 End stage renal disease; J43.9 Emphysema, unspecified; F17.210 Nicotine dependence, cigarettes, uncomplicated; Z99.81 Dependence on supplemental oxygen; Z99.2 Dependence on renal dialysis; Z87.19 Personal history of other diseases of the digestive system; Z87.442 Personal history of urinary calculi
CPT/HCPCS: 99281

== ENCOUNTER 2021-08-14 23:17 | Emergency (ER) | payer MEDICARE ==
[~2021-08-14] VITALS: Ht 182 cm; Wt 75.0 kg
[2021-08-14] MEDS ORDERED: ZIPRASIDONE 20 MG INJ (GEODON) VIAL IM ONE ×2 (23:25→23:30)
[2021-08-14] MEDS ORDERED: LORazepam INJ 2 MG/ML (ATIVAN) VIAL ONE (23:26)
[2021-08-14] MEDS ORDERED: CEFEPIME INJECTION 1,000 MG in NS (IVPB) 50 ML IV ONE (23:30)
[2021-08-14] MEDS ORDERED: NS IV 1000 ML 1,000 ML IV SCH (23:30)
[2021-08-14] MEDS ORDERED: LORazepam INJ 2 MG/ML (ATIVAN) VIAL IVP ONE (23:30)
[2021-08-14] MEDS ORDERED: WATER (STERILE) FOR INJ 10 ML BTL INJ SCH (23:30)
[2021-08-14] MEDS ORDERED: VANCOMYCIN INJECTION 750 MG in NS (IVPB) 100 ML IV ONE (23:30)
[2021-08-14 23:36] LABS: BASOPHILS # (AUTO) 0.1 10^3/uL (0.0-0.1); BASOPHILS % (AUTO) 1 % (0-10); EOSINOPHILS # (AUTO) 0.4 10^3/uL (0.0-0.3); EOSINOPHILS % (AUTO) 3 % (0-10); HEMATOCRIT 29 % (40-54); HEMOGLOBIN 10.1 g/dL (13.3-17.7); LYMPHOCYTES % (AUTO) 32 % (12-44); MEAN CORPUSCULAR HEMOGLOBIN 32 pg (25-34); MEAN CORPUSCULAR HGB CONC 35 g/dL (32-36); MEAN CORPUSCULAR VOLUME 90 fL (80-99); MONOCYTES # (AUTO) 1.1 10^3/uL (0.0-1.0); MONOCYTES % (AUTO) 9 % (0-12); NEUTROPHILS # (AUTO) 7.1 10^3/uL (1.8-7.8); NEUTROPHILS % (AUTO) 56 % (42-75); PLATELET COUNT 124 10^3/uL (130-400); WHITE BLOOD COUNT 12.8 10^3/uL (4.3-11.0)
--- NOTE | 2021-08-14 23:37 | ED Neurological Problem ---
General Chief Complaint: Altered Mental Status Stated Complaint: AMS Source: patient, EMS Exam Limitations: no limitations History of Present Illness Date Seen by Provider: August 14, 2021 Time Seen by Provider: 23:13 Initial Comments Patient to the ER by EMS with chief complaint of confusion at home and seizures. He is a dialysis patient Monday and did get his dialysis yesterday. He does not have a history of seizures. He checked in by EMS john islas today and was postictal but when he came to he stated his name date of and where he was on time a day and that he did not want to be here or be treated and left AGAINST MEDICAL ADVICE. He had significantly elevated blood pressure at that time and the concern was he might of had hypertensive encephalopathy. His says he was aggressive, confused and combative at home until he had another seizure witnessed by her lasting less than 30 seconds. EMS reports when they came on scene he was still confused and combative but then suddenly he sat up said that he did want to come with them and did not feel well walked to the cot sat down and they got him into the ambulance without issue. He then had less than 30 second gran mal seizure. He got an IV established. He did not receive anything for the seizure. He has been postictal and a little combative on route per EMS. Blood sugar was normal per EMS. He has had a cough recently but no fevers chills shortness of air or other known history. The getachew ent does not contribute any to his history. He does not appear to be on a blood thinner. EMS reports he had a blood pressure 220/120 when they arrived. Allergies and Home Medications Allergies Coded Allergies: No Known Drug Allergies (Unverified , 09/30/09) Patient Home Medication List Home Medication List Reviewed: Yes Albuterol Sulfate (Proair Hfa) 1 Puff Puff, 2 PUFF IH Q4H PRN for SHORTNESS OF BREATH Prescribed by: FRANCIS MURRAY on 02/20/19 180 Amlodipine Besylate (Amlodipine Besylate) 10 Mg Tablet, 10 MG PO HS, (Reported) Entered as Reported by: MELVIN NAVA on 05/13/14 1419 Cefuroxime Axetil (Cefuroxime) 250 Mg Tablet, 250 MG PO DAILY Prescribed by: FRANCIS MURRAY on 02/20/19 1837 Hydralazine HCl (Hydralazine HCl) 10 Mg Tablet, 10 MG PO Q6H Prescribed by: FRANCIS MURRAY on 02/20/191835 Hydrocodone Bit/Acetaminophen (HYDROcodone/APAP 7.5/325 TAB) 1 Each Tablet, (Reported) Entered as Reported by: JADEN DAMICO on 01/08/181854 Lorazepam (Ativan) 1 Mg Tablet, 1 MG PO TID PRN for ANXIETY, (Reported) Entered as Reported by: GISELL SWANSON on 01/05/151924 Metoprolol Tartrate (Metoprolol Tartrate) 50 Mg Tablet, 50 MG PO BID Prescribed by: SUSY FLEMING on 01/06/151199 Prednisone (Prednisone) 20 Mg Tab, 40 MG PO DAILY Prescribed by: FRANCIS MURRAY on 02/20/191836 Zolpidem Tartrate (Ambien) 5 Mg Tablet, 1 TAB PO HS, (Reported) Entered as Reported by: JADEN DAMICO on 11/23/151920 Review of Systems Review of Systems Constitutional: see HPI (History by family and EMS as patient is noncontributory at first); No chills, No diaphoresis Eyes: Denies Blindness, Denies Blurred Vision Ears, Nose, Mouth, Throat: denies ear pain, denies ear discharge Respiratory: No cough, No dyspnea on exertion Cardiovascular: No chest pain, No edema Gastrointestinal: No abdominal pain, No nausea, No vomiting Musculoskeletal: No back pain, No joint pain All Other Systems Reviewed Negative Unless Noted: Yes Past Faurmma-Udecex-Cnrdqu Hx Patient Social History Smoking Status: Unknown if Ever Smoked Smokeless Tobacco Frequency: Unknown if Ever Used Use of E-Cig and/or Vaping dev: Unable to obtain Use of E-Cig and/or Vaping Fadi: Unknown if Ever Used Alcohol Use?: Unable to obtain Pt feels they are or have been: Unable to obtain Immunizations Up To Date Tetanus Booster (TDap): Less than 5yrs PED Vaccines UTD: No First/Initial COVID19 Vaccinat: HAS HAD BOTH SHOTS Second COVID19 Vaccination Tyler: HAS HAD BOTH SHOTS Third COVID19 Vaccination Date: HAS HAD BOTH SHOTS Seasonal Allergies Seasonal Allergies: No Past Medical History Surgery/Hospitalization HX: dialysis 3 times a week Surgeries: Yes (UMBILICAL HERNIA REPAIR 1994; L ARM FISTULA;LOOP RECORDER) Abdominal, Arteriovenous Shunt, Cardiac, Dialysis, Vascular Surgery Respiratory: Yes (CHRONIC O2 AT 3L-CONTINUES TO SMOKE 3 PPD) COPD, Emphysema Currently Using CPAP: No Currently Using BIPAP: No Cardiac: Yes Hypertension Neurological: No Reproductive Disorders: No Genitourinary: Yes (DIALYSIS --) Kidney Stones, Renal Failure, Dialysis Gastrointestinal: Yes (UMBILICAL HERNIA REPAIR 1994) Abdominal Hernia Musculoskeletal: No Endocrine: No HEENT: No Hearing Impairment: Hard of Hearing Cancer: No Psychosocial: Yes Anxiety Integumentary: No Blood Disorders: No Adverse Reaction/Blood Tranf: No Family Medical History FH: COPD (chronic obstructive pulmonary disease) 19 FATHER FH: emphysema 19 FATHER FH: heart attack 19 FATHER FH: scoliosis G8 BROTHER, FH: stroke G8 SISTER FHx: heart disease G8 SISTER Thyroid disease 19 MOTHER SOCIAL HISTORY: -ETOH--HX OF ABUSE-19 BEERS / DAY -DRUGS--DENIES USE -SMOKES 3 PPD Physical Exam Vital Signs Vital Signs - First Documented 08/14/21 08/15/21 23:40 07:40 Temp 36.6 Pulse 84 Resp 20 B/P (MAP) 207/115 Pulse Ox 96 O2 Delivery Room Air Capillary Refill : Height, Weight, BMI Height: 5'9.00" Weight: 150lbs. 0oz. 68.496489cg; 20.00 BMI Method:Stated General Appearance: moderate distress, thin HEENT: PERRL/EOMI, normal ENT inspection, TMs normal, pharynx normal Neck: non-tender, full range of motion, supple, normal inspection Respiratory: lungs clear, normal breath sounds, no respiratory distress, no accessory muscle use Cardiovascular: normal peripheral pulses, regular rate, rhythm, no edema Peripheral Pulses: 2+ Radial Pulses (R), 2+ Radial Pulses (L) Gastrointestinal: normal bowel sounds, non tender, soft, no organomegaly Extremities: normal range of motion, non-tender, normal capillary refill Neurologic/Psychiatric: alert, other (Patient is moving around vigorously, moving all limbs, occasionally cocking his arm to take a swing at staff. He does not follow directions, answer questions or answer any orienting questions. As well as can be determined at this time he is not have any lateralizing symptoms and his cranial nerves seem to be operable) Crainal Nerves: PERRL (3 mm reactive bilateral) Motor/Sensory: no motor deficit Skin: normal color, diaphoresis Focused Exam Lactate Level 08/14/21 23:50: Lactic Acid Level 5.49*H 08/15/21 01:50: Lactic Acid Level 1.69 Lactic Acid Level Laboratory Tests Test 08/14/21 23:50 08/15/21 01:50 Lactic Acid Level 5.49 MMOL/L (0.50-2.00) *H 1.69 MMOL/L (0.50-2.00) Progress/Results/Core Measures Results/Orders Lab Results Laboratory Tests Test 08/14/21 23:30 08/14/21 23:50 08/14/21 23:52 08/15/21 01:25 Range/Units White Blood Count 12.8 H 4.3-11.0 10^3/uL Red Blood Count 3.20 L 4.30-5.52 10^6/uL Hemoglobin 10.1 L 13.3-17.7 g/dL Hematocrit 29 L 40-54 % Mean Corpuscular Volume 90 80-99 fL Mean Corpuscular Hemoglobin 32 25-34 pg Mean Corpuscular Hemoglobin Concent 35 32-36 g/dL Red Cell Distribution Width 13.3 10.0-14.5 % Platelet Count 124 L 130-400 10^3/uL Mean Platelet Volume 10.0 9.0-12.2 fL Immature Granulocyte % (Auto) 0 % Neutrophils (%) (Auto) 56 42-75 % Lymphocytes (%) (Auto) 32 12-44 % Monocytes (%) (Auto) 9 0-12 % Eosinophils (%) (Auto) 3 0-10 % Basophils (%) (Auto) 1 0-10 % Neutrophils # (Auto) 7.1 1.8-7.8 10^3/uL Lymphocytes # (Auto) 4.0 1.0-4.0 10^3/uL Monocytes # (Auto) 1.1 H 0.0-1.0 10^3/uL Eosinophils # (Auto) 0.4 H 0.0-0.3 10^3/uL Basophils # (Auto) 0.1 0.0-0.1 10^3/uL Immature Granulocyte # (Auto) 0.1 0.0-0.1 10^3/uL Prothrombin Time 14.9 H 12.2-14.7 SEC INR Comment 1.1 0.8-1.4 Activated Partial Thromboplast Time 25 24-35 SEC Sodium Level 135 135-145 MMOL/L Potassium Level 3.1 L 3.6-5.0 MMOL/L Chloride Level 93 L 98-107 MMOL/L Carbon Dioxide Level 15 L 21-32 MMOL/L Anion Gap 27 H 5-14 MMOL/L Blood Urea Nitrogen 26 H 7-18 MG/DL Creatinine 7.24 H 0.60-1.30 MG/DL Estimat Glomerular Filtration Rate 8 BUN/Creatinine Ratio 4 Glucose Level 135 H 70-105 MG/DL Calcium Level 8.6 8.5-10.1 MG/DL Corrected Calcium 8.6 8.5-10.1 MG/DL Magnesium Level 2.1 1.6-2.4 MG/DL Total Bilirubin 0.7 0.1-1.0 MG/DL Aspartate Amino Transf (AST/SGOT) 11 5-34 U/L Alanine Aminotransferase (ALT/SGPT) 7 0-55 U/L Alkaline Phosphatase 101 40-136 U/L Troponin I 0.040 H <0.028 NG/ML Total Protein 7.5 6.4-8.2 GM/DL Albumin 4.0 3.2-4.5 GM/DL Serum Alcohol < 10 <10 MG/DL Lactic Acid Level 5.49 *H 0.50-2.00 MMOL/L Influenza Type A (RT-PCR) Not Detected Not Detecte Influenza Type B (RT-PCR) Not Detected Not Detecte SARS-CoV-2 RNA (RT-PCR) Not Detected Not Detecte Urine Color YELLOW Urine Clarity CLEAR Urine pH 8.5 5-9 Urine Specific [place] 1.015 L 1.016-1.022 Urine Protein 2+ H NEGATIVE Urine Glucose (UA) 1+ H NEGATIVE Urine Ketones NEGATIVE NEGATIVE Urine Nitrite NEGATIVE NEGATIVE Urine Bilirubin NEGATIVE NEGATIVE Urine Urobilinogen 0.2 < = 1.0 MG/DL Urine Leukocyte Esterase NEGATIVE NEGATIVE Urine RBC (Auto) 2+ H NEGATIVE Urine RBC 10-25 H /HPF Urine WBC 0-2 /HPF Urine Squamous Epithelial Cells 0-2 /HPF Urine Crystals NONE /LPF Urine Bacteria NEGATIVE /HPF Urine Casts NONE /LPF Urine Mucus LARGE H /LPF Urine Other LG SPERM H /HPF Urine Culture Indicated CULTURE PENDING Urine Opiates Screen NEGATIVE NEGATIVE Urine Oxycodone Screen NEGATIVE NEGATIVE Urine Methadone Screen NEGATIVE NEGATIVE Urine Propoxyphene Screen NEGATIVE NEGATIVE Urine Barbiturates Screen NEGATIVE NEGATIVE Ur Tricyclic Antidepressants Screen NEGATIVE NEGATIVE Urine Phencyclidine Screen NEGATIVE NEGATIVE Urine Amphetamines Screen NEGATIVE NEGATIVE Urine Methamphetamines Screen NEGATIVE NEGATIVE Urine Benzodiazepines Screen NEGATIVE NEGATIVE Urine Cocaine Screen NEGATIVE NEGATIVE Urine Cannabinoids Screen NEGATIVE NEGATIVE Test 08/15/21 01:50 Range/Units Lactic Acid Level 1.69 0.50-2.00 MMOL/L Micro Results Microbiology 08/15/21 Blood Culture - Preliminary, Resulted No growth 08/14/21 Blood Culture - Preliminary, Resulted No growth My Orders Orders - XAVI BUSBY Ziprasidone Injection (Geodon Injection) (08/14/21 23:30) Water (Sterile) For Injection (Sterile W (08/14/21 23:30) Ziprasidone Injection (Geodon Injection) (08/14/21 23:25) Cbc With Automated Diff (08/14/21 23:24) Comprehensive Metabolic Panel (08/14/21 23:24) Blood Culture (08/14/21 23:24) Urinalysis (08/14/21 23:24) Urine Culture (08/14/21 23:24) Protime With Inr (08/14/21 23:24) Partial Thromboplastin Time (08/14/21 23:24) Ed Iv/Invasive Line Start (08/14/21 23:24) Ed Iv/Invasive Line Start (08/14/21 23:24) Ekg Tracing (08/14/21 23:24) Troponin I [place] (08/14/21 23:24) Vital Signs Adult Sepsis Patie Q15M (08/14/21 23:24) O2 (08/14/21 23:24) Remove Rings In Anticipation O (08/14/21 23:24) Lactic Acid Analyzer (08/14/21 23:24) Influenza A And B By Pcr (08/14/21 23:24) Ns Iv 1000 Ml (Sodium Chloride 0.9%) (08/14/21 23:30) Cefepime Injection (Maxipime Injection) (08/14/21 23:30) Vancomycin Injection (Vancomycin Injecti (08/14/21 23:30) Vancomycin Injection (Vancomycin Injecti (08/15/21 00:30) Covid 19 Inhouse Test (08/14/21 23:24) Lorazepam Injection (Ativan Injection) (08/14/21 23:30) Accucheck Stat ONCE (08/14/21 23:24) Straight Cath For Spec.-Adult (08/14/21 23:28) Lorazepam Injection (Ativan Injection) (08/14/21 23:26) Magnesium (08/15/21 00:02) Labetalol Injection (Normodyne Injection (08/15/21 00:15) Ed Iv/Invasive Line Start (08/15/21 00:16) Ns Iv 1000 Ml (Sodium Chloride 0.9%) (08/15/21 00:30) Ed Iv/Invasive Line Start (08/15/21 00:17) Ns Iv 500 Ml (Sodium Chloride 0.9%) (08/15/21 00:30) Ct Head Wo (08/15/21 00:01) Chest 1 View, Ap/Pa Only (08/15/21 00:01) Lorazepam Injection (Ativan Injection) (08/15/21 01:30) Labetalol Injection (Normodyne Injection (08/15/21 01:30) Alcohol (08/15/21 01:51) Drug Screen Stat (Urine) (08/15/21 01:51) Fentanyl Inj (Sublimaze Injection) (08/15/21 03:15) Lorazepam Injection (Ativan Injection) (08/15/21 03:15) Acetaminophen Tablet (Tylenol Tablet) (08/15/21 03:15) Medications Given in ED Vital Signs/I&O 08/14/21 08/15/21 08/15/21 08/15/21 23:40 05:58 07:40 09:00 Temp 36.6 36.2 Pulse 84 79 78 84 Resp 20 20 20 20 B/P (MAP) 207/115 199/109 199/96 205/108 Pulse Ox 96 97 97 97 O2 Delivery Room Air Room Air Room Air Room Air Progress Progress Note #1: Time: 23:36 Progress Note Patient is restless, trying to get out of bed but still postictal. We will give him 2 mg Ativan for seizure precaution as well as to help get him relax so we can work him up. He is covered in sweat so we are going to get an EKG, t roponin, septic work-up and given broad-spectrum antibiotics. We will be cautious with her IV fluids as he is a dialysis patient. Progress Note #2: Time: 00:07 Progress Note His blood pressure is still significantly elevated 207/115 and he is still delirious although he is much more calm after 2 mg Ativan. We will give him 10 mg labetalol IV. Progress Note #3: Time: 00:52 Progress Note Lactate elevation could be due to his recent seizures or sepsis given his borderline elevated temperature and sweating on arrival we went ahead and erred on the side of caution and we gave him 1500 cc of fluid. After the initial dose of labetalol he still 206/156. Progress Note #4: Time: 02:01 Progress Note Still delirious, able to follow commands but confused answers. re-directable. Other than HTN there is nothing to pin his delirium on yet. Troponin needs trended. 1500 cc of NS. Repeat lactate drawn. HTn improved 15 mins after the second dose of labetalol 10 mg IV down to 178/126. Still no lateralizing delmy rologic deficits. He wanted transfer to higher level of care where they can take care of inpatient dialysis and manage his delirium. He has not had any more aggressive behavior since he arrived. He is not trying to pull his IV out. We have covered him with some blankets and he is laying down trying to sleep. Progress Note #5: Time: 03:07 Progress Note Patient is still restless and complains of pain all over. We will try 1000 mg Tylenol and put him in a hospital bed and see if this helps with his restlessness. Initial ECG Impression Date: August 14, 2021 Initial ECG Impression Time: 23:47 Initial ECG Rate: 82 Initial ECG Rhythm: Normal Sinus Initial ECG Intervals: Normal Initial ECG Impression: Normal, Nonspecific Changes Comment Normal sinus rhythm without clinically relevant ST elevation or depression. Diagnostic Imaging Diagonstic Imaging: Xray Plain Films/CT/US/NM/MRI: chest Comments No acute cardiopulmonary process on 1 view chest x-ray. [facility], [place] NAME: FANY ALFARO Thien [facility] REC#: [id number] PT STATUS: REG ER : 1965 PHYSICIAN: XAVI BUSBY MD ADMIT DATE: 08/14/21/ER Draft Date of Exam:08/15/21 CHEST 1 VIEW, AP/PA ONLY CLINICAL INDICATION: Patient with sepsis. EXAM: Portable chest x-ray upright view. COMPARISON: Chest x-ray dated 09/21/2020. FINDINGS: Stable cardiomegaly with no significant pulmonary vascular congestion. There are increased lung markings in both lungs again seen which may be related to chronic lung changes. There is no definite lung infiltrate. There is no pleural effusion or pneumothorax. Surgical clips have been placed in the interim overlying the left lower chest region. There is amorphous density overlying the left costophrenic angle region which may be related to postoperative changes/scarring. There is also pleural thickening. Interval placement loop recorder overlying the left chest region. Bones show no significant abnormality. IMPRESSION: 1: There is cardiomegaly with no significant pulmonary vascular congestion. 2: There is increased lung markings throughout both lungs which may be related to chronic lung changes. There is no definite lung infiltrate. 3: Interval postoperative changes to the left lower lung field region with suspected scarring. Dictated on workstation # [id number] Dict: 08/15/21619 Trans: 08/15/2140 [facility] [place] [id number] Interpreted by: TERESA GUTIERREZ MD Electronically signed by: Reviewed: Reviewed by Me Diagonstic Imaging: CT Plain Films/CT/US/NM/MRI: head Comments No calvarial fracture, midline shift, mass-effect or tumor. [facility] [place] NAME: FANY ALFARO [facility] REC#: [id number] PT STATUS: REG ER : 1965 PHYSICIAN: XAVI BUSBY MD ADMIT DATE: 08/14/21/ER Draft Date of Exam:08/15/21 CT HEAD WO CLINICAL INDICATION: Patient with delirium with seizure. EXAM: Axial CT scan of the brain performed without IV contrast with sagittal and coronal reformatted images. Auto Exposure Controls were utilized during the CT exam to meet ALARA standards for radiation dose reduction. COMPARISON: Head CT without contrast dated 10/01/2018. FINDINGS: There is no evidence of acute cerebral infarct, intracranial hemorrhage, or gross mass effect. The brain parenchymal volume appears appropriate for patient's age. There is normal bueno-white matter distinction. There is no significant midline shift or herniation. There is no evidence of hydrocephalus. The basal cisterns are unremarkable. The skull, extracranial soft tissue, and orbits are unremarkable. There is mild mucosal thickening in the frontal sinus. Temporal bones show no significant abnormality. IMPRESSION: 1: There is no evidence of acute intracranial process. I agree with [employer] report. Dictated on workstation # [id number] Dict: 08/15/21 0610 Trans: 08/15/21 0617 [facility] [id number] Interpreted by: TERESA GUTIERREZ MD Electronically signed by: Reviewed: Reviewed [place] Study, Reviewed by Me Departure Impression Primary Impression: Delirium Additional Impressions: Hypertensive emergency without congestive heart failure Hemodialysis patient Witnessed seizure-like activity Disposition: ADMITTED INPATIENT Condition: Stable Transfer Transfer Reason: Exceeds level of care (No inpatient HD) Time Spoke to Accepting Phy: 03:45 Transfer Progress Notes 0200: Spoke to Jb at [facility] triage line and they will call us back with a provider. 0230: Spoke to nurse triage [facility] and gave report and she will call us back with a provider. 0345: Discussed the case with Dr. Brown, cloth desizing range operator chief at [place], [place] and he accepts the patient. Darlene from triage will call back with a room and report number. Transfer Facility: [place], [place] Method of Transfer: EMS Departure-Patient Inst. Referrals: [facility] (PCP/Family) Primary Care Physician XAVI BUSBY August 14, 2021 23:37
[2021-08-14 23:49] LABS: POTASSIUM 3.1 MMOL/L (3.6-5.0)
[2021-08-14 23:50] LABS: CALCIUM 8.6 MG/DL (8.5-10.1); INR 1.1 (0.8-1.4); PROTHROMBIN TIME PATIENT 14.9 SEC (12.2-14.7)
[2021-08-14 23:51] LABS: TOTAL PROTEIN 7.5 GM/DL (6.4-8.2)
[2021-08-14 23:53] LABS: BILIRUBIN,TOTAL 0.7 MG/DL (0.1-1.0)
[2021-08-14 23:55] LABS: CREATININE SERUM 7.24 MG/DL (0.60-1.30)
[2021-08-15] MEDS ORDERED: LABETALOL HCL 20 MG/4 ML VIAL IV ONE ×2 (00:15→01:30)
[2021-08-15] MEDS ORDERED: NS IV 500 ML 500 ML IV ONE (00:30)
[2021-08-15] MEDS ORDERED: VANCOMYCIN INJECTION 500 MG in NS (IVPB) 100 ML IV ONE (00:30)
[2021-08-15] MEDS ORDERED: NS IV 1000 ML 1,000 ML IV SCH (00:30)
[2021-08-15 01:30] LABS: BILIRUBIN,URINE NEGATIVE (NEGATIVE); CLARITY,URINE CLEAR; COLOR,URINE YELLOW; GLUCOSE, URINE (UA) 1+ (NEGATIVE); KETONES,URINE NEGATIVE (NEGATIVE); LEUKOCYTE ESTERASE ,URINE NEGATIVE (NEGATIVE); NITRITE,URINE NEGATIVE (NEGATIVE); PH,URINE 8.5 (5-9); PROTEIN,URINE 2+ (NEGATIVE)
[2021-08-15] MEDS ORDERED: LORazepam INJ 2 MG/ML (ATIVAN) VIAL IVP ONE ×2 (01:30→03:15)
[2021-08-15 01:43] LABS: BACTERIA,URINE NEGATIVE /HPF; SQUAMOUS EPITHELIAL CELL,UR 0-2 /HPF; URINE OTHER LG SPERM /HPF; WBC,URINE 0-2 /HPF
[2021-08-15 02:59] LABS: AMPHETAMINE SCREEN, URINE NEGATIVE (NEGATIVE); BARBITURATE SCREEN URINE NEGATIVE (NEGATIVE); BENZODIAZEPINES SCREEN URINE NEGATIVE (NEGATIVE); CANNABINOID SCREEN, URINE NEGATIVE (NEGATIVE); COCAINE SCREEN URINE NEGATIVE (NEGATIVE); METHADONE STAT NEGATIVE (NEGATIVE); OPIATE SCREEN URINE NEGATIVE (NEGATIVE); OXYCODONE STAT NEGATIVE (NEGATIVE); PROPOXYPHENE STAT NEGATIVE (NEGATIVE); TRICYCLIC ANTIDEPRESSANTS SCRE NEGATIVE (NEGATIVE)
[2021-08-15] MEDS ORDERED: ACETAMINOPHEN 500 MG TAB (TYLENOL) PO ONE (03:15)
[2021-08-15] MEDS ORDERED: fentaNYL INJ 100 MCG/2 ML AMP IVP ONE (03:15)
--- NOTE | 2021-08-15 06:17 | Diagnostic Imaging Report ---
CLINICAL INDICATION: Patient with delirium with seizure. EXAM: Axial CT scan of the brain performed without IV contrast with sagittal and coronal reformatted images. Auto Exposure Controls were utilized during the CT exam to meet ALARA standards for radiation dose reduction. COMPARISON: Head CT without contrast dated 10/01/2018. FINDINGS: There is no evidence of acute cerebral infarct, intracranial hemorrhage, or gross mass effect. The brain parenchymal volume appears appropriate for patient's age. There is normal bueno-white matter distinction. There is no significant midline shift or herniation. There is no evidence of hydrocephalus. The basal cisterns are unremarkable. The skull, extracranial soft tissue, and orbits are unremarkable. There is mild mucosal thickening in the frontal sinus. Temporal bones show no significant abnormality. IMPRESSION: 1: There is no evidence of acute intracranial process. I agree with [employer] report. Dictated by: Dictated on workstation # [id number]
--- NOTE | 2021-08-15 06:40 | Diagnostic Imaging Report ---
CLINICAL INDICATION: Patient with sepsis. EXAM: Portable chest x-ray upright view. COMPARISON: Chest x-ray dated 09/21/2020. FINDINGS: Stable cardiomegaly with no significant pulmonary vascular congestion. There are increased lung markings in both lungs again seen which may be related to chronic lung changes. There is no definite lung infiltrate. There is no pleural effusion or pneumothorax. Surgical clips have been placed in the interim overlying the left lower chest region. There is amorphous density overlying the left costophrenic angle region which may be related to postoperative changes/scarring. There is also pleural thickening. Interval placement loop recorder overlying the left chest region. Bones show no significant abnormality. IMPRESSION: 1: There is cardiomegaly with no significant pulmonary vascular congestion. 2: There is increased lung markings throughout both lungs which may be related to chronic lung changes. There is no definite lung infiltrate. 3: Interval postoperative changes to the left lower lung field region with suspected scarring. Dictated by: Dictated on workstation # [id number]
[2021-08-15 09:00] VITALS: BP 205/108
== END 2021-08-15 09:00 | disposition other institution (70) ==
LOC: ER 23:17 → EDUNIT# 23:17 → ER 08-15 09:00
DX: R41.0 Disorientation, unspecified (principal); I16.1 Hypertensive emergency; I10 Essential (primary) hypertension; I12.9 Hypertensive chronic kidney disease with stage 1 through stage 4 chronic kidney disease, or unspecified chronic kidney disease; N18.9 Chronic kidney disease, unspecified; G40.409 Other generalized epilepsy and epileptic syndromes, not intractable, without status epilepticus; R74.02 Elevation of levels of lactic acid dehydrogenase [LDH]; J43.9 Emphysema, unspecified; F17.210 Nicotine dependence, cigarettes, uncomplicated; Z87.19 Personal history of other diseases of the digestive system; Z87.442 Personal history of urinary calculi; Z99.2 Dependence on renal dialysis; Z99.81 Dependence on supplemental oxygen; Z20.822 Contact with and (suspected) exposure to COVID-19
CPT/HCPCS: 51701; 70450; 71045; 80053; 80306; 81000; 83605 ×2; 83735; 84484; 85025; 85610; 85730; 87040 ×2; 87088; 87636; 99285; G0480; 36415; 80320; 93005

== ENCOUNTER 2021-11-30 09:12 | Emergency (ER) | payer MEDICARE ==
[~2021-11-30] VITALS: Ht 162 cm; Wt 62.0 kg
--- NOTE | 2021-11-30 09:48 | ED General ---
General Chief Complaint: COVID19 Suspect/Confirmed Stated Complaint: BODY ACHES,CONGESTION,BACK PAIN Nursing Triage Note: PT STATES BODY ACHES AND DIARRHEA THAT STARTED YESTERDAY, DIALYSIS YESTERDAY Source of Information: Patient, Spouse Exam Limitations: No Limitations (MARA PARSONS MED STUDENT) History of Present Illness Date Seen by Provider: Nov 30, 2021 Time Seen by Provider: 09:41 Initial Comments Joe Alfaro is a 56 yo male who presents for body aches, diarrhea and chest pressure. Pt has hx of ESRD and HTN. Pt has [facility] dialysis schedule. Pt states he started to feel ill yesterday. He went to dialysis and felt no relief after. He has concerns of generalized weakness, chills, diarrhea, chest pressure, headache and body aches. He states this morning his legs gave out and he fell, but denies injury or hitting his head. He wears 3L oxygen at home. He takes his BP 4-5 times per day and states most days it is steady, but somedays he has large shifts. He will go from 200s/100s to 130s/70s an hour later. Pt has hx of loop recorder placement that he states was d/t changes in blood pressure. The loop recorder is no longer active, he just hasn't had it removed yet. Pt reports he was recently prescribed an abx for "pimples" on his groin. He states he is also using gold jean baptiste, which has helped. Pt has oxygen saturation of 100% on room air, but states he is SOA without his normal 3L and would like to be placed on it during his ER visit. His BP is 174/89 and temp was 98.3. COVID and flu swabs collected. Timing/Duration: 1 Day Associated Systoms: Cough, Fever/Chills, Headaches, Malaise; No Nausea/Vomiting; Rash, Shortness of Air, Weakness (MARA PARSONS MED STUDENT) Allergies and Home Medications Allergies Coded Allergies: No Known Drug Allergies (Unverified , 09/30/09) Patient Home Medication List Home Medication List Reviewed: Yes (JESSEE LA MD) Albuterol Sulfate (Proair Hfa) 1 Puff Puff, 2 PUFF IH Q4H PRN for SHORTNESS OF BREATH Prescribed by: FRANCIS MURRAY on 02/20/191807 Amlodipine Besylate (Amlodipine Besylate) 10 Mg Tablet, 10 MG PO HS, (Reported) Entered as Reported by: MELVIN NAVA on 05/13/14 1419 Cefuroxime Axetil (Cefuroxime) 250 Mg Tablet, 250 MG PO DAILY Prescribed by: FRANCIS MURRAY on 02/20/191836 Hydralazine HCl (Hydralazine HCl) 10 Mg Tablet, 10 MG PO Q6H Prescribed by: FRANCIS MURRAY on 02/20/19 183 Hydrocodone Bit/Acetaminophen (HYDROcodone/APAP 7.5/325 TAB) 1 Each Tablet, (Reported) Entered as Reported by: JADEN DAMICO on 01/08/18 185 Lorazepam (Ativan) 1 Mg Tablet, 1 MG PO TID PRN for ANXIETY, (Reported) Entered as Reported by: GISELL SWANSON on 01/05/151924 Metoprolol Tartrate (Metoprolol Tartrate) 50 Mg Tablet, 50 MG PO BID Prescribed by: SUSY FLEMING on 01/06/15 1200 Prednisone (Prednisone) 20 Mg Tab, 40 MG PO DAILY Prescribed by: FRANCIS MURRAY on 02/20/191836 Zolpidem Tartrate (Ambien) 5 Mg Tablet, 1 TAB PO HS, (Reported) Entered as Reported by: JADEN DAMICO on 11/23/151920 Review of Systems Review of Systems Constitutional: chills; No fever; malaise, weakness EENTM: No blurred vision, No vision loss Respiratory: cough (productive), short of breath Cardiovascular: No chest pain, No palpitations; other (chest pressure) (MARA PARSONS MED STUDENT) Past Wezxejq-Zmzkgw-Bvfqzc Hx Patient Social History Tobacco Use?: Yes Tobacco type used: Cigarettes Smoking Status: Current Everyday Smoker Substance use?: No Alcohol Use?: No (MARA PARSONS MED STUDENT) Immunizations Up To Date Tetanus Booster (TDap): Less than 5yrs PED Vaccines UTD: No First/Initial COVID19 Vaccinat: HAS HAD BOTH SHOTS Second COVID19 Vaccination Tyler: HAS HAD BOTH SHOTS Third COVID19 Vaccination Date: HAS HAD BOTH SHOTS (MARA PARSONS MED STUDENT) Seasonal Allergies Seasonal Allergies: No (MARA PARSONS STUDENT) Past Medical History Surgery/Hospitalization HX: dialysis 3 times a week, HYPERTENSION, ARTHRITIS Surgeries: Yes (UMBILICAL HERNIA REPAIR 1994; L ARM FISTULA;LOOP RECORDER) Abdominal, Arteriovenous Shunt, Cardiac, Dialysis, Vascular Surgery Respiratory: Yes (CHRONIC O2 AT 3L-CONTINUES TO SMOKE 3 PPD) COPD, Emphysema Currently Using CPAP: No Currently Using BIPAP: No Cardiac: Yes Hypertension Neurological: No Reproductive Disorders: No Genitourinary: Yes (DIALYSIS --) Kidney Stones, Renal Failure, Dialysis Gastrointestinal: Yes (UMBILICAL HERNIA REPAIR 1994) Abdominal Hernia Musculoskeletal: No Endocrine: No HEENT: No Hearing Impairment: Hard of Hearing Cancer: No Psychosocial: Yes Anxiety Integumentary: No Blood Disorders: No Adverse Reaction/Blood Tranf: No (MARA PARSONS MED STUDENT) Family Medical History FH: COPD (chronic obstructive pulmonary disease) 19 FATHER FH: emphysema 19 FATHER FH: heart attack 19 FATHER FH: scoliosis G8 BROTHER, FH: stroke G8 SISTER FHx: heart disease G8 SISTER Thyroid disease 19 MOTHER SOCIAL HISTORY: -ETOH--HX OF ABUSE-19 BEERS / DAY -DRUGS--DENIES USE -SMOKES 3 PPD (MARA PARSONS MED STUDENT) Physical Exam Vital Signs Vital Signs - First Documented 11/30/21 11/30/21 09:16 09:20 Temp 36.9 Pulse 72 Resp 20 B/P (MAP) 174/89 (117) Pulse Ox 100 O2 Delivery Room Air O2 Flow Rate 0.50 (JESSEE LA MD) Vital Signs Capillary Refill : Less Than 3 Seconds (MARA PARSONS MED STUDENT) Height, Weight, BMI Height: 5'9.00" Weight: 150lbs. 0oz. 68.169456sy; 23.00 BMI Method:Stated General Appearance: No Apparent Distress, Chronically ill HEENT: PERRL/EOMI, Pharynx Normal, Other (Dry mucous membranes) Respiratory: Chest Non Tender, No Accessory Muscle Use, No Respiratory Distress, Other (coarse breath sounds) Cardiovascular: Regular Rate, Rhythm, No Murmur Gastrointestinal: Normal Bowel Sounds, Guarding (LLQ), Tenderness (LLQ) Extremity: Non Tender, No Pedal Edema Neurologic/Psychiatric: Alert, Oriented x3, Normal Mood/Affect Skin: Warm/Dry, Pallor Lymphatic: No Adenopathy (MARA PARSONS MED STUDENT) Progress/Results/Core Measures Suspected Sepsis SIRS Temperature: Pulse: 72 Respiratory Rate: 20 Laboratory Tests 11/30/21 09:50: White Blood Count 3.4L Blood Pressure 174 /89 Mean: 117 Laboratory Tests 11/30/21 09:50: Creatinine 5.99H, Platelet Count 130 (MARA PARSONS A MED STUDENT) Results/Orders Lab Results Laboratory Tests Test 11/30/21 09:35 11/30/21 09:50 Range/Units SARS-CoV-2 RNA (RT-PCR) Detected H Not Detecte White Blood Count 3.4 L 4.3-11.0 10^3/uL Red Blood Count 4.03 L 4.30-5.52 10^6/uL Hemoglobin 12.2 L 13.3-17.7 g/dL Hematocrit 35 L 40-54 % Mean Corpuscular Volume 87 80-99 fL Mean Corpuscular Hemoglobin 30 25-34 pg Mean Corpuscular Hemoglobin Concent 35 32-36 g/dL Red Cell Distribution Width 14.4 10.0-14.5 % Platelet Count 130 130-400 10^3/uL Mean Platelet Volume 9.7 9.0-12.2 fL Immature Granulocyte % (Auto) 0 % Neutrophils (%) (Auto) 52 42-75 % Lymphocytes (%) (Auto) 26 12-44 % Monocytes (%) (Auto) 20 H 0-12 % Eosinophils (%) (Auto) 1 0-10 % Basophils (%) (Auto) 1 0-10 % Neutrophils # (Auto) 1.8 1.8-7.8 10^3/uL Lymphocytes # (Auto) 0.9 L 1.0-4.0 10^3/uL Monocytes # (Auto) 0.7 0.0-1.0 10^3/uL Eosinophils # (Auto) 0.0 0.0-0.3 10^3/uL Basophils # (Auto) 0.0 0.0-0.1 10^3/uL Immature Granulocyte # (Auto) 0.0 0.0-0.1 10^3/uL Neutrophils % (Manual) 59 % Lymphocytes % (Manual) 22 % Monocytes % (Manual) 17 % Eosinophils % (Manual) 1 % Band Neutrophils 1 % Percent Immature Platelet Fraction 2.3 0.0-7.6 % Blood Morphology Comment NORMAL Sodium Level 137 135-145 MMOL/L Potassium Level 4.2 3.6-5.0 MMOL/L Chloride Level 94 L 98-107 MMOL/L Carbon Dioxide Level 24 21-32 MMOL/L Anion Gap 19 H 5-14 MMOL/L Blood Urea Nitrogen 19 H 7-18 MG/DL Creatinine 5.99 H 0.60-1.30 MG/DL Estimat Glomerular Filtration Rate 10 BUN/Creatinine Ratio 3 Glucose Level 91 70-105 MG/DL Calcium Level 9.0 8.5-10.1 MG/DL (JESSEE LA MD) My Orders Orders - JESSEE LA MD Ed Iv/Invasive Line Start (11/30/21 09:34) Cbc With Automated Diff (11/30/21 09:34) Basic Metabolic Panel (11/30/21 09:34) Ekg Tracing (11/30/21 09:34) Chest 1 View, Ap/Pa Only (11/30/21 09:34) Covid 19 Inhouse Test (11/30/21 09:34) Isolation Central Supply Req (11/30/21 09:34) Manual Differential (11/30/21 09:50) Bebtelovimab (Bebtelovimab) (11/30/21 10:45) Oxycodone Immediate Rel Tablet (Oxyir Ta (11/30/21 10:45) (JESSEE LA MD) Medications Given in ED Current Medications Medications Dose Ordered Sig/Tj Route Start Time Stop Time Status Last Admin Dose Admin Bebtelovimab 175 mg ONCE ONCE IV 11/30/21 10:45 11/30/21 10:46 DC 11/30/21 11:18 175 MG Oxycodone HCl 5 mg ONCE ONCE PO 11/30/21 10:45 11/30/21 10:46 DC 11/30/21 11:02 5 MG (JESSEE LA MD) Vital Signs/I&O 11/30/21 11/30/21 11/30/21 09:16 09:20 11:02 Temp 36.9 36.9 Pulse 72 Resp 20 B/P (MAP) 174/89 (117) Pulse Ox 100 O2 Delivery Room Air Nasal Cannula O2 Flow Rate 0.50 (JESSEE LA MD) Vital Signs/I&O Capillary Refill : Less Than 3 Seconds (MARA PARSONS MED STUDENT) Blood Pressure Mean: 117 Progress Note : Time: 10:25 Progress Note COVID test was positive. Discussed paxlovid vs. monoclonal antibody efficacy and dosing with pt and he opted for mab treatment. (MARA PARSONS MED STUDENT) Progress Note : Time: 10:58 Progress Note Patient with 24-48h of Covid symptoms. unvaccinated. Diarrhea, headache unresponsive to tylenol. H/o ESRD and on HD MWF. completed dialysis yesterday completed - they left him a little "heavy" because it is "lab week". He has great VS, is not hypoxic or having any increased WOB. He cannot take pxlovid due to his ESRD and desires the monoclonal therapy. Will administer here in the ED. REturn precautions provided. (JESSEE LA MD) ECG Initial ECG Impression Date: Nov 30, 2021 Initial ECG Impression Time: 09:53 Initial ECG Rate: 70 Initial ECG Rhythm: Normal Sinus Initial ECG Intervals: Normal Initial ECG Impression: Normal (JESSEE LA MD) Diagnostic Imaging Diagonstic Imaging: Xray Comments [facility] [place] NAME: JOE ALFARO [facility] REC#: [id number] PT STATUS: REG ER : 1965 PHYSICIAN: JESSEE LA MD ADMIT DATE: 11/30/21/ER Draft Date of Exam:11/30/21 CHEST 1 VIEW, AP/PA ONLY CLINICAL INDICATION: Patient with bodyaches and diarrhea the study yesterday. Patient dialysis yesterday. Patient shortness of breath. EXAM: Portable chest x-ray upright view. COMPARISON: Chest x-ray dated 08/15/2021. FINDINGS: Lungs/pleura: There is interval increase curvilinear opacities and groundglass opacification involving left midlung field. Otherwise, lungs are stable. There is no pneumothorax. There is no pleural effusion. Mediastinum: Unremarkable. Pulmonary vasculature: Unremarkable. Heart: Stable cardiomegaly. loop recorder is again seen. Bones/extrathoracic soft tissue: Unremarkable. IMPRESSION: 1: There is interval increase in curvilinear and groundglass opacification involving left midlung field. Infiltrate may be considered. 2: There is cardiomegaly with no significant pulmonary vascular congestion. Dictated on workstation # [id number] Dict: 11/30/21 1016 Trans: 11/30/21 1021 [id number] Interpreted by: TERESA GUTIERREZ MD Electronically signed by: (JESSEE LA MD) Departure Impression Primary Impression: COVID-19 Disposition: 01 HOME, SELF-CARE Condition: Stable Departure-Patient Inst. Decision time for Depature: 12:16 (JESSEE LA MD) Referrals: [facility] (PCP/Family) Primary Care Physician Patient Instructions: Bebtelovimab FDA Fact Sheet, COVID-19 Home Care/Discharge Add. Discharge Instructions: Drink plenty of fluids to stay hydrated. Come back to the ER if you have trouble breathing, your symptoms become worse, or there is redness or swelling of your injection sites. Continue your normal amount of oxygen you wear at home It is safe to use guaifenesin for chest congestion and Tylenol, no more than 4000mg a day, for pain relief or fever. Quarantine until December 04, 2021, which is five days after symptoms started. All discharge instructions reviewed with patient and/or family. Voiced understanding. Verification and Attestation of Medical Student E/M Service A medical student performed and documented this service in my presence. I reviewed and verified all information documented by the medical student and made modifications to such information, when appropriate. I personally performed the physical exam and medical decision making. Jessee La, Nov 30, 2021,12:15 (JESSEE LA MD) MARA PARSONS MED STUDENT Nov 30, 2021 09:48 JESSEE LA MD Nov 30, 2021 10:07
[2021-11-30 09:54] LABS: HEMATOCRIT 35 % (40-54); MEAN CORPUSCULAR VOLUME 87 fL (80-99); NEUTROPHILS # (AUTO) 1.8 10^3/uL (1.8-7.8)
[2021-11-30 09:56] LABS: BASOPHILS % (AUTO) 1 % (0-10); EOSINOPHILS % (AUTO) 1 % (0-10); HEMOGLOBIN 12.2 g/dL (13.3-17.7); LYMPHOCYTES # (AUTO) 0.9 10^3/uL (1.0-4.0); LYMPHOCYTES % (AUTO) 26 % (12-44); MEAN CORPUSCULAR HEMOGLOBIN 30 pg (25-34); MEAN CORPUSCULAR HGB CONC 35 g/dL (32-36); MEAN PLATELET VOLUME 9.7 fL (9.0-12.2); MONOCYTES # (AUTO) 0.7 10^3/uL (0.0-1.0); MONOCYTES % (AUTO) 20 % (0-12); NEUTROPHILS % (AUTO) 52 % (42-75); PLATELET COUNT 130 10^3/uL (130-400); WHITE BLOOD COUNT 3.4 10^3/uL (4.3-11.0)
[2021-11-30 10:11] LABS: BAND NEUTROPHILS 1 %; EOSINOPHILS % (MANUAL) 1 %; LYMPHOCYTES % (MANUAL) 22 %; MONOCYTES % (MANUAL) 17 %; NEUTROPHILS % (MANUAL) 59 %; RBC MORPH NORMAL
[2021-11-30 10:13] LABS: POTASSIUM 4.2 MMOL/L (3.6-5.0)
[2021-11-30 10:18] LABS: CREATININE SERUM 5.99 MG/DL (0.60-1.30)
--- NOTE | 2021-11-30 10:21 | Diagnostic Imaging Report ---
CLINICAL INDICATION: Patient with bodyaches and diarrhea the study yesterday. Patient dialysis yesterday. Patient shortness of breath. EXAM: Portable chest x-ray upright view. COMPARISON: Chest x-ray dated 08/15/2021. FINDINGS: Lungs/pleura: There is interval increase curvilinear opacities and groundglass opacification involving left midlung field. Otherwise, lungs are stable. There is no pneumothorax. There is no pleural effusion. Mediastinum: Unremarkable. Pulmonary vasculature: Unremarkable. Heart: Stable cardiomegaly. loop recorder is again seen. Bones/extrathoracic soft tissue: Unremarkable. IMPRESSION: 1: There is interval increase in curvilinear and groundglass opacification involving left midlung field. Infiltrate may be considered. 2: There is cardiomegaly with no significant pulmonary vascular congestion. Dictated by: Dictated on workstation # [id number]
[2021-11-30] MEDS ORDERED: BEBTELOVIMAB 175 MG/2 ML VIAL IV ONE (10:45)
[2021-11-30 12:38] VITALS: BP 150/82
== END 2021-11-30 12:38 | disposition home or self-care (01) ==
LOC: EDUNIT# 09:12 → ER 09:13
DX: U07.1 COVID-19 (principal); I12.0 Hypertensive chronic kidney disease with stage 5 chronic kidney disease or end stage renal disease; N18.6 End stage renal disease; F17.210 Nicotine dependence, cigarettes, uncomplicated; Z99.2 Dependence on renal dialysis
CPT/HCPCS: 36415; 71045; 80048; 85007; 85027; 87636; 93005

== ENCOUNTER 2022-01-05 09:28 | Emergency (ER) | payer MEDICARE ==
[2022-01-05] MEDS ORDERED: NALOXONE 0.4 MG/ML 1 ML (NARCAN) VIAL IM ONE (10:00)
--- NOTE | 2022-01-05 10:01 | ED General ---
General Chief Complaint: General Problems/Pain Stated Complaint: LOW BLOOD PRESSURE Source of Information: Family () Exam Limitations: Physical Impairments (somnolent) History of Present Illness Date Seen by Provider: Jan 05, 2022 Time Seen by Provider: 09:50 Initial Comments Patient is a 56-year-old male who presents to the emergency department by EMS from dialysis chief complaint initially "low blood pressure" however his family member at the bedside states that he was complaining of some "chest pain" while on dialysis. Patient arrives extremely somnolent, very difficult to keep him awake. He does take narcotic pain medications and has pinpoint pupils. He is responsive to vigorous verbal and a little physical stimuli. He cannot stay awake however. His blood pressure is 140 systolic. Heart rate is in the 60s. Oxygen is 97% on room air. Per his nurse MAC Phelan he refused an Accu-Chek and refused an IV per EMS. Accroding to his family member he did eat before dialysis this morning. No recent illnesses. Will give 0.4 of Narcan IM to see if we can wake him up a little bit and get further history. Timing/Duration: 1 Hour Allergies and Home Medications Allergies Coded Allergies: No Known Drug Allergies (Unverified , 09/30/09) Patient Home Medication List Home Medication List Reviewed: Yes Albuterol Sulfate (Proair Hfa) 1 Puff Puff, 2 PUFF IH Q4H PRN for SHORTNESS OF BREATH Prescribed by: FRANCIS MURRAY on 02/20/19 180 Amlodipine Besylate (Amlodipine Besylate) 10 Mg Tablet, 10 MG PO HS, (Reported) Entered as Reported by: MELVIN NAVA on 05/13/14 1419 Cefuroxime Axetil (Cefuroxime) 250 Mg Tablet, 250 MG PO DAILY Prescribed by: FRANCIS MURRAY on 02/20/19 183 Hydralazine HCl (Hydralazine HCl) 10 Mg Tablet, 10 MG PO Q6H Prescribed by: FRANCIS MURRAY on 02/20/19 183 Hydrocodone Bit/Acetaminophen (HYDROcodone/APAP 7.5/325 TAB) 1 Each Tablet, (Reported) Entered as Reported by: JADEN DAMICO on 01/08/18 1855 Lorazepam (Ativan) 1 Mg Tablet, 1 MG PO TID PRN for ANXIETY, (Reported) Entered as Reported by: GISELL SWANSON on 01/05/151924 Metoprolol Tartrate (Metoprolol Tartrate) 50 Mg Tablet, 50 MG PO BID Prescribed by: SUSY FLEMING on 01/06/15 1200 Prednisone (Prednisone) 20 Mg Tab, 40 MG PO DAILY Prescribed by: FRANCIS MURRAY on 02/20/191836 Zolpidem Tartrate (Ambien) 5 Mg Tablet, 1 TAB PO HS, (Reported) Entered as Reported by: JADEN DAMICO on 11/23/151920 Review of Systems Review of Systems Constitutional: see HPI ROS difficult to obtain secondary to the patient's somnolence - HPI and ROS from Past Mblfjve-Pvbjjr-Veofos Hx Immunizations Up To Date Tetanus Booster (TDap): Less than 5yrs PED Vaccines UTD: No First/Initial COVID19 Vaccinat: HAS HAD BOTH SHOTS Second COVID19 Vaccination Tyler: HAS HAD BOTH SHOTS Third COVID19 Vaccination Date: HAS HAD BOTH SHOTS Seasonal Allergies Seasonal Allergies: No Past Medical History Surgery/Hospitalization HX: dialysis 3 times a week, HYPERTENSION, ARTHRITIS Surgeries: Yes (UMBILICAL HERNIA REPAIR 1994; L ARM FISTULA;LOOP RECORDER) Abdominal, Arteriovenous Shunt, Cardiac, Dialysis, Vascular Surgery Respiratory: Yes (CHRONIC O2 AT 3L-CONTINUES TO SMOKE 3 PPD) COPD, Emphysema Currently Using CPAP: No Currently Using BIPAP: No Cardiac: Yes Hypertension Neurological: No Reproductive Disorders: No Genitourinary: Yes (DIALYSIS -W-) Kidney Stones, Renal Failure, Dialysis Gastrointestinal: Yes (UMBILICAL HERNIA REPAIR 1994) Abdominal Hernia Musculoskeletal: No Endocrine: No HEENT: No Hearing Impairment: Hard of Hearing Cancer: No Psychosocial: Yes Anxiety Integumentary: No Blood Disorders: No Adverse Reaction/Blood Tranf: No Family Medical History FH: COPD (chronic obstructive pulmonary disease) 19 FATHER FH: emphysema 19 FATHER FH: heart attack 19 FATHER FH: scoliosis G8 BROTHER, FH: stroke G8 SISTER FHx: heart disease G8 SISTER Thyroid disease 19 MOTHER SOCIAL HISTORY: -ETOH--HX OF ABUSE-19 BEERS / DAY -DRUGS--DENIES USE -SMOKES 3 PPD Physical Exam Vital Signs Vital Signs - First Documented 01/05/22 09:35 Temp 36.5 Pulse 65 Resp 18 B/P (MAP) 141/91 (108) Pulse Ox 100 O2 Delivery Nasal Cannula O2 Flow Rate 2.00 Capillary Refill : Height, Weight, BMI Height: 5'9.00" Weight: 150lbs. 0oz. 68.374347oo; 23.00 BMI Method:Stated General Appearance: No Apparent Distress, Other (somnolent) Eyes: Bilateral Eye Normal Inspection, Bilateral Eye Abnormal Pupil (pinpoint bilaterally) HEENT: No PERRL/EOMI; Other (dry oral mucosa; PINPOINT pupils) Neck: Normal Inspection Respiratory: Lungs Clear, Normal Breath Sounds, No Accessory Muscle Use, No Respiratory Distress Cardiovascular: Regular Rate, Rhythm, Normal Peripheral Pulses Gastrointestinal: Normal Bowel Sounds, Non Tender, Soft Extremity: Normal Inspection, Normal Range of Motion Neurologic/Psychiatric: Other (somnolent; difficult to rouse - but with vigorous verbal and tactile stim - will very briefly answer qestions) Skin: Warm/Dry, Pallor Progress/Results/Core Measures Suspected Sepsis SIRS Temperature: Pulse: Respiratory Rate: Laboratory Tests 01/05/22 10:47: White Blood Count 14.0H Blood Pressure / Mean: Laboratory Tests 01/05/22 10:47: Creatinine 4.47H, Platelet Count 222 Results/Orders Lab Results Laboratory Tests Test 01/05/22 10:47 Range/Units White Blood Count 14.0 H 4.3-11.0 10^3/uL Red Blood Count 3.82 L 4.30-5.52 10^6/uL Hemoglobin 11.7 L 13.3-17.7 g/dL Hematocrit 33 L 40-54 % Mean Corpuscular Volume 86 80-99 fL Mean Corpuscular Hemoglobin 31 25-34 pg Mean Corpuscular Hemoglobin Concent 36 32-36 g/dL Red Cell Distribution Width 15.4 H 10.0-14.5 % Platelet Count 222 130-400 10^3/uL Mean Platelet Volume 9.2 9.0-12.2 fL Immature Granulocyte % (Auto) 1 % Neutrophils (%) (Auto) 74 42-75 % Lymphocytes (%) (Auto) 14 12-44 % Monocytes (%) (Auto) 11 0-12 % Eosinophils (%) (Auto) 0 0-10 % Basophils (%) (Auto) 0 0-10 % Neutrophils # (Auto) 10.3 H 1.8-7.8 10^3/uL Lymphocytes # (Auto) 2.0 1.0-4.0 10^3/uL Monocytes # (Auto) 1.5 H 0.0-1.0 10^3/uL Eosinophils # (Auto) 0.0 0.0-0.3 10^3/uL Basophils # (Auto) 0.0 0.0-0.1 10^3/uL Immature Granulocyte # (Auto) 0.1 0.0-0.1 10^3/uL Sodium Level 131 L 135-145 MMOL/L Potassium Level 4.5 3.6-5.0 MMOL/L Chloride Level 93 L 98-107 MMOL/L Carbon Dioxide Level 27 21-32 MMOL/L Anion Gap 11 5-14 MMOL/L Blood Urea Nitrogen 21 H 7-18 MG/DL Creatinine 4.47 H 0.60-1.30 MG/DL Estimat Glomerular Filtration Rate 15 BUN/Creatinine Ratio 5 Glucose Level 85 70-105 MG/DL Calcium Level 9.2 8.5-10.1 MG/DL Troponin I < 0.028 <0.028 NG/ML My Orders Orders - JESSEE LA MD Naloxone Injection (Narcan Injection) (01/05/22 10:00) Accucheck Stat ONCE (01/05/22 10:05) Ekg Tracing (01/05/22 10:05) Ed Iv/Invasive Line Start (01/05/22 10:39) Cbc With Automated Diff (01/05/22 10:39) Basic Metabolic Panel (01/05/22 10:39) Troponin I Maggi (01/05/22 10:39) Ekg Tracing (01/05/22 11:48) Ekg Tracing (01/05/22 11:55) Medications Given in ED Vital Signs/I&O 01/05/22 01/05/22 09:35 12:23 Temp 36.5 36.5 Pulse 65 58 Resp 18 18 B/P (MAP) 141/91 (108) 110/70 Pulse Ox 100 100 O2 Delivery Nasal Cannula Nasal Cannula O2 Flow Rate 2.00 2.00 2.00 Capillary Refill : Progress Note #1: Time: 10:39 Progress Note finally got him to consent to an IV and troponin/labs. VSS/ still somnolent but more awake than before - he did admit to taking a pain pill and "half" a sleeping pill before dialysis this morning. his states that it "helps his nerves". He states they took off "3.6"kg of fluid. His veneer manufacturer is Dr Rosio Clay. Progress Note #2: Time: 11:50 Progress Note Patient has been resting comfortably - no return of chest pain. initial EKG sh owed some ST depression (i believe artifactual) so will recheck. His VS are stable. I did review medical records - his heart cath was in [address] dos santos and showed no angiographically significant disease. he likely needs seen sooner rather than later by Dr Dos Santos for stress testing and further eval as he has continued to smoke 2ppd cigarettes. I will encourage him to follow up. Will repeat the EKG to make sure it is similar to previous and discharge him to home with encouragement to quit smoking and to follow up. ECG Initial ECG Impression Date: Jan 05, 2022 Initial ECG Impression Time: 10:20 Initial ECG Rate: 64 Initial ECG Rhythm: Normal Sinus Comment NSSTW changes; no contiguous lead ST elevation; 1-2mm depression in leads I and II EKG : EKG Time: 11:55 Rate: 60 Rhythm: Normal Sinus Intervals: Normal ECG Impression: Normal Counseling-Symptomatic: 3-10 Minutes Follow-up with PCP to: Discuss Further Options Departure Impression Primary Impression: Chest pain Qualified Codes: R07.9 - Chest pain, unspecified Additional Impression: ESRD (end stage renal disease) on dialysis Disposition: 01 HOME, SELF-CARE Condition: Stable Departure-Patient Inst. Decision time for Depature: 12:07 Referrals: [facility] [place] (PCP/Family) Primary Care Physician DONNA DOS SANTOS MD [facility] Patient Instructions: Chest Pain, Adult ED Add. Discharge Instructions: Please call Dr Dos Santos's office (your heart doctor) for a follow up appointment about the chest pain you had last night. Continue to take all of your daily medications as prescribed. If you have a return of chest pain, especially with nausea, shortness of breath or any other emergent, concerning symptoms - come back to the Emergency Department. Copy Copies To 1: NAEL MAYORGA DO Copies To 2: DONNA DOS SANTOS MD [facility] JESSEE LA MD Jan 05, 2022 10:01
[2022-01-05 10:54] LABS: BASOPHILS % (AUTO) 0 % (0-10); EOSINOPHILS % (AUTO) 0 % (0-10); HEMATOCRIT 33 % (40-54); HEMOGLOBIN 11.7 g/dL (13.3-17.7); LYMPHOCYTES % (AUTO) 14 % (12-44); MEAN CORPUSCULAR HEMOGLOBIN 31 pg (25-34); MEAN CORPUSCULAR HGB CONC 36 g/dL (32-36); MEAN CORPUSCULAR VOLUME 86 fL (80-99); MEAN PLATELET VOLUME 9.2 fL (9.0-12.2); MONOCYTES # (AUTO) 1.5 10^3/uL (0.0-1.0); MONOCYTES % (AUTO) 11 % (0-12); NEUTROPHILS # (AUTO) 10.3 10^3/uL (1.8-7.8); NEUTROPHILS % (AUTO) 74 % (42-75); PLATELET COUNT 222 10^3/uL (130-400)
[2022-01-05 11:14] LABS: CHLORIDE 93 MMOL/L (98-107); POTASSIUM 4.5 MMOL/L (3.6-5.0); SODIUM 131 MMOL/L (135-145)
[2022-01-05 11:15] LABS: CALCIUM 9.2 MG/DL (8.5-10.1); GLUCOSE 85 MG/DL (70-105)
[2022-01-05 11:17] LABS: CARBON DIOXIDE 27 MMOL/L (21-32)
[2022-01-05 11:19] LABS: CREATININE SERUM 4.47 MG/DL (0.60-1.30); GFR ESTIMATED 15
[2022-01-05 11:20] LABS: BUN/CREATININE RATIO 5
[2022-01-05 12:23] VITALS: BP 110/70
== END 2022-01-05 12:25 | disposition home or self-care (01) ==
LOC: EDUNIT# 09:28 → ER 09:30
DX: I12.0 Hypertensive chronic kidney disease with stage 5 chronic kidney disease or end stage renal disease (principal); N18.6 End stage renal disease; J43.9 Emphysema, unspecified; Z87.442 Personal history of urinary calculi; Z99.2 Dependence on renal dialysis; Z99.81 Dependence on supplemental oxygen
CPT/HCPCS: 36415; 80048; 84484; 85025; 93005

== ENCOUNTER 2022-03-18 05:15 | Emergency (ER) | payer MEDICARE ==
[~2022-03-18] VITALS: Ht 175 cm; Wt 68.0 kg
[~2022-03-18 05:15] MED LIST changes: +ALBU8.5H6 IH; -RT-ALBUINH IH
[2022-03-18] MEDS ORDERED: DICYCLOMINE 10 MG (BENTYL) CAP PO STA (05:33)
--- NOTE | 2022-03-18 05:40 | ED GI ---
General Chief Complaint: Abdominal/GI Problems Stated Complaint: DIARRHEA Nursing Triage Note: diarrhea, abdominal cramping x3 days. Source of Information: Patient, Family () Exam Limitations: No Limitations (JESSEE LA MD) History of Present Illness Date Seen by Provider: Mar 18, 2022 Time Seen by Provider: 05:27 Initial Comments Patient is a 56-year-old male who presents to the emergency department with a chief complaint of diarrhea, too numerous to count episodes over the last 3 days and abdominal cramping. Patient states that he took 1 dose of 2 tablets of Imodium yesterday without relief of symptoms. He has not been taking his prescribed medications because he felt like he was "wasting them" as everything was going right through him. He states every time he has anything to eat or d rink he has diarrhea immediately. He states he was up all night long with diarrhea. He endorses pretty significant abdominal pain. He is not nauseous. He is not lightheaded or dizzy. He denies fevers or chills, URI symptoms. He is a dialysis patient, dialyzes Monday and Monday. He dialyzed on Monday and is going to dialyze tomorrow. He denies shortness of breath. No swelling. City water. No recent antibiotics. He is on prednisone for his breathing. He takes chronic hydrocodone for back pain. No contacts at home with similar symptoms. Timing/Duration: 2-3 Days Severity/Quality: Cramping Location: Generalized Abdomen Radiation: No Radiation Activities at Onset: None Modifying Factors: Worsens With Eating Associated Symptoms: Denies Symptoms (JESSEE LA MD) Allergies and Home Medications Allergies Coded Allergies: No Known Drug Allergies (Unverified , 09/30/09) Patient Home Medication List Home Medication List Reviewed: Yes (JESSEE LA MD) Albuterol Sulfate (Ventolin Hfa) 1 Puff Puff, 2 PUFF IH Q4H PRN for SHORTNESS OF BREATH Prescribed by: FRANCIS MURRAY on 02/20/19 180 Amlodipine Besylate (Amlodipine Besylate) 10 Mg Tablet, 10 MG PO HS, (Reported) Entered as Reported by: MELVIN NAVA on 05/13/14 1419 Cefuroxime Axetil (Cefuroxime) 250 Mg Tablet, 250 MG PO DAILY Prescribed by: FRANCIS MURRAY on 02/20/191836 Hydralazine HCl (Hydralazine HCl) 10 Mg Tablet, 10 MG PO Q6H Prescribed by: FRANCIS MURRAY on 02/20/191835 Hydrocodone Bit/Acetaminophen (HYDROcodone/APAP 7.5/325 TAB) 1 Each Tablet, (Reported) Entered as Reported by: JADEN DAMICO on 01/08/181854 Lorazepam (Ativan) 1 Mg Tablet, 1 MG PO TID PRN for ANXIETY, (Reported) Entered as Reported by: GISELL SWANSON on 01/05/151924 Metoprolol Tartrate (Metoprolol Tartrate) 50 Mg Tablet, 50 MG PO BID Prescribed by: SUSY FLEMING on 01/06/151199 Prednisone (Prednisone) 20 Mg Tab, 40 MG PO DAILY Prescribed by: FRANCIS MURRAY on 02/20/191836 Zolpidem Tartrate (Ambien) 5 Mg Tablet, 1 TAB PO HS, (Reported) Entered as Reported by: JADEN DAMICO on 11/23/151920 Review of Systems Review of Systems Constitutional: see HPI EENTM: No Symptoms Reported Respiratory: No Symptoms Reported Cardiovascular: No Symptoms Reported Gastrointestinal: Abdominal Pain, Diarrhea Genitourinary: No Symptoms Reported Musculoskeletal: back pain (chronix) Skin: no symptoms reported Psychiatric/Neurological: No Symptoms Reported (JESSEE LA MD) All Other Systems Reviewed Negative Unless Noted: Yes (JESSEE LA MD) Past Pklnbwe-Qqortw-Lnpcvw Hx Patient Social History Tobacco Use?: Yes Substance use?: No Alcohol Use?: No Pt feels they are or have been: No (JESSEE LA MD) Immunizations Up To Date Tetanus Booster (TDap): Less than 5yrs PED Vaccines UTD: No First/Initial COVID19 Vaccinat: x2 Second COVID19 Vaccination Tyler: HAS HAD BOTH SHOTS Third COVID19 Vaccination Date: HAS HAD BOTH SHOTS (JESSEE LA MD) Seasonal Allergies Seasonal Allergies: No (JESSEE LA MD) Past Medical History Surgery/Hospitalization HX: dialysis 3 times a week, HYPERTENSION, ARTHRITIS, COPD, abdominal hernia, renal stones, left arm fistula, asthma, loop recorder Surgeries: Yes (UMBILICAL HERNIA REPAIR 1994; L ARM FISTULA;LOOP RECORDER) Abdominal, Arteriovenous Shunt, Cardiac, Dialysis, Vascular Surgery Respiratory: Yes (CHRONIC O2 AT 3L-CONTINUES TO SMOKE 3 PPD) COPD, Emphysema Currently Using CPAP: No Currently Using BIPAP: No Cardiac: Yes Hypertension Neurological: No Reproductive Disorders: No Genitourinary: Yes (DIALYSIS --) Kidney Stones, Renal Failure, Dialysis Gastrointestinal: Yes (UMBILICAL HERNIA REPAIR 1994) Abdominal Hernia Musculoskeletal: No Endocrine: No HEENT: No Hearing Impairment: Hard of Hearing Cancer: No Psychosocial: Yes Anxiety Integumentary: No Blood Disorders: No Adverse Reaction/Blood Tranf: No (JESSEE LA MD) Family Medical History FH: COPD (chronic obstructive pulmonary disease) 19 FATHER FH: emphysema 19 FATHER FH: heart attack 19 FATHER FH: scoliosis G8 BROTHER, FH: stroke G8 SISTER FHx: heart disease G8 SISTER Thyroid disease 19 MOTHER SOCIAL HISTORY: -ETOH--HX OF ABUSE-19 BEERS / DAY -DRUGS--DENIES USE -SMOKES 3 PPD (JESSEE LA MD) Physical Exam Vital Signs Vital Signs - First Documented 03/18/22 05:22 Temp 36.1 Pulse 78 Resp 16 B/P (MAP) 168/91 (116) Pulse Ox 98 O2 Delivery Room Air (SPENCER SHEEHAN MD) Vital Signs Capillary Refill : Less Than 3 Seconds (JESSEE LA MD) Height/Weight/BMI Height: 5'9.00" Weight: 150lbs. 0oz. [id number]; 22.00 BMI Method:Stated General Appearance: WD/WN, thin HEENT: PERRL/EOMI Neck: normal inspection Respiratory: no respiratory distress, no accessory muscle use, other (coarse bilateral BS, no distress/increased work of breathing. No wheezes.) Cardiovascular: regular rate, rhythm (80's) Gastrointestinal: guarding (voluntary guarding. slightly hyperactive BS. diffusely tender - seems more tender in the LLQ) Extremities: normal range of motion, non-tender, normal inspection, no pedal edema, other (AV fistula LUE, + thrill) Neurologic/Psychiatric: alert, normal mood/affect, oriented x 3 Skin: normal color, warm/dry (JESSEE LA MD) Progress/Results/Core Measures Results/Orders Lab Results Laboratory Tests Test 03/18/22 06:00 Range/Units White Blood Count 19.5 H 4.3-11.0 10^3/uL Red Blood Count 3.50 L 4.30-5.52 10^6/uL Hemoglobin 11.3 L 13.3-17.7 g/dL Hematocrit 32 L 40-54 % Mean Corpuscular Volume 92 80-99 fL Mean Corpuscular Hemoglobin 32 25-34 pg Mean Corpuscular Hemoglobin Concent 35 32-36 g/dL Red Cell Distribution Width 14.3 10.0-14.5 % Platelet Count 144 130-400 10^3/uL Mean Platelet Volume 9.5 9.0-12.2 fL Immature Granulocyte % (Auto) 1 % Neutrophils (%) (Auto) 80 H 42-75 % Lymphocytes (%) (Auto) 11 L 12-44 % Monocytes (%) (Auto) 7 0-12 % Eosinophils (%) (Auto) 2 0-10 % Basophils (%) (Auto) 0 0-10 % Neutrophils # (Auto) 15.5 H 1.8-7.8 10^3/uL Lymphocytes # (Auto) 2.2 1.0-4.0 10^3/uL Monocytes # (Auto) 1.3 H 0.0-1.0 10^3/uL Eosinophils # (Auto) 0.4 H 0.0-0.3 10^3/uL Basophils # (Auto) 0.0 0.0-0.1 10^3/uL Immature Granulocyte # (Auto) 0.1 0.0-0.1 10^3/uL Neutrophils % (Manual) 80 % Lymphocytes % (Manual) 13 % Monocytes % (Manual) 7 % Anisocytosis SLIGHT Sodium Level 128 L 135-145 MMOL/L Potassium Level 3.7 3.6-5.0 MMOL/L Chloride Level 89 L 98-107 MMOL/L Carbon Dioxide Level 21 21-32 MMOL/L Anion Gap 18 H 5-14 MMOL/L Blood Urea Nitrogen 37 H 7-18 MG/DL Creatinine 7.85 H 0.60-1.30 MG/DL Estimat Glomerular Filtration Rate 7 BUN/Creatinine Ratio 5 Glucose Level 93 70-105 MG/DL Calcium Level 8.5 8.5-10.1 MG/DL Corrected Calcium 9.1 8.5-10.1 MG/DL Total Bilirubin 0.5 0.1-1.0 MG/DL Aspartate Amino Transf (AST/SGOT) 9 5-34 U/L Alanine Aminotransferase (ALT/SGPT) 11 0-55 U/L Alkaline Phosphatase 93 40-136 U/L Total Protein 6.5 6.4-8.2 GM/DL Albumin 3.3 3.2-4.5 GM/DL (SPENCER SHEEHAN MD) My Orders Orders - SPENCER SHEEHAN MD Fentanyl Inj (Sublimaze Injection) (03/18/22 06:41) Hyoscyamine Sl Tablet (Levsin Sl Tablet) (03/18/22 06:45) (SPENCER SHEEHAN MD) Medications Given in ED Current Medications Medications Dose Ordered Sig/Tj Route Start Time Stop Time Status Last Admin Dose Admin Acetaminophen/ Hydrocodone Bitart 1 ea ONCE ONCE PO 03/18/22 05:45 03/18/22 05:46 DC 03/18/22 05:56 1 EA Hyoscyamine Sulfate 0.125 mg ONCE ONCE SL 03/18/22 06:45 03/18/22 06:46 DC 03/18/22 06:48 0.125 MG (SPENCER SHEEHAN MD) Vital Signs/I&O 03/18/22 05:22 Temp 36.1 Pulse 78 Resp 16 B/P (MAP) 168/91 (116) Pulse Ox 98 O2 Delivery Room Air (SPENCER SHEEHAN MD) Blood Pressure Mean: 116 Progress Progress Note : Progress Note I assumed care of the patient at 0600 pending labs. Patient has had a hyd rocodone as well as dicyclomine. We are pending stool sample. 0642: Reevaluated the patient and he is still having some cramping. I have ordered fentanyl 50 mcg IV as well as 0.125 mg of Levsin sublingual. I have reviewed the labs. He does have markedly elevated white count but I believe this is related to his diarrhea. Creatinine is elevated in expected range for a patient on dialysis but potassium is normal. We will see how he does after repeat dose of pain medicine and with Levsin and consider further evaluation such as imaging after that. Monitor patient. 0740: Overall feeling much better. He does report that he has not taken his prescribed pain medicine for 3 days because of the diarrhea which may have added to the diarrhea. He is certainly better after the fentanyl and Levsin. I will send this prescription for Levsin and he will continue his home pain medicines as previously prescribed. He has not been able to give us a stool sample but that is actually a good sign and that he has not had persistent stools. He would like to go home and then if things worsen he will come back. He will go to dialysis tomorrow. Discharged home with return precautions. Patient verbalized understanding instructions and agreement with plan. (SPENCER SHEEHAN MD) Departure Impression Primary Impression: Diarrhea Qualified Codes: R19.7 - Diarrhea, unspecified Additional Impression: Lower abdominal pain Disposition: HOME, SELF-CARE Condition: Improved Departure-Patient Inst. Decision time for Depature: 07:41 (SPENCER SHEEHAN MD) Referrals: OZZIE MOON APRN (PCP/Family) Primary Care Physician Patient Instructions: Diarrhea, Adult ED, Severe Abdominal Pain, Adult (DC) Add. Discharge Instructions: All discharge instructions reviewed with patient and/or family. Voiced understanding. Continue home medications as previously prescribed. Take the medications as directed. Please keep dialysis appointment tomorrow as scheduled. If you have more diarrhea today, you may try 2 tablets of the Imodium and you may repeat that 1 or 2 more times as needed with episodes of diarrhea. Drink an adequate amount of fluids and stick with clear or light diet and then advance as tolerated. Follow-up with your doctor for recheck and further evaluation as needed. Return for worse pain, fever, vomiting, weakness or other concerns as needed. Scripts Hyoscyamine Sulfate (Levsin-Sl) 0.125 Mg Tab.subl 0.125 MG SL Q4H, #10 TAB 0 Refills Prov: SPENCER SHEEHAN MD 03/18/22 JESSEE LA MD Mar 18, 2022 05:40 SPENCER SHEEHAN MD Mar 18, 2022 06:43
[2022-03-18] MEDS ORDERED: HYDROcodone/APAP 7.5 MG/325 MG (LORTAB, LORCET PLUS) TABLET PO ONE (05:45)
[2022-03-18 06:06] LABS: BASOPHILS % (AUTO) 0 % (0-10); EOSINOPHILS # (AUTO) 0.4 10^3/uL (0.0-0.3); EOSINOPHILS % (AUTO) 2 % (0-10); HEMATOCRIT 32 % (40-54); HEMOGLOBIN 11.3 g/dL (13.3-17.7); LYMPHOCYTES # (AUTO) 2.2 10^3/uL (1.0-4.0); LYMPHOCYTES % (AUTO) 11 % (12-44); MEAN CORPUSCULAR HEMOGLOBIN 32 pg (25-34); MEAN CORPUSCULAR HGB CONC 35 g/dL (32-36); MEAN CORPUSCULAR VOLUME 92 fL (80-99); MEAN PLATELET VOLUME 9.5 fL (9.0-12.2); MONOCYTES # (AUTO) 1.3 10^3/uL (0.0-1.0); MONOCYTES % (AUTO) 7 % (0-12); NEUTROPHILS # (AUTO) 15.5 10^3/uL (1.8-7.8); NEUTROPHILS % (AUTO) 80 % (42-75); PLATELET COUNT 144 10^3/uL (130-400); WHITE BLOOD COUNT 19.5 10^3/uL (4.3-11.0)
[2022-03-18 06:20] LABS: ALBUMIN 3.3 GM/DL (3.2-4.5)
[2022-03-18 06:21] LABS: POTASSIUM 3.7 MMOL/L (3.6-5.0)
[2022-03-18 06:22] LABS: CALCIUM 8.5 MG/DL (8.5-10.1)
[2022-03-18 06:23] LABS: ANISOCYTOSIS SLIGHT; LYMPHOCYTES % (MANUAL) 13 %; MONOCYTES % (MANUAL) 7 %; NEUTROPHILS % (MANUAL) 80 %; TOTAL PROTEIN 6.5 GM/DL (6.4-8.2)
[2022-03-18 06:25] LABS: BILIRUBIN,TOTAL 0.5 MG/DL (0.1-1.0)
[2022-03-18 06:27] LABS: CREATININE SERUM 7.85 MG/DL (0.60-1.30)
[2022-03-18] MEDS ORDERED: fentaNYL INJ 100 MCG/2 ML AMP IVP STA (06:41)
[2022-03-18] MEDS ORDERED: HYOSCYAMINE 0.125 MG (LEVSIN) TAB SL ONE (06:45)
[2022-03-18] MEDS ORDERED: HYOS0.1283 SL (07:43)
[2022-03-18 07:53] VITALS: BP 142/86
[2022-03-18] MEDS ORDERED: VANC125C11 PO (11:01)
== END 2022-03-18 07:52 | disposition home or self-care (01) ==
LOC: EDUNIT# 05:15 → ER 05:18
DX: R19.7 Diarrhea, unspecified (principal); R10.32 Left lower quadrant pain; I12.0 Hypertensive chronic kidney disease with stage 5 chronic kidney disease or end stage renal disease; N18.6 End stage renal disease; Z99.2 Dependence on renal dialysis
CPT/HCPCS: 36415; 80053; 85007; 85027; 87015; 87046; 87324; 87449; 87899; 96374

== ENCOUNTER 2022-09-13 09:38 | Emergency (ER) | payer MEDICARE ==
[~2022-09-13] VITALS: Ht 175 cm; Wt 62.5 kg
[~2022-09-13 09:38] MED LIST changes: +HYOS0.1283 SL; +VANC125C11 PO
[2022-09-13 10:37] LABS: BASOPHILS % (AUTO) 0 % (0-10); EOSINOPHILS # (AUTO) 0.1 10^3/uL (0.0-0.3); EOSINOPHILS % (AUTO) 1 % (0-10); HEMATOCRIT 33 % (40-54); LYMPHOCYTES % (AUTO) 5 % (12-44); MEAN CORPUSCULAR HEMOGLOBIN 32 pg (25-34); MEAN CORPUSCULAR HGB CONC 37 g/dL (32-36); MEAN CORPUSCULAR VOLUME 87 fL (80-99); MEAN PLATELET VOLUME 10.8 fL (9.0-12.2); MONOCYTES # (AUTO) 0.7 10^3/uL (0.0-1.0); MONOCYTES % (AUTO) 4 % (0-12); NEUTROPHILS # (AUTO) 15.5 10^3/uL (1.8-7.8); NEUTROPHILS % (AUTO) 87 % (42-75); PLATELET COUNT 159 10^3/uL (130-400); WHITE BLOOD COUNT 17.8 10^3/uL (4.3-11.0)
[2022-09-13 10:42] LABS: INR 1.2 (0.8-1.4); PROTHROMBIN TIME PATIENT 15.1 SEC (12.2-14.7)
[2022-09-13 10:43] LABS: ALBUMIN 3.7 GM/DL (3.2-4.5)
[2022-09-13 10:44] LABS: POTASSIUM 3.4 MMOL/L (3.6-5.0)
[2022-09-13 10:45] LABS: CALCIUM 10.1 MG/DL (8.5-10.1)
[2022-09-13 10:46] LABS: TOTAL PROTEIN 7.5 GM/DL (6.4-8.2)
[2022-09-13 10:48] LABS: BILIRUBIN,TOTAL 0.9 MG/DL (0.1-1.0)
[2022-09-13 10:49] LABS: CREATININE SERUM 4.07 MG/DL (0.60-1.30)
--- NOTE | 2022-09-13 10:59 | Diagnostic Imaging Report ---
CHEST 1 VIEW, AP/PA ONLY INDICATION: Fever. COMPARISON: 11/30/2021. FINDINGS: Bilateral perihilar consolidations have developed. Potential small bilateral pleural effusions. No pneumothorax. Cardiomegaly with loop recorder device in place. IMPRESSION: 1. Imaging features favor congestive heart failure with pulmonary edema and small pleural effusions. Dictated by: Dictated on workstation # [id number]
[2022-09-13 11:05] LABS: BAND NEUTROPHILS 2 %; BASOPHILS % (MANUAL) 0 %; EOSINOPHILS % (MANUAL) 1 %; LYMPHOCYTES % (MANUAL) 9 %; MONOCYTES % (MANUAL) 1 %; NEUTROPHILS % (MANUAL) 87 %; TARGET CELLS SLIGHT
[2022-09-13 12:06] LABS: BILIRUBIN,URINE NEGATIVE (NEGATIVE); CLARITY,URINE CLEAR; COLOR,URINE YELLOW; GLUCOSE, URINE (UA) TRACE (NEGATIVE); KETONES,URINE NEGATIVE (NEGATIVE); LEUKOCYTE ESTERASE ,URINE NEGATIVE (NEGATIVE); NITRITE,URINE NEGATIVE (NEGATIVE); PROTEIN,URINE 2+ (NEGATIVE)
[2022-09-13 12:14] LABS: BACTERIA,URINE NEGATIVE /HPF; SQUAMOUS EPITHELIAL CELL,UR RARE /HPF; WBC,URINE RARE /HPF
--- NOTE | 2022-09-13 13:20 | ED General ---
General Chief Complaint: General Problems/Pain Stated Complaint: DISORIENTED | WEAKNESS Nursing Triage Note: PATIENT IS BROUGHT TO ED BY SPOUSE FOR WEAKNESS SINCE MONDAY. PATIENT JUST LEFT DIALYSIS AND STAFF SUGGESTED THEY HAVE PATIENT ASSESSED. PER SPOUSE THEY STATED "THEY ONLY TOOK LIKE ONE LITER OFF OF HIM TODAY". PATIENT WAS BROUGHT TO ROOM 08 VIA WC. SPOUSE AT BEDSIDE. PATIENT IS ORIENTED TO PERSON, PLACE, AND TIME BUT APPEARS DROWSY. Source of Information: Patient Exam Limitations: No Limitations History of Present Illness Date Seen by Provider: Sep 13, 2022 Time Seen by Provider: 10:31 Initial Comments This 56-year-old man presents to emergency room with complaints of fever and weakness. He was at dialysis this morning and was advised to present to the emergency room by dialysis staff. Symptoms began on Monday when he developed diarrhea. He slept most of that day. Monday he had difficulty walking and had jerky movements. Diarrhea persisted yesterday. He took Imodium and it resolved. His family reports that he did not eat or drink at all on Monday. Blood pressure reportedly was high at dialysis. They report a smaller portion of fluid was removed than usual. Patient uses oxygen at 3 L/min by nasal cannula at baseline. He is stable at that rate currently. He does have wet or coarse sounding respirations. Fever started after he left dialysis. Patient has dialysis due to renal failure from poorly controlled hypertension. His primary care provider is Dr. Triana. His traveling sales executive is Dr. Rosio Louie. Allergies and Home Medications Allergies Coded Allergies: No Known Drug Allergies (Unverified , 09/30/09) Patient Home Medication List Home Medication List Reviewed: Yes Albuterol Sulfate (Ventolin Hfa) 1 Puff Puff, 2 PUFF IH Q4H PRN for SHORTNESS OF BREATH Prescribed by: FRANCIS MURRAY on 02/20/19 1808 Amlodipine Besylate (Amlodipine Besylate) 10 Mg Tablet, 10 MG PO HS, (Reported) Entered as Reported by: MELVIN NAVA on 05/13/14 1419 Cefuroxime Axetil (Cefuroxime) 250 Mg Tablet, 250 MG PO DAILY Prescribed by: FRANCIS MURRAY on 02/20/19 183 Hydralazine HCl (Hydralazine HCl) 10 Mg Tablet, 10 MG PO Q6H Prescribed by: FRANCIS MURRAY on 02/20/19 1836 Hydrocodone Bit/Acetaminophen (HYDROcodone/APAP 7.5/325 TAB) 1 Each Tablet, (Reported) Entered as Reported by: JADEN DAMICO on 01/08/18 185 Hyoscyamine Sulfate (Levsin-Sl) 0.125 Mg Tab.subl, 0.125 MG SL Q4H Prescribed by: SPENCER SHEEHAN on 03/18/22 0743 Lorazepam (Ativan) 1 Mg Tablet, 1 MG PO TID PRN for ANXIETY, (Reported) Entered as Reported by: GISELL SWANSON on 01/05/15 192 Metoprolol Tartrate (Metoprolol Tartrate) 50 Mg Tablet, 50 MG PO BID Prescribed by: SUSY FLEMING on 01/06/15 1200 Prednisone (Prednisone) 20 Mg Tab, 40 MG PO DAILY Prescribed by: FRANCIS MURRAY on 02/20/19 183 Vancomycin HCl (Vancocin HCl) 125 Mg Capsule, 125 MG PO QID Prescribed by: SPENCER SHEEHAN on 03/18/22 1101 Zolpidem Tartrate (Ambien) 5 Mg Tablet, 1 TAB PO HS, (Reported) Entered as Reported by: JADEN DAMICO on 11/23/151920 Review of Systems Review of Systems Constitutional: fever, weakness EENTM: other (Dry oropharynx) Respiratory: see HPI Cardiovascular: see HPI Gastrointestinal: see HPI Genitourinary: no symptoms reported Musculoskeletal: no symptoms reported Skin: no symptoms reported Psychiatric/Neurological: No Symptoms Reported Hematologic/Lymphatic: No Symptoms Reported Immunological/Allergic: no symptoms reported Past Jydwmqs-Drscly-Inkoby Hx Patient Social History Tobacco Use?: Yes Tobacco type used: Cigarettes Smoking Status: Current Everyday Smoker Use of E-Cig and/or Vaping dev: No Substance use?: No Alcohol Use?: No (Former heavy alcohol use) Pt feels they are or have been: No Immunizations Up To Date Tetanus Booster (TDap): Less than 5yrs PED Vaccines UTD: No First/Initial COVID19 Vaccinat: x2 Second COVID19 Vaccination Tyler: x2 Third COVID19 Vaccination Date: x2 Seasonal Allergies Seasonal Allergies: No Past Medical History Surgery/Hospitalization HX: dialysis 3 times a week, HYPERTENSION, ARTHRITIS, COPD, abdominal hernia, renal stones, left arm fistula, asthma, loop recorder Surgeries: Yes (UMBILICAL HERNIA REPAIR 1994; L ARM FISTULA;LOOP RECORDER) Abdominal, Arteriovenous Shunt, Cardiac, Dialysis, Vascular Surgery Respiratory: Yes (CHRONIC O2 AT 3L-CONTINUES TO SMOKE 3 PPD) COPD, Emphysema Currently Using CPAP: No Currently Using BIPAP: No Cardiac: Yes Hypertension Neurological: No Reproductive Disorders: No Genitourinary: Yes (DIALYSIS --) Kidney Stones, Renal Failure, Dialysis Gastrointestinal: Yes (UMBILICAL HERNIA REPAIR 1994) Abdominal Hernia Musculoskeletal: No Endocrine: No HEENT: No Hearing Impairment: Hard of Hearing Cancer: No Psychosocial: Yes Anxiety Integumentary: No Blood Disorders: No Adverse Reaction/Blood Tranf: No Family Medical History FH: COPD (chronic obstructive pulmonary disease) 19 FATHER FH: emphysema 19 FATHER FH: heart attack 19 FATHER FH: scoliosis G8 BROTHER, FH: stroke G8 SISTER FHx: heart disease G8 SISTER Thyroid disease 19 MOTHER SOCIAL HISTORY: -ETOH--HX OF ABUSE-18 BEERS / DAY -DRUGS--DENIES USE -SMOKES 3 PPD Physical Exam-Suspected Sepsis Physical Exam Vital Signs Vital Signs - First Documented 09/13/22 09:40 Temp 38.1 Pulse 101 Resp 24 B/P (MAP) 186/78 (114) Pulse Ox 92 O2 Delivery Room Air Capillary Refill : Less Than 3 Seconds Blood Pressure Mean: 114 Height, Weight, BMI Height: 5'9.00" Weight: 150lbs. 0oz. 68.794153uh; 20.00 BMI Method:Stated General Appearance: No Apparent Distress, Mild Distress, Thin HEENT: PERRL/EOMI, Normal ENT Inspection, Other (Oropharynx dry) Neck: Normal Inspection; No JVD Respiratory: No Accessory Muscle Use, No Respiratory Distress, Pleural Rub, Rhonci Cardiovascular: No Edema, No Murmur, Tachycardia (Mild, regular) Gastrointestinal: Normal Bowel Sounds, Non Tender, Soft Extremity: Normal Inspection, No Pedal Edema Neurologic/Psychiatric: Alert, Oriented x3, No Motor/Sensory Deficits, Normal Mood/Affect Skin: normal color, warm/dry Focused Exam Lactate Level 09/13/22 09:45: Lactic Acid Level 2.07*H 09/13/22 12:20: Lactic Acid Level 1.20 Lactic Acid Level Progress/Results/Core Measures Suspected Sepsis SIRS Temperature: Pulse: 101 Respiratory Rate: 24 Laboratory Tests 09/13/22 09:45: White Blood Count 17.8H Blood Pressure 186 /78 Mean: 114 09/13/22 09:45: Lactic Acid Level 2.07*H 09/13/22 12:20: Lactic Acid Level 1.20 Laboratory Tests 09/13/22 09:45: Creatinine 4.07H, INR Comment 1.2, Platelet Count 159, Total Bilirubin 0.9 Results/Orders Lab Results Laboratory Tests Test 09/13/22 09:45 09/13/22 10:50 09/13/22 12:00 09/13/22 12:20 Range/Units White Blood Count 17.8 H 4.3-11.0 10^3/uL Red Blood Count 3.73 L 4.30-5.52 10^6/uL Hemoglobin 12.0 L 13.3-17.7 g/dL Hematocrit 33 L 40-54 % Mean Corpuscular Volume 87 80-99 fL Mean Corpuscular Hemoglobin 32 25-34 pg Mean Corpuscular Hemoglobin Concent 37 H 32-36 g/dL Red Cell Distribution Width 13.0 10.0-14.5 % Platelet Count 159 130-400 10^3/uL Mean Platelet Volume 10.8 9.0-12.2 fL Immature Granulocyte % (Auto) 3 % Neutrophils (%) (Auto) 87 H 42-75 % Lymphocytes (%) (Auto) 5 L 12-44 % Monocytes (%) (Auto) 4 0-12 % Eosinophils (%) (Auto) 1 0-10 % Basophils (%) (Auto) 0 0-10 % Neutrophils # (Auto) 15.5 H 1.8-7.8 10^3/uL Lymphocytes # (Auto) 1.0 1.0-4.0 10^3/uL Monocytes # (Auto) 0.7 0.0-1.0 10^3/uL Eosinophils # (Auto) 0.1 0.0-0.3 10^3/uL Basophils # (Auto) 0.0 0.0-0.1 10^3/uL Immature Granulocyte # (Auto) 0.5 H 0.0-0.1 10^3/uL Neutrophils % (Manual) 87 % Lymphocytes % (Manual) 9 % Monocytes % (Manual) 1 % Eosinophils % (Manual) 1 % Basophils % (Manual) 0 % Band Neutrophils 2 % Target Cells SLIGHT Prothrombin Time 15.1 H 12.2-14.7 SEC INR Comment 1.2 0.8-1.4 Activated Partial Thromboplast Time 50 H 24-35 SEC Sodium Level 141 135-145 MMOL/L Potassium Level 3.4 L 3.6-5.0 MMOL/L Chloride Level 94 L 98-107 MMOL/L Carbon Dioxide Level 30 21-32 MMOL/L Anion Gap 17 H 5-14 MMOL/L Blood Urea Nitrogen 19 H 7-18 MG/DL Creatinine 4.07 H 0.60-1.30 MG/DL Estimat Glomerular Filtration Rate 16 BUN/Creatinine Ratio 5 Glucose Level 108 H 70-105 MG/DL Lactic Acid Level 2.07 *H 1.20 0.50-2.00 MMOL/L Calcium Level 10.1 8.5-10.1 MG/DL Corrected Calcium 10.3 H 8.5-10.1 MG/DL Total Bilirubin 0.9 0.1-1.0 MG/DL Aspartate Amino Transf (AST/SGOT) 11 5-34 U/L Alanine Aminotransferase (ALT/SGPT) 8 0-55 U/L Alkaline Phosphatase 90 40-136 U/L C-Reactive Protein High Sensitivity 31.81 H 0.00-0.50 MG/DL Total Protein 7.5 6.4-8.2 GM/DL Albumin 3.7 3.2-4.5 GM/DL Influenza Type A (RT-PCR) Not Detected Not Detecte Influenza Type B (RT-PCR) Not Detected Not Detecte SARS-CoV-2 RNA (RT-PCR) Not Detected Not Detecte Urine Color YELLOW Urine Clarity CLEAR Urine pH 8.0 5-9 Urine Specific [place] 1.010 L 1.016-1.022 Urine Protein 2+ H NEGATIVE Urine Glucose (UA) TRACE H NEGATIVE Urine Ketones NEGATIVE NEGATIVE Urine Nitrite NEGATIVE NEGATIVE Urine Bilirubin NEGATIVE NEGATIVE Urine Urobilinogen 0.2 < = 1.0 MG/DL Urine Leukocyte Esterase NEGATIVE NEGATIVE Urine RBC (Auto) TRACE-I H NEGATIVE Urine RBC NONE /HPF Urine WBC RARE /HPF Urine Squamous Epithelial Cells RARE /HPF Urine Crystals NONE /LPF Urine Bacteria NEGATIVE /HPF Urine Casts NONE /LPF Urine Mucus NEGATIVE /LPF Urine Culture Indicated NO My Orders Orders - MATHEW HASKINS MD Cbc With Automated Diff (09/13/22 10:31) Comprehensive Metabolic Panel (09/13/22 10:31) Blood Culture (09/13/22 10:31) Sputum Culture (09/13/22 10:31) Urinalysis (09/13/22 10:31) Urine Culture (09/13/22 10:31) Protime With Inr (09/13/22 10:31) Partial Thromboplastin Time (09/13/22 10:31) Chest 1 View, Ap/Pa Only (09/13/22 10:31) Ed Iv/Invasive Line Start (09/13/22 10:31) Ed Iv/Invasive Line Start (09/13/22 10:31) Vital Signs Adult Sepsis Patie Q15M (09/13/22 10:31) O2 (09/13/22 10:31) Remove Rings In Anticipation O (09/13/22 10:31) Lactic Acid Analyzer (09/13/22 10:31) Covid 19 Inhouse Test (09/13/22 10:31) Influenza A And B By Pcr (09/13/22 10:31) Manual Differential (09/13/22 09:45) Hs C Reactive Protein (09/13/22 12:37) Cefepime Injection (Maxipime Injection) (09/13/22 13:30) Acetaminophen Tablet (Tylenol Tablet) (09/13/22 13:30) Fentanyl Inj (Sublimaze Injection) (09/13/22 15:15) Medications Given in ED Current Medications Medications Dose Ordered Sig/Tj Route Start Time Stop Time Status Last Admin Dose Admin Acetaminophen 1,000 mg ONCE ONCE PO 09/13/22 13:30 09/13/22 13:31 DC 09/13/22 13:31 1,000 MG Cefepime HCl 2000 mg/Sodium Chloride 50 ml @ 100 mls/hr ONCE ONCE IV 09/13/22 13:30 09/13/22 13:59 DC 09/13/22 13:33 100 MLS/HR Fentanyl Citrate 50 mcg ONCE ONCE IVP 09/13/22 15:15 09/13/22 15:16 DC 09/13/22 15:24 50 MCG Vital Signs/I&O 09/13/22 09/13/22 09:40 13:31 Temp 38.1 38.7 Pulse 101 Resp 24 B/P (MAP) 186/78 (114) Pulse Ox 92 O2 Delivery Room Air Capillary Refill : Less Than 3 Seconds Blood Pressure Mean: 114 Progress Note : Progress Note Patient was interviewed and examined. was also interviewed. Septic work- up was pursued. Labs were reviewed and interpreted by me. He was found to have a significant leukocytosis of 17.8 and a significant CRP of 31 suggesting infectious etiology. Chest x-ray was viewed by me and radiologist interpretation was reviewed. Although radiologist's interpretation suggested vascular congestion and pulmonary edema, I think his chest x-ray findings are more likely related to pneumonia given his presentation and labs. Creatinine was elevated at 4 consistent with his end-stage renal failure and dialysis. Lactic acid was 2.07. Initial antibiotic therapy was started with cefepime after blood cultures were drawn. Given patient's end-stage renal failure with dialysis, admission was sought at [facility] in [place]. Transfer was excepted by Dr. Robertson, hospitalist at [facility] in [place]. Fever was treated with Tylenol and headache was treated with fentanyl. Diagnostic Imaging Diagonstic Imaging: Xray Plain Films/CT/US/NM/MRI: chest Comments NAME: FANY ALFARO [facility] REC#: [id number] PT STATUS: REG ER : 1965 PHYSICIAN: MATHEW HASKINS MD ADMIT DATE: 09/13/22/ER Signed Date of Exam:09/13/22 CHEST 1 VIEW, AP/PA ONLY CHEST 1 VIEW, AP/PA ONLY INDICATION: Fever. COMPARISON: 11/30/2021. FINDINGS: Bilateral perihilar consolidations have developed. Potential small bilateral pleural effusions. No pneumothorax. Cardiomegaly with loop recorder device in place. IMPRESSION: 1. Imaging features favor congestive heart failure with pulmonary edema and small pleural effusions. Dictated by: Dictated on workstation # [id number] Dict: 09/13/22 1056 Trans: 09/13/22 1148 [id number] Interpreted by: BAMBI MAURICE MD Electronically signed by: BAMBI MAURICE MD 09/13/22 1148 Departure Impression Primary Impression: Sepsis Qualified Codes: A41.9 - Sepsis, unspecified organism Additional Impressions: Pneumonia Qualified Codes: J18.9 - Pneumonia, unspecified organism End stage renal failure on dialysis Disposition: SHT-TRM HOSP Condition: Stable Transfer Transfer Reason: Exceeds level of care Time Spoke to Accepting Phy: 13:25 Transfer Progress Notes Transfer was excepted by Dr. Robertson, hospitalist Transfer Time: 19:00 Transfer Facility: [facility] Method of Transfer: Air Departure-Patient Inst. Referrals: SOPHIE TRIANA DO (PCP/Family) Primary Care Physician MATHEW HASKINS MD Sep 13, 2022 13:20
[2022-09-13] MEDS ORDERED: CEFEPIME INJECTION 2,000 MG in NS (IVPB) 50 ML IV ONE (13:30)
[2022-09-13] MEDS ORDERED: ACETAMINOPHEN 500 MG TAB (TYLENOL) PO ONE (13:30)
[2022-09-13] MEDS ORDERED: fentaNYL INJ 100 MCG/2 ML AMP IVP ONE (15:15)
[2022-09-13 19:00] VITALS: BP 147/81
== END 2022-09-13 19:00 | disposition short-term general hospital (02) ==
LOC: EDUNIT# 09:38 → ER 09:40
DX: A41.9 Sepsis, unspecified organism (principal); J18.9 Pneumonia, unspecified organism; I12.0 Hypertensive chronic kidney disease with stage 5 chronic kidney disease or end stage renal disease; N18.6 End stage renal disease; J43.9 Emphysema, unspecified; F17.210 Nicotine dependence, cigarettes, uncomplicated; Z99.2 Dependence on renal dialysis; Z99.81 Dependence on supplemental oxygen; Z20.822 Contact with and (suspected) exposure to COVID-19
CPT/HCPCS: 36415; 71045; 80053; 81000; 83605; 85007; 85027; 85610; 85730; 86141; 87040; 87088; 87636

== ENCOUNTER 2023-01-11 05:49 | Outpatient (CLI) | payer MEDICARE ==
[~2023-01-11] VITALS: Ht 170.2 cm; Wt 62.5 kg
[2023-01-13] MEDS ORDERED: GBPN600T PO (13:00)
[2023-01-13] MEDS ORDERED: FURO80TA3 PO (13:00)
[2023-01-13] MEDS ORDERED: CLON0.3T PO (13:00)
[2023-01-13] MEDS ORDERED: TRAZ150T72 PO (13:00)
[2023-01-13] MEDS ORDERED: LISI40TA9 PO (13:00)
== END 2023-01-13 13:10 | disposition home or self-care (01) ==
LOC: PREOP 05:49
PROVIDERS: ATTEND Surgery
DX: Z01.818 Encounter for other preprocedural examination (principal)

== ENCOUNTER 2023-01-22 16:27 | Emergency (ER) | payer MEDICARE ==
[~2023-01-22] VITALS: Ht 175 cm; Wt 64.7 kg
[~2023-01-22 16:27] MED LIST changes: +CLON0.3T PO; +FURO80TA3 PO; +GBPN600T PO; +LISI40TA9 PO; +TRAZ150T72 PO
--- NOTE | 2023-01-22 17:12 | ED General ---
General Chief Complaint: Skin/Wound Problems Stated Complaint: BOIL BY GROIN Nursing Triage Note: pt ambulates to bed 1 with c/o swelling in rt groin area. pt said he was seen in [facility] and they weren't sure if area was a hernia or abcess so sent him here. pt has fistula in left arm, history of copd on 3.5l contin. Source of Information: Patient, Family Exam Limitations: No Limitations History of Present Illness Date Seen by Provider: Jan 22, 2023 Time Seen by Provider: 16:58 Allergies and Home Medications Allergies Coded Allergies: No Known Drug Allergies (Unverified , 09/30/09) Patient Home Medication List Amlodipine Besylate (Amlodipine Besylate) 10 Mg Tablet, 10 MG PO HS, (Reported) Entered as Reported by: MELVIN NAVA on 05/13/14 1419 Clonidine HCl (Clonidine HCl) 0.3 Mg Tablet, 0.3 MG PO TID, (Reported) Entered as Reported by: BRYCE GOLDEN on 01/13/23 1300 Furosemide (Furosemide) 80 Mg Tablet, 80 MG PO BID, (Reported) Entered as Reported by: BRYCE GOLDEN on 01/13/23 1300 Gabapentin (Gabapentin) 600 Mg Tablet, 600 MG PO TID, (Reported) Entered as Reported by: BRYCE GOLDEN on 01/13/23 1300 Hydrocodone Bit/Acetaminophen (HYDROcodone/APAP 7.5/325 TAB) 1 Each Tablet, (Reported) Entered as Reported by: JADEN DAMICO on 01/08/18 1855 Lisinopril (Lisinopril) 40 Mg Tablet, 40 MG PO DAILY, (Reported) Entered as Reported by: BRYCE GOLDEN on 01/13/23 1300 Metoprolol Tartrate (Metoprolol Tartrate) 50 Mg Tablet, 50 MG PO BID Prescribed by: SUSY FLEMING on 01/06/15 1200 Trazodone HCl (Trazodone HCl) 150 Mg Tablet, 150 MG PO DAILY, (Reported) Entered as Reported by: BRYCE GOLDEN on 01/13/23 1300 Past Uoupolm-Zluvme-Bbyjvv Hx Immunizations Up To Date Tetanus Booster (TDap): Less than 5yrs PED Vaccines UTD: No First/Initial COVID19 Vaccinat: x2 Second COVID19 Vaccination Tyler: x2 Third COVID19 Vaccination Date: x2 Seasonal Allergies Seasonal Allergies: No Past Medical History Surgery/Hospitalization HX: dialysis 3 times a week, HYPERTENSION, ARTHRITIS, COPD, abdominal hernia, renal stones, left arm fistula, asthma, loop recorder Surgeries: Yes (UMBILICAL HERNIA REPAIR 1994; L ARM FISTULA;LOOP RECORDER) Abdominal, Arteriovenous Shunt, Cardiac, Dialysis, Vascular Surgery Respiratory: Yes (CHRONIC O2 AT 3L-CONTINUES TO SMOKE 3 PPD) COPD, Emphysema Currently Using CPAP: No Currently Using BIPAP: No Cardiac: Yes Hypertension Neurological: No Reproductive Disorders: No Genitourinary: Yes (DIALYSIS --) Kidney Stones, Renal Failure, Dialysis Gastrointestinal: Yes (UMBILICAL HERNIA REPAIR 1994) Abdominal Hernia Musculoskeletal: No Endocrine: No HEENT: No Hearing Impairment: Hard of Hearing Cancer: No Psychosocial: Yes Anxiety Integumentary: No Blood Disorders: No Adverse Reaction/Blood Tranf: No Family Medical History FH: COPD (chronic obstructive pulmonary disease) 19 FATHER FH: emphysema 19 FATHER FH: heart attack 19 FATHER FH: scoliosis G8 BROTHER, FH: stroke G8 SISTER FHx: heart disease G8 SISTER Thyroid disease 19 MOTHER SOCIAL HISTORY: -ETOH--HX OF ABUSE-18 BEERS / DAY -DRUGS--DENIES USE -SMOKES 3 PPD Physical Exam Vital Signs Vital Signs - First Documented 01/22/23 16:50 Temp 36.9 Pulse 76 Resp 20 B/P (MAP) 185/95 (125) Pulse Ox 98 O2 Delivery Nasal Cannula Capillary Refill : Less Than 3 Seconds Height, Weight, BMI Height: 5'9.00" Weight: 150lbs. 0oz. 68.082861tc; 21.00 BMI Method:Stated Progress/Results/Core Measures Suspected Sepsis SIRS Temperature: Pulse: 76 Respiratory Rate: 20 Laboratory Tests 01/22/23 17:20: White Blood Count 10.2 Blood Pressure 185 /95 Mean: 125 Laboratory Tests 01/22/23 17:20: Creatinine 6.85H, Platelet Count 190, Total Bilirubin < 0.1L Results/Orders Lab Results Laboratory Tests Test 01/22/23 17:20 Range/Units White Blood Count 10.2 4.3-11.0 10^3/uL Red Blood Count 2.80 L 4.30-5.52 10^6/uL Hemoglobin 9.0 L 13.3-17.7 g/dL Hematocrit 25 L 40-54 % Mean Corpuscular Volume 90 80-99 fL Mean Corpuscular Hemoglobin 32 25-34 pg Mean Corpuscular Hemoglobin Concent 36 32-36 g/dL Red Cell Distribution Width 14.4 10.0-14.5 % Platelet Count 190 130-400 10^3/uL Mean Platelet Volume 9.4 9.0-12.2 fL Immature Granulocyte % (Auto) 0 % Neutrophils (%) (Auto) 72 42-75 % Lymphocytes (%) (Auto) 17 12-44 % Monocytes (%) (Auto) 8 0-12 % Eosinophils (%) (Auto) 3 0-10 % Basophils (%) (Auto) 1 0-10 % Neutrophils # (Auto) 7.3 1.8-7.8 10^3/uL Lymphocytes # (Auto) 1.7 1.0-4.0 10^3/uL Monocytes # (Auto) 0.8 0.0-1.0 10^3/uL Eosinophils # (Auto) 0.3 0.0-0.3 10^3/uL Basophils # (Auto) 0.1 0.0-0.1 10^3/uL Immature Granulocyte # (Auto) 0.0 0.0-0.1 10^3/uL Sodium Level 134 L 135-145 MMOL/L Potassium Level 4.6 3.6-5.0 MMOL/L Chloride Level 94 L 98-107 MMOL/L Carbon Dioxide Level 23 21-32 MMOL/L Anion Gap 17 H 5-14 MMOL/L Blood Urea Nitrogen 34 H 7-18 MG/DL Creatinine 6.85 H 0.60-1.30 MG/DL Estimat Glomerular Filtration Rate 9 BUN/Creatinine Ratio Glucose Level 92 70-105 MG/DL Calcium Level 8.4 L 8.5-10.1 MG/DL Corrected Calcium 9.1 8.5-10.1 MG/DL Total Bilirubin < 0.1 L 0.1-1.0 MG/DL Aspartate Amino Transf (AST/SGOT) 8 5-34 U/L Alanine Aminotransferase (ALT/SGPT) < 6 0-55 U/L Alkaline Phosphatase 91 40-136 U/L C-Reactive Protein High Sensitivity 4.68 H 0.00-0.50 MG/DL Total Protein 6.6 6.4-8.2 GM/DL Albumin 3.1 L 3.2-4.5 GM/DL My Orders Orders - BRUEGGEMANN,MATHEW T MD Cbc And Automated Diff (01/22/23 17:06) Comprehensive Metabolic Panel (01/22/23 17:06) Hs C Reactive Protein (01/22/23 17:06) Ed Iv/Invasive Line Start (01/22/23 17:06) Fentanyl Injection (Fentanyl Injection (01/22/23 17:15) Ct Pelvis Wo (01/22/23 17:06) Wound Culture (01/22/23 18:07) Fentanyl Injection (Fentanyl Injection (01/22/23 18:15) Oxycodone/Apap 5/325mg Tablet (Oxycodon (01/22/23 19:00) Doxycycline Hyclate Tablet (Doxycycline (01/22/23 19:00) Cephalexin Capsule (Cephalexin Capsule) (01/22/23 19:00) Medications Given in ED Current Medications Medications Dose Ordered Sig/Tj Route Start Time Stop Time Status Last Admin Dose Admin Fentanyl Citrate 50 mcg ONCE ONCE IVP 01/22/23 17:15 01/22/23 17:16 DC 01/22/23 17:21 50 MCG Fentanyl Citrate 50 mcg ONCE ONCE IVP 01/22/23 18:15 01/22/23 18:16 DC 01/22/23 18:20 50 MCG Vital Signs/I&O 01/22/23 16:50 Temp 36.9 Pulse 76 Resp 20 B/P (MAP) 185/95 (125) Pulse Ox 98 O2 Delivery Nasal Cannula Capillary Refill : Less Than 3 Seconds Blood Pressure Mean: 125 Departure Impression Primary Impression: Inguinal abscess Additional Impressions: Inguinal lymphadenitis End stage renal failure on dialysis Disposition: HOME, SELF-CARE Condition: Improved Departure-Patient Inst. Decision time for Depature: 18:59 Referrals: SOPHIE TRIANA DO (PCP/Family) Primary Care Physician Patient Instructions: Abscess Incision and Drainage Add. Discharge Instructions: Complete your antibiotics as prescribed. Take the antibiotics after dialysis on dialysis days. Follow-up with your primary care provider soon as possible. I also suggest following up with Dr. Kelly and to have him monitor the healing of the abscess. Have either Dr. Kelly or your primary care provider to check on the culture results on Monday to ensure you are on the best antibiotics for this infection. Pull the packing out of the abscess opening in the next 6 to 12 hours. Then perform sitz bath soaks for 15 to 30 minutes 3 times a day for the next several days. Use a few squirts of the antibacterial soap provided in the bath water. You may use Percocet as prescribed for pain. Return to care if you have worsening symptoms despite following these instructions, especially if you develop fevers greater than 100.3. All discharge instructions reviewed with patient and/or family. Voiced understanding. Scripts Cephalexin (Cephalexin) 500 Mg Tablet 500 MG PO BID, #20 TAB Prov: MATHEW HASKINS MD 01/22/23 Doxycycline Hyclate (Doxycycline Hyclate) 100 Mg Tablet 100 MG PO BID, #20 TAB 0 Refills Prov: MATHEW HASKINS MD 01/22/23 MATHEW HASKINS MD Jan 22, 2023 17:11
[2023-01-22] MEDS ORDERED: fentaNYL INJECTION 100 MCG/2 ML VIAL IVP ONE ×2 (17:15→18:15)
[2023-01-22 17:33] LABS: BASOPHILS # (AUTO) 0.1 10^3/uL (0.0-0.1); BASOPHILS % (AUTO) 1 % (0-10); EOSINOPHILS # (AUTO) 0.3 10^3/uL (0.0-0.3); EOSINOPHILS % (AUTO) 3 % (0-10); HEMATOCRIT 25 % (40-54); LYMPHOCYTES # (AUTO) 1.7 10^3/uL (1.0-4.0); LYMPHOCYTES % (AUTO) 17 % (12-44); MEAN CORPUSCULAR HEMOGLOBIN 32 pg (25-34); MEAN CORPUSCULAR HGB CONC 36 g/dL (32-36); MEAN CORPUSCULAR VOLUME 90 fL (80-99); MEAN PLATELET VOLUME 9.4 fL (9.0-12.2); MONOCYTES # (AUTO) 0.8 10^3/uL (0.0-1.0); MONOCYTES % (AUTO) 8 % (0-12); NEUTROPHILS # (AUTO) 7.3 10^3/uL (1.8-7.8); NEUTROPHILS % (AUTO) 72 % (42-75); PLATELET COUNT 190 10^3/uL (130-400); WHITE BLOOD COUNT 10.2 10^3/uL (4.3-11.0)
[2023-01-22 17:41] LABS: ALBUMIN 3.1 GM/DL (3.2-4.5)
[2023-01-22 17:42] LABS: CHLORIDE 94 MMOL/L (98-107); POTASSIUM 4.6 MMOL/L (3.6-5.0); SODIUM 134 MMOL/L (135-145)
[2023-01-22 17:43] LABS: CALCIUM 8.4 MG/DL (8.5-10.1)
[2023-01-22 17:44] LABS: GLUCOSE 92 MG/DL (70-105); TOTAL PROTEIN 6.6 GM/DL (6.4-8.2)
[2023-01-22 17:45] LABS: CARBON DIOXIDE 23 MMOL/L (21-32)
[2023-01-22 17:46] LABS: BILIRUBIN,TOTAL < 0.1 MG/DL (0.1-1.0)
[2023-01-22 17:47] LABS: ALKALINE PHOSPHATASE 91 U/L (40-136)
[2023-01-22 17:48] LABS: CREATININE SERUM 6.85 MG/DL (0.60-1.30); GFR ESTIMATED 9
[2023-01-22 17:51] LABS: ALANINE AMINOTRANSFERASE < 6 U/L (0-55)
--- NOTE | 2023-01-22 18:00 | Diagnostic Imaging Report ---
EXAMINATION: CT pelvis without intravenous contrast. TECHNIQUE: Multiple contiguous axial images were obtained through the pelvis without the administration of intravenous contrast. All CT scans use one or more of the following dose optimizing techniques: automated exposure control, MA and/or KvP adjustment based on patient size and exam type or iterative reconstruction. HISTORY: Right inguinal mass. COMPARISON: 06/22/2021. FINDINGS: The visualized bowel is unremarkable without obstruction. There are vascular calcifications of the aorta without aneurysm. The osseous structures are intact. There are prominent bilateral inguinal lymph nodes present. There is mild fluid or edema seen within the soft tissues just lateral to the inguinal canal. There does not appear to be any significant involvement of the inguinal canal itself. There appears to be mild edema or fluid throughout the perineum and scrotum as well. No subcutaneous emphysema is seen. The urinary bladder is unremarkable. The prostate gland is unremarkable. IMPRESSION: 1. Mild fluid or edema within the soft tissues of the right inguinal region without definitive loculated fluid collection or involvement of the inguinal canal itself. 2. Prominent bilateral inguinal lymph nodes which are nonspecific and may be reactive. 3. Mild edema is seen throughout the right inguinal region extending into the perineum and scrotal soft tissues. Dictated by: Dictated on workstation # [id number]
[2023-01-22] MEDS ORDERED: oxyCODONE/ACETAMINOPHEN 5/325MG TABLET PO ONE (19:00)
[2023-01-22] MEDS ORDERED: CEPHALEXIN 250 MG CAPSULE PO ONE (19:00)
[2023-01-22] MEDS ORDERED: DOXY100T2 PO (19:03)
[2023-01-22] MEDS ORDERED: OXYC1TAB87 PO ×2 (19:03→19:08)
[2023-01-22] MEDS ORDERED: CEPH500T PO (19:03)
[2023-01-22 19:16] VITALS: BP 170/91
== END 2023-01-22 19:17 | disposition home or self-care (01) ==
LOC: EDUNIT# 16:27 → ER 16:29
DX: L02.214 Cutaneous abscess of groin (principal); I88.8 Other nonspecific lymphadenitis; J44.9 Chronic obstructive pulmonary disease, unspecified; I12.0 Hypertensive chronic kidney disease with stage 5 chronic kidney disease or end stage renal disease; N18.6 End stage renal disease; F17.210 Nicotine dependence, cigarettes, uncomplicated; Z99.81 Dependence on supplemental oxygen; Z99.2 Dependence on renal dialysis
CPT/HCPCS: 36415; 72192; 80053; 85025; 86141; 87070; 87077; 87186; 87205; 96374; 96376

== ENCOUNTER → 2023-01-27 | Outpatient (CLI) | payer MEDICARE ==
[~2023-01-27] MED LIST changes: +CEPH500T PO; +DOXY100T2 PO; +OXYC1TAB87 PO
--- NOTE | 2023-01-27 11:40 | Diagnostic Imaging Report ---
US RIGHT LOW EXT NONVASC 21011 INDICATION: Right groin swelling. COMPARISON: CT pelvis from 01/22/2023 TECHNIQUE: Targeted ultrasound imaging of the right groin. FINDINGS: There remains a nonloculated and amorphous region of soft tissue swelling along the right inguinal canal correspond to that seen on CT. There are few nonenlarged inguinal lymph nodes in this region. IMPRESSION: There remains an amorphous region of soft tissue swelling along the right inguinal canal which could represent edema. No loculated/drainable fluid collection has developed. Dictated by: Dictated on workstation # [id number]
== END ==
LOC: RAD 09:58
PROVIDERS: ATTEND Surgery
DX: R19.00 Intra-abdominal and pelvic swelling, mass and lump, unspecified site (principal)
CPT/HCPCS: 76881